=== PATIENT | female | born 1950 | race Caucasian/White ===

== ENCOUNTER 2019-09-06 16:13 | Observation (INO) | payer BC, MEDICARE, SELFPAY ==
[2019-09-06] VITALS (9 sets, daily range): BP systolic 164–215; BP diastolic 74–92; PULSE 67–80; RESP 16–20; TEMP 36.5–36.9; O2SAT 87–97; BMI 26.9
--- NOTE | ~2019-09-06 | XR_ITS ---
EXAMINATION: XR chest 2V DATE: 09/06/2019 16:41 INDICATION: Shortness of breath. TECHNIQUE: Frontal and lateral views of the chest were obtained. COMPARISON: Chest 2 views 05/25/2018, CT abdomen 04/09/2013 FINDINGS: There is chronic blunting of right posterior costophrenic angle, consistent with scarring. There is mild atelectasis in left lower lung zone. No pleural effusion or pneumothorax. The heart siz e is normal. Surgical clips in the right upper quadrant are likely from cholecystectomy. IMPRESSION: 1. Mild atelectasis in left lower lung zone and mild scarring at right lung base. Reviewed, dictated and finalized at location A. GE OVER IMPRESSION: 1. Mild atelectasis in left lower lung zone and mild scarring at right lung bas e.
--- NOTE | ~2019-09-06 | NM_ITS ---
EXAMINATION: NM stress w perf spect multi DATE: 09/07/2019 14:41 INDICATION: Chest pain. TECHNIQUE: Rest images were obtained following intravenous administration of 9.1 mCi Tc99m tetrofosmi n (Ticket Hoy). The patient performed an exercise activity. At peak exercise, 30 mCi Tc99m tetrofosmin ( Myoview) was administered intravenously, and stress images were obtained. Data was reconstructed into short axis and horizontal and vertical long axis SPECT images. Gated SPECT images were also obtained . COMPARISON: None. FINDINGS: There is no definite reversible or fixed perfusion abnormality to suggest ischemia or infar ction. There is no segmental wall motion abnormality. Left ventricular ejection fraction measures > 70%. IMPRESSION: 1. No definite ischemia or infarct. 2. Normal left ventricular ejection fraction measuring >70%. Reviewed, dictated and finalized at location A. TERM CARE PHLEBOTOMIST
--- NOTE | 2019-09-06 16:26 | ECG_ITS ---
Measurements Intervals [place] Rate: 75 P: 56 KS: 152 QRS: 34 QRSD: 98 T: 52 QT: 402 QTc: 450 Interpretive Statements SINUS RHYTHM BASELINE ARTIFACT- I, II, AVR, AVL, AVF NORMAL ECG Electronically Signed On 09-06-2019 17:00:32 BUSINESS DEVELOPMENT ASSISTANT by Santiago Ragland D.O.
[2019-09-06 16:33] LABS: Basophils Absolute Auto 0.1 K/mm3 (0.0-0.1); Basophils Percent Auto 0.6 % (0.2-1.2); Eosinophils Absolute Auto 0.3 K/mm3 (0-0.3); Eosinophils Percent Auto 3.4 % (0-4.4); Hematocrit 37.9 % (37.0-47.0); Hemoglobin 11.9 g/dL (12.0-15.0); Immature Granulocyte Absolute 0.01 K/mm3 (0.00-0.031); Immature Granulocyte Percent A 0.1 % (0-0.5); Lymphocytes Absolute Auto 1.16 K/mm3 (0.9-3.2); Mean Corpuscular HGB Conc 31.4 g/dl (32-36); Mean Corpuscular Hemoglobin 29.6 pg (26-34); Mean Corpuscular Volume 94.3 fl (80-100); Mean Platelet Volume 10.4 fl (7.4-10.4); Monocytes Absolute Auto 0.6 K/mm3 (0.1-0.6); Monocytes Percent Auto 7.1 % (2.6-8.5); Neutrophils Absolute Auto 5.7 K/mm3 (1.3-6.7); Neutrophils Percent Auto 73.8 % (45.5-73.1); Platelet Count Result 226 k/mm3 (150-375); Red Blood Count 4.02 M/mm3 (4.2-5.4); Red Cell Distribution Width 14.4 % (11.5-14.5); White Blood Count 7.7 K/mm3 (4.5-10.0)
--- NOTE | 2019-09-06 16:37 | ED.CHESTPAIN ---
HPI - Chest Pain General Chief Complaint: Chest Pain Stated Complaint: CHEST TIGHTNESS Time Seen by Provider: 09/06/19 16:38 Source: patient Mode of arrival: ambulatory Limitations: no limitations History of Present Illness HPI narrative: A 69 y/o female presents to the ED with c/o intermittent nonradiating midsternal CP for 1 week. Pt describes the pain as a tightness in character and notes that it is worse with exertion. Pt is not currently experiencing the CP in the ED bed. Pt's last episode of the pain occurred a couple hours ago and lasted approximately 15-20 minutes. Pt rates the pain as 5/10 in severity. Pt took Symbicort with no relief. Pt notes that her father has a PMHx of an [place]. She denies SOB, sweats, N/V, and a PMHx of asthma. Onset (ago): week(s) (1) Pain location: other (midsternal) Pain radiation: none Pain scale (0-10): 5 Quality: tightness Related Data Home Medications Medication Instructions Recorded Confirmed dexlansoprazole 60 mg 60 mg PO DAILY 08/04/19 09/06/19 capsule,biphase delayed release gabapentin 400 mg capsule 400 mg PO TID 08/04/19 09/06/19 labetalol 200 mg tablet 200 mg PO TID tablet 08/04/19 09/06/19 nifedipine 30 mg tablet,extended 30 mg PO DAILY 08/04/19 09/06/19 release terazosin 10 mg capsule 10 mg PO HS 08/04/19 09/06/19 cyclobenzaprine 5 mg PO HS 09/06/19 09/06/19 Allergies Allergy/AdvReac Type Severity Reaction Status Date / Time adhesive Allergy Mild Rash Verified 09/06/19 16:23 codeine Allergy Mild upset Verified 09/06/19 16:23 stomach potassium chloride Allergy Mild Hives Verified 09/06/19 16:23 Review of Systems Review of Systems: All systems reviewed & are unremarkable except as noted in HPI and below Constitutional: Constitutional: Denies chills, Denies fever(s), Denies headache(s) and Denies weakness Comments: Denies: sweats Eyes: Eyes: Denies blurry vision ENT: Denies headache(s) and Denies neck pain Cardiovascular: Cardiovascular: Reports chest pain (midsternal) and Denies dyspnea Respiratory: Respiratory: Denies cough and Denies dyspnea Gastrointestinal: Gastrointestinal: Denies abdominal pain, Denies diarrhea, Denies nausea and Denies vomiting Genitourinary: Genitourinary: Denies hematuria and Denies dysuria Musculoskeletal: Musculoskeletal: Denies back pain and Denies neck pain Neurologic: Denies headache(s) and Denies weakness [facility] Past Medical History Medical History (Updated 09/07/19 @ 16:17 by Kaykay Morales MD) Anemia Arm fracture, left Bronchitis Chronic back pain Cyst of left kidney Diverticulitis Diverticulosis GERD (gastroesophageal reflux disease) History of blood transfusion HLD (hyperlipidemia) HTN (hypertension) Hyperlipidemia Hypertension MVP (mitral valve prolapse) Neuroma Pneumonia Rectal polyp SBO (small bowel obstruction) Seasonal allergies UTI (urinary tract infection) Surgical History Surgical History H/O dilation and curettage H/O: hysterectomy History of cholecystectomy History of intestinal surgery adhesiolysis of small bowel Hx of appendectomy Hx of colonoscopy Previous back surgery 2 plates and 4 screws Family History Family History Father Family history of diabetes mellitus in first degree relative, Onset Age: 90 Patient's father is Sibling Patient's brother is in good health Patient's brother is Brain aneurysm Mother Osteoporosis Asthma Social History Social History Smoking packs per day: 1 Smoking cigarettes per day: 20.0 Years smoked: 20 Smoking pack-years: 20.00 Smoking status: Former smoker Tobacco type: cigarettes Second hand tobacco smoke exposure: No Smoking end date: 08/05/09 Alcohol intake: current Drinks per week: 2 Substance use: never Gender ident
[2019-09-06 16:50] LABS: Blood Urea Nitrogen 11 mg/dL (7-17); Calcium 9.2 mg/dL (8.4-10.2); Carbon Dioxide 35 mmol/L (22-30); Chloride 98 mmol/L (98-107); Estimated CRCL calculation 73 ml/min; Estimated Glomerular Filt Rate > 60; Glucose 102 mg/dL (65-105); Potassium 3.3 mmol/L (3.4-5.0); Sodium 142 mmol/L (137-145)
[2019-09-06 18:13] LABS: Troponin I < 0.012 ng/mL (0.000-0.034)
[2019-09-06] MEDS: ASPIRIN 81 MG CHEWABLE TABLET 324 MG PO (19:05)
[2019-09-06 20:02] LABS: D Dimer 0.34 ug/mL (<0.48)
[2019-09-06 20:07] LABS: Troponin I < 0.012 ng/mL (0.000-0.034)
--- NOTE | 2019-09-06 22:43 | ADMGEN ---
This patient, Nadia Brown, was admitted to IMU Room 210-01 at 2225 on 09/06/2019. Patient/family oriented to hospital policies and general routines including ID bracelet, bed and alarms, visiting hours, pain management, procedures, bathroom and other care routines, personal items, smoking policy, room service/diet, and visiting hours. Valuables list has been completed. Information on how to activate the Rapid Response Team has been discussed. Patient/Family are encouraged to report perceived risks to care and to ask questions if they do not understand what they are told or what they should do.
[2019-09-07] VITALS (17 sets, daily range): BP systolic 132–194; BP diastolic 61–84; PULSE 62–90; RESP 16–20; TEMP 36.3–36.8; O2SAT 94–99
--- NOTE | 2019-09-07 | ECHO_ITS ---
Patient Info Name: Nadia Brown Age: 69 years : 1950 Gender: Female Ht: 64 in Wt: 158 lbs BSA: 1.82 m2 HR: 72 bpm BP: 183 / 69 mmHg Heart Rhythm: Sinus Rhythm Technical Quality: Good Exam Date: 09/07/2019 10:48 AM Exam Location: [facility] Pulmonary Exam Room: [facility] Patient Status: Outpatient Admit Date: 09/06/2019 Staff Ordering Physician: Josh Rojas MD Children'S Book Author: Cass Mo RDCS Attending Provider: Josh Rojas MD Referring Physician: Bob ARTEAGA; Exam Type: CA echo doppler color flow Study Info Indications - sob Complete two-dimensional, color flow and Doppler transthoracic echocardiogram is performed. Summary 1. Left ventricular systolic function is normal, estimated at 60-65%. 2. Left ventricular chamber dimension is normal. 3. There is mild to moderate mitral valve regurgitation. Left Ventricle Left ventricular chamber dimension is normal. Left ventricular systolic function is normal, estimated at 60-65%. The left ventricular diastolic function is grade I diastolic dysfunction. Right Ventricle Right ventricular chamber dimension is normal. Left Atria Left atrial chamber dimension is mildly enlarged. Right Atria Right atrial chamber dimension is normal. Aortic Valve The aortic valve is trileaflet. There is mild aortic valve sclerosis. Pulmonic Valve The pulmonic valve is not well visualized. Mitral Valve The mitral valve has normal leaflets. There is mild to moderate mitral valve regurgitation. Tricuspid Valve The tricuspid valve leaflets are normal. Pericardium/Pleural The pericardium appears normal. Aorta The aortic root size at the sinus of Valsalva is normal. Left Ventricular Outflow Tract Name Value Normal LVOT 2D LVOT Diameter 2.0 cm LVOT Doppler LVOT Peak Gradient 6 mmHg LVOT Mean Gradient 3 mmHg LVOT VTI 28 cm LVOT VTI/AV VTI Ratio 1.0 LVOT Stroke Volume 89 ml LVOT CO 15.9 l/min LVOT CI 8.8 l/min/m2 Pulmonic Valve Name Value Normal PV Doppler PV Peak Gradient 3 mmHg Mitral Valve Name Value Normal MV Doppler MV Decel [place] 701 cm/s2 MV PHT 58 ms MV Area (PHT) 3.8 cm2 4.0-5.0 MV Diastolic Function MV E Peak Velocity
--- NOTE | 2019-09-07 | EST_ITS ---
Patient Info Name: Nadia Brown Age: 69 years : 1950 Gender: Female Ht: 64 in Wt: 158 lbs BSA: 1.82 m2 Exam Date: 09/07/2019 1:25 PM Exam Location: [facility] Stress Patient Status: Inpatient Admit Date: 09/06/2019 Staff Ordering Physician: Josh Rojas MD Attending Provider: Josh Rojas MD Exercise Technologist: Yoanna Jay RDCS Nurse: Ursula Duenas ANP, ACNP- Exam Type: CA stress florian w NM Study Info Indications R07.89 - Other chest pain A regadenoson stress test was performed. Summary 1. Normal sinus rhythm - normal ECG. 2. No abnormal ST/T wave changes with exercise. 3. Myocardial perfusion imaging study to be reported by the Radiology Department. Protocol: Lexiscan Stress ECG Details Stage: REST Duration (min): 1 min : 50 sec HR (bpm): 76 SBP (mmHg): 221 DBP (mmHg): 91 Stage: REST Duration (min): 6 min : 24 sec HR (bpm): 74 SBP (mmHg): 221 DBP (mmHg): 91 Stage: STAGE 1 Duration (min): 1 min : 0 sec HR (bpm): 88 SBP (mmHg): 221 DBP (mmHg): 91 Stage: RECOVERY Duration (min): 1 min : 0 sec HR (bpm): 95 SBP (mmHg): 197 DBP (mmHg): 82 Stage: RECOVERY Duration (min): 2 min : 0 sec HR (bpm): 95 SBP (mmHg): 182 DBP (mmHg): 82 Stage: RECOVERY Duration (min): 3 min : 0 sec HR (bpm): 92 SBP (mmHg): 196 DBP (mmHg): 84 Stage: RECOVERY Duration (min): 4 min : 0 sec HR (bpm): 89 SBP (mmHg): 196 DBP (mmHg): 84 Stage: RECOVERY Duration (min): 5 min : 0 sec HR (bpm): 86 SBP (mmHg): 201 DBP (mmHg): 88 Stage: RECOVERY Duration (min): 5 min : 7 sec HR (bpm): 85 SBP (mmHg): 201 DBP (mmHg): 88 Rest HR: 74 bpm Peak HR: 96 bpm Rest Sys BP: 221 mmHg Peak Sys BP: 201 mmHg Max Pred HR: 149 bpm % Max Pred HR: 64 % Target HR: 127 bpm Max RPP: 19,296 bpm*mmHg BP Response: Normal blood pressure response Termination Reason: Completed protocol Cardiac Symptoms: None Total Time: 1 min : 0 sec Rest Peng BP: 91 mmHg Peak Peng BP: 88 mmHg Total Dose: 0.4 mg Resting ECG Normal sinus rhythm - normal ECG. Stress ECG No abnormal ST/T wave changes with exercise. Arrhythmias None. Report Signatures
[2019-09-07] MEDS: ACETAMINOPHEN 325 MG TABLET 650 MG PO (00:03)
[2019-09-07] MEDS: LABETALOL HCL 100 MG TABLET 400 MG PO ×2 (00:03→08:10)
[2019-09-07 00:27] LABS: Troponin I < 0.012 ng/mL (0.000-0.034)
[2019-09-07] MEDS: ASPIRIN 81 MG CHEWABLE TABLET PO (08:10)
--- NOTE | 2019-09-07 10:08 | PM.IMHP ---
H&P: HPI History of Present Illness Chief complaint: chest pain Narrative: Date of service: 09/07/2019 Nadia Brown is a 69 year old female with a history of hypertension as well as asthma. She states that about a month ago she started have a viral illness. She did develop a cough since then that has slowly improved. She does have a history of asthma also. About a week ago she started to develop some anterior chest tightness. Chest tightness occurs with exertion and improved with rest. If she walks up and down stairs, she will become dyspneic with chest tightness or if she is grocery shopping. She has no associated nausea or diaphoresis. Her chest tightness does not radiate into her arm back neck or jaw. Symptoms will last for about 3-5 minutes and gradually subsided after rest. she denies any syncope, presyncope, paroxysmal nocturnal dyspnea, orthopnea, edema or palpitations. Review of Systems Review of Systems: All systems reviewed & are unremarkable except as noted in HPI and below Constitutional: Constitutional: Denies weakness Eyes: Eyes: Denies blurry vision ENT: Reports Normal hearing present and Denies epistaxis Cardiovascular: Cardiovascular: Reports chest pain Respiratory: Respiratory: Reports dyspnea Gastrointestinal: Gastrointestinal: Denies abdominal pain Genitourinary: Genitourinary: Denies flank pain Musculoskeletal: Musculoskeletal: Reports back pain and Denies neck pain Neurologic: Denies headache(s) Psychiatric: Psychiatric: Denies anxiety and Denies confusion Endocrine: Endocrine: Denies cold intolerance Hematologic/Lymphatic: Hematologic/Lymphatic: Denies easy bleeding Allergic/Immunologic: Allergic/Immunologic: Denies GI upset with certain foods and Denies urticaria PMFSH Past Medical History Medical History Anemia Arm fracture, left Bronchitis Chronic back pain Cyst of left kidney Diverticulitis Diverticulosis GERD (gastroesophageal reflux disease) History of blood transfusion HLD (hyperlipidemia) HTN (hypertension) MVP (mitral valve prolapse) Neuroma Pneumonia Rectal polyp SBO (small bowel obstruction) Seasonal allergies UTI (urinary tract infection) Surgical History Surgical History H/O dilation and curettage H/O: hysterectomy History of cholecystectomy History of intestinal surgery adhesiolysis of small bowel Hx of appendectomy Hx of colonoscopy Previous back surgery 2 plates and 4 screws Family History Family History Father Family history of diabetes mellitus in first degree relative, Onset Age: 90 Patient's father is Sibling Patient's brother is in good health Patient's brother is Brain aneurysm Mother Osteoporosis Asthma Social History Social History Smoking packs per day: 1 Smoking cigarettes per day: 20.0 Years smoked: 20 Smoking pack-years: 20.00 Smoking status: Former smoker Tobacco type: cigarettes Second hand tobacco smoke exposure: No Smoking end date: 08/05/09 Alcohol intake: current Drinks per week: 2 Substance use: never Gender identity (if verbalized by the patient): Female Spiritual care concerns: No Agree to blood products: Yes Meds Home Medications and Allergies Home Medications Medication Instructions Recorded Confirmed Type hydrocodone 10 mg-acetaminophen 1 tablet PO Q8H PRN #30 tablet 06/12/19 09/06/19 Rx 325 mg tablet rosuvastatin 10 mg tablet 10 mg PO DAILY #90 tablet 06/15/19 09/06/19 Rx valsartan 320 1 tablet PO DAILY #90 tablet 07/06/19 09/06/19 Rx mg-hydrochlorothiazide 25 mg tablet albuterol sulfate 90 mcg/actuation 2 puff INHALATION Q4-6H PRN #8.5 gm 08/04/19 09/06/19 Rx aerosol inhaler benzonatate 200 mg capsule 200 mg
[2019-09-07] MEDS: hydroCHLOROthiazide 25 MG TABLET PO (12:11)
[2019-09-07] MEDS: ROSUVASTATIN 10 MG TABLET PO (12:11)
[2019-09-07] MEDS: VALSARTAN 160 MG TABLET 320 MG PO (12:12)
[2019-09-07] MEDS: GABAPENTIN 400 MG CAPSULE PO ×2 (12:12→14:28)
[2019-09-07] MEDS: PANTOPRAZOLE 40 MG TABLET PO (12:12)
[2019-09-07] MEDS: NIFEdipine 30 MG TAB.ER.24 PO (12:12)
[2019-09-07] MEDS: LABETALOL HCL 100 MG TABLET 200 MG PO (14:28)
--- NOTE | 2019-09-07 15:47 | PM.DS ---
DS: Diagnosis Admitting Diagnosis Admitting Diagnosis: Chest pain Essential (primary) hypertension Discharge Diagnosis (1) Hypertension: Qualifiers: Hypertension type: essential hypertension Qualified Code(s): I10 - Essential (primary) hypertension Code(s): I10 - Essential (primary) hypertension Status: Acute Assessment and Plan: Above goal. Will restart her valsartan/hydrochlorothiazide, labetalol, terazosin (2) Chest pain: Qualifiers: Chest pain type: other chest pain Qualified Code(s): R07.89 - Other chest pain Code(s): R07.9 - Chest pain, unspecified Status: Acute Assessment and Plan: Troponin negative x3 Lexiscan stress test done due to elevated blood pressure unable to walk her on the treadmill. Stress test is negative for ischemia. Echocardiogram: Systolic function is normal. EF estimated 60-65%. LV chamber dimension is normal. Mild to moderate mitral regurgitation. (3) Dyspnea on exertion: Code(s): R06.09 - Other forms of dyspnea Status: Acute Assessment and Plan: Echo as above (4) Hyperlipidemia: Qualifiers: Hyperlipidemia type: mixed hyperlipidemia Qualified Code(s): E78.2 - Mixed hyperlipidemia Code(s): E78.5 - Hyperlipidemia, unspecified Status: Acute Assessment and Plan: On statin (5) Hypokalemia: Code(s): E87.6 - Hypokalemia Status: Acute Assessment and Plan: Potassium supplemented DS: Summary Hospital Course Reason for hospitalization: Chest pain Hospital Course: With a history of hypertension as well as asthma. She was admitted to the hospital for evaluation of chest tightness. Her blood pressure was also noted to be elevated. Troponin negative x3. No acute EKG changes. Nuclear treadmill stress test was ordered but due to her elevated blood pressure she was not able to be walked on the treadmill. Lexiscan stress test was performed which was negative for ischemia. Echocardiogram was unremarkable. Potassium was supplemented even though she listed as an allergy. She could not recall what type of reaction she may have had to potassium supplementation. She was observed after potassium supplementation without rash, difficulty swallowing, lip swelling or shortness of breath. She was discharged home in stable and pain-free condition. BMP will be done as an outpatient. She will follow up in the office. Status at Discharge Functional status at discharge: independent ambulation Time Spent with Patient Time attestation: Total time spent providing and/or coordinating discharge services: 35 minutes Time spent: Greater than 30 minutes Exam Narrative: Exam Narrative: Alert and oriented. Appears to be in no acute distress Const: General: comfortable; No confusion Orientation/consciousness: No confusion HENMT: General nose exam: Normal nares present and no epistaxis Eyes: Sclera: sclerae normal Neck: Neck: supple and no JVD Chest: Other: No reproducible chest wall pain to palpation Resp: Auscultation: wheezes Other: A few scant wheezes are heard Cardio: Rate: regular rate Rhythm: regular rhythm Skin: General skin exam: normal color and no erythema Neuro: General: No confusion Cranial nerves: Yes Normal hearing present Cognition (Neuro): normal cognition Speech: normal speech Motor exam (neuro): 5/5 motor strength present throughout Extrem: General: normal to inspection, normal exam except as noted, no edema and no pedal edema Psych: Mental Status: mental status grossly normal Affect: normal affect DS: Data Data Completed and Pending Labs on day of discharge: Labs from last 24 hours 09/06/19 09/06/19 09/06/19 23:30 19:37 16:28 WBC RBC Hgb Hct MCV MCH MCHC RDW Plt
[2019-09-07] MEDS: POTASSIUM CHLORIDE 20 MEQ TABLET 40 MEQ PO (16:06)
== END 2019-09-07 18:10 | disposition home or self-care (01) ==
LOC: ANHED 20:56 → ANHIMU 21:28
PROVIDERS: Admitting Provider Internal Medicine Cardiovascular Disease; Emergency Provider Emergency Medicine; PCP Internal Medicine; Visit Provider Internal Medicine Cardiovascular Disease
DX: R07.89 Other chest pain (principal); R06.09 Other forms of dyspnea; I10 Essential (primary) hypertension; J45.909 Unspecified asthma, uncomplicated; E78.5 Hyperlipidemia, unspecified; E87.6 Hypokalemia; I34.0 Nonrheumatic mitral (valve) insufficiency; Z87.891 Personal history of nicotine dependence
CPT/HCPCS: 36415; 71046; 78452; 80048; 84484; 85025; 85380; 93005; 93017; 93306; 99285; A9270; A9502; G0378; J0280; J2785

== ENCOUNTER 2019-10-19 12:23 | Outpatient (CLI) | payer BC, MEDICARE, SELFPAY ==
--- NOTE | 2019-10-20 11:49 | WPDPFTINT ---
PFT Interpretation PFT Interpretation: This PFT met all criteria for ATS standards and reproducibility FEV/FVC post bronchodilator 64% FEV1 49% or 0.98 liters FVC 54% or 1.52 liters TLC 92% or 4.42 Liters RV 155% RV/TLC 68% DLCO 66% or 13.5 liters when adjusted for alveolar volume but not adjusted for hemoglobin Flow volume loops showed significant expiratory coving Impression: Severe airflow obstruction with air trapping and mildly reduced diffusion capacity. This pattern is consistent with COPD. Clinical correlation is advised.
== END 2019-10-19 12:24 | disposition home or self-care (01) ==
PROVIDERS: PCP Internal Medicine; Visit Provider Physician Assistant
DX: R07.89 Other chest pain (principal); R94.2 Abnormal results of pulmonary function studies
CPT/HCPCS: 94060; 94726; 94729

== ENCOUNTER 2020-01-08 12:25 | Outpatient (CLI) | payer BC, MEDICARE, SELFPAY ==
[2020-01-08 12:54] LABS: Blood Urea Nitrogen 18 mg/dL (7-17); Calcium 9.1 mg/dL (8.4-10.2); Carbon Dioxide 33 mmol/L (22-30); Chloride 102 mmol/L (98-107); Estimated Glomerular Filt Rate > 60; Glucose 97 mg/dL (65-105); Potassium 3.6 mmol/L (3.4-5.0); Sodium 141 mmol/L (137-145)
== END 2020-01-08 12:26 | disposition home or self-care (01) ==
PROVIDERS: Anesthesiology; PCP Internal Medicine; Visit Provider Surgery Plastic and Reconstructive Surgery
DX: Z01.818 Encounter for other preprocedural examination (principal); Z79.899 Other long term (current) drug therapy
CPT/HCPCS: 36415; 80048

== ENCOUNTER 2020-01-12 00:34 | Outpatient (CLI) | payer BC, MEDICARE, SELFPAY ==
[2020-01-12 18:58] LABS: SARS-CoV-2 RNA PCR Negative
== END 2020-01-12 00:35 | disposition home or self-care (01) ==
LOC: ANHCOVIDDT 00:35
PROVIDERS: PCP Internal Medicine; Visit Provider Surgery Plastic and Reconstructive Surgery
DX: Z01.812 Encounter for preprocedural laboratory examination (principal); Z20.828 Contact with and (suspected) exposure to other viral communicable diseases
CPT/HCPCS: 87635; C9803; U0003

== ENCOUNTER 2020-01-14 01:51 | Day surgery (SDC) | payer BC, MEDICARE, SELFPAY ==
[2020-01-07 12:45] VITALS: BMI 29.2
[2020-01-14] MEDS: LACTATED RINGERS 1,000 ML 30 ML IV CONT (08:00)
[2020-01-14 08:07] VITALS: BP 156/67; PULSE 65; RESP 16; TEMP 36.6; O2SAT 94
--- NOTE | 2020-01-14 09:15 | WPDANESEPPF ---
Anes - Initial Pre Proc Eval Procedure: Operation Date: 01/14/20 09:30 Proposed Procedures p Excision of Subcutaneous Mass of Forehead - Chuckie Ford MD Date/Time: 01/14/20 09:15 Surgeon: Chuckie Ford MD Pre Op Diagnosis: subcautaneous mass forehead Patient Data Age: 69 Gender: F Height: 5 ft 4 in Weight: 77.4 kg Last Vital Signs Temp 36.6 C 01/14/20 08:07 Pulse 65 01/14/20 08:07 Resp 16 01/14/20 08:07 BP 156/67 H 01/14/20 08:07 Pulse Ox 94 01/14/20 08:07 Allergies Allergy/AdvReac Type Severity Reaction Status Date / Time adhesive Allergy Mild Rash Verified 01/14/20 07:40 codeine AdvReac Mild upset Verified 01/14/20 07:40 stomach Home Medications Medication Instructions Recorded Confirmed Type dexlansoprazole 60 mg 60 mg PO DAILY 08/04/19 01/14/20 History capsule,biphase delayed release gabapentin 400 mg capsule 400 mg PO TID 08/04/19 01/14/20 History labetalol 200 mg tablet 200 mg PO TID tablet 08/04/19 01/14/20 History nifedipine 30 mg tablet,extended 30 mg PO DAILY 08/04/19 01/14/20 History release terazosin 10 mg capsule 10 mg PO HS 08/04/19 01/14/20 History cyclobenzaprine 5 mg PO HS 09/06/19 01/14/20 History aspirin 81 mg tablet,delayed 81 mg PO DAILY 09/29/19 01/14/20 History release azelastine 137 mcg (0.1 %) nasal 2 spray NASAL Q12H #90 ml 10/23/19 01/14/20 Rx spray aerosol budesonide-formoterol HFA 160 2 puff INHALATION Q12H #10.2 gm 12/02/19 01/14/20 Rx mcg-4.5 mcg/actuation aerosol inhaler tiotropium bromide 2.5 2 puff INHALATION DAILY #4 gm 12/02/19 01/14/20 Rx mcg/actuation mist for inhalation rosuvastatin 10 mg tablet 10 mg PO DAILY #90 tablet 12/11/19 01/14/20 Rx valsartan 320 1 tablet PO DAILY #90 tablet 12/27/19 01/14/20 Rx mg-hydrochlorothiazide 25 mg tablet docusate sodium 100 mg capsule 100 mg PO BID 7 Days #14 cap 01/11/20 01/14/20 Rx hydrocodone 5 mg-acetaminophen 325 1 tablet PO Q6H PRN #15 tablet 01/11/20 01/14/20 Rx mg tablet ondansetron HCl 4 mg tablet 4 mg PO Q6H PRN #30 tablet 01/11/20 01/14/20 Rx Patient hx anesthesia problems: none Family hx anesthesia problems: none PMFSH Past Medical History Medical History Anemia Arm fracture, left Bronchitis Chronic back pain Cyst of left kidney Diverticulitis Diverticulosis GERD (gastroesophageal reflux disease) History of blood transfusion HLD (hyperlipidemia) HTN (hypertension) Hyperlipidemia Hypertension MVP (mitral valve prolapse) Neuroma Pneumonia Rectal polyp SBO (small bowel obstruction) Seasonal allergies UTI (urinary tract infection) Surgical History Surgical History H/O dilation and curettage H/O: hysterectomy History of cholecystectomy History of intestinal surgery adhesiolysis of small bowel Hx of appendectomy Hx of colonoscopy Previous back surgery 2 plates and 4 screws Family History Family History Father Family history of diabetes mellitus in first degree relative, Onset Age: 90 Patient's father is Sibling Patient's brother is in good health Patient's brother is Brain aneurysm Mother Osteoporosis Asthma Social History Social History Smoking packs per day: 1 Smoking cigarettes per day: 20.0 Years smoked: 20 Smoking pack-years: 20.00 Smoking status: Former smoker Tobacco type: cigarettes Second hand tobacco smoke exposure: No Smoking end date: 08/05/09 Alcohol intake: current Drinks per week: 2 Substance use: never Gender identity (if verbalized by the patient): Female Spiritual care concerns: No Agree to blood products: Yes Anes - Eval Final PreProcedure Day of Procedure 01/14/20 09:15 Patient weight: overweight Heart: regular rate
--- NOTE | 2020-01-14 09:44 | P.OP_ITS ---
Procedure Note - Detailed Date of procedure: 01/14/20 Pre-op diagnosis: subcautaneous mass forehead Post-op diagnosis: same Procedure performed: Excision right forehead subcutaneous mass submuscular 3.4cm. Description of procedure: Patient was marked in the preoperative holding area with her verification. She was taken to the operating room placed supine on the operating room table. Anesthesia provided by anesthesiology and prepped and d raped in a standard sterile fashion. Surgical time-out was taken. 1% lidocaine and 0.25% Marcaine with epinephrine was used anesthetize locally. A 15 blade used to make an incision over the mass. Dissection continued down with transverse skin incision, vertical splitting muscle in the direction of the fibers until the wall was identified this completely removed and sent to pathology. I closed with 4-0 Biosyn and 5 0 nylon. She tolerated well. Anesthesia: MAC Surgeon: Chuckie Ford MD Estimated blood loss (mL): 3 Drains: No Packing: No Pathology: yes (Subcutaneous mass) Complications: No immediate complications Condition: stable Disposition: PACU Findings: Appearance of a Lipoma
--- NOTE | 2020-01-14 09:44 | WPDHPUPDATE1 ---
History and Physical Update Update Date/Time: 01/14/20 09:44 History and Physical has been reviewed, including an updated exam of the patient. There are NO changes in the patient's condition. Risks, benefits, and alternatives have been discussed and questions answered. Patient agrees to proceed with procedure.
--- NOTE | 2020-01-14 09:46 | SUR.PREOP ---
Up to bathroom.
[2020-01-14] MEDS: ceFAZolin 2 GM/D5W 50 ML 2 GM/50 ML BAG IVPB (10:03)
[2020-01-14] MEDS: LIDO 1%/EPINEPHRINE 1:100,000 20 ML VIAL INFILTRATE (10:20)
[2020-01-14 10:40] VITALS: BP 119/52; PULSE 65; RESP 16; O2SAT 94
[2020-01-14 11:10] VITALS: BP 145/64; PULSE 64; RESP 16
== END 2020-01-14 11:15 | disposition home or self-care (01) ==
PROVIDERS: PCP Internal Medicine; Visit Provider Surgery Plastic and Reconstructive Surgery
PROC: (CPT 21012; principal; 2020-01-14 09:30)
DX: D17.0 Benign lipomatous neoplasm of skin and subcutaneous tissue of head, face and neck (principal); I10 Essential (primary) hypertension; E78.5 Hyperlipidemia, unspecified; D64.9 Anemia, unspecified; K21.9 Gastro-esophageal reflux disease without esophagitis; I34.1 Nonrheumatic mitral (valve) prolapse; Z79.82 Long term (current) use of aspirin; Z87.891 Personal history of nicotine dependence
CPT/HCPCS: 21012; 88304; A9270; J0690; J2250; J2704; J3010; J7120

== ENCOUNTER 2020-07-12 00:25 | Outpatient (CLI) | payer BC, MEDICARE, SELFPAY ==
[2020-07-12 18:51] LABS: SARS-CoV-2 RNA PCR Negative
== END 2020-07-12 00:26 | disposition home or self-care (01) ==
LOC: ANHCOVIDDT 00:26
PROVIDERS: PCP Internal Medicine; Visit Provider Internal Medicine Gastroenterology
DX: Z01.812 Encounter for preprocedural laboratory examination (principal); Z20.828 Contact with and (suspected) exposure to other viral communicable diseases
CPT/HCPCS: 87635; C9803; U0003

== ENCOUNTER 2020-07-15 00:40 | Day surgery (SDC) | payer BC, MEDICARE, SELFPAY ==
[2020-07-06 13:27] VITALS: BMI 29.2
[2020-07-15 06:42] VITALS: BP 178/73; PULSE 66; RESP 20; TEMP 36.2; O2SAT 97
[2020-07-15] MEDS: LACTATED RINGERS 1,000 ML 150 ML IV CONT (06:55)
--- NOTE | 2020-07-15 07:52 | WPDANESEPPF ---
Anes - Initial Pre Proc Eval Procedure: Operation Date: 07/15/20 08:00 Proposed Procedures p Screening Colonoscopy - Tito Angela MD Date/Time: 07/15/20 07:52 Surgeon: Tito Angela MD Pre Op Diagnosis: Neoplasm Screening,Hx of Colon Polyp Patient Data Age: 70 Gender: F Height: 5 ft 4 in Weight: 78.4 kg Last Vital Signs Temp 97.2 F L 07/15/20 06:42 Pulse 66 07/15/20 06:42 Resp 20 07/15/20 06:42 BP 178/73 H 07/15/20 06:42 Pulse Ox 97 07/15/20 06:42 Allergies Allergy/AdvReac Type Severity Reaction Status Date / Time adhesive Allergy Mild Rash Verified 07/15/20 06:40 codeine AdvReac Mild upset Verified 07/15/20 06:40 stomach Home Medications Medication Instructions Recorded Confirmed Type gabapentin 400 mg capsule 400 mg PO TID 08/04/19 07/06/20 History labetalol 200 mg tablet 200 mg PO TID tablet 08/04/19 07/06/20 History nifedipine 30 mg tablet,extended 30 mg PO DAILY 08/04/19 07/06/20 History release aspirin 81 mg tablet,delayed 81 mg PO DAILY 09/29/19 07/06/20 History release valsartan 320 1 tablet PO DAILY #90 tablet 12/27/19 07/06/20 Rx mg-hydrochlorothiazide 25 mg tablet terazosin 10 mg capsule 10 mg PO HS #90 cap 05/30/20 07/06/20 Rx fluticasone furoate-vilanterol 25 - 100 ea INHALATION DAILY 07/06/20 07/06/20 History [Breo Ellipta] oxybutynin chloride 10 mg PO DAILY 07/06/20 07/06/20 History rosuvastatin 10 mg tablet 10 mg PO DAILY #90 tablet 07/11/20 Rx Patient hx anesthesia problems: none Family hx anesthesia problems: none PMFSH Past Medical History Medical History Anemia Arm fracture, left 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 Bronchitis Chronic back pain Cyst of left kidney Diverticulitis Diverticulosis GERD (gastroesophageal reflux disease) History of blood transfusion HLD (hyperlipidemia) HTN (hypertension) Hyperlipidemia Hypertension MVP (mitral valve prolapse) Neuroma Pneumonia Rectal polyp SBO (small bowel obstruction) Seasonal allergies UTI (urinary tract infection) Surgical History Surgical History H/O dilation and curettage H/O: hysterectomy History of cholecystectomy History of intestinal surgery adhesiolysis of small bowel Hx of appendectomy Hx of colonoscopy Previous back surgery 2 plates and 4 screws Family History Family History Father Family history of diabetes mellitus in first degree relative, Onset Age: 90 Patient's father is Sibling Patient's brother is in good health Patient's brother is Brain aneurysm Mother Osteoporosis Asthma Social History Social History Smoking packs per day: 1 Smoking cigarettes per day: 20.0 Years smoked: 20 Smoking pack-years: 20.00 Smoking status: Former smoker Tobacco type: cigarettes Second hand tobacco smoke exposure: No Smoking end date: 08/05/09 Alcohol intake: current Drinks per week: 2 Substance use: never Substance use type: does not use Living arrangements: with family Gender identity (if verbalized by the patient): Female Spiritual care concerns: No Agree to blood products: Yes Anes - Eval Final PreProcedure Day of Procedure 07/15/20 07:52 Patient weight: obese Heart: regular rate and rhythm Lungs: clear to auscultation Airway: Mallampati scale class III Neurological: alert and oriented Last oral intake: >/= 8 hours ASA classification: III Emergent: no Anesthetic plan: proceed Anesthesia type and monitoring: general GIVS and standard monitoring Informed Consent: The patient's anesthetic plan and its attendant risks and benefits were discussed with the patient/family/POA. Questions were solicited and answers provided to the satisfaction of the patient/family/P
--- NOTE | 2020-07-15 08:04 | WPDGICN ---
Assessment and Plan Assessment and plan (1) History of colon polyps: Code(s): Z86.010 - Personal history of colonic polyps Status: Acute Assessment and Plan: Patient has a history of colon polyps. Plan is for surveillance colonoscopy at this time. GI Consult Note Consult date/time: 07/15/20 08:04 HPI: Nadia Brown is a 70 year old female Presents for screening colonoscopy. Patient has a distant history of colon polyps. Patient reports that her current weight appetite bowel movements are normal. She denies abdominal pain. She has had no bleeding. Family history is noncontributory. Patient's last exam 5 years ago was unremarkable. Patient presents today for surveillance colonoscopy. 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 Bronchitis Chronic back pain Cyst of left kidney Diverticulitis Diverticulosis GERD (gastroesophageal reflux disease) History of blood transfusion HLD (hyperlipidemia) HTN (hypertension) Hyperlipidemia Hypertension MVP (mitral valve prolapse) Neuroma Pneumonia Rectal polyp SBO (small bowel obstruction) Seasonal allergies UTI (urinary tract infection) Surgical History Surgical History H/O dilation and curettage H/O: hysterectomy History of cholecystectomy History of intestinal surgery adhesiolysis of small bowel Hx of appendectomy Hx of colonoscopy Previous back surgery 2 plates and 4 screws Family History Family History Father Family history of diabetes mellitus in first degree relative, Onset Age: 90 Patient's father is Sibling Patient's brother is in good health Patient's brother is Brain aneurysm Mother Osteoporosis Asthma Social History Social History Smoking packs per day: 1 Smoking cigarettes per day: 20.0 Years smoked: 20 Smoking pack-years: 20.00 Smoking status: Former smoker Tobacco type: cigarettes Second hand tobacco smoke exposure: No Smoking end date: 08/05/09 Alcohol intake: current Drinks per week: 2 Substance use: never Substance use type: does not use Living arrangements: with family Gender identity (if verbalized by the patient): Female Spiritual care concerns: No Agree to blood products: Yes Meds Home Medications and Allergies Home Medications Medication Instructions Recorded Confirmed Type gabapentin 400 mg capsule 400 mg PO TID 08/04/19 07/06/20 History labetalol 200 mg tablet 200 mg PO TID tablet 08/04/19 07/06/20 History nifedipine 30 mg tablet,extended 30 mg PO DAILY 08/04/19 07/06/20 History release aspirin 81 mg tablet,delayed 81 mg PO DAILY 09/29/19 07/06/20 History release valsartan 320 1 tablet PO DAILY #90 tablet 12/27/19 07/06/20 Rx mg-hydrochlorothiazide 25 mg tablet terazosin 10 mg capsule 10 mg PO HS #90 cap 05/30/20 07/06/20 Rx fluticasone furoate-vilanterol 25 - 100 ea INHALATION DAILY 07/06/20 07/06/20 History [Breo Ellipta] oxybutynin chloride 10 mg PO DAILY 07/06/20 07/06/20 History rosuvastatin 10 mg tablet 10 mg PO DAILY #90 tablet 07/11/20 Rx Allergies Allergy/AdvReac Type Severity Reaction Status Date / Time adhesive Allergy Mild Rash Verified 07/15/20 06:40 codeine AdvReac Mild upset Verified 07/15/20 06:40 stomach Vital Signs Vital Signs - 24 hr 07/15/20 06:42 Temperature 97.2 F L Pulse Rate 66 Respiratory Rate 20 Blood Pressure 178/73 H Pulse Oximetry 97 Exam Narrative: Exam Narrative: Physical exam reveals patient to be alert. Vital signs stable. HEENT exam unremarkable. Lungs are clear to auscultation and percussion. Heart is without murmur or extra sounds. Abdominal exam bowel sounds are
[2020-07-15 08:33] VITALS: BP 132/60; PULSE 68; RESP 19; O2SAT 96
[2020-07-15 08:43] VITALS: BP 131/66; PULSE 62; O2SAT 96
[2020-07-15 08:53] VITALS: BP 131/64; PULSE 56; RESP 16; O2SAT 96
== END 2020-07-15 09:07 | disposition home or self-care (01) ==
PROVIDERS: PCP Internal Medicine; Visit Provider Internal Medicine Gastroenterology
PROC: 0DJD8ZZ Inspection of Lower Intestinal Tract, Via Natural or Artificial Opening Endoscopic (ICD-10-PCS; CPT 45378; principal; 2020-07-15 08:00)
DX: Z12.11 Encounter for screening for malignant neoplasm of colon (principal); D12.2 Benign neoplasm of ascending colon; K63.5 Polyp of colon; I10 Essential (primary) hypertension; E78.5 Hyperlipidemia, unspecified; I34.1 Nonrheumatic mitral (valve) prolapse; D64.9 Anemia, unspecified; K21.9 Gastro-esophageal reflux disease without esophagitis; Z87.891 Personal history of nicotine dependence; Z79.82 Long term (current) use of aspirin; K64.8 Other hemorrhoids; K57.30 Diverticulosis of large intestine without perforation or abscess without bleeding; E66.9 Obesity, unspecified; Z68.29 Body mass index [BMI] 29.0-29.9, adult
CPT/HCPCS: 45385; 88305; J2704; J7120

== ENCOUNTER 2020-08-17 10:53 | Outpatient (CLI) | payer BC, MEDICARE, SELFPAY ==
--- NOTE | ~2020-08-17 | XR_ITS ---
EXAMINATION: XR chest 2V DATE: 08/17/2020 11:14 INDICATION: Shortness of breath TECHNIQUE: PA and lateral views of the chest are obtained. COMPARISON: 09/06/2019 FINDINGS: The lungs are free of acute opacities. There is no pleural effusion or pneumothorax. The ca rdiomediastinal silhouette is normal. There is mild thoracic spondylosis. IMPRESSION: 1. No acute cardiopulmonary abnormality. Reviewed, dictated and finalized at location A. [employer]
== END 2020-08-17 10:54 | disposition home or self-care (01) ==
LOC: ANHIMG 10:58
PROVIDERS: PCP Internal Medicine; Visit Provider Nurse Practitioner Family
DX: R06.02 Shortness of breath (principal)
CPT/HCPCS: 71046

== ENCOUNTER → 2020-08-24 10:56 | Outpatient (CLI) | payer BC, MEDICARE, SELFPAY ==
--- NOTE | ~2020-08-24 | DEXA_ITS ---
Bone Density Report Name: Nadia Brown Age: 70 Sex: Female Ethnicity: White Date of : 1950 Indication: postmenopausal; screening for osteoporosis; height loss; hysterectomy; Referring Provider: Alley Berger Study: Bone densitometry was performed. Exam Date: August 24, 2020 Accession number: [id number] Bone Density: Region BMD T-score Z-score Classification AP Spine (L1-L4) 1.188 1.3 3.5 Normal Femoral Neck (Left) 0.893 0.4 2.3 Normal Total Hip (Left) 1.029 0.7 2.3 Normal Femoral Neck (Right) 0.769 -0.7 1.2 Normal Total Hip (Right) 0.931 -0.1 1.5 Normal Total Hip Mean 0.980 0.3 1.9 Normal World Health Organization criteria for BMD impression classify patients as: Normal (T-score at or above -1.0), Osteopenia (T-score between -1.0 and -2.5), or Osteoporosis (T-score at or below -2.5). 10-year Fracture Risk: FRAX not reported because: All T-scores for Spine Total, Hip Total, Femoral Neck at or above -1.0 Previous Exams: Region Exam Age BMD T-score BMD Change BMD Change Date g/cm2 vs Baseline vs Previous AP Spine(L1-L4) 08/24/2020 70 1.188 1.3 -0.014 -0.014 07/20/2002 52 1.202 1.4 Total Hip(Left) 08/24/2020 70 1.029 0.7 -0.010 -0.025 05/26/2013 63 1.054 0.9 0.014 0.014 07/20/2002 52 1.040 0.8 Total Hip(Right) 08/24/2020 70 0.931 -0.1 -0.042 -0.056* 05/26/2013 63 0.986 0.4 0.014 0.014 07/20/2002 52 0.973 0.3 *Denotes significance at 95% confidence level, LSC for AP Spine = 0.022 g/cm2, LSC for Total Hip = 0.027 g/cm2 Clinical Information Provided by Patient: Has the following medical conditions: Hysterectomy Patient maximum height was 64 Menopause Age: 27 No regular weight bearing exercise Does not regularly consume dairy products Onset of menses at age 12 Number of children 1 Impression: The patient has normal bone mass. The BMD for the Total Hip(Right) decreased, changing by -0.056 since the last DXA exam. Discussion: BONE DENSITY IS ABOVE THE MINIMUM DESIRABLE LEVEL AT ALL SKELETAL SITES TESTED. This patient?s bone mineral density is above the minimum desirable level (T-score -1.0 or better) at all sites measured. The patient should follow a healthful lifestyle (good nutrition with adequate calcium and vitamin D, and appropriate weight-bearing exercise). Follow-Up: Consider repeating this study
== END ==
PROVIDERS: PCP Internal Medicine; Visit Provider Obstetrics & Gynecology
DX: N95.1 Menopausal and female climacteric states (principal)
CPT/HCPCS: 77080

== ENCOUNTER 2020-12-20 08:34 | Outpatient (CLI) | payer BC, MEDICARE, SELFPAY ==
--- NOTE | ~2020-12-20 | CT_ITS ---
EXAMINATION: CT abdomen pelvis w con EXAM DATE: 12/20/2020 09:17 INDICATION: Epigastric pain, intermittent for 6 months . TECHNIQUE: Spiral CT of the abdomen and pelvis was performed following intravenous injection of 100 m L Omnipaque 350. Axial, coronal and sagittal images of the abdomen and pelvis were reviewed. The do se-length product (DLP) for this examination was 737.47 mGy-cm. The exposure was tailored according to patient size (auto mA exposure control), and iterative reconstruction (ASIR) was used as additiona l dose reduction technique. Comparison is made to prior examination from 04/09/2013. FINDINGS: There is hepatic steatosis without suspicious focal lesion identified. Spleen, adrenal glan ds, pancreas are unremarkable. There are cholecystectomy clips. Portal and splenic veins are patent . Kidneys enhance symmetrically. There is no hydronephrosis. There is a large left renal cysts, up to 9 cm. The uterus is not identified and has likely been surgically resected. The bladder is unrem arkable. There is no retroperitoneal or pelvic lymphadenopathy. There is mild to moderate scattere d arteriosclerotic disease. The appendix is not positively visualized. There is no pericecal inflammatory change to suggest appe ndicitis. There is mild sigmoid colonic diverticulosis. There is no adjacent inflammatory change to suggest diverticulitis. The stomach and small bowel are unremarkable. There is expected amount of co lonic stool. No free intraperitoneal gas. Mild basilar emphysema. Right basilar subsegmental atel ectasis. The lung bases are unremarkable. There are no osteoblastic or osteolytic lesions identifie d. L5-S1 lumbar fusion. IMPRESSION: 1. No acute intra-abdominal findings. 2. Mild sigmoid diverticulosis. 3. Hepatic steatosis. 4. Mild emphysema. 5. Subsegmental atelectasis. Reviewed, dictated and finalized at location A.
[2020-12-20 09:04] LABS: Estimated Glomerular Filt Rate > 60
== END 2020-12-20 08:35 | disposition home or self-care (01) ==
PROVIDERS: PCP Internal Medicine; Visit Provider Internal Medicine
DX: R10.9 Unspecified abdominal pain (principal); K76.0 Fatty (change of) liver, not elsewhere classified; K57.30 Diverticulosis of large intestine without perforation or abscess without bleeding
CPT/HCPCS: 74177; Q9967

== ENCOUNTER → 2021-01-23 12:55 | Outpatient (CLI) | payer BC, MEDICARE, SELFPAY ==
--- NOTE | ~2021-01-23 | CT_ITS ---
EXAMINATION: CT lumbar spine wo con DATE: 01/23/2021 13:11 INDICATION: Lumbar radiculopathy. TECHNIQUE: Computed tomography (CT) of the lumbar spine was performed without intravenous contrast. A utomated exposure control and iterative reconstruction technique were employed. The dose-length produ ct was 781.98 mGy-cm. COMPARISON: CT lumbar spine 06/22/2019 FINDINGS: There is 4 degrees levocurvature of lumbar spine. Vertebral body heights are normal. There are changes of posterior fusion procedure at L5-S1 with pedicle screws. There is mildly decreased dis c height at L2-L3, L3-L4, and L4-L5. There is interbody fusion at L5-S1. Partially visualized is a la rge cyst of left kidney. The following disc levels are specifically discussed: L1-L2: The disc does not extend beyond the endplate margin. There is severe right and mild left facet joint osteoarthritis. There is no neural foraminal stenosis. There is no central canal stenosis. L2-L3: The disc is bulging. There is moderate right and severe left facet joint osteoarthritis. There is mild bilateral neural foraminal stenosis. There is mild central canal stenosis. L3-L4: The disc is bulging. There is moderate right and severe left facet joint osteoarthritis. There is mild bilateral neural foraminal stenosis. There is mild central canal stenosis. L4-L5: The disc is bulging. There is severe bilateral facet joint osteoarthritis. There is moderate b ilateral neural foraminal stenosis. There is mild central canal stenosis. L5-S1: The disc does not extend beyond the endplate margin. There is no facet joint hypertrophy. Ther e is no neural foraminal stenosis. There is no central canal stenosis. IMPRESSION: 1. Moderate lumbar spondylosis, stable from 06/22/19. 2. Posterior fusion procedure at L5-S1. Reviewed, dictated and finalized at location A.
== END ==
PROVIDERS: Visit Provider Nurse Practitioner Adult Health
DX: M47.26 Other spondylosis with radiculopathy, lumbar region (principal); Z98.1 Arthrodesis status
CPT/HCPCS: 72131

== ENCOUNTER 2021-03-09 12:15 | Emergency (ER) | payer BC, MEDICARE, SELFPAY ==
[2021-03-09 12:27] VITALS: BP 120/65; PULSE 64; RESP 18; TEMP 36.4; O2SAT 95
--- NOTE | 2021-03-09 12:51 | ED.EYEPROB ---
HPI - Eye Problem General Chief complaint: Eye Problems Stated complaint: right eye pain Source: patient and RN notes reviewed History of Present Illness HPI Narrative: This is a 70-year-old female that presented to urgent care with complaints of the right eye pain. According to patient approxi-1 week ago she developed pain and redness to her right upper eyelid. Patient notes that she put Neosporin to the site. She denies any visual disturbance she did note that occasionally in the morning and she is has a little discharge in the corner of her eyes. The patient denies SOB, CP, palpitation, extremity numbness, lightheadedness, dizziness, constipation, diarrhea, chills, or fever. Periorbital does not have any deformity, upper eyelid is tender to touch MD chief complaint: eye pain Related Data Home Medications Medication Instructions Recorded Confirmed aspirin [Adult Low Dose Aspirin] 81 mg PO DAILY 03/09/21 03/09/21 dexlansoprazole [Dexilant] 60 mg PO DAILY 03/09/21 03/09/21 fluticasone propionate 1 spray INTRANASAL DIRECTED 03/09/21 03/09/21 gabapentin 600 mg PO TID 03/09/21 03/09/21 labetalol 400 mg PO TID 03/09/21 03/09/21 nifedipine [Nifedical XL] 30 mg PO DAILY 03/09/21 03/09/21 oxybutynin chloride 10 mg PO DAILY 03/09/21 03/09/21 rosuvastatin 10 mg PO DAILY 03/09/21 03/09/21 terazosin 10 mg PO HS 03/09/21 03/09/21 umeclidinium-vilanterol [Anoro 1 inh INHALATION DAILY 03/09/21 03/09/21 Ellipta] valsartan-hydrochlorothiazide 1 tablet PO DAILY 03/09/21 03/09/21 Allergies Allergy/AdvReac Type Severity Reaction Status Date / Time adhesive Allergy Mild Rash Verified 03/09/21 12:42 codeine AdvReac Mild upset Verified 03/09/21 12:42 stomach Review of Systems Review of Systems: A 14 organ system Review of Systems was performed and pertinent positives included in the HPI, otherwise remaining ROS is negative. 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 Bronchitis Chronic back pain Cyst of left kidney Diverticulitis Diverticulosis GERD (gastroesophageal reflux disease) History of blood transfusion HLD (hyperlipidemia) HTN (hypertension) Hyperlipidemia Hypertension MVP (mitral valve prolapse) Neuroma Pneumonia Rectal polyp SBO (small bowel obstruction) Seasonal allergies UTI (urinary tract infection) Surgical History Surgical History H/O dilation and curettage H/O: hysterectomy History of cholecystectomy History of intestinal surgery adhesiolysis of small bowel Hx of appendectomy Hx of colonoscopy Previous back surgery 2 plates and 4 screws Family History Family History Father Family history of diabetes mellitus in first degree relative, Onset Age: 90 Patient's father is Sibling Patient's brother is in good health Patient's brother is Brain aneurysm Mother Osteoporosis Asthma Social History Social History Smoking packs per day: 1 Smoking cigarettes per day: 20.0 Years smoked: 20 Smoking pack-years: 20.00 Smoking status: Former smoker Tobacco type: cigarettes Second hand tobacco smoke exposure: No Smoking end date: 08/05/09 Alcohol intake: current Drinks per week: 2 Substance use: never Substance use type: does not use Gender identity (if verbalized by the patient): Female Spiritual care concerns: No Agree to blood products: Yes Exam Narrative: GENERAL: This is a well-nourished, well-developed patient, in no apparent distress. HEAD: normocephalic, atraumatic. EYES: PERRL. Sclera clear/white. Vision is grossly intact. Inflammation and small pustule to the left upper eyelid EARS: External ears normal, auditory canals clear and witho
== END 2021-03-09 12:56 | disposition home or self-care (01) ==
PROVIDERS: Emergency Provider Nurse Practitioner
DX: H00.014 Hordeolum externum left upper eyelid (principal); Z87.891 Personal history of nicotine dependence; K21.9 Gastro-esophageal reflux disease without esophagitis; E78.5 Hyperlipidemia, unspecified; I10 Essential (primary) hypertension; I34.1 Nonrheumatic mitral (valve) prolapse; Z79.82 Long term (current) use of aspirin
CPT/HCPCS: 99213; G0463

== ENCOUNTER 2021-03-19 18:49 | Emergency (ER) | payer BC, MEDICARE, SELFPAY ==
--- NOTE | ~2021-03-19 | XR_ITS ---
EXAMINATION: XR chest 2V DATE: 03/19/2021 19:19 INDICATION: COPD presenting with shortness of breath and hypertension TECHNIQUE: PA and lateral views of the chest were obtained. COMPARISON: Chest radiograph dated 08/17/2020 FINDINGS: Chronic mild pleural-parenchymal scarring along the lateral margin of the right middle lobe better ap preciated on CT dated 12/20/2020. No new airspace opacities, pulmonary edema, pleural effusion or pneu mothorax. Cardiomegaly. Cholecystectomy clips in right upper quadrant. IMPRESSION: 1. Stable appearance of chronic mild pleural parenchymal scarring at the periphery of the right middl e lobe. No acute cardiopulmonary disease. 2. Cardiomegaly. Reviewed, dictated and finalized at location A. IMPRESSION: 1. Stable appearance of chronic mild pleural parenchymal scarring at the periph gabriel of the right middle lobe. No acute cardiopulmonary disease. 2. Cardiomegaly.
--- NOTE | 2021-03-19 18:50 | ECG_ITS ---
Measurements Intervals [place] Rate: 66 P: 53 MT: 164 QRS: 24 QRSD: 95 T: 52 QT: 419 QTc: 439 Interpretive Statements SINUS RHYTHM INCOMPLETE RIGHT BUNDLE BRANCH BLOCK DELAYED PRECORDIAL R/S TRANSITION BASELINE ARTIFACT- I, II, AVR, AVL, AVF, V3-V6 BORDERLINE ECG Electronically Signed On 03-20-2021 6:10:17 CDT by Santiago Ragland D.O.
[2021-03-19 18:58] VITALS: BP 220/76; PULSE 70; RESP 18; TEMP 36.2; O2SAT 96
[2021-03-19 19:09] LABS: Basophils Percent Auto 0.5 % (0.2-1.2); Eosinophils Absolute Auto 0.3 K/mm3 (0-0.3); Hematocrit 40.6 % (37.0-47.0); Immature Granulocyte Absolute 0.03 K/mm3 (0.00-0.031); Immature Granulocyte Percent A 0.4 % (0-0.5); Lymphocytes Absolute Auto 1.43 K/mm3 (0.9-3.2); Lymphocytes Percent Auto 17.4 % (18.3-44.2); Mean Corpuscular Hemoglobin 28.8 pg (26-34); Mean Corpuscular Volume 89.8 fl (80-100); Monocytes Absolute Auto 0.5 K/mm3 (0.1-0.6); Monocytes Percent Auto 5.5 % (2.6-8.5); Neutrophils Percent Auto 73.2 % (45.5-73.1); Platelet Count Result 215 k/mm3 (150-375); Red Blood Count 4.52 M/mm3 (4.2-5.4); Red Cell Distribution Width 14.7 % (11.5-14.5); White Blood Count 8.2 K/mm3 (4.5-10.0)
[2021-03-19 19:38] LABS: Blood Urea Nitrogen 18 mg/dL (7-17); Calcium 9.7 mg/dL (8.4-10.2); Carbon Dioxide 33 mmol/L (22-30); Estimated CRCL calculation 74 ml/min; Estimated Glomerular Filt Rate > 60; Glucose 107 mg/dL (65-110)
[2021-03-19 20:25] LABS: Anion Gap 3 mmol/L (8-16); Chloride 104 mmol/L (98-107); Potassium 3.5 mmol/L (3.4-5.0); Sodium 140 mmol/L (137-145)
--- NOTE | 2021-03-19 23:07 | PC.NURSE ---
HR of 145 noted on arrival via pulse ox finger sensor. EKG confirms rate of 140, afib. ED MD Ocasio notified.
[2021-03-20] MEDS: ALBUTEROL SULFATE NEB 2.5 MG/0.5 ML INH 5 MG INHALATION (00:21)
[2021-03-20] MEDS: IPRATROPIUM BR 0.02% INH SOLN 0.5 MG/2.5 ML VIAL INHALATION (00:21)
[2021-03-20] MEDS: methylPREDNISolone SOD SUCC 125 MG VIAL IV PUSH (00:25)
[2021-03-20 01:48] LABS: Alanine Aminotransferase 42 U/L (4-35); Albumin Level 4.8 g/dL (3.5-5.1); Alkaline Phosphatase 109 U/L (38-126); Aspartate Amino Transferase 30 U/L (14-36); Bilirubin,Total 0.5 mg/dL (0.2-1.3); Magnesium 2.1 mg/dL (1.6-2.3)
--- NOTE | 2021-03-20 01:49 | ED.GENADULT ---
HPI - General Adult General Chief complaint: Shortness of Breath/Dyspnea Stated complaint: sob/HTN Time Seen by Provider: 03/19/21 23:53 History of Present Illness HPI narrative: Patient is 70-year-old female presents the emergency department chief complaint of shortness of breath. The patient reports she has history of COPD reports that she has been feeling short of breath patient reports also she noticed her blood pressure was little elevated as well with this. The patient denies fever denies productive cough reports that she not really been wheezing much this feels as though she cannot get a good deep breath. Patient reports she has been vaccinated for Covid denies fever. Related Data Home Medications Medication Instructions Recorded Confirmed aspirin [Adult Low Dose Aspirin] 81 mg PO DAILY 03/09/21 03/14/21 dexlansoprazole [Dexilant] 60 mg PO DAILY 03/09/21 03/14/21 fluticasone propionate 1 spray INTRANASAL DIRECTED 03/09/21 03/14/21 gabapentin 600 mg PO TID 03/09/21 03/14/21 labetalol 400 mg PO TID 03/09/21 03/14/21 nifedipine [Nifedical XL] 30 mg PO DAILY 03/09/21 03/14/21 oxybutynin chloride 10 mg PO DAILY 03/09/21 03/14/21 rosuvastatin 10 mg PO DAILY 03/09/21 03/14/21 terazosin 10 mg PO HS 03/09/21 03/14/21 umeclidinium-vilanterol [Anoro 1 inh INHALATION DAILY 03/09/21 03/14/21 Ellipta] valsartan-hydrochlorothiazide 1 tablet PO DAILY 03/09/21 03/14/21 Allergies Allergy/AdvReac Type Severity Reaction Status Date / Time adhesive Allergy Mild Rash Verified 03/14/21 09:30 codeine AdvReac Mild upset Verified 03/14/21 09:30 stomach Review of Systems Review of Systems: A 10 system review of systems was completed on the patient and is negative except for what is stated in the HPI. Nursing and ancillary documentation was reviewed. 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 Bronchitis Chronic back pain Cyst of left kidney Diverticulitis Diverticulosis GERD (gastroesophageal reflux disease) History of blood transfusion HLD (hyperlipidemia) HTN (hypertension) Hyperlipidemia Hypertension MVP (mitral valve prolapse) Neuroma Pneumonia Rectal polyp SBO (small bowel obstruction) Seasonal allergies UTI (urinary tract infection) Surgical History Surgical History H/O dilation and curettage H/O: hysterectomy History of cholecystectomy History of intestinal surgery adhesiolysis of small bowel Hx of appendectomy Hx of colonoscopy Previous back surgery 2 plates and 4 screws Family History Family History Father Family history of diabetes mellitus in first degree relative, Onset Age: 90 Patient's father is Sibling Patient's brother is in good health Patient's brother is Brain aneurysm Mother Osteoporosis Asthma Social History Social History Smoking packs per day: 1 Smoking cigarettes per day: 20.0 Years smoked: 20 Smoking pack-years: 20.00 Smoking status: Former smoker Tobacco type: cigarettes Second hand tobacco smoke exposure: No Smoking end date: 08/05/09 Alcohol intake: current Drinks per week: 2 Substance use: never Substance use type: does not use Gender identity (if verbalized by the patient): Female Spiritual care concerns: No Agree to blood products: Yes Exam Narrative: GENERAL: Well-appearing, well-nourished, and in no acute distress. HEAD: Normocephalic, atraumatic. EYES: PERRLA and EOMI. ENT: Nares clear, no rhinorrhea or epistaxis. Mucous membranes moist. NECK: Supple. CHEST: Clear to auscultation. No respiratory distress. HEART: Regular rate and rhythm. No murmur heard. Normal peripheral pulses.
[2021-03-20 02:00] LABS: NT Pro B Type Natriuretic Pept 658 pg/mL (5-100); Troponin I < 0.012 ng/mL (0.000-0.034)
[2021-03-20 02:08] LABS: INR 0.9; Prothrombin Time 11.9 Seconds (11.1-14.7)
[2021-03-20 02:09] LABS: Partial Thromboplastin Time 29.2 SECONDS (22.3-36.8)
[2021-03-20 02:17] LABS: Lactic Acid Reflex 0.9 mmol/L (0.7-2.1)
[2021-03-20 02:19] LABS: Troponin I < 0.012 ng/mL (0.000-0.034)
[2021-03-20 02:24] VITALS: BP 199/95; PULSE 60; RESP 16; O2SAT 93
[2021-03-20 02:51] VITALS: PULSE 72
[2021-03-20] MEDS: LABETALOL HCL 100 MG TABLET 200 MG PO (02:51)
[2021-03-20] MEDS: TERAZOSIN HCL 5 MG CAPSULE 10 MG PO (02:51)
[2021-03-20 04:55] VITALS: BP 188/89; PULSE 73; RESP 20; O2SAT 99
== END 2021-03-20 07:14 | disposition home or self-care (01) ==
PROVIDERS: Emergency Medicine; Emergency Provider Emergency Medicine; PCP Internal Medicine
DX: J44.1 Chronic obstructive pulmonary disease with (acute) exacerbation (principal); I10 Essential (primary) hypertension; E78.5 Hyperlipidemia, unspecified; Z87.891 Personal history of nicotine dependence; Z79.82 Long term (current) use of aspirin
CPT/HCPCS: 36415; 71046; 80048; 80076; 83605; 83735; 83880; 84484; 85025; 85610; 85730; 93005; 94640; 96374; 99284; A9270; J2930

== ENCOUNTER 2021-04-04 09:42 | Outpatient (CLI) | payer BC, MEDICARE, SELFPAY ==
--- NOTE | ~2021-04-04 | CT_ITS ---
EXAMINATION: CT lung screening DATE: 04/04/2021 09:59 INDICATION: Z87.891 - Personal history of nicotine dependence TECHNIQUE: Computed tomography (CT) of the chest was performed without intravenous contrast. Addition al 3D reconstructions utilizing coronal maximum intensity projection (MIP) were performed. Automated exposure control and iterative reconstruction technique were employed. The dose-length product was 93 .40 mGy-cm. COMPARISON: CT abdomen dated 12/20/2020 04/09/2013 FINDINGS: A few small calcified nodules in the right lower lobe consistent with old granulomatous disease. Ther e are few additional scattered noncalcified pulmonary nodules, the largest measure 7 mm at the latera l costophrenic angle of the left lower lobe, 6 mm in the right middle lobe and 4 mm in the left lower lobe and are unchanged since the most recent prior study. There are multiple additional <4 mm nodule s in the bilateral upper lobes. There are scattered regions of peripheral chronic pleural parenchymal scarring at the bilateral lung bases which are unchanged since 2013. No pulmonary edema or pleural e ffusion. Mild cardiomegaly. Atherosclerotic coronary artery calcification. Aortic valve calcification . No pericardial effusion. Thoracic aorta is normal in caliber. No pathologically enlarged thoracic l ymphadenopathy. Diffuse hepatic steatosis. Cholecystectomy clips at the gallbladder fossa. Mild thora cic spondylosis. IMPRESSION: 1. Lung-RADS category 3: Probably benign. Further evaluation is recommended with noncontrast low-dose chest CT in 6 months. Reviewed, dictated and finalized at location A. IMPRESSION: 1. Lung-RADS category 3: Probably benign. Further evaluation is recommended wit h noncontrast low-dose chest CT in 6 months.
== END 2021-04-04 09:43 | disposition home or self-care (01) ==
PROVIDERS: PCP Internal Medicine; Visit Provider Nurse Practitioner Family
DX: Z12.2 Encounter for screening for malignant neoplasm of respiratory organs (principal); Z87.891 Personal history of nicotine dependence
CPT/HCPCS: 71271

== ENCOUNTER 2021-09-28 09:32 | Outpatient (CLI) | payer OTHER, SELFPAY ==
--- NOTE | ~2021-09-28 | CT_ITS ---
EXAMINATION: CT diagnostic chest wo con DATE: 09/28/2021 09:49 INDICATION: Personal history of the nicotine abuse. TECHNIQUE: Computed tomography (CT) of the chest was performed without intravenous contrast. The dose -length product was 230.65 mGy-cm. Automated exposure control and iterative reconstruction technique were employed. COMPARISON: CT dated 04/04/2021 FINDINGS: No thoracic lymphadenopathy. Heart size normal. No significant pericardial effusion. Small loculated right pleural effusion inferiorly. There is atherosclerosis of the aorta and coronary arter ies. There are cholecystectomy clips. There is scarring in the right upper lobe and left upper lobe a nteriorly. There is a 6 mm right middle lobe nodule, image 82, unchanged. Stable left lower lobe nodu les, largest at the costophrenic recess, most likely atelectasis/scarring. There are scattered areas of pleural thickening in the right thorax. No endobronchial lesions. No evidence for aortic aneurysm. Mild thoracic spondylosis. IMPRESSION: 1. Stable bilateral pulmonary nodules and scattered areas of pleural thickening, most likely benign. Follow-up low dose CT chest in 12 months recommended. Reviewed, dictated and finalized at location B. CTOR OF PRIMARY IMPRESSION: 1. Stable bilateral pulmonary nodules and scattered areas of pleural thickening , most likely benign. Follow-up low dose CT chest in 12 months recommended.
== END 2021-09-28 09:33 | disposition home or self-care (01) ==
LOC: ANHIMG 09:37
PROVIDERS: PCP Internal Medicine; Visit Provider Nurse Practitioner Family
DX: R91.8 Other nonspecific abnormal finding of lung field (principal)
CPT/HCPCS: 71250

== ENCOUNTER → 2021-12-18 09:42 | Outpatient (CLI) | payer OTHER, SELFPAY ==
--- NOTE | ~2021-12-18 | CT_ITS ---
EXAMINATION: CT lumbar spine wo con DATE: 12/18/2021 09:58 INDICATION: Lumbar radiculopathy. Low back pain and right leg pain. TECHNIQUE: Computed tomography (CT) of the lumbar spine was performed without intravenous contrast. A utomated exposure control and iterative reconstruction technique were employed. The dose-length produ ct was 791.65 mGy-cm. COMPARISON: CT lumbar spine 01/23/2021 FINDINGS: Partially visualized are cysts in left kidney. Bone alignment is normal. Vertebral body hei ghts are normal. There is mildly decreased disc height at L2-L3, L3-L4, and L4-L5. There is interbody fusion at L5-S1. There are changes of posterior fusion procedure at L5-S1 with pedicle screws. The f ollowing disc levels are specifically discussed: L1-L2: The disc does not extend beyond the endplate margin. There is severe right and mild left facet joint osteoarthritis. There is no neural foraminal stenosis. There is no central canal stenosis. L2-L3: The disc is bulging. There is mild bilateral facet joint osteoarthritis. There is mild bilater al neural foraminal stenosis. There is mild central canal stenosis. L3-L4: The disc is bulging. There is moderate right and severe left facet joint osteoarthritis. There is mild bilateral neural foraminal stenosis. There is mild central canal stenosis. L4-L5: The disc is bulging. There is severe bilateral facet joint osteoarthritis. There is moderate b ilateral neural foraminal stenosis. There is mild central canal stenosis. L5-S1: The disc is bulging. There is no facet joint hypertrophy. There is mild left neural foraminal stenosis. There is no central canal stenosis. IMPRESSION: 1. Moderate lumbar spondylosis, stable from 01/23/2021. 2. Anterior and posterior fusion at L5-S1. Reviewed, dictated and finalized at location B.
== END ==
PROVIDERS: PCP Internal Medicine; Visit Provider Nurse Practitioner Adult Health
DX: M47.27 Other spondylosis with radiculopathy, lumbosacral region (principal); M48.07 Spinal stenosis, lumbosacral region
CPT/HCPCS: 72131

== ENCOUNTER → 2021-12-26 09:31 | Outpatient (CLI) | payer OTHER, SELFPAY ==
--- NOTE | ~2021-12-26 | XR_ITS ---
EXAMINATION: XR knee RT 3V DATE: 12/26/2021 09:49 INDICATION: Right knee pain. TECHNIQUE: 3 views of right knee were obtained. COMPARISON: None. FINDINGS: Bone alignment is normal. No fracture. There is mild tricompartmental osteoarthritis. Small knee joint effusion with loose bodies. IMPRESSION: 1. Mild right knee osteoarthritis. 2. Small right knee joint effusion with loose bodies. Reviewed, dictated and finalized at location A.
== END ==
PROVIDERS: PCP Internal Medicine; Visit Provider Internal Medicine
DX: M17.11 Unilateral primary osteoarthritis, right knee (principal); M23.41 Loose body in knee, right knee; M25.461 Effusion, right knee
CPT/HCPCS: 73562

== ENCOUNTER 2022-06-05 20:42 | Inpatient (IN) | payer OTHER, SELFPAY ==
[2022-06-05] VITALS (30 sets, daily range): BP systolic 156–219; BP diastolic 80–153; PULSE 59–94; RESP 17–40; TEMP 36.6–36.8; O2SAT 84–100
--- NOTE | ~2022-06-05 | XR_ITS ---
EXAMINATION: XR chest 1V portable Exam Date/Time: 06/05/2022 22:00 CDT HISTORY: dyspnea Comparison: 03/19/2021. RESULT: Lines, tubes, and devices: None. Lungs and pleura: Increased diffuse reticular opacities, most pronounced in the mid and lower lungs peripherally. Increased peripheral and basilar ill-defined groundglass opacities. Streaky bibasilar l inear scar/atelectasis. Minimal bilateral costophrenic angle blunting. Cardiomediastinal silhouette: Stable. Other: No acute osseous or upper abdominal finding. IMPRESSION: Pulmonary opacities likely represent interstitial pulmonary edema. Infection, including atypical/elyssa l infection not excluded. Possible trace bilateral effusions. Reviewed, dictated and finalized at location K. IMPRESSION: Pulmonary opacities likely represent interstitial pulmonary edema. Infection, i ncluding atypical/viral infection not excluded. Possible trace bilateral effusi ons.
--- NOTE | 2022-06-05 20:59 | ECG_ITS ---
Measurements Intervals [place] Rate: 78 P: 59 VT: 147 QRS: 45 QRSD: 93 T: 58 QT: 390 QTc: 446 Interpretive Statements SINUS RHYTHM DELAYED PRECORDIAL R/S TRANSITION BASELINE ARTIFACT- I, II, III, AVR, AVL, AVF, V1-V6 BORDERLINE ECG COMPARED TO ECG 03/19/2021 19:04:43 NO SIGNIFICANT CHANGES Electronically Signed On 06-06-2022 6:50:23 CDT by Santiago Ragland D.O.
[2022-06-05] MEDS: ALBUTEROL SULFATE NEB 2.5 MG/3 ML INH 5 MG INHALATION (21:00)
[2022-06-05] MEDS: IPRATROPIUM BR 0.02% INH SOLN 0.5 MG/2.5 ML VIAL INHALATION (21:00)
--- NOTE | 2022-06-05 21:04 | ED.SOB ---
HPI - SOB/Dyspnea General Chief Complaint: Shortness of Breath/Dyspnea Stated Complaint: shortness of breath - hx COPD Time Seen by Provider: 06/05/22 20:55 History of Present Illness HPI Narrative: Pt presents with shortness of breath all day today. Pt has a history of COPD but has not been this bad. Pt denies fever or CP. Pt has not been intubated or on Bipap in past. Related Data Home Medications Medication Instructions Recorded Confirmed aspirin 81 mg tablet 81 mg PO DAILY 03/09/21 05/23/22 gabapentin 600 mg tablet 600 mg PO TID 03/09/21 05/23/22 labetalol 200 mg tablet 400 mg PO TID 03/09/21 05/23/22 nifedipine 30 mg tablet,extended 30 mg PO DAILY 03/09/21 05/23/22 release 24 hr oxybutynin chloride 10 mg 10 mg PO DAILY 03/09/21 05/23/22 tablet,extended release 24 hr omeprazole 20 mg tablet,delayed 20 mg PO DAILY 12/26/21 05/23/22 release Allergies Allergy/AdvReac Type Severity Reaction Status Date / Time adhesive Allergy Mild Rash Verified 06/05/22 20:42 codeine AdvReac Mild upset Verified 06/05/22 20:42 stomach Review of Systems Review of Systems: All systems reviewed & are unremarkable except as noted in HPI and below PMFSH Past Medical History Medical History Anemia Arm fracture, left 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 Bronchitis Chronic back pain Claustrophobia COPD (chronic obstructive pulmonary disease) Cyst of left kidney Diverticulitis Diverticulosis GERD (gastroesophageal reflux disease) History of blood transfusion HLD (hyperlipidemia) HTN (hypertension) Hyperlipidemia Hypertension MVP (mitral valve prolapse) Neuroma Patellofemoral arthritis Pneumonia Rectal polyp Right knee DJD Right knee pain SBO (small bowel obstruction) Seasonal allergies UTI (urinary tract infection) Weight gain Surgical History Surgical History H/O dilation and curettage H/O: hysterectomy History of cholecystectomy History of intestinal surgery adhesiolysis of small bowel Hx of appendectomy Hx of colonoscopy Previous back surgery 2 plates and 4 screws Family History Family History Father Family history of diabetes mellitus in first degree relative, Onset Age: 90 Patient's father is Sibling Patient's brother is in good health Patient's brother is Brain aneurysm Mother Osteoporosis Asthma Other Diabetes mellitus High cholesterol Hypertension Social History Social History (Updated 05/23/22 @ 13:48 by Jose Escobar MA) Smoking packs per day: 1 Smoking cigarettes per day: 20.0 Years smoked: 20 Smoking pack-years: 20.00 Smoking status: Former smoker Tobacco type: cigarettes Second hand tobacco smoke exposure: No Smoking end date: 08/05/09 Alcohol intake: current Alcohol use details: 5 per month Substance use: never Substance use type: does not use Has the Lack of Transportation Kept You From Medical Appointments or From Getting Medications?: No Within the Past 12 Months, Were You Worried Whether Your Food Would Run Out Before You Got Money to Buy More?: Never True What is Your Housing Situation Today?: I Have Housing Are You Worried That in the Next 2 Months, You May Not Have Your Own Housing to Live In?: No Do You Have Trouble Paying Your Heating Or Electricity Bill?: No Do You Have Trouble Paying For Medicines?: Yes Are You Currently Unemployed and Looking for Work?: No Highest Level of Education Completed: High School Diploma/GED Do You Have Trouble With Childcare or the Care of a Family Member?: No Gender identity (if verbalized by the patient): Female Spiritual care concerns: No Agree to blood products: Yes Exam Const: General: ill appearing Nutritional Appearance: well nourished Orientation/consciousness: patient alexi
[2022-06-05 21:30] LABS: Alveolar/Arterial O2 Gradient 338.3 mmHg; Base Excess ABG 3.5 mEq/l (+/-2.0); Fractional Inspired Oxygen 100 %; Oxygen Content ABG 19.2 %vol (16.0-22.0); Oxygen Saturation ABG 99.6 % (95.0-100.0); Oxyhemoglobin 97.9 % THb (90.0-100.0); PO2 ABG 306.4 mmHg (80.0-100.0); PO2 FiO2 Ratio Arterial Blood 3.06 %; Total Hemoglobin 13.4 g/dL (12.0-18.0)
[2022-06-05 21:32] LABS: PCO2 ABG 68.3 mmHg (35.0-45.0); pH ABG 7.289 (7.350-7.450)
[2022-06-05 21:33] LABS: Basophils Absolute Auto 0.1 K/mm3 (0.0-0.1); Basophils Percent Auto 0.4 % (0.2-1.2); Eosinophils Absolute Auto 0.2 K/mm3 (0-0.3); Eosinophils Percent Auto 1.5 % (0-4.4); Hematocrit 42.4 % (37.0-47.0); Immature Granulocyte Absolute 0.06 K/mm3 (0.00-0.031); Immature Granulocyte Percent A 0.4 % (0-0.5); Lymphocytes Absolute Auto 2.12 K/mm3 (0.9-3.2); Lymphocytes Percent Auto 15.6 % (18.3-44.2); Mean Corpuscular HGB Conc 30.7 g/dl (32-36); Mean Corpuscular Hemoglobin 28.8 pg (26-34); Mean Corpuscular Volume 93.8 fl (80-100); Mean Platelet Volume 11.3 fl (7.4-10.4); Monocytes Absolute Auto 0.6 K/mm3 (0.1-0.6); Monocytes Percent Auto 4.6 % (2.6-8.5); Neutrophils Absolute Auto 10.5 K/mm3 (1.3-6.7); Neutrophils Percent Auto 77.5 % (45.5-73.1); Platelet Count Result 246 k/mm3 (150-375); Red Blood Count 4.52 M/mm3 (4.2-5.4); Red Cell Distribution Width 14.7 % (11.5-14.5); White Blood Count 13.6 K/mm3 (4.5-10.0)
[2022-06-05 21:33] LABS: Device NON-INVASIVE VENT; Non-Invasive Expiratory Pressure 6 CMH2O; Non-Invasive Inspiratory Pressure 12 CMH2O; Non-Invasive Vent Rate 14 /MIN; Site Drawn LEFT BRACHIAL
[2022-06-05] MEDS: methylPREDNISolone SOD SUCC 125 MG VIAL IV PUSH (21:43)
[2022-06-05 21:44] LABS: Alanine Aminotransferase 38 U/L (6-35); Albumin Level 4.8 g/dL (3.5-5.1); Alkaline Phosphatase 108 U/L (38-126); Anion Gap 10 mmol/L (8-16); Aspartate Amino Transferase 30 U/L (14-36); Bilirubin,Total 0.8 mg/dL (0.2-1.3); Blood Urea Nitrogen 18 mg/dL (7-17); Calcium 9.2 mg/dL (8.4-10.2); Carbon Dioxide 37 mmol/L (22-30); Chloride 98 mmol/L (98-107); Estimated CRCL calculation 67 ml/min; Estimated Glomerular Filt Rate > 60; Glucose 145 mg/dL (65-110); Magnesium 2.1 mg/dL (1.6-2.3); Potassium 3.6 mmol/L (3.4-5.0); Prothrombin Time 12.8 Seconds (11.1-14.7); Sodium 145 mmol/L (137-145)
[2022-06-05 21:45] LABS: Partial Thromboplastin Time 22.9 SECONDS (22.3-36.8)
[2022-06-05 21:52] LABS: NT Pro B Type Natriuretic Pept 1320 pg/mL (5-100)
[2022-06-05 21:58] LABS: Troponin I < 0.012 ng/mL (0.000-0.034)
[2022-06-05 22:23] LABS: Influenza A QL RT-PCR Negative (Negative); Influenza B QL RT-PCR Negative (Negative); SARS-CoV-2 RNA PCR Negative
--- NOTE | 2022-06-05 22:36 | PM.IMHP ---
H&P: HPI History of Present Illness Date/Time: 06/05/22 22:36 Chief Complaint: shortness of breath Narrative: This is a 72-year-old female with past medical history significant for diastolic heart failure grade 1, preserved ejection fraction heart failure, hypertension, COPD/emphysema, chronic back pain, GERD. patient was brought to the emergency room due to sudden onset shortness of breath at the time of my visit patient is on BiPAP hence history taking is limited preliminary workup was significant for a blood gas with a pH of 7.28, pCO2 of 63, PO2 300. A chest x-ray was reported as: IMPRESSION: Pulmonary opacities likely represent interstitial pulmonary edema. Infection, including atypical/viral infection not excluded. Possible trace bilateral effusions. Review of Systems Review of Systems: ROS unobtainable: Yes unobtainable due to medical condition ( patient is on BiPAP) [facility] Past Medical History Medical History (Updated 06/06/22 @ 02:40 by Saul Alegre MD) Anemia Arm fracture, left 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 Bronchitis Chronic back pain Claustrophobia COPD (chronic obstructive pulmonary disease) Cyst of left kidney Diverticulitis Diverticulosis GERD (gastroesophageal reflux disease) History of blood transfusion HLD (hyperlipidemia) HTN (hypertension) Hyperlipidemia Hypertension MVP (mitral valve prolapse) Neuroma Patellofemoral arthritis Pneumonia Rectal polyp Right knee DJD Right knee pain SBO (small bowel obstruction) Seasonal allergies UTI (urinary tract infection) Weight gain Surgical History Surgical History H/O dilation and curettage H/O: hysterectomy History of cholecystectomy History of intestinal surgery adhesiolysis of small bowel Hx of appendectomy Hx of colonoscopy Previous back surgery 2 plates and 4 screws Family History Family History Father Family history of diabetes mellitus in first degree relative, Onset Age: 90 Patient's father is Sibling Patient's brother is in good health Patient's brother is Brain aneurysm Mother Osteoporosis Asthma Other Diabetes mellitus High cholesterol Hypertension Social History Social History (Updated 05/23/22 @ 13:48 by Jose Escobar MA) Smoking packs per day: 1 Smoking cigarettes per day: 20.0 Years smoked: 25 Smoking pack-years: 25.00 Smoking status: Former smoker Tobacco type: cigarettes Second hand tobacco smoke exposure: No Smoking end date: 08/05/09 Alcohol intake: former Alcohol use details: 5 per month Substance use: never Substance use type: does not use Has the Lack of Transportation Kept You From Medical Appointments or From Getting Medications?: No Within the Past 12 Months, Were You Worried Whether Your Food Would Run Out Before You Got Money to Buy More?: Never True What is Your Housing Situation Today?: I Have Housing Are You Worried That in the Next 2 Months, You May Not Have Your Own Housing to Live In?: No Do You Have Trouble Paying Your Heating Or Electricity Bill?: No Do You Have Trouble Paying For Medicines?: No Are You Currently Unemployed and Looking for Work?: No Highest Level of Education Completed: High School Diploma/GED Do You Have Trouble With Childcare or the Care of a Family Member?: No Gender identity (if verbalized by the patient): Female Spiritual care concerns: No Agree to blood products: Yes Meds Home Medications and Allergies Home Medications Medication Instructions Recorded Confirmed Type aspirin 81 mg tablet 81 mg PO DAILY 03/09/21 05/23/22 History gabapentin 600 mg tablet 600 mg PO TID 03/09/21 05/23/22 History labetalol 200 mg tablet 400 mg PO TID 03/09/21 05/23/22 History nifedipine 30 mg tablet,extended 30 mg PO DAILY 03/09/21 05/23/22 History release 24 hr oxy
[2022-06-05] MEDS: NITROGLYCERIN OINTMENT 1 INCH DOSE TRANSDERM (22:43)
[2022-06-05] MEDS: FUROSEMIDE INJ 40 MG/4 ML VIAL IV PUSH (22:43)
[2022-06-06] VITALS (35 sets, daily range): BP systolic 159–227; BP diastolic 50–101; PULSE 47–95; RESP 18–27; TEMP 36.3–36.9; O2SAT 96–100; BMI 41.0; BMI 30.5
--- NOTE | 2022-06-06 00:42 | ADMGEN ---
This patient, Nadia Brown, was admitted to IMU Room 232-01. Patient/family oriented to hospital policies and general routines including ID bracelet, bed and alarms, visiting hours, pain management, procedures, bathroom and other care routines, personal items, smoking policy, room service/diet, and visiting hours. Information on how to activate the Rapid Response Team has been discussed. Patient/Family are encouraged to report perceived risks to care and to ask questions if they do not understand what they are told or what they should do.
[2022-06-06 02:11] LABS: Troponin I 0.016 ng/mL (0.000-0.034)
[2022-06-06] MEDS: ALBUTEROL SULFATE NEB 2.5 MG/3 ML INH INHALATION ×5 (04:29→21:30)
[2022-06-06] MEDS: IPRATROPIUM BR 0.02% INH SOLN 0.5 MG/2.5 ML VIAL INHALATION ×5 (04:30→21:31)
[2022-06-06] MEDS: methylPREDNISolone SOD SUCC 125 MG VIAL 60 MG IV PUSH ×4 (04:55→22:34)
[2022-06-06 05:28] LABS: Troponin I 0.013 ng/mL (0.000-0.034)
[2022-06-06] MEDS: amLODIPine BESYLATE 5 MG TABLET 10 MG PO (06:28)
--- NOTE | 2022-06-06 08:16 | PC.NURSE ---
Reported blood pressure 227/[address] Jackson at 0815. Await return call or medication orders. Will continue to monitor closely.
[2022-06-06] MEDS: FUROSEMIDE INJ 40 MG/4 ML VIAL IV PUSH ×2 (09:50→17:02)
[2022-06-06] MEDS: ENOXAPARIN 40 MG/0.4 ML SYRINGE SUB-Q (09:50)
--- NOTE | 2022-06-06 10:02 | PM.IMPN ---
Progress Note: A&P Assessment and Plan (1) Hypercapnic respiratory failure: Code(s): J96.92 - Respiratory failure, unspecified with hypercapnia Status: Acute (2) CHF (congestive heart failure): Code(s): I50.9 - Heart failure, unspecified Status: Acute (3) GERD (gastroesophageal reflux disease): Code(s): K21.9 - Gastro-esophageal reflux disease without esophagitis Status: Acute (4) HTN (hypertension): Code(s): I10 - Essential (primary) hypertension Status: Acute (5) COPD (chronic obstructive pulmonary disease): Code(s): J44.9 - Chronic obstructive pulmonary disease, unspecified Status: Acute Plan 06/05/22 ?patient is currently on BiPAP ?admit to IMU ?breathing treatments ?started on antibiotics ?blood cultures in progress ?chest x-ray reviewed ?ejection fraction is preserved at 60% as per echocardiogram ?will diurese ?daily intake and output ?PPI as needed ?continue antihypertensives ?continue to monitor ?on breathing treatments ?systemic steroids 06/06/22 placed on BiPAP at admission now transitioned to NC BNP at admission 1320 ABG w pH of 7.289 / CO2 68.3/ HCO3 32/ pO2 306.4 diuresed 1.1L overnight repeat ABG and labs ordered and pending hydralazine IV Subjective Date/time seen: 06/06/22 10:02 pt reports ALEXANDER spoke w RN and pt remains w elevated bp despite administration of labetolol and lasix pt denies vision changes, no chest pain, no sob and is now comfortable on NC Exam Narrative: GEN: NAD, AAOx3, cooperative HEENT: NCAT, MMM, EOMI Neck: no JVD Heart: S1S2 RRR Lungs: CTA B/L Abd: soft, NT, ND, bowel sounds normoactive Ext: moves all, no cyanosis, no clubbing, no edema Objective Data Vital Signs Vital Signs: Vital Signs - 24 hr 06/05/22 20:46 06/05/22 21:24 06/05/22 21:26 Temperature 97.9 F 98.2 F Pulse Rate 84 92 Respiratory Rate 20 40 H Blood Pressure 157/109 H 156/111 H Pulse Oximetry 92 86 L Oxygen Delivery Nasal Cannula Nasal Cannula BiPAP Oxygen Flow Rate 4.0 4 Fraction of Inspired Oxygen 06/05/22 21:27 06/05/22 21:40 06/05/22 21:05 Temperature Pulse Rate 92 Respiratory Rate 29 H Blood Pressure Pulse Oximetry 100 100 Oxygen Delivery BiPAP BiPAP BiPAP Oxygen Flow Rate Fraction of Inspired Oxygen 06/05/22 20:54 06/05/22 21:51 06/05/22 22:00 Temperature Pulse Rate 72 72 Respiratory Rate 25 H 23 H Blood Pressure Pulse Oximetry 84 L 98 98 Oxygen Delivery Oxygen Flow Rate Fraction of Inspired Oxygen 06/05/22 22:01 06/05/22 21:00 06/05/22 21:12 Temperature Pulse Rate 71 92 94 Respiratory Rate 25 H 29 H 26 H Blood Pressure 214/87 H Pulse Oximetry 97 Oxygen Delivery Oxygen Flow Rate Fraction of Inspired Oxygen 06/05/22 22:41 06/05/22 22:02 06/05/22 22:15 Temperature Pulse Rate 66 69 70 Respiratory Rate 20 26 H 24 H Blood Pressure 203/84 H Pulse Oximetry 98 98 97 Oxygen Delivery Oxygen Flow Rate Fraction of Inspired Oxygen 06/05/22 22:16 06/05/22 22:30 06/05/22 22:31 Temperature Pulse Rate 68 59 L 66 Respiratory Rate 23 H 23 H 24 H Blood Pressure 212/87 H 203/84 H Pulse Oximetry 98 98 98 Oxygen Delivery Oxygen Flow Rate Fraction of Inspired Oxygen 06/05/22 22:42 06/05/22 22:45 06/05/22 22:46 Temperature Pulse Rate 63 65 Respiratory Rate 24 H 24 H Blood Pressure 203/80 H 169/153 H Pulse Oximetry 98 98 97 Oxygen Delivery Oxygen Flow Rate Fraction of Inspired Oxygen 06/05/22 22:49 06/05/22 23:00 06/05/22 23:01 Temperature Pulse Rate 67 64 67 Respiratory Rate 24 H 22 H 21 H Blood Pressure 194/123 H 204/87 H Pulse Oximetry 99 96 98 Oxygen Delivery Oxygen Flow Rate Fraction of Inspired Oxygen 06/05/22 23:15 06/05/22 23:20 06/05/22 23:30 Temperature Pulse Rate 76 68 65 Respiratory Rate 17 23 H 23 H Blood Pressure 219/98 H Pulse Oximetry
[2022-06-06] MEDS: LABETALOL HCL 100 MG TABLET 400 MG PO (10:03)
[2022-06-06 10:35] LABS: Alveolar/Arterial O2 Gradient 92.1 mmHg; Fractional Inspired Oxygen 32 %; HCO3 ABG 33.1 mEq/l (22.0-26.0); Modified Allen's Test Pass; Oxygen Content ABG 18.4 %vol (16.0-22.0); Oxygen Saturation ABG 96.3 % (95.0-100.0); Oxyhemoglobin 95.2 % THb (90.0-100.0); PCO2 ABG 47.6 mmHg (35.0-45.0); PO2 ABG 80.4 mmHg (80.0-100.0); PO2 FiO2 Ratio Arterial Blood 2.51 %; Site Drawn RIGHT RADIAL; Total Hemoglobin 13.7 g/dL (12.0-18.0)
[2022-06-06 10:36] LABS: Device NASAL CANNULA
[2022-06-06 10:53] LABS: Basophils Percent Auto 0.1 % (0.2-1.2); Hematocrit 39.5 % (37.0-47.0); Hemoglobin 12.5 g/dL (12.0-15.0); Immature Granulocyte Absolute 0.05 K/mm3 (0.00-0.031); Immature Granulocyte Percent A 0.4 % (0-0.5); Lymphocytes Absolute Auto 0.45 K/mm3 (0.9-3.2); Lymphocytes Percent Auto 3.5 % (18.3-44.2); Mean Corpuscular HGB Conc 31.6 g/dl (32-36); Mean Corpuscular Hemoglobin 28.4 pg (26-34); Mean Corpuscular Volume 89.8 fl (80-100); Mean Platelet Volume 11.1 fl (7.4-10.4); Monocytes Absolute Auto 0.1 K/mm3 (0.1-0.6); Monocytes Percent Auto 1.1 % (2.6-8.5); Neutrophils Percent Auto 94.9 % (45.5-73.1); Platelet Count Result 245 k/mm3 (150-375); Red Cell Distribution Width 14.6 % (11.5-14.5); White Blood Count 12.7 K/mm3 (4.5-10.0)
[2022-06-06 11:05] LABS: Magnesium 1.9 mg/dL (1.6-2.3)
[2022-06-06 11:08] LABS: Anion Gap 15 mmol/L (8-16); Blood Urea Nitrogen 16 mg/dL (7-17); Calcium 9.2 mg/dL (8.4-10.2); Carbon Dioxide 36 mmol/L (22-30); Chloride 95 mmol/L (98-107); Estimated CRCL calculation 72 ml/min; Estimated Glomerular Filt Rate > 60; Glucose 171 mg/dL (65-110); Potassium 3.6 mmol/L (3.4-5.0); Sodium 146 mmol/L (137-145)
[2022-06-06] MEDS: hydrALAZINE HCL 20 MG/ML VIAL 10 MG IV PUSH ×2 (11:44→21:50)
[2022-06-06 13:52] LABS: Anisocytosis 1+ (NORMAL); Large Platelets Present; Microcytosis 1+ (NORMAL); Ovalocytes 1+ (NORMAL); Platelet Estimate Adequate (Adequate); Spherocytes 1+ (NORMAL)
[2022-06-06 13:53] LABS: Schistocytes None Seen (NORMAL)
[2022-06-06] MEDS: ACETAMINOPHEN 325 MG TABLET 650 MG PO (17:02)
[2022-06-06] MEDS: SALINE 0.65% NAS SOLN 44 ML BTL 1 SPRAY NASAL (22:34)
[2022-06-07] VITALS (30 sets, daily range): BP systolic 130–168; BP diastolic 47–73; PULSE 60–85; RESP 16–25; TEMP 36.1–36.7; O2SAT 90–100
[2022-06-07] MEDS: LORazepam INJ (*CRX) 2 MG/ML VIAL 0.5 MG IV PUSH (00:17)
[2022-06-07] MEDS: LABETALOL HCL INJ 100 MG/20 ML VIAL 20 MG IV PUSH (00:17)
[2022-06-07] MEDS: GABAPENTIN 300 MG CAPSULE 600 MG PO ×4 (00:39→17:01)
[2022-06-07] MEDS: TERAZOSIN HCL 5 MG CAPSULE 10 MG PO ×2 (00:39→20:39)
[2022-06-07] MEDS: ALBUTEROL SULFATE NEB 2.5 MG/3 ML INH INHALATION ×6 (01:05→20:49)
[2022-06-07] MEDS: IPRATROPIUM BR 0.02% INH SOLN 0.5 MG/2.5 ML VIAL INHALATION ×6 (01:05→20:49)
[2022-06-07] MEDS: methylPREDNISolone SOD SUCC 125 MG VIAL 60 MG IV PUSH (05:23)
[2022-06-07] MEDS: LABETALOL HCL 100 MG TABLET 400 MG PO ×3 (08:30→17:01)
[2022-06-07] MEDS: SALINE 0.65% NAS SOLN 44 ML BTL 1 SPRAY NASAL (08:30)
[2022-06-07] MEDS: NIFEdipine 30 MG TAB.ER.24 PO (08:31)
[2022-06-07] MEDS: VALSARTAN 160 MG TABLET 320 MG PO (08:31)
[2022-06-07] MEDS: hydroCHLOROthiazide 25 MG TABLET PO (08:31)
[2022-06-07] MEDS: PANTOPRAZOLE 40 MG TABLET PO (08:31)
[2022-06-07] MEDS: ENOXAPARIN 40 MG/0.4 ML SYRINGE SUB-Q (08:32)
[2022-06-07] MEDS: ROSUVASTATIN 10 MG TABLET PO (08:32)
[2022-06-07] MEDS: FUROSEMIDE INJ 40 MG/4 ML VIAL IV PUSH ×2 (08:32→17:01)
[2022-06-07] MEDS: FLUTICASONE/UMECLIDIN/VILANTER 100-62.5-25 MCG ELLIPTA 1 PUFF INHALATION (09:24)
[2022-06-07] MEDS: methylPREDNISolone SOD SUCC 40 MG VIAL IV PUSH ×2 (13:07→20:39)
--- NOTE | 2022-06-07 16:21 | PM.IMPN ---
Progress Note: A&P Assessment and Plan (1) Hypercapnic respiratory failure: Code(s): J96.92 - Respiratory failure, unspecified with hypercapnia Status: Acute (2) CHF (congestive heart failure): Code(s): I50.9 - Heart failure, unspecified Status: Acute (3) GERD (gastroesophageal reflux disease): Code(s): K21.9 - Gastro-esophageal reflux disease without esophagitis Status: Acute (4) HTN (hypertension): Code(s): I10 - Essential (primary) hypertension Status: Acute (5) COPD (chronic obstructive pulmonary disease): Code(s): J44.9 - Chronic obstructive pulmonary disease, unspecified Status: Acute Plan 06/05/22 ?patient is currently on BiPAP ?admit to IMU ?breathing treatments ?started on antibiotics ?blood cultures in progress ?chest x-ray reviewed ?ejection fraction is preserved at 60% as per echocardiogram ?will diurese ?daily intake and output ?PPI as needed ?continue antihypertensives ?continue to monitor ?on breathing treatments ?systemic steroids 06/06/22 placed on BiPAP at admission now transitioned to NC BNP at admission 1320 ABG w pH of 7.289 / CO2 68.3/ HCO3 32/ pO2 306.4 diuresed 1.1L overnight repeat ABG and labs ordered and pending hydralazine IV 06/07/22 on RA now BP significantly improved since admission transfer out of IMU placed at 8am cont current care BIPAP PRN anticipate dc home tomorrow after BP improved Subjective Date/time seen: 06/07/22 08:21 pt doing ok feeling a lot better on RA no ALEXANDER Exam Narrative: GEN: NAD, AAOx3, cooperative HEENT: NCAT, MMM, EOMI Neck: no JVD Heart: S1S2 RRR Lungs: CTA B/L Abd: soft, NT, ND, bowel sounds normoactive Ext: moves all, no cyanosis, no clubbing, no edema Objective Data Vital Signs Vital Signs: Vital Signs - 24 hr 06/06/22 16:23 06/06/22 16:31 06/06/22 16:55 Temperature 97.4 F L Pulse Rate 75 78 86 Respiratory Rate 18 18 20 Blood Pressure 159/50 H Pulse Oximetry 98 97 Oxygen Delivery Nasal Cannula Oxygen Flow Rate 2 Fraction of Inspired Oxygen 06/06/22 18:00 06/06/22 20:00 06/06/22 21:35 Temperature 98.5 F Pulse Rate 68 83 72 Respiratory Rate 20 24 H Blood Pressure 210/101 H Pulse Oximetry 96 Oxygen Delivery Oxygen Flow Rate Fraction of Inspired Oxygen 06/06/22 21:35 06/06/22 21:37 06/06/22 20:00 Temperature Pulse Rate 69 76 Respiratory Rate 24 H Blood Pressure Pulse Oximetry 99 99 Oxygen Delivery BiPAP BiPAP Oxygen Flow Rate Fraction of Inspired Oxygen 30 06/06/22 20:00 06/06/22 21:32 06/06/22 23:17 Temperature 98.3 F Pulse Rate 69 95 Respiratory Rate 24 H 24 H Blood Pressure 207/72 H 196/65 H Pulse Oximetry 99 97 Oxygen Delivery Nasal Cannula Oxygen Flow Rate 2 Fraction of Inspired Oxygen 06/07/22 00:17 06/07/22 01:00 06/06/22 22:00 Temperature Pulse Rate 74 85 Respiratory Rate Blood Pressure 153/66 H Pulse Oximetry Oxygen Delivery Oxygen Flow Rate Fraction of Inspired Oxygen 06/07/22 00:00 06/07/22 00:00 06/07/22 01:05 Temperature Pulse Rate 77 74 73 Respiratory Rate 24 H 24 H Blood Pressure Pulse Oximetry 97 Oxygen Delivery BiPAP Oxygen Flow Rate Fraction of Inspired Oxygen 30 06/07/22 01:15 06/07/22 01:05 06/07/22 02:00 Temperature Pulse Rate 79 73 66 Respiratory Rate 24 H 24 H Blood Pressure Pulse Oximetry 97 Oxygen Delivery BiPAP Oxygen Flow Rate Fraction of Inspired Oxygen 06/07/22 04:08 06/07/22 04:09 06/07/22 04:18 Temperature Pulse Rate 68 68 66 Respiratory Rate 24 H 24 H 24 H Blood Pressure Pulse Oximetry 96 Oxygen Delivery BiPAP Oxygen Flow Rate Fraction of Inspired Oxygen 06/07/22 04:00 06/07/22 04:00 06/07/22 04:00 Temperature 97.6 F Pulse Rate 68 66 75 Respiratory Rate 24 H 25 H Blood Pressure 163/73 H Pulse Oximetry 96 97 Oxygen Deliv
[2022-06-08] VITALS (23 sets, daily range): BP systolic 138–178; BP diastolic 48–69; PULSE 60–80; RESP 18–22; TEMP 35.7–36.9; O2SAT 92–98
[2022-06-08] MEDS: ALBUTEROL SULFATE NEB 2.5 MG/3 ML INH INHALATION ×6 (04:10→21:01)
[2022-06-08] MEDS: IPRATROPIUM BR 0.02% INH SOLN 0.5 MG/2.5 ML VIAL INHALATION ×6 (04:10→21:01)
[2022-06-08] MEDS: hydrALAZINE HCL 20 MG/ML VIAL 10 MG IV PUSH (05:31)
[2022-06-08] MEDS: methylPREDNISolone SOD SUCC 40 MG VIAL IV PUSH ×2 (05:31→13:01)
[2022-06-08] MEDS: FLUTICASONE/UMECLIDIN/VILANTER 100-62.5-25 MCG ELLIPTA 1 PUFF INHALATION (08:11)
[2022-06-08] MEDS: VALSARTAN 160 MG TABLET 320 MG PO (08:23)
[2022-06-08] MEDS: LABETALOL HCL 100 MG TABLET 400 MG PO ×3 (08:23→16:42)
[2022-06-08] MEDS: GABAPENTIN 300 MG CAPSULE 600 MG PO ×3 (08:24→16:42)
[2022-06-08] MEDS: hydroCHLOROthiazide 25 MG TABLET PO (08:24)
[2022-06-08] MEDS: ROSUVASTATIN 10 MG TABLET PO (08:25)
[2022-06-08] MEDS: FUROSEMIDE INJ 40 MG/4 ML VIAL IV PUSH ×2 (08:25→16:43)
[2022-06-08] MEDS: PANTOPRAZOLE 40 MG TABLET PO (08:25)
[2022-06-08] MEDS: ENOXAPARIN 40 MG/0.4 ML SYRINGE SUB-Q (08:25)
[2022-06-08] MEDS: NIFEdipine 30 MG TAB.ER.24 PO (08:26)
--- NOTE | 2022-06-08 10:36 | PC.NURSE ---
This patient, Nadia Brown, was transferred to [facility] on 06/08/22 at 1025. Personal belongings sent with patient. Report given to JASMEET Ramírez. Appropriate documentation sent with patient.
--- NOTE | 2022-06-08 12:46 | PM.IMPN ---
Progress Note: A&P Assessment and Plan (1) Hypercapnic respiratory failure: Code(s): J96.92 - Respiratory failure, unspecified with hypercapnia Status: Acute (2) CHF (congestive heart failure): Code(s): I50.9 - Heart failure, unspecified Status: Acute (3) GERD (gastroesophageal reflux disease): Code(s): K21.9 - Gastro-esophageal reflux disease without esophagitis Status: Acute (4) HTN (hypertension): Code(s): I10 - Essential (primary) hypertension Status: Acute (5) COPD (chronic obstructive pulmonary disease): Code(s): J44.9 - Chronic obstructive pulmonary disease, unspecified Status: Acute Plan 06/05/22 ?patient is currently on BiPAP ?admit to IMU ?breathing treatments ?started on antibiotics ?blood cultures in progress ?chest x-ray reviewed ?ejection fraction is preserved at 60% as per echocardiogram ?will diurese ?daily intake and output ?PPI as needed ?continue antihypertensives ?continue to monitor ?on breathing treatments ?systemic steroids 06/06/22 placed on BiPAP at admission now transitioned to NC BNP at admission 1320 ABG w pH of 7.289 / CO2 68.3/ HCO3 32/ pO2 306.4 diuresed 1.1L overnight repeat ABG and labs ordered and pending hydralazine IV 06/07/22 on RA now BP significantly improved since admission transfer out of IMU placed at 8am cont current care BIPAP PRN anticipate dc home tomorrow after BP improved HPI-Narrative: ?This is a 72-year-old female with past medical history significant for diastolic heart failure grade 1, preserved ejection fraction heart failure, hypertension, COPD/emphysema, chronic back pain, GERD. patient was brought to the emergency room due to sudden onset shortness of breath at the time of my visit patient is on BiPAP hence history taking is limited preliminary workup was significant for a blood gas with a pH of 7.28, pCO2 of 63, PO2 300.? A chest x-ray was reported as: 06/08/2022 interval history: patient is 72-year-old female presented with a shortness of breath hypoxic secondary to hypercarbic respiratory failure patient was placed on BiPAP, multifactorial due to exacerbation of COPD and being treated with steroid and bronchodilator, and antibiotics to cover for atypicals, there is also concern patient may have congestive heart failure and patient is being diuresed with IV Lasix 40 mg b.i.d., patient has lost 6 L of fluid, patient's overall symptoms have improved will taper methylprednisone to prednisone, currently patient is on 2 L nasal cannula, her overall symptoms have improved will transfer patient out of IMU to medical floor, will have PT OT evaluate the patient and further recommendation to follow. Subjective Date/time seen: 06/08/22 12:46 shortness of breath HPI-Narrative: ?This is a 72-year-old female with past medical history significant for diastolic heart failure grade 1, preserved ejection fraction heart failure, hypertension, COPD/emphysema, chronic back pain, GERD. patient was brought to the emergency room due to sudden onset shortness of breath at the time of my visit patient is on BiPAP hence history taking is limited preliminary workup was significant for a blood gas with a pH of 7.28, pCO2 of 63, PO2 300.? A chest x-ray was reported as: 06/08/2022 interval history: patient is 72-year-old female presented with a shortness of breath hypoxic secondary to hypercarbic respiratory failure patient was placed on BiPAP, multifactorial due to exacerbation of COPD and being treated with steroid and bronchodilator, and antibiotics to cover for atypicals, there is also concern patient may have congestive heart failure and patient is being diuresed with IV Lasix 40 mg b.i.d., patient has lost 6 L of fluid, patient's overall symptoms have improved will taper methylprednisone to prednisone, currently patient is on 2 L nasal cannula, her overall symptoms have improved will transfer patient out of IMU to [facility]
[2022-06-08] MEDS: TERAZOSIN HCL 5 MG CAPSULE 10 MG PO (21:27)
[2022-06-08] MEDS: LORazepam INJ (*CRX) 2 MG/ML VIAL 0.5 MG IV PUSH (21:32)
[2022-06-09] VITALS (16 sets, daily range): BP systolic 124–138; BP diastolic 47–58; PULSE 60–72; RESP 14–20; TEMP 36.3–36.6; O2SAT 91–96
[2022-06-09] MEDS: IPRATROPIUM BR 0.02% INH SOLN 0.5 MG/2.5 ML VIAL INHALATION ×5 (00:05→22:23)
[2022-06-09] MEDS: ALBUTEROL SULFATE NEB 2.5 MG/3 ML INH INHALATION ×5 (00:05→22:22)
[2022-06-09] MEDS: FLUTICASONE/UMECLIDIN/VILANTER 100-62.5-25 MCG ELLIPTA 1 PUFF INHALATION (08:17)
[2022-06-09] MEDS: ENOXAPARIN 40 MG/0.4 ML SYRINGE SUB-Q (08:52)
[2022-06-09] MEDS: predniSONE 20 MG TABLET 60 MG PO (08:52)
[2022-06-09] MEDS: VALSARTAN 160 MG TABLET 320 MG PO (08:53)
[2022-06-09] MEDS: POTASSIUM CHLORIDE 20 MEQ PACKET (FOR LIQUID) 40 MEQ PO (08:53)
[2022-06-09] MEDS: LABETALOL HCL 100 MG TABLET 400 MG PO ×3 (08:54→17:20)
[2022-06-09] MEDS: GABAPENTIN 300 MG CAPSULE 600 MG PO ×3 (08:54→17:22)
[2022-06-09] MEDS: ROSUVASTATIN 10 MG TABLET PO (08:54)
[2022-06-09] MEDS: hydroCHLOROthiazide 25 MG TABLET PO (08:54)
[2022-06-09] MEDS: PANTOPRAZOLE 40 MG TABLET PO (08:54)
[2022-06-09] MEDS: FUROSEMIDE INJ 40 MG/4 ML VIAL IV PUSH ×2 (08:56→17:22)
[2022-06-09] MEDS: NIFEdipine 30 MG TAB.ER.24 PO (08:56)
--- NOTE | 2022-06-09 15:55 | PM.IMPN ---
Progress Note: A&P Assessment and Plan (1) Hypercapnic respiratory failure: Code(s): J96.92 - Respiratory failure, unspecified with hypercapnia Status: Acute (2) CHF (congestive heart failure): Code(s): I50.9 - Heart failure, unspecified Status: Acute (3) GERD (gastroesophageal reflux disease): Code(s): K21.9 - Gastro-esophageal reflux disease without esophagitis Status: Acute (4) HTN (hypertension): Code(s): I10 - Essential (primary) hypertension Status: Acute (5) COPD (chronic obstructive pulmonary disease): Code(s): J44.9 - Chronic obstructive pulmonary disease, unspecified Status: Acute Plan 06/05/22 ?patient is currently on BiPAP ?admit to IMU ?breathing treatments ?started on antibiotics ?blood cultures in progress ?chest x-ray reviewed ?ejection fraction is preserved at 60% as per echocardiogram ?will diurese ?daily intake and output ?PPI as needed ?continue antihypertensives ?continue to monitor ?on breathing treatments ?systemic steroids 06/06/22 placed on BiPAP at admission now transitioned to NC BNP at admission 1320 ABG w pH of 7.289 / CO2 68.3/ HCO3 32/ pO2 306.4 diuresed 1.1L overnight repeat ABG and labs ordered and pending hydralazine IV 06/07/22 on RA now BP significantly improved since admission transfer out of IMU placed at 8am cont current care BIPAP PRN anticipate dc home tomorrow after BP improved HPI-Narrative: ?This is a 72-year-old female with past medical history significant for diastolic heart failure grade 1, preserved ejection fraction heart failure, hypertension, COPD/emphysema, chronic back pain, GERD. patient was brought to the emergency room due to sudden onset shortness of breath at the time of my visit patient is on BiPAP hence history taking is limited preliminary workup was significant for a blood gas with a pH of 7.28, pCO2 of 63, PO2 300.? A chest x-ray was reported as: 06/09/2022 interval history: patient is 72-year-old female presented with a shortness of breath hypoxic secondary to hypercarbic respiratory failure patient was placed on BiPAP, multifactorial due to exacerbation of COPD and being treated with steroid and bronchodilator, and antibiotics to cover for atypicals, there is also concern patient may have congestive heart failure and patient is being diuresed with IV Lasix 40 mg b.i.d., patient has lost 9 L of fluid, patient's overall symptoms have improved tapered methylprednisone to prednisone, currently patient is on 2 L nasal cannula, her overall symptoms have improved transferred patient out of IMU to medical floor, will have PT OT evaluate the patient and further recommendation to follow. Subjective Date/time seen: 06/09/22 15:55 HPI-Narrative: ?This is a 72-year-old female with past medical history significant for diastolic heart failure grade 1, preserved ejection fraction heart failure, hypertension, COPD/emphysema, chronic back pain, GERD. patient was brought to the emergency room due to sudden onset shortness of breath at the time of my visit patient is on BiPAP hence history taking is limited preliminary workup was significant for a blood gas with a pH of 7.28, pCO2 of 63, PO2 300.? A chest x-ray was reported as: 06/09/2022 interval history: patient is 72-year-old female presented with a shortness of breath hypoxic secondary to hypercarbic respiratory failure patient was placed on BiPAP, multifactorial due to exacerbation of COPD and being treated with steroid and bronchodilator, and antibiotics to cover for atypicals, there is also concern patient may have congestive heart failure and patient is being diuresed with IV Lasix 40 mg b.i.d., patient has lost 9 L of fluid, patient's overall symptoms have improved tapered methylprednisone to prednisone, currently patient is on 2 L nasal cannula, her overall symptoms have improved transferred patient out of IMU to medical floor, will have PT OT
[2022-06-09] MEDS: TERAZOSIN HCL 5 MG CAPSULE 10 MG PO (21:39)
[2022-06-10] VITALS (12 sets, daily range): BP systolic 130–151; BP diastolic 56–63; PULSE 53–78; RESP 16–18; TEMP 36.3–36.7; O2SAT 94–97
[2022-06-10] MEDS: IPRATROPIUM BR 0.02% INH SOLN 0.5 MG/2.5 ML VIAL INHALATION ×4 (00:28→21:26)
[2022-06-10] MEDS: ALBUTEROL SULFATE NEB 2.5 MG/3 ML INH INHALATION ×4 (00:28→21:26)
--- NOTE | 2022-06-10 01:35 | PC.NURSE ---
Daylight Savings Time For Daylight Savings Time Ending in the Fall - Clocks are moved back. For Daylight Savings Time Beginning in the Spring - Clocks are moved ahead. For [facility], the time of change occurs at 0200 hrs. Time is taken from the breakfast server. This entry on the patient's chart recognizes the change in time reflected during documentation. Example: 2 entries for vital signs may be charted for 0200 hrs.
[2022-06-10 08:03] LABS: Basophils Percent Auto 0.1 % (0.2-1.2); Eosinophils Absolute Auto 0.1 K/mm3 (0-0.3); Eosinophils Percent Auto 0.7 % (0-4.4); Hematocrit 41.8 % (37.0-47.0); Hemoglobin 13.2 g/dL (12.0-15.0); Immature Granulocyte Absolute 0.05 K/mm3 (0.00-0.031); Immature Granulocyte Percent A 0.5 % (0-0.5); Lymphocytes Absolute Auto 1.75 K/mm3 (0.9-3.2); Lymphocytes Percent Auto 18.5 % (18.3-44.2); Mean Corpuscular HGB Conc 31.6 g/dl (32-36); Mean Corpuscular Hemoglobin 28.2 pg (26-34); Mean Corpuscular Volume 89.3 fl (80-100); Mean Platelet Volume 10.5 fl (7.4-10.4); Monocytes Absolute Auto 0.7 K/mm3 (0.1-0.6); Monocytes Percent Auto 7.5 % (2.6-8.5); Neutrophils Absolute Auto 6.9 K/mm3 (1.3-6.7); Neutrophils Percent Auto 72.7 % (45.5-73.1); Platelet Count Result 230 k/mm3 (150-375); Red Blood Count 4.68 M/mm3 (4.2-5.4); Red Cell Distribution Width 14.7 % (11.5-14.5); White Blood Count 9.5 K/mm3 (4.5-10.0)
[2022-06-10 08:23] LABS: Anion Gap 11 mmol/L (8-16); Blood Urea Nitrogen 32 mg/dL (7-17); Calcium 8.6 mg/dL (8.4-10.2); Carbon Dioxide 39 mmol/L (22-30); Chloride 94 mmol/L (98-107); Estimated CRCL calculation 55 ml/min; Estimated Glomerular Filt Rate > 60; Glucose 94 mg/dL (65-110); Potassium 2.7 mmol/L (3.4-5.0); Sodium 144 mmol/L (137-145)
[2022-06-10] MEDS: ENOXAPARIN 40 MG/0.4 ML SYRINGE SUB-Q (09:16)
[2022-06-10] MEDS: VALSARTAN 160 MG TABLET 320 MG PO (09:17)
[2022-06-10] MEDS: LABETALOL HCL 100 MG TABLET 400 MG PO ×3 (09:18→16:45)
[2022-06-10] MEDS: POTASSIUM CHLORIDE 20 MEQ TABLET 40 MEQ PO ×4 (09:18→20:35)
[2022-06-10] MEDS: GABAPENTIN 300 MG CAPSULE 600 MG PO ×3 (09:18→16:45)
[2022-06-10] MEDS: predniSONE 20 MG TABLET 60 MG PO (09:18)
[2022-06-10] MEDS: ROSUVASTATIN 10 MG TABLET PO (09:18)
[2022-06-10] MEDS: PANTOPRAZOLE 40 MG TABLET PO (09:19)
[2022-06-10] MEDS: NIFEdipine 30 MG TAB.ER.24 PO (09:19)
[2022-06-10] MEDS: MAGNESIUM SULF 1 GM/D5W 100 ML 1 GM/100 ML BAG IVPB (09:23)
[2022-06-10] MEDS: FLUTICASONE/UMECLIDIN/VILANTER 100-62.5-25 MCG ELLIPTA 1 PUFF INHALATION (11:22)
--- NOTE | 2022-06-10 14:34 | PM.IMPN ---
Progress Note: A&P Assessment and Plan (1) Hypercapnic respiratory failure: Code(s): J96.92 - Respiratory failure, unspecified with hypercapnia Status: Acute Assessment and Plan: Likely related to pulmonary edema caused by acute on chronic congestive heart failure resolved (2) CHF (congestive heart failure): Qualifiers: Heart failure type: diastolic Heart failure chronicity: acute on chronic Qualified Code(s): I50.33 - Acute on chronic diastolic (congestive) heart failure Code(s): I50.9 - Heart failure, unspecified Status: Acute Assessment and Plan: resolved with diuresis seems to be a baseline (3) Hypokalemia: Code(s): E87.6 - Hypokalemia Status: Acute Assessment and Plan: June 10 potassium 2.7 and previous magnesium 1.9 06/10 held furosemide 1 g magnesium sulfate IV ordered on June 10 as well as 40 mEq potassium chloride every 4 hours x4 doses 06/11 follow-up basic metabolic panel and magnesium and discharge home if values acceptable (4) GERD (gastroesophageal reflux disease): Code(s): K21.9 - Gastro-esophageal reflux disease without esophagitis Status: Acute (5) HTN (hypertension): Code(s): I10 - Essential (primary) hypertension Status: Acute Assessment and Plan: controlled (6) COPD (chronic obstructive pulmonary disease): Code(s): J44.9 - Chronic obstructive pulmonary disease, unspecified Status: Acute Assessment and Plan: seems to be a baseline Subjective Date/time seen: 06/10/22 14:34 Interval history: follow-up hypokalemia morning labs revealed hypokalemia. Patient admits to some tiredness but no other complaints. Appetite good. Was ready to go home. Denied chest pain or shortness of breath. Denied abdominal pain. Denied GI or problems. Denied abnormal bleeding. Denied focal weakness. Denied dizziness. Denied gait instability. Exam Narrative: GEN: NAD, AAOx3, cooperative HEENT: NCAT, MMM, EOMI Neck: no JVD Heart: S1S2 RRR Lungs: CTA B/L Abd: soft, NT, ND, bowel sounds normoactive Ext: moves all, no cyanosis, no clubbing, no edema Objective Data Vital Signs Vital Signs: Vital Signs - 24 hr 06/09/22 17:20 06/09/22 19:25 06/09/22 20:00 Temperature 97.6 F Pulse Rate 71 60 Respiratory Rate 20 Blood Pressure 124/57 L Pulse Oximetry 96 Oxygen Delivery Room Air 06/09/22 21:38 06/10/22 00:31 06/10/22 00:31 Temperature Pulse Rate 72 60 Respiratory Rate 16 16 Blood Pressure Pulse Oximetry 97 Oxygen Delivery Room Air 06/10/22 04:41 06/10/22 04:58 06/10/22 09:18 Temperature 97.7 F Pulse Rate 58 L 77 78 Respiratory Rate 18 18 Blood Pressure 151/56 H Pulse Oximetry 95 Oxygen Delivery 06/10/22 11:22 06/10/22 11:20 06/10/22 11:29 Temperature Pulse Rate 58 L 53 L Respiratory Rate 18 18 Blood Pressure Pulse Oximetry 97 Oxygen Delivery Room Air 06/10/22 12:51 Temperature Pulse Rate 77 Respiratory Rate Blood Pressure Pulse Oximetry Oxygen Delivery Intake/Output Intake/Output: Intake & Output 06/07/22 06/08/22 06/09/22 06/10/22 23:59 23:59 23:59 22:59 Intake Total 914 1110 870 930 Output Total 1350 2800 3150 400 Balance 436 -[phone] -[phone] Meds/Results Medications: Active Medications Generic Name Dose Route Start Last Admin Trade Name Freq PRN Reason Stop Dose Admin Acetaminophen 650 mg 06/06/22 12:24 06/06/22 17:02 Acetaminophen 325 Mg Tablet PO 650 mg Q6H PRN Administration Mild Pain (1-3) Or Fever or ALEXANDER Albuterol 2.5 mg 06/06/22 04:00 06/10/22 11:22 Albuterol Sulfate Neb 2.5 Mg/3 Ml Inh INHALATION 2.5 mg Q4HRT NAWAF Administration Enoxaparin Sodium 40 mg 06/06/22 09:00 06/10/22 09:16 Enoxaparin 40 Mg/0.4 Ml Syringe SUB-Q 40 mg DAILY NAWAF Administration Fluticasone/Umeclidinium/Vilanterol 1 puff 06/07/22 08
[2022-06-10] MEDS: TERAZOSIN HCL 5 MG CAPSULE 10 MG PO (20:34)
[2022-06-11] VITALS (7 sets, daily range): BP systolic 142; BP diastolic 62; PULSE 62–65; RESP 16; TEMP 36.8; O2SAT 62–96
[2022-06-11 05:40] LABS: Anion Gap 11 mmol/L (8-16); Blood Urea Nitrogen 25 mg/dL (7-17); Calcium 8.6 mg/dL (8.4-10.2); Carbon Dioxide 35 mmol/L (22-30); Chloride 98 mmol/L (98-107); Estimated CRCL calculation 71 ml/min; Estimated Glomerular Filt Rate > 60; Glucose 107 mg/dL (65-110); Magnesium 2.4 mg/dL (1.6-2.3); Potassium 4.2 mmol/L (3.4-5.0); Sodium 144 mmol/L (137-145)
[2022-06-11] MEDS: ENOXAPARIN 40 MG/0.4 ML SYRINGE SUB-Q (08:27)
[2022-06-11] MEDS: LABETALOL HCL 100 MG TABLET 400 MG PO ×2 (08:27→12:18)
[2022-06-11] MEDS: VALSARTAN 160 MG TABLET 320 MG PO (08:28)
[2022-06-11] MEDS: GABAPENTIN 300 MG CAPSULE 600 MG PO ×2 (08:28→12:18)
[2022-06-11] MEDS: predniSONE 20 MG TABLET 60 MG PO (08:28)
[2022-06-11] MEDS: PANTOPRAZOLE 40 MG TABLET PO (08:28)
[2022-06-11] MEDS: NIFEdipine 30 MG TAB.ER.24 PO (08:28)
[2022-06-11] MEDS: ROSUVASTATIN 10 MG TABLET PO (08:29)
[2022-06-11] MEDS: ALBUTEROL SULFATE NEB 2.5 MG/3 ML INH INHALATION (09:03)
[2022-06-11] MEDS: IPRATROPIUM BR 0.02% INH SOLN 0.5 MG/2.5 ML VIAL INHALATION (09:03)
[2022-06-11] MEDS: FLUTICASONE/UMECLIDIN/VILANTER 100-62.5-25 MCG ELLIPTA 1 PUFF INHALATION (09:04)
--- NOTE | 2022-06-11 11:34 | PM.DS ---
DS: Admitting Diagnosis Discharge Date June 11, 2022 Admitting Diagnosis pneumonia CHF, acute on chronic diastolic DS: Discharge Diagnosis Discharge Diagnosis (1) Hypercapnic respiratory failure: Code(s): J96.92 - Respiratory failure, unspecified with hypercapnia Status: Acute Assessment and Plan: Likely related to pulmonary edema caused by acute on chronic congestive heart failure resolved (2) CHF (congestive heart failure): Qualifiers: Heart failure chronicity: acute on chronic Heart failure type: diastolic Qualified Code(s): I50.33 - Acute on chronic diastolic (congestive) heart failure Code(s): I50.9 - Heart failure, unspecified Status: Acute Assessment and Plan: resolved with diuresis seems to be a baseline (3) Hypokalemia: Code(s): E87.6 - Hypokalemia Status: Acute Assessment and Plan: June 10 potassium 2.7 and previous magnesium 1.9 06/10 held furosemide 1 g magnesium sulfate IV ordered on June 10 as well as 40 mEq potassium chloride every 4 hours x4 doses 06/11 follow-up basic metabolic panel and magnesium and discharge home if values acceptable (4) GERD (gastroesophageal reflux disease): Code(s): K21.9 - Gastro-esophageal reflux disease without esophagitis Status: Acute (5) HTN (hypertension): Code(s): I10 - Essential (primary) hypertension Status: Acute Assessment and Plan: controlled (6) COPD (chronic obstructive pulmonary disease): Code(s): J44.9 - Chronic obstructive pulmonary disease, unspecified Status: Acute Assessment and Plan: seems to be a baseline DS: Summary Hospital Course Hospital Course: patient was admitted for shortness of breath. Found have a little bit of volume overload and pulmonary edema. This improved with IV diuretic. Also possible pneumonia should be sent home on Levaquin as well. Otherwise she is improved. Time Spent with Patient Time attestation: Total time spent providing and/or coordinating discharge services: Exam Narrative: GEN: NAD, AAOx3, cooperative HEENT: NCAT, MMM, EOMI Neck: no JVD Heart: S1S2 RRR Lungs: CTA B/L Abd: soft, NT, ND, bowel sounds normoactive Ext: moves all, no cyanosis, no clubbing, no edema DS: Data Data Completed and Pending Labs on day of discharge: Labs from last 24 hours 06/11/22 05:15 Sodium 144 Potassium 4.2 Chloride 98 Carbon Dioxide 35 H Anion Gap 11 BUN 25 H Creatinine 0.60 L Estim Creat Clear Calc 71 Estimated GFR > 60 Glucose 107 Calcium 8.6 Magnesium 2.4 H Preliminary micro results at discharge 06/06/22 04:49 Blood Culture - Preliminary Blood 06/06/22 04:49 Blood Culture - Preliminary Blood Discharge Plan Discharge Attending physician on discharge: Devendra Ramos Discharging Clinician: Devendra Ramos Patient Disposition: Home, Self-Care Activity: no preference Diet: as tolerated Patient Instructions: Antibiotic Form, Methylprednisolone (By injection), Heart Failure (DC), Pain Management (DC), COPD (Chronic Obstructive Pulmonary Disease) (DC), BiPAP (GEN) Stand Alone Forms: General Discharge Information Follow-up/Referrals: Braden Braga, [Primary Care Provider] - Discharge Medications: New levofloxacin 750 mg tablet 750 mg PO DAILY Qty: 5 0RF furosemide 20 mg tablet 20 mg PO DAILY Qty: 7 0RF Continued Adult Low Dose Aspirin 81 mg Tablet 81 mg PO HS nifedipine [Nifedical XL] 30 mg Tablet Extended Release 24hr 30 mg PO DAILY gabapentin 600 mg Tablet 600 mg PO TID labetalol 200 mg Tablet 400 mg PO TID oxybutynin chloride 10 mg Tablet Extended Release 24hr 10 mg PO DAILY albuterol sulfate 90 mcg/actuation HFA aerosol inhaler 1 - 2 inh inhalation Q4-6H PRN (Reason: shortness of breath or wheezing) Qty: 8.5 1RF omeprazole 20 mg tablet,del
== END 2022-06-11 12:30 | disposition home or self-care (01) | DRG 291 ==
LOC: ANHED 22:32 → ANHIMU 23:57 → ANH3MED 06-08 10:12
PROVIDERS: Hospitalist; Internal Medicine; Admitting Provider Internal Medicine; Emergency Provider Emergency Medicine; PCP Internal Medicine; Visit Provider Chiropractor
DX: I11.0 Hypertensive heart disease with heart failure (principal); I50.33 Acute on chronic diastolic (congestive) heart failure; J18.9 Pneumonia, unspecified organism; J96.02 Acute respiratory failure with hypercapnia; J96.01 Acute respiratory failure with hypoxia; Z20.822 Contact with and (suspected) exposure to COVID-19; J43.9 Emphysema, unspecified; E87.6 Hypokalemia; K21.9 Gastro-esophageal reflux disease without esophagitis; D64.9 Anemia, unspecified; M54.9 Dorsalgia, unspecified; G89.29 Other chronic pain; F40.240 Claustrophobia; K57.90 Diverticulosis of intestine, part unspecified, without perforation or abscess without bleeding; E78.5 Hyperlipidemia, unspecified; I34.1 Nonrheumatic mitral (valve) prolapse; M17.11 Unilateral primary osteoarthritis, right knee; N28.1 Cyst of kidney, acquired; Z90.49 Acquired absence of other specified parts of digestive tract; Z90.710 Acquired absence of both cervix and uterus; Z87.891 Personal history of nicotine dependence; Z79.82 Long term (current) use of aspirin
CPT/HCPCS: 36415; 36600; 71045; 80048; 80053; 82805; 83735; 83880; 84484; 85025; 85610; 85730; 87040; 87502; 93005; 94002; 94003; 94640; 96374; 97161; 99291; A9270; J0360; J1650; J1940; J1956; J2060; J2920; J2930; J3475; J7512; U0003; U0005

== ENCOUNTER 2022-08-25 13:20 | Emergency (ER) | payer OTHER, SELFPAY ==
[2022-08-25 13:33] VITALS: BP 157/73; PULSE 65; RESP 18; TEMP 36.6; O2SAT 97
--- NOTE | 2022-08-25 13:47 | ED.URI ---
HPI - URI/Sore Throat General Chief Complaint: Upper Respiratory Infection Stated Complaint: Sinus Time Seen by Provider: 08/25/22 13:47 Source: patient Mode of arrival: ambulatory Limitations: no limitations History of Present Illness HPI Narrative: 72-year-old female presents with complaint of nasal and sinus congestion He weeks. States that she has used to boxes of Mucinex. Started Maria Esther 3 days ago. Continues to have congestion and sinus pressure. Now starts to feel popping and pressure in both ears. Denies sore throat and cough. Afebrile. All systems reviewed and negative except as noted above. Related Data Home Medications Medication Instructions Recorded Confirmed aspirin 81 mg tablet 81 mg PO HS 03/09/21 08/25/22 labetalol 200 mg tablet 400 mg PO TID 03/09/21 08/25/22 nifedipine 30 mg tablet,extended 30 mg PO DAILY 03/09/21 08/25/22 release 24 hr oxybutynin chloride 10 mg 10 mg PO DAILY 03/09/21 08/25/22 tablet,extended release 24 hr omeprazole 20 mg tablet,delayed 20 mg PO DAILY 12/26/21 08/25/22 release terazosin 10 mg capsule 10 mg PO HS 06/06/22 08/25/22 Allergies Allergy/AdvReac Type Severity Reaction Status Date / Time adhesive Allergy Mild Rash Verified 08/25/22 13:31 codeine AdvReac Mild upset Verified 08/25/22 13:31 stomach Review of Systems Review of Systems: CONSTITUTIONAL: Denies fever, chills, or sweats. EYES: Denies visual changes, redness, or discharge. ENT: Reports rhinorrhea, congestion, sinus pressure. Denies sore throat, CARDIOVASCULAR: Denies chest pain, palpitations, or edema. RESPIRATORY: Denies cough or dyspnea. GASTROINTESTINAL: Denies abdominal pain, nausea, vomiting, or diarrhea. GENITOURINARY: Denies dysuria or hematuria. SKIN: Denies rash or itching. MUSCULOSKELETAL: Denies back pain, joint pain, or myalgia. NEUROLOGIC: Denies headache, numbness, or weakness. PSYCHIATRIC: Denies anxiety or depression. All other systems reviewed are negative, except as documented in HPI. 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 Bronchitis Chronic back pain Claustrophobia COPD (chronic obstructive pulmonary disease) Cyst of left kidney Diverticulitis Diverticulosis GERD (gastroesophageal reflux disease) History of blood transfusion HLD (hyperlipidemia) HTN (hypertension) Hyperlipidemia Hypertension MVP (mitral valve prolapse) Neuroma Patellofemoral arthritis Pneumonia Rectal polyp Right knee DJD Right knee pain SBO (small bowel obstruction) Seasonal allergies UTI (urinary tract infection) Weight gain Surgical History Surgical History H/O dilation and curettage H/O: hysterectomy History of cholecystectomy History of intestinal surgery adhesiolysis of small bowel Hx of appendectomy Hx of colonoscopy Previous back surgery 2 plates and 4 screws Family History Family History Father Family history of diabetes mellitus in first degree relative, Onset Age: 90 Patient's father is Sibling Patient's brother is in good health Patient's brother is Brain aneurysm Mother Osteoporosis Asthma Other Diabetes mellitus High cholesterol Hypertension Social History Social History Smoking packs per day: 1 Smoking cigarettes per day: 20.0 Years smoked: 25 Smoking pack-years: 25.00 Smoking status: Former smoker Tobacco type: cigarettes Second hand tobacco smoke exposure: No Smoking end date: 08/05/09 Alcohol intake: former Alcohol use details: 5 per month Substance use: never Substance use type: does not use Lack of Transportation: No Lack of Food: Never True Current Housing: I Have Housing Concerned About
== END 2022-08-25 13:56 | disposition home or self-care (01) ==
PROVIDERS: Emergency Provider Nurse Practitioner Family; PCP Internal Medicine
DX: J01.90 Acute sinusitis, unspecified (principal); Z87.891 Personal history of nicotine dependence; J44.9 Chronic obstructive pulmonary disease, unspecified; K21.9 Gastro-esophageal reflux disease without esophagitis; E78.5 Hyperlipidemia, unspecified; I10 Essential (primary) hypertension; I34.1 Nonrheumatic mitral (valve) prolapse; M17.11 Unilateral primary osteoarthritis, right knee; F40.240 Claustrophobia; Z79.82 Long term (current) use of aspirin
CPT/HCPCS: 99213; G0463

== ENCOUNTER 2022-09-12 10:06 | Outpatient (CLI) | payer OTHER, SELFPAY ==
--- NOTE | ~2022-09-12 | CT_ITS ---
EXAMINATION: CT sinus wo con DATE: 09/12/2022 10:29 INDICATION: Chronic sinusitis. TECHNIQUE: Computed tomography (CT) of the paranasal sinuses was performed without intravenous contra st. Iterative reconstruction technique was employed. The dose-length product was 289.66 mGy-cm. COMPARISON: Head CT 05/25/2018 FINDINGS: There is mild mucosal thickening in the frontal and ethmoid sinuses. There is mild mucosal thickening in the sphenoid and maxillary sinuses. The ostiomeatal units are widely patent. There is c oncha bullosa involving right middle turbinate. There is rightward deviation of superior nasal septum and leftward deviation of the inferior nasal septum. There are likely changes of ocular lens replace ment surgeries. The mastoid air cells are normal. IMPRESSION: 1. Mild mucosal thickening in the paranasal sinuses. Reviewed, dictated and finalized at location A. YL DISSOLVER OPERATOR
== END 2022-09-12 10:07 | disposition home or self-care (01) ==
PROVIDERS: PCP Internal Medicine; Visit Provider Internal Medicine
DX: J32.9 Chronic sinusitis, unspecified (principal)
CPT/HCPCS: 70486

== ENCOUNTER 2022-09-28 08:23 | Outpatient (CLI) | payer OTHER, SELFPAY ==
--- NOTE | ~2022-09-28 | CT_ITS ---
EXAMINATION: CT lung screening DATE: 09/28/2022 08:47 INDICATION: ct lung screening TECHNIQUE: Computed tomography (CT) of the chest was performed without intravenous contrast. Addition al 3D reconstructions utilizing coronal maximum intensity projection (MIP) were performed. Automated exposure control and iterative reconstruction technique were employed. The dose-length product was 11 1.39 mGy-cm. COMPARISON: 09/24/2021 FINDINGS: Mild discoid atelectasis at the lingula with additional mild peripheral atelectasis/scarring in the r ight middle and bilateral lower lobes. A couple tiny calcified nodules in the superior segment right lower lobe consistent with old granulomatous disease. No significant change in a few scattered small noncalcified pulmonary nodules, the 3 largest measures 5 mm in the left lower lobe. No pneumonia, pul monary edema or pleural effusion. Borderline heart size. Atherosclerotic coronary artery calcificatio n. Aortic valve calcification. No pericardial effusion. No interval change in a few mildly prominent but still normal-sized mediastinal lymph nodes. No pathologically enlarged thoracic lymphadenopathy. Thoracic aorta is normal in caliber. No interval change in a 1.4 cm right thyroid nodule. Cholecystec jamie clips the gallbladder fossa. IMPRESSION: 1. Lung-RADS category 2: Benign appearance or behavior. Continue annual screening with noncontrast lo w-dose chest CT in 12 months. Reviewed, dictated and finalized at location A. LER HELPER IMPRESSION: 1. Lung-RADS category 2: Benign appearance or behavior. Continue annual screeni ng with noncontrast low-dose chest CT in 12 months.
== END 2022-09-28 08:24 | disposition home or self-care (01) ==
PROVIDERS: PCP Internal Medicine; Visit Provider Nurse Practitioner Family
DX: Z12.2 Encounter for screening for malignant neoplasm of respiratory organs (principal); Z87.891 Personal history of nicotine dependence
CPT/HCPCS: 71271

== ENCOUNTER → 2023-09-02 12:08 | Outpatient (CLI) | payer MEDICARE, SELFPAY ==
--- NOTE | ~2023-09-02 | XR_ITS ---
Right wrist Technique: PA, oblique, lateral, and ulnar deviation views were obtained. Clinical History: Osteoarthritis Findings: No acute fracture or dislocation is seen. Osseous alignment is anatomic. There is moderate degenerative change of the first CMC joint. Soft tissues are unremarkable. Impression: Moderate degenerative change of the first CMC joint. Reviewed, dictated and finalized at [facility]. CCO SPRAYER Impression: Moderate degenerative change of the first CMC joint.
== END ==
PROVIDERS: PCP Plastic Surgery; Visit Provider Plastic Surgery
DX: M19.031 Primary osteoarthritis, right wrist (principal)
CPT/HCPCS: 73110

== ENCOUNTER 2023-09-30 12:57 | Outpatient (CLI) | payer MEDICARE, SELFPAY ==
--- NOTE | ~2023-09-30 | CT_ITS ---
EXAMINATION: CT lung screening DATE: 09/30/2023 13:15 INDICATION: Personal history of nicotine dependence, prior smoker with 25 pack year history TECHNIQUE: Computed tomography (CT) of the chest was performed without intravenous contrast. The dose -length product (DLP) was 77.56 mGy-cm. Automated exposure control and iterative reconstruction techn ique were employed. COMPARISON: 09/28/2022 FINDINGS: There is mild emphysema. There is a new 4 mm nodule in the superior segment of the left low er lobe on image 52. Additional stable nodules of the left lower lobe measure up to 3 mm. The lungs a re free of acute opacities. There is mild atelectasis of the lingula and right lower lobe. No pleural effusion or pneumothorax. No pathologically enlarged thoracic lymph nodes are identified. The heart size is normal. Calcified coronary artery atherosclerosis is noted. A stable 1.4 cm right thyroid nod ule is noted. There is mild thoracic spondylosis. IMPRESSION: 1. Lung-RADS category 3: Probably benign. Followup with noncontrast low-dose chest CT in 6 months is recommended. Reviewed, dictated and finalized at location B. IDENT AND CHIEF COMMERCIAL OFFICER IMPRESSION: 1. Lung-RADS category 3: Probably benign. Followup with noncontrast low-dose ch est CT in 6 months is recommended.
== END 2023-09-30 12:58 | disposition home or self-care (01) ==
LOC: ANHIMG 12:58
PROVIDERS: PCP Internal Medicine; Visit Provider Nurse Practitioner Family
DX: Z12.2 Encounter for screening for malignant neoplasm of respiratory organs (principal); Z87.891 Personal history of nicotine dependence; R93.89 Abnormal findings on diagnostic imaging of other specified body structures
CPT/HCPCS: 71271

== ENCOUNTER 2023-10-17 11:37 | Outpatient (CLI) | payer MEDICARE, SELFPAY ==
--- NOTE | 2023-10-17 12:04 | ECG_ITS ---
Measurements Intervals [place] Rate: 52 P: 58 ID: [id number] QRS: 18 QRSD: 104 T: 40 QT: 469 QTc: 438 Interpretive Statements SINUS BRADYCARDIA DELAYED PRECORDIAL R/S TRANSITION BASELINE ARTIFACT- I, II, III, AVF BORDERLINE ECG COMPARED TO ECG 06/05/2022 21:38:06 SINUS BRADYCARDIA NOW PRESENT Electronically Signed On 10-17-2023 12:47:52 CDT by Santiago Ragland D.O.
[2023-10-17 12:29] LABS: Anion Gap 5 mmol/L (8-16); Blood Urea Nitrogen 23 mg/dL (7-17); Carbon Dioxide 34 mmol/L (22-30); Chloride 102 mmol/L (98-107); Potassium 3.5 mmol/L (3.4-5.0); Sodium 141 mmol/L (137-145)
[2023-10-17 12:30] LABS: Calcium 9.8 mg/dL (8.4-10.2); Estimated Glomerular Filt Rate > 60; Glucose 95 mg/dL (65-110)
== END 2023-10-17 11:38 | disposition home or self-care (01) ==
LOC: ANHSURGERY 11:43
PROVIDERS: Anesthesiology; PCP Internal Medicine; Visit Provider Plastic Surgery
DX: I10 Essential (primary) hypertension (principal)
CPT/HCPCS: 36415; 80048; 93005

== ENCOUNTER 2023-10-23 03:12 | Day surgery (SDC) | payer MEDICARE, SELFPAY ==
--- NOTE | 2023-10-14 13:48 | PC.NURSE ---
Report to the Outpatient Waiting Room, entrance under the green pavilion located off [facility], at time __729 on date __10/23/23 . Planned Procedure Time: __929 . Time changes happen often and if your time is changed the preop area will call you the afternoon before. - You and your visitor will be asked to self-screen and do not enter if you have any COVID symptoms. - A mask is optional within the hospital at this time. Patients may have clear liquids (water, carbonated beverages, clear teas, apple juice) until 3 hours prior to surgery( 6:30 AM) with a maximum of 20 ounces. - No food from midnight until time of surgery - Infants may have breast milk until 4 hours before surgery, infant formula 6 hours prior to surgery. - Children will be allowed to drink immediately following surgery. If applicable, please bring a bottle or sippy cup to assist with drinking. Juice, water, soda, and popsicles are readily available. For infants on formula, please bring formula the day of surgery. Pacifiers are allowed. Take the following medications with a SIP of water the morning of surgery: __LABETALOL,NIFEDIPINE,STIOLTO INHALER DO NOT STOP ANY OF YOUR OTHER PRESCRIPTION MEDICATIONS PRIOR TO SURGERY ?EXCEPT THE FOLLOWING Medications to discontinue per physician MAY CONTINUE [address] STYLES Please no make-up, nail divehi, hairspray, perfume, deodorant, or body powder the day of surgery. No jewelry (including any body piercings) or valuables the day of surgery, leave them at home. Please take a shower or bath the night before, or the morning of, surgery with an antibacterial soap. Wear comfortable, loose fitting clothing. Children are encouraged to wear pajamas. - Jewelry must be removed prior to entering the operating room. Rings and piercings that are not removed may be cut off. - The hospital will not accept responsibility for valuables. - Please leave all valuables, including medications, at home the day of surgery. If you are going home after surgery, a licensed route relief driver must drive you home. - NO public transportation without another adult if you receive anesthesia. - We recommend that an adult stay with you for 24 hours following discharge. - We also recommend that you do not drive, make important decision, drink alcoholic beverages, or take any drugs that were not prescribed by your health care provider for at least 24 hours after your discharge time. For Pediatric surgeries, we recommend two adults accompany the child home. Follow any additional instructions given to you from your surgeon. If you or anyone in your household have experienced Covid symptoms in the past week, please notify your surgeon or the nurse liaison at the phone number below for possible testing. Telephone instructions given to ___PATIENT and asked if any additional questions and then verbalized understanding. Patient advised to call surgeon office or pre surgery nurse liaison [phone] if any additional questions.
[2023-10-14 13:56] VITALS: BMI 28.3
[2023-10-23] VITALS (8 sets, daily range): BP systolic 121–175; BP diastolic 58–85; PULSE 55–93; RESP 14–20; TEMP 36.1–36.2; O2SAT 94–100
--- NOTE | ~2023-10-23 | XR_ITS ---
EXAMINATION: XR surgery orthopedic DATE: 10/23/2023 11:06 INDICATION: Right first carpometacarpal osteoarthritis for suspension arthroplasty. TECHNIQUE: 2 fluoroscopic images of the carpus of the right hand were obtained during procedure perfo rmed by Dr. Almazan. Radiologist was not present for the imaging or procedure. The amount of fluoroscop y time used during this procedure was 0.1 minutes. A total of 2 images were recorded. Total DAP was 0 .0081 mGym^2 COMPARISON: 09/02/2023 FINDINGS: Interval resection of the trapezium with lucent postoperative gas and a couple small bone fragments a t the resection bed. There is suggestion of an oblique anchor tract at the base of the second metacar pal likely for associated suspension arthroplasty. Bone alignment is otherwise normal. No fractures i dentified. Mild osteoarthritis at the first metacarpophalangeal joint. IMPRESSION: 1. Fluoroscopy utilized during right trapezium resection likely for first carpal metacarpal suspensio n arthroplasty. See procedure note for further detail. Reviewed, dictated and finalized at location A. IMPRESSION: 1. Fluoroscopy utilized during right trapezium resection likely for first carpa l metacarpal suspension arthroplasty. See procedure note for further detail.
--- NOTE | 2023-10-23 07:17 | WPDHPUPDATE1 ---
History and Physical Update Update Date/Time: 10/23/23 07:17 History and Physical has been reviewed, including an updated exam of the patient. There are NO changes in the patient's condition. Risks, benefits, and alternatives have been discussed and questions answered. Patient agrees to proceed with procedure.
[2023-10-23] MEDS: LACTATED RINGERS 1,000 ML 30 ML IV CONT (08:10)
--- NOTE | 2023-10-23 08:58 | WPDANESEPPF ---
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 Patient Data Age: 73 Gender: F Height: 1.63 m Weight: 74.85 kg Allergies Allergy/AdvReac Type Severity Reaction Status Date / Time adhesive Allergy Mild Rash Verified 10/17/23 11:02 codeine AdvReac Mild upset Verified 10/17/23 11:02 stomach Home Medications Medication Instructions Recorded Confirmed Type aspirin 81 mg tablet 81 mg PO HS 03/09/21 10/17/23 History nifedipine 30 mg tablet,extended See Rx Instructions .Route 11/05/22 10/17/23 Rx release .COMPLEX #90 tabs rosuvastatin 10 mg tablet 10 mg PO DAILY #90 tabs 06/23/23 10/17/23 Rx furosemide 20 mg tablet See Rx Instructions .Route 07/09/23 10/17/23 Rx .COMPLEX #45 tabs potassium chloride 20 mEq 20 meq PO DAILY #90 tabs 07/30/23 10/17/23 Rx tablet,extended release valsartan 320 1 tablet PO DAILY #90 tabs 08/07/23 10/17/23 Rx mg-hydrochlorothiazide 25 mg tablet clonidine HCl 0.1 mg tablet 0.1 mg PO BID PRN if systolic BP > 08/09/23 10/17/23 Rx 160 #60 tabs labetalol 200 mg tablet See Rx Instructions .Route 08/30/23 10/17/23 Rx .COMPLEX #540 tabs terazosin 10 mg capsule 10 mg PO HS #90 caps 08/30/23 10/17/23 Rx oxybutynin chloride 10 mg 10 mg PO DAILY 10/14/23 10/17/23 History tablet,extended release 24 hr Anoro Ellipta 62.5 mcg-25 1 inh inhalation Q24H #60 ea 10/17/23 10/17/23 Rx mcg/actuation powder for inhalation (umeclidinium-vilanterol) albuterol sulfate 90 mcg/actuation 1 - 2 inh inhalation Q4-6H PRN 03/14/24 03/14/24 Rx aerosol inhaler shortness of breath or wheezing #8.5 grams Patient hx anesthesia problems: none Family hx anesthesia problems: none Results Review: All pre-operative results and documents have been reviewed as part of the pre-operative evaluation. 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 Bronchitis Chronic back pain Claustrophobia COPD (chronic obstructive pulmonary disease) Cyst of left kidney Degenerative joint disease of knee Diverticulitis Diverticulosis Effusion of knee joint GERD (gastroesophageal reflux disease) History of blood transfusion HLD (hyperlipidemia) HTN (hypertension) Hyperlipidemia Hypertension Left knee DJD MVP (mitral valve prolapse) Neuroma Patellofemoral arthritis Pneumonia Rectal polyp Right knee DJD Right knee pain SBO (small bowel obstruction) Seasonal allergies UTI (urinary tract infection) Weight gain Surgical History Surgical History H/O dilation and curettage H/O: hysterectomy History of cholecystectomy History of intestinal surgery adhesiolysis of small bowel Hx of appendectomy Hx of colonoscopy Previous back surgery 2 plates and 4 screws Family History Family History Father Family history of diabetes mellitus in first degree relative, Onset Age: 90 Patient's father is Sibling Patient's brother is in good health Patient's brother is Brain aneurysm Mother Osteoporosis Asthma Other Diabetes mellitus High cholesterol Hypertension Social History Social History Smoking packs per day: 1 Smoking cigarettes per day: 20.0 Years smoked: 25 Smoking pack-years: 25.00 Smoking status: Former smoker Tobacco type: cigarettes Second hand tobacco smoke exposure: No Smoking end date: 08/05/09 Alcohol intake: former Alcohol use details: 5 per month Substance use: never Substance use type: does not
[2023-10-23] MEDS: ACETAMINOPHEN 500 MG TABLET 1000 MG PO (09:15)
[2023-10-23] MEDS: ceFAZolin 2 GM/D5W 50 ML 2 GM/50 ML BAG IVPB (09:32)
[2023-10-23] MEDS: LIDO 1%/EPINEPHRINE 1:100,000 50 ML VIAL INFILTRATE (10:58)
[2023-10-23] MEDS: BUPivacaine HCL 0.5% 10 ML AMP INFILTRATE (10:59)
--- NOTE | 2023-10-23 11:25 | W.PM.PROC2 ---
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 Description of Procedure The patient's right basal joint area was marked with her consent in the holding area. She was then taken to the operating room where she was placed supine on the operating table. She was given general anesthesia. The right upper extremity was prepped and draped in usual fashion. A time-out was held and confirmed. The site was marked for the incision and this area infiltrated with 1% lidocaine with epinephrine. The extremity was exsanguinated and the tourniquet inflated 250 mmHg. The incision was made as marked on the radial aspect centered on the carpal metacarpal joint. Sensory nerve branches were identified and retracted out of the way throughout the case. The joint capsule was opened between the extensor pollicis brevis and abductor pollicis longus. The trapezium was dissected with sharp and blunt dissection until it could be removed piecemeal with a rongeur. The entire structure was removed sparing the flexor carpi radialis insertion. The site was imaged to confirm complete removal of trapezium. A C-wire was placed over the dorsum of the 2nd metacarpal from within this wound to pinpoint the appropriate insertion site and angle. The pin was drilled and the Arthrex guide passed over the pin and inserted into the base of the metacarpal. The pin was removed and the FiberTak placed. Stability was confirmed. The guidewire was inserted at the base of the 1st metacarpal after clearing the soft tissue. The SwiveLock was inserted over the suture tape compressing at in stable fashion. The suture tape was cut. The site was reimaged in extension and compression. The wound was irrigated and couple of 3-0 Vicryl sutures were placed to close the capsule. The tourniquet was released. About 6 mils of quarter % Marcaine plain was infiltrated locally. The wound was closed intradermally with interrupted 4-0 Monocryl suture. The usual bandage and thumb spica forearm based splint was applied. Implants Arthrex internal brace Estimated Blood Loss 10 Tourniquet Time Total Tourniquet Time: 54 minutes Drains No Packing No Pathology None sent Complications No immediate complications Condition Stable Disposition PACU
== END 2023-10-23 12:51 | disposition home or self-care (01) ==
PROVIDERS: PCP Internal Medicine; Visit Provider Plastic Surgery
PROC: (CPT 25447; principal; 2023-10-23 09:30)
DX: M18.11 Unilateral primary osteoarthritis of first carpometacarpal joint, right hand (principal); I10 Essential (primary) hypertension; E78.5 Hyperlipidemia, unspecified; J44.9 Chronic obstructive pulmonary disease, unspecified; K21.9 Gastro-esophageal reflux disease without esophagitis; I34.1 Nonrheumatic mitral (valve) prolapse; Z79.82 Long term (current) use of aspirin; Z79.51 Long term (current) use of inhaled steroids; Z87.891 Personal history of nicotine dependence
CPT/HCPCS: 25447; 99199; 99211; A9270; C1713; G0463; J0690; J1100; J1596; J2405; J2704; J3010; J7120

== ENCOUNTER 2023-10-23 19:15 | Emergency (ER) | payer MEDICARE, SELFPAY ==
--- NOTE | 2023-10-23 19:28 | ED.GENADULT ---
HPI - General Adult General Chief complaint: Wound/Laceration Stated complaint: Right Arm Wound Check Time Seen by Provider: 10/23/23 19:28 Source: patient Mode of arrival: ambulatory Limitations: no limitations History of Present Illness HPI narrative: 73-year-old female presents postop from recent surgery with Dr. Almazan. Patient states she had a carpal tunnel like release of her right thumb . Patient states that she has blood on her dressing and does not want to get on her bed sheets. Called the office regarding this and was told that dressing was okay. Patient states that she wants dressing change so she does not get her sheets at home messy. All systems reviewed and negative except as noted above. Related Data Home Medications Medication Instructions Recorded Confirmed aspirin 81 mg tablet 81 mg PO HS 03/09/21 10/23/23 oxybutynin chloride 10 mg 10 mg PO DAILY 10/14/23 10/23/23 tablet,extended release 24 hr Allergies Allergy/AdvReac Type Severity Reaction Status Date / Time adhesive Allergy Mild Rash Verified 10/23/23 19:19 codeine AdvReac Mild upset Verified 10/23/23 19:19 stomach Review of Systems Review of Systems: CONSTITUTIONAL: Denies fever, chills, or sweats. EYES: Denies visual changes, redness, or discharge. ENT: Denies rhinorrhea, congestion, sore throat, or otalgia. CARDIOVASCULAR: Denies chest pain, palpitations, or edema. RESPIRATORY: Denies cough or dyspnea. GASTROINTESTINAL: Denies abdominal pain, nausea, vomiting, or diarrhea. GENITOURINARY: Denies dysuria or hematuria. SKIN: Denies rash or itching. MUSCULOSKELETAL: Denies back pain, joint pain, or myalgia. Patient here for dressing change. NEUROLOGIC: Denies headache, numbness, or weakness. PSYCHIATRIC: Denies anxiety or depression. All other systems reviewed are negative, except as documented in HPI. 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 Bronchitis Chronic back pain Claustrophobia COPD (chronic obstructive pulmonary disease) Cyst of left kidney Degenerative joint disease of knee Diverticulitis Diverticulosis Effusion of knee joint GERD (gastroesophageal reflux disease) History of blood transfusion HLD (hyperlipidemia) HTN (hypertension) Hyperlipidemia Hypertension Left knee DJD MVP (mitral valve prolapse) Neuroma Patellofemoral arthritis Pneumonia Rectal polyp Right knee DJD Right knee pain SBO (small bowel obstruction) Seasonal allergies UTI (urinary tract infection) Weight gain Surgical History Surgical History H/O dilation and curettage H/O: hysterectomy History of cholecystectomy History of intestinal surgery adhesiolysis of small bowel Hx of appendectomy Hx of colonoscopy Previous back surgery 2 plates and 4 screws Family History Family History Father Family history of diabetes mellitus in first degree relative, Onset Age: 90 Patient's father is Sibling Patient's brother is in good health Patient's brother is Brain aneurysm Mother Osteoporosis Asthma Other Diabetes mellitus High cholesterol Hypertension Social History Social History Smoking packs per day: 1 Smoking cigarettes per day: 20.0 Years smoked: 25 Smoking pack-years: 25.00 Smoking status: Former smoker Tobacco type: cigarettes Second hand tobacco smoke exposure: No Smoking end date: 08/05/09 Alcohol intake: former Alcohol use details: 5 per month Substance use: never Substance use type: does not use Lack of Transportation: No Lack of Food: Never True Current Housing: I Have Housing Concerned About Future Housing: No Difficulty Paying Gas/Electric Bills: No Difficult
[2023-10-23 19:32] VITALS: BP 188/60; PULSE 69; RESP 18; TEMP 36.9; O2SAT 97
== END 2023-10-23 19:55 | disposition home or self-care (01) ==
PROVIDERS: Emergency Provider Nurse Practitioner Family; PCP Internal Medicine
DX: Z48.01 Encounter for change or removal of surgical wound dressing (principal); Z87.891 Personal history of nicotine dependence; J44.9 Chronic obstructive pulmonary disease, unspecified; K21.9 Gastro-esophageal reflux disease without esophagitis; E78.5 Hyperlipidemia, unspecified; I10 Essential (primary) hypertension; M17.0 Bilateral primary osteoarthritis of knee; I34.1 Nonrheumatic mitral (valve) prolapse
CPT/HCPCS: 99211; G0463

== ENCOUNTER 2023-12-03 10:15 | Outpatient (RCR) | payer MEDICARE, SELFPAY ==
--- NOTE | 2023-11-15 09:56 | OTOPEVAL1 ---
Assessment and note entered by Nicholas Luna, CARLOS/Marija, CHT Evaluation Information 11/15/23 Diagnosis s/p right trapezium resection with Arthrex Internal Brace Subjective Information Patient presents today, 3 weeks following right CMC arthroplasty. She presents today with no immobilizer. Reports no pain at rest. 7/10 pain with ROM exercises today. States she has been heavily favoring the left hand for ADLs. Assessment OT Clinical Summary Patient referred to OT 3 weeks following right CMC arthroplasty. She presents with residual stiffness and weakness that limits return of functional use for ADLs. Today a long thumb spica was fabricated and applied to support the healing structures. Initiated active ROM. Overall she is doing very well with ROM with some residual stiffness into wrist extension and radial deviation. Residual finger edema limits composite flexion. Skilled OT indicated to maximize functional ROM and strength of the right hand/ wrist to facilitate return of functional use for gripping, lifting, and pinching tasks during ADLs. Plan of Care Interventions Therapeutic Exercise,Manual Therapy,Therapeutic Activities,Hot Pack/Cold Pack,Check Out for Orthotic/Pr,Paraffin OT Services Indicated Yes Treatment Frequency and 1x/week for 4 visits Duration These treatments will address the objective and functional deficits as defined above. The patient will be advanced safely and appropriately in order for the patient to progress towards his/her prior level of function. Additional exercises will be introduced and as well as a comprehensive home exercise program upon discharge, if needed, ?to ensure carryover of functional gains achieved in the clinic. This treatment plan has been reviewed and agreement upon by the patient.
--- NOTE | 2023-11-15 09:56 | OPREHPOC ---
Outpatient Therapy Plan of Care This is a Multidisciplinary Plan of Care that may contain components documented by all disciplines (PT, OT, and ST.) OT Problem 1 OT Problem #1 Knowledge Deficit OT Goal 1 Goal 1. Patient to be independent with instructed materials. Target Visit 4 OT Problem 2 OT Problem #2 Pain OT Goal 1 Goal 1. Patient to be independent with non medication pain management - ROM - heat/ice Target Visit 4 OT Problem 3 OT Problem #3 Impaired Range of Motion OT Goal 1 Goal 1. Increase active ROM of the right UE: - wrist extension to 50 deg. - wrist RD to 15 deg. - finger flexion as demonstrated by <1 cm gap between the finger tips and the DPC Target Visit 4 OT Problem 4 OT Problem #4 Impaired Strength OT Goal 1 Goal 1. 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 Target Visit 4
--- NOTE | 2023-12-03 11:11 | OTOPDC ---
Assessment and note entered by Nicholas Luna, OTR/L, CHT Evaluation Information Diagnosis s/p right trapezium resection with Arthrex Internal Brace Subjective Information Patient presents today, 6 weeks following right CMC arthroplasty. She continues to report no pain at rest. She reports she is now using her right hand for ADLs, able to pinch and pull up clothes, able to lift a half gallon of milk out of the fridge, and she is back to using her right hand to feed herself. She reports her limitations are weakness at this time. Reported Pain Level Pain Score 0: Self Report Additional Pain Score Comments Patient reports no pain at rest. Pain can get up to 5/10 at worst . Assessment OT Clinical Summary Patient has been participating in skilled OT following right CMC arthroplasty. 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 Today her HEP was progressed to strengthening and she completes with excellent understanding. At this time patient is being discharged with HEP. She is in agreement. Plan of Care OT Services Indicated No
== END 2023-12-03 11:48 | disposition home or self-care (01) ==
LOC: ANHOT 10:15
PROVIDERS: PCP Internal Medicine; Visit Provider Plastic Surgery
DX: Z48.89 Encounter for other specified surgical aftercare (principal)
CPT/HCPCS: 97018; 97110; 97140; 97165; L3806

== ENCOUNTER 2024-03-30 12:23 | Outpatient (CLI) | payer OTHER, SELFPAY ==
--- NOTE | ~2024-03-30 | CT_ITS ---
CT Scan of the Chest without Contrast: Clinical Indication: Solitary pulmonary nodule Technique: Contiguous sections were acquired throughout the chest without intravenous contrast. Dose reduction technique was used on this scan by utilizing automated exposure control and iterative recon struction technique. The dose-length product (DLP) was 87.73 mGy-cm. COMPARISON: 09/30/2023 Findings: There is no evidence of any significant mediastinal, hilar or axillary lymphadenopathy. There are ath erosclerotic calcifications of the aorta and coronary arteries. There is no evidence of pleural or pericardial effusion. There are stable subcentimeter nodules at the inferior left lower lobe. Stable 3 mm nodule in the sup erior segment left lower lobe. No new pulmonary nodule seen. Images through the upper abdomen reveal no abnormalities. Impression: Stable subcentimeter left lower lobe pulmonary nodules. Reviewed, dictated and finalized at [facility]. Impression: Stable subcentimeter left lower lobe pulmonary nodules.
== END 2024-03-30 12:24 | disposition home or self-care (01) ==
PROVIDERS: PCP Physician Assistant; Visit Provider Nurse Practitioner Family
DX: R91.1 Solitary pulmonary nodule (principal); R91.8 Other nonspecific abnormal finding of lung field
CPT/HCPCS: 71250

== ENCOUNTER 2024-04-22 08:39 | Outpatient (CLI) | payer OTHER, SELFPAY ==
--- NOTE | ~2024-04-22 | CT_ITS ---
EXAMINATION: CT knee RT w con DATE: 04/22/2024 09:21 INDICATION: Right knee pain. Femur mass. TECHNIQUE: High resolution computed tomography (CT) of the right knee was performed without intraveno us contrast. Additional sagittal and coronal reconstructions were performed. Automated exposure contr ol and iterative reconstruction technique were employed. The dose-length product was 587.85 mGy-cm. COMPARISON: Radiographs dated 04/17/2024 FINDINGS: Bone alignment is normal. No fracture. 1.8 x 1.7 x 1.3 cm nonaggressive appearing lytic lesion with n arrow zone of transition with thin sclerotic margins at the subcortical medial metaphyseal region of the distal right femur. No evident endosteal scalloping, periosteal reaction or other aggressive feat ures favoring a benign etiology. The majority the lesion demonstrates fat attenuation with small javi on of peripheral soft tissue density. Patellofemoral osteoarthritis with moderate lateral sided joint space narrowing and small marginal osteophytes. There are additional small marginal osteophytes in t he medial lateral compartments but without evident joint space narrowing on nonweightbearing imaging. 1.9 x 1.9 x 1.7 cm heterotopic ossicle in Hoffa's fat pad anterior to the intercondylar notch. There are a couple additional loose osteochondral bodies at the suprapatellar pouch and one along the late ral intercondylar eminence. No knee joint effusion. Small amount of atherosclerotic calcification wit hout and with emesis and stenosis along the popliteal artery. Soft tissues are unremarkable. IMPRESSION: 1. 1.8 cm nonaggressive likely benign lytic lesion with dense chronic markings at the medial metaphys eal region of the distal right femur. Differential would include bone infarct, intraosseous lipoma or hemangioma. 2. Moderate severity patellofemoral compartment predominant tricompartmental osteoarthritis at the ri ght knee with prominent heterotopic ossicle versus loose body at Hoffa's fat pad. Reviewed, dictated and finalized at location B. IMPRESSION: 1. 1.8 cm nonaggressive likely benign lytic lesion with dense chronic markings at the medial metaphyseal region of the distal right femur. Differential would include bone infarct, intraosseous lipoma or hemangioma. 2. Moderate severity patellofemoral compartment predominant tricompartmental os teoarthritis at the right knee with prominent heterotopic ossicle versus loose body at Hoffa's fat pad.
[2024-04-22 09:06] LABS: Estimated Glomerular Filt Rate > 60
== END 2024-04-22 08:40 | disposition home or self-care (01) ==
PROVIDERS: PCP Nurse Practitioner; Visit Provider Nurse Practitioner Family
DX: R22.40 Localized swelling, mass and lump, unspecified lower limb (principal); M17.11 Unilateral primary osteoarthritis, right knee
CPT/HCPCS: 73701; Q9967

== ENCOUNTER 2024-06-01 15:35 | Emergency (ER) | payer OTHER, SELFPAY ==
--- NOTE | 2024-06-01 15:39 | ED.BACK ---
HPI - Back Pain/Injury General Chief Complaint: Back Pain/Injury Stated Complaint: right side leg/back pain Time Seen by Provider: 06/01/24 15:37 Source: patient Mode of arrival: ambulatory Limitations: no limitations History of Present Illness HPI Narrative: Patient is a 74-year-old female presents with right-sided low back pain that radiates down her leg. Denies any injury. States the pain has worsened over the weekend. Tylenol has not helped. Denies any loss of bowel or bladder, changes in urinary symptoms. Patient has history back surgery. Related Data Home Medications Medication Instructions Recorded Confirmed aspirin 81 mg tablet 81 mg PO HS 03/09/21 04/17/24 oxybutynin chloride 10 mg 10 mg PO DAILY 10/14/23 04/17/24 tablet,extended release 24 hr Allergies Allergy/AdvReac Type Severity Reaction Status Date / Time adhesive Allergy Mild Rash Verified 06/01/24 15:51 codeine AdvReac Mild upset Verified 06/01/24 15:51 stomach Review of Systems Review of Systems: All systems reviewed & are unremarkable except as noted in HPI and below Constitutional: Constitutional: Denies body ache(s), Denies chills, Denies fatigue, Denies fever(s), Denies headache(s), Denies malaise and Denies weakness Eyes: Eyes: Denies blurry vision, Denies irritation and Denies loss of vision ENT: Denies otalgia, Denies headache(s), Denies nasal discharge, Denies sinus pain and Denies sore throat Cardiovascular: Cardiovascular: Denies chest pain, Denies irregular heart rhythm and Denies dyspnea Respiratory: Respiratory: Denies dyspnea Gastrointestinal: Gastrointestinal: Denies abdominal pain, Denies melena, Denies hematochezia, Denies diarrhea, Denies nausea and Denies vomiting Musculoskeletal: Musculoskeletal: Reports back pain, Denies myalgias and Denies arthralgias Integumentary/Breasts: Skin/Breast: Denies pruritus and Denies rash Neurologic: Denies headache(s), Denies loss of vision and Denies weakness Psychiatric: Psychiatric: Reports no additional psychiatric complaints Endocrine: Endocrine: Denies fatigue PMFSH Past Medical History Medical History Anemia Arm fracture, left 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 Bronchitis Chronic back pain Claustrophobia COPD (chronic obstructive pulmonary disease) Cyst of left kidney Degenerative joint disease of knee Diverticulitis Diverticulosis Effusion of knee joint GERD (gastroesophageal reflux disease) History of blood transfusion HLD (hyperlipidemia) HTN (hypertension) Hyperlipidemia Hypertension Left knee DJD MVP (mitral valve prolapse) Neuroma Patellofemoral arthritis Pneumonia Rectal polyp Right knee DJD Right knee pain SBO (small bowel obstruction) Seasonal allergies UTI (urinary tract infection) Weight gain Surgical History Surgical History H/O dilation and curettage H/O: hysterectomy History of cholecystectomy History of intestinal surgery adhesiolysis of small bowel Hx of appendectomy Hx of colonoscopy Previous back surgery 2 plates and 4 screws Family History Family History Father Family history of diabetes mellitus in first degree relative, Onset Age: 90 Patient's father is Sibling Patient's brother is in good health Patient's brother is Brain aneurysm Mother Osteoporosis Asthma Other Diabetes mellitus High cholesterol Hypertension Social History Social History Smoking packs per day: 1 Smoking cigarettes per day: 20.0 Years smoked: 25 Smoking pack-years: 25.00 Smoking status: Former smoker Tobacco type: cigarettes Second hand tobacco smoke exposure: No Smoking end date: 08/05/09 Alcohol intake: former Alcohol use details: 5 per month Substance use: never Substance use type: does not use Do You Feel Safe in your Home?: Yes Lack of Transportation: No Lack of Food: Never True Current Housing: I Have Housing Concerned About Future Housing: No Difficulty Paying Gas/Electric Bills: No Difficulty Paying for Meds: No Education: High School Diploma/GED Difficulty w/ Childcare or Family Care: No Living arrangements: with family Gender identity (if verbalized by the patient): Female Spiritual care concerns: No Agree to blood products: Yes Comments At time of signature, agree with nursing past medical, surgical, social and family history. There is no relevant family history pertinent to the presenting complaint. Exam Const: General: cooperative, healthy appearing, comfortable, no acute distress and well nourished Nutritional Appearance: well nourished Orientation/consciousness: patient oriented x3 Limitations: no limitations HENMT: Head: normal to inspection, normocephalic and atraumatic Ears: hearing grossly normal bilaterally and external ears normal Face/Nose/Sinus: Normal external nose present, normal facial exam and face symmetric Face and sinus: normal facial exam and face symmetric Mouth: Yes lip normal Eyes: General: appearance normal, both eyes and all related structures Alignment and Position: alignment normal and position normal Periorbital: periorbital findings normal Eyelids: eyelids normal Pupils: Equal, round and reactive pupils present EOM: EOMs intact bilaterally Neck: Neck: normal visual inspection, full ROM and supple Chest: Chest palpation & inspection: normal inspection of the chest Resp: Effort & Inspection: normal respiratory effort and able to speak in complete sentences Auscultation: clear to auscultation bilaterally Cardio: Rate: regular rate Rhythm: regular rhythm Heart sounds: S1 normal heart sound present and S2 normal heart sound present GI: Inspection: normal to inspection Back/Spine/Pelvis: Thoracic/Lumbar Spine: paraspinal muscle tenderness on the right in the lower lumbar, thoraco-lumbar spasm on the right in the lower lumbar, No thoracic spinal tenderness, No lumbar spinal tenderness and straight leg raise positive Sacroiliac joints: on the right tender to palpation Skin: General skin exam: normal color and no rashes or lesions noted Neuro: General: patient oriented x3 and moves all extremities Cranial nerves: Yes Equal, round and reactive pupils present Speech: normal speech Gait exam (Neuro): Normal gait present Extrem: General: normal to inspection, full ROM and no edema Psych: Appearance: grossly normal and well kempt Mental Status: mental status grossly normal Speech and movement: Normal speech and movement present Affect: normal affect Attitude: cooperative Thought process: Normal thought process present Course Course Emergency Course: Patient is aware of diagnosis, understands and agrees to treatment plan. Anticipatory guidance given. Patient agrees to follow-up as directed and is aware of reasons to seek care at the emergency department. Portions of this record may have been created with voice recognition software Level of Care: Express Care Visit Vital Signs Vital signs: Reviewed MDM - Back Pain/Injury MDM Narrative Medical decision making narrative: Exam findings show no acute concerns or changes; patient is non-toxic appearing and is in no distress.? Patient is appropriate for outpatient treatment and follow-up. Discharge instructions reviewed with patient, as well as provided in writing per nursing staff. The instructions also include specific and strict return/GO TO THE ER as well as f/u information. All questions have been answered, and the patient deny any further questions with discharge and discharge plan. Differential Diagnosis Differential diagnosis: Likely lumbar radiculopathy, sciatica, strain of lumbar region, renal colic and pyelonephritis Medical Records Attestation: I reviewed the patient's medical records. Discharge Plan Discharge Clinical Impression: Sciatica Qualifiers: Laterality: right Qualified Code(s): M54.31 - Sciatica, right side Patient Disposition: Home, Self-Care Condition: Stable Instructions: Sciatica (ED) Additional Instructions: Please follow up with your Primary Care Doctor within 48-72 hours - call for an appointment. Walking and other gentle exercising several times a week has been shown to improve back pain; bed rest is not recommended. Take steroids in the morning with food, take muscle relaxers every 8 hours as needed for muscle spasm. do not drive or make any important decisions while on this medication for it can make you drowsy. You may apply heat or cold to the area as needed. Contact your doctor or go to the emergency department if you develop problems with bladder or bowel function, weakness or loss of feeling in one or both of your legs, or any other serious concerns. Prescriptions: New baclofen 5 mg tablet 5 mg PO QID Qty: 15 0RF prednisone 20 mg tablet 40 mg PO DAILY 5 Days Qty: 10 0RF lidocaine 5 % adhesive patch,medicated 1 patch topical DAILY Qty: 15 0RF Rx Instructions: leave on most painful area for up to 12 hrs No Action aspirin 81 mg Tablet 81 mg PO HS clonidine HCl 0.1 mg tablet 0.1 mg PO BID PRN (Reason: if systolic BP > 160) Qty: 60 1RF albuterol sulfate 90 mcg/actuation HFA aerosol inhaler 1 - 2 inh inhalation Q4-6H PRN (Reason: shortness of breath or wheezing) Qty: 8.5 2RF oxybutynin chloride 10 mg tablet extended release 24hr 10 mg PO DAILY labetalol 200 mg tablet See Rx Instructions .ROUTE .COMPLEX Qty: 540 3RF Dose Instruction: TAKE 2 TABLETS BY MOUTH 3 TIMES A DAY Rx Instructions: TAKE 2 TABLETS BY MOUTH 3 TIMES A DAY potassium chloride 20 mEq tablet extended release 20 meq PO DAILY Qty: 90 1RF valsartan-hydrochlorothiazide 320-25 mg tablet 1 tablet PO DAILY Qty: 90 1RF nifedipine 30 mg tablet extended release See Rx Instructions .ROUTE .COMPLEX Qty: 90 4RF Dose Instruction: TAKE 1 TABLET BY MOUTH EVERY DAY Rx Instructions: TAKE 1 TABLET BY MOUTH EVERY DAY terazosin 10 mg capsule 10 mg PO HS Qty: 90 1RF Rx Instructions: TAKE 1 CAPSULE BY MOUTH EVERY DAY AT BEDTIME rosuvastatin 10 mg tablet See Rx Instructions .ROUTE .COMPLEX Qty: 90 1RF Dose Instruction: 10 MG ORALLY DAILY TAKE 1 TABLET BY MOUTH EVERY DAY Rx Instructions: 10 MG ORALLY DAILY TAKE 1 TABLET BY MOUTH EVERY DAY furosemide 20 mg tablet See Rx Instructions .ROUTE .COMPLEX Qty: 45 0RF Dose Instruction: TAKE 1 TABLET BY MOUTH EVERY OTHER DAY Rx Instructions: TAKE 1 TABLET BY MOUTH EVERY OTHER DAY pantoprazole 40 mg tablet,delayed release (DR/EC) 40 mg PO QAM Qty: 90 1RF Anoro Ellipta 62.5-25 mcg/actuation blister with device 1 inh inhalation Q24H Qty: 60 11RF Follow-up/Referrals: Nile Peters APRN [Primary Care Provider] - 3 Days Time of Disposition: 16:30
[2024-06-01 15:54] VITALS: BP 156/62; PULSE 57; RESP 16; TEMP 36.8; O2SAT 96
== END 2024-06-01 16:35 | disposition home or self-care (01) ==
PROVIDERS: Emergency Provider Nurse Practitioner Family; PCP Nurse Practitioner
DX: M54.31 Sciatica, right side (principal); Z87.891 Personal history of nicotine dependence; J44.9 Chronic obstructive pulmonary disease, unspecified; K21.9 Gastro-esophageal reflux disease without esophagitis; E78.5 Hyperlipidemia, unspecified; I10 Essential (primary) hypertension; I34.1 Nonrheumatic mitral (valve) prolapse; M17.0 Bilateral primary osteoarthritis of knee; Z79.82 Long term (current) use of aspirin
CPT/HCPCS: 99213; G0463

== ENCOUNTER 2024-06-04 11:19 | Emergency (ER) | payer OTHER, SELFPAY ==
--- NOTE | ~2024-06-04 | CT_ITS ---
EXAMINATION: CT lumbar spine wo con DATE: 06/04/2024 13:03 INDICATION: Low back pain radiating down the right leg. TECHNIQUE: Computed tomography (CT) of the lumbar spine was performed without intravenous contrast. A utomated exposure control and iterative reconstruction technique were employed. The dose-length produ ct was 611.96 mGy-cm. COMPARISON: CT lumbar spine 12/18/2021 FINDINGS: Partially visualizes a 10 cm cyst in left kidney. There is 4 degrees levocurvature of lumba r spine. Vertebral body heights are normal. There are changes of posterior fusion procedure L5-S1 wit h pedicle screws. There is moderately decreased disc height at L2-L3 and L3-L4 and mildly decreased d isc height at L4-L5. There is moderately decreased disc height at L5-S1 with interbody fusion. The fo llowing disc levels are specifically discussed: L1-L2: The disc is bulging. There is severe right and mild left facet joint osteoarthritis. There is mild bilateral neural foraminal stenosis. There is no central canal stenosis. L2-L3: The disc is bulging. There is moderate bilateral facet joint osteoarthritis. There is mild beryl ateral neural foraminal stenosis. There is mild central canal stenosis. L3-L4: The disc is bulging. There is severe bilateral facet joint osteoarthritis. There is moderate b ilateral neural foraminal stenosis. There is mild central canal stenosis. L4-L5: The disc is bulging. There is severe bilateral facet joint osteoarthritis. There is moderate b ilateral neural foraminal stenosis. There is mild central canal stenosis. L5-S1: There is mild bilateral facet joint hypertrophy. There is mild left neural foraminal stenosis. There is no central canal stenosis. IMPRESSION: 1. Moderate lumbar spondylosis, worsened from 12/18/2021. 2. Anterior and posterior fusion at L5-S1. Reviewed, dictated and finalized at location B.
[2024-06-04 11:36] VITALS: BP 147/50; PULSE 60; RESP 16; TEMP 36.4; O2SAT 98
--- NOTE | 2024-06-04 12:40 | ED_ITS ---
HPI - Back Pain/Injury General Chief Complaint: Back Pain/Injury <Eloina Finch PA-C - Last Filed: 06/05/24 11:10> Stated Complaint: sciatica <Eloina Finch PA-C - Last Filed: 06/05/24 11:10> Time Seen by Provider: 06/04/24 12:40 <Eloina Finch PA-C - Last Filed: 06/05/24 11:10> Focused HPI: This is a 74 year old female that presents to the ER for low back pain. Ongoing over the last month. Reports pain in her right low back radiating down her leg. She has been taking Baclofen and using Lidocaine patch es. Has also been on Prednisone. She has had no relief. Denies saddle anesthesia or bowel/bladder incontinence. GENERAL: Well-appearing, well-nourished, and in no acute distress. HEAD: Normocephalic, atraumatic. CHEST: Clear to auscultation. ?No respiratory distress. HEART: Regular rate and rhythm.? NEURO: ?Alert and oriented x3. Patient screened in triage and initial orders placed.? ?Additional care and disposition to be based upon?diagnostic testing and treatment. <Eloina Finch PA-C - Last Filed: 06/05/24 11:10> History of Present Illness HPI Narrative: Agree with HPI <Mohsen Rivera MD - Last Filed: 06/07/24 17:53> Related Data Home Medications: Home Medications Medication Instructions Recorded Confirmed aspirin 81 mg tablet 81 mg PO HS 03/09/21 04/17/24 oxybutynin chloride 10 mg 10 mg PO DAILY 10/14/23 04/17/24 tablet,extended release 24 hr <Eloina Finch PA-C - Last Filed: 06/05/24 11:10> Allergies/Adverse Reactions: Allergies Allergy/AdvReac Type Severity Reaction Status Date / Time adhesive Allergy Mild Rash Verified 06/04/24 15:46 codeine AdvReac Mild upset Verified 06/04/24 15:46 stomach <KEERTHI Thomson Last Filed: 06/05/24 11:10> Review of Systems Review of Systems: All systems reviewed & are unremarkable except as noted in HPI and below <Eloina Finch PA-C - Last Filed: 06/05/24 11:10> [facility] Past Medical History Medical History: Medical History Anemia Arm fracture, left 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 Bronchitis Chronic back pain Claustrophobia COPD (chronic obstructive pulmonary disease) Cyst of left kidney Degenerative joint disease of knee Diverticulitis Diverticulosis Effusion of knee joint GERD (gastroesophageal reflux disease) History of blood transfusion HLD (hyperlipidemia) HTN (hypertension) Hyperlipidemia Hypertension Left knee DJD MVP (mitral valve prolapse) Neuroma Patellofemoral arthritis Pneumonia Rectal polyp Right knee DJD Right knee pain SBO (small bowel obstruction) Seasonal allergies UTI (urinary tract infection) Weight gain <Eloina Finch PA-C - Last Filed: 06/05/24 11:10> Surgical History Surgical History: Surgical History H/O dilation and curettage H/O: hysterectomy History of cholecystectomy History of intestinal surgery adhesiolysis of small bowel Hx of appendectomy Hx of colonoscopy Previous back surgery 2 plates and 4 screws <Eloina Finch PA-C - Last Filed: 06/05/24 11:10> Family History Family History: Family History Father Family history of diabetes mellitus in first degree relative, Onset Age: 90 Patient's father is Sibling Patient's brother is in good health Patient's brother is Brain aneurysm Mother Osteoporosis Asthma Other Diabetes mellitus High cholesterol Hypertension <Eloina Finch PA-C - Last Filed: 06/05/24 11:10> Social History Social History: Social History Smoking packs per day: 1 Smoking cigarettes per day: 20.0 Years smoked: 25 Smoking pack-years: 25.00 Smoking status: Former smoker Tobacco type: cigarettes Second hand tobacco smoke exposure: No Smoking end date: 08/05/09 Alcohol intake: former Alcohol use details: 5 per month Substance use: never Substance use type: does not use Do You Feel Safe in your Home?: Yes Lack of Transportation: No Lack of Food: Never True Current Housing: I Have Housing Concerned About Future Housing: No Difficulty Paying Gas/Electric Bills: No Difficulty Paying for Meds: No Education: High School Diploma/GED Difficulty w/ Childcare or Family Care: No Living arrangements: with family Gender identity (if verbalized by the patient): Female Spiritual care concerns: No Agree to blood products: Yes <Eloina Finch PA-C - Last Filed: 06/05/24 11:10> Exam Narrative: GENERAL: Well-appearing, well-nourished, and in no acute distress. HEAD: Normocephalic, atraumatic. EYES: EOMI. CHEST: Clear to auscultation. No respiratory distress. No wheezes rales or rhonchi HEART: Regular rate and rhythm. No murmur heard. Normal peripheral pulses. EXTREMITIES: Normal range of motion. No edema. SKIN: Warm, dry, no rash. NEURO: No focal deficits. Alert and oriented x3. normal gait PSYCH: Normal mood and affect <Eloina Finch PA-C - Last Filed: 06/05/24 11:10> Course Vital Signs Vital signs: Vital Signs Temperature 97.6 F 06/04/24 11:36 Pulse Rate 60 06/04/24 11:36 Respiratory Rate 16 06/04/24 11:36 Blood Pressure 147/50 H 06/04/24 11:36 Pulse Oximetry 98 06/04/24 11:36 Temperature 97.6 F 06/04/24 11:36 Pulse Rate 60 06/04/24 11:36 Respiratory Rate 16 06/04/24 11:36 Blood Pressure 147/50 H 06/04/24 11:36 Pulse Oximetry 98 06/04/24 11:36 <KEERTHI Thomson Last Filed: 06/05/24 11:10> Vital Signs Temperature 97.6 F 06/04/24 11:36 Pulse Rate 60 06/04/24 11:36 Respiratory Rate 16 06/04/24 11:36 Blood Pressure 147/50 H 06/04/24 11:36 Pulse Oximetry 98 06/04/24 11:36 Temperature 97.6 F 06/04/24 11:36 Pulse Rate 60 06/04/24 11:36 Respiratory Rate 16 06/04/24 11:36 Blood Pressure 147/50 H 06/04/24 11:36 Pulse Oximetry 98 06/04/24 11:36 <Mohsen Rivera MD - Last Filed: 06/07/24 17:53> MDM - Back Pain/Injury MDM Narrative Medical decision making narrative: 74-year-old female presents emergency department for evaluation for symptoms consistent with sciatica. Patient complains of right lower back pain that radiates down the right leg to the level of the knee. Patient is well- appearing at time of examination. Patient was started on prednisone, baclofen and lidocaine patch by our urgent care on Saturday but states that her symptoms are not improving. No acute changes on the CT scan. Patient will be started on Medrol Dosepak provided Flexeril and Rohwer for additional pain control. Patient was encouraged close follow-up with primary care physician for outpatient physical therapy. All questions concerns were addressed. <Mohsen Rivera MD - Last Filed: 06/07/24 17:53> Differential Diagnosis Differential diagnosis: Likely lumbar radiculopathy, sciatica and strain of lumbar region <Mohsen Rivera MD - Last Filed: 06/07/24 17:53> Lab Data Attestation: I reviewed the patient's lab results. <Mohsen Rivera MD - Last Filed: 06/07/24 17:53> Discharge Plan Discharge Clinical Impression: Sciatica <Eloina Finch PA-C - Last Filed: 06/05/24 11:10> Patient Disposition: Home, Self-Care <Eloina Finch PA-C - Last Filed: 06/05/24 11:10> Condition: Stable <Eloina Finch PA-C - Last Filed: 06/05/24 11:10> Instructions: Antibiotic Form, Sciatica (ED), Lumbar Radiculopathy (ED) <Eloina Finch PA-C - Last Filed: 06/05/24 11:10> Additional Instructions: Medrol Dosepak as directed until completed. Flexeril for muscle spasm. Stop taking the prednisone and stop taking the baclofen. You may continue to use the lidocaine patches. Have close follow-up with your primary care physician. You may benefit from physical therapy as well. If you have any worsening symptoms then please call or return to the emergency department. <Eloina Finch PA-C - Last Filed: 06/05/24 11:10> Prescriptions: New cyclobenzaprine 10 mg tablet 10 mg PO BID PRN (Reason: muscle spasm) Qty: 14 0RF hydrocodone-acetaminophen 5-325 mg tablet 1 tablet PO Q12H PRN (Reason: pain) Qty: 14 0RF methylprednisolone [Medrol (Angel)] 4 mg tablets,dose pack See Rx Instructions .ROUTE .COMPLEX Qty: 21 0RF Rx Instructions: for 6 days No Action aspirin 81 mg Tablet 81 mg PO HS baclofen 5 mg tablet 5 mg PO QID Qty: 15 0RF prednisone 20 mg tablet 40 mg PO DAILY 5 Days Qty: 10 0RF lidocaine 5 % adhesive patch,medicated 1 patch topical DAILY Qty: 15 0RF Rx Instructions: leave on most painful area for up to 12 hrs clonidine HCl 0.1 mg tablet 0.1 mg PO BID PRN (Reason: if systolic BP > 160) Qty: 60 1RF albuterol sulfate 90 mcg/actuation HFA aerosol inhaler 1 - 2 inh inhalation Q4-6H PRN (Reason: shortness of breath or wheezing) Qty: 8.5 2RF oxybutynin chloride 10 mg tablet extended release 24hr 10 mg PO DAILY labetalol 200 mg tablet See Rx Instructions .ROUTE .COMPLEX Qty: 540 3RF Dose Instruction: TAKE 2 TABLETS BY MOUTH 3 TIMES A DAY Rx Instructions: TAKE 2 TABLETS BY MOUTH 3 TIMES A DAY potassium chloride 20 mEq tablet extended release 20 meq PO DAILY Qty: 90 1RF valsartan-hydrochlorothiazide 320-25 mg tablet 1 tablet PO DAILY Qty: 90 1RF nifedipine 30 mg tablet extended release See Rx Instructions .ROUTE .COMPLEX Qty: 90 4RF Dose Instruction: TAKE 1 TABLET BY MOUTH EVERY DAY Rx Instructions: TAKE 1 TABLET BY MOUTH EVERY DAY terazosin 10 mg capsule 10 mg PO HS Qty: 90 1RF Rx Instructions: TAKE 1 CAPSULE BY MOUTH EVERY DAY AT BEDTIME rosuvastatin 10 mg tablet See Rx Instructions .ROUTE .COMPLEX Qty: 90 1RF Dose Instruction: 10 MG ORALLY DAILY TAKE 1 TABLET BY MOUTH EVERY DAY Rx Instructions: 10 MG ORALLY DAILY TAKE 1 TABLET BY MOUTH EVERY DAY furosemide 20 mg tablet See Rx Instructions .ROUTE .COMPLEX Qty: 45 0RF Dose Instruction: TAKE 1 TABLET BY MOUTH EVERY OTHER DAY Rx Instructions: TAKE 1 TABLET BY MOUTH EVERY OTHER DAY pantoprazole 40 mg tablet,delayed release (DR/EC) 40 mg PO QAM Qty: 90 1RF Anoro Ellipta 62.5-25 mcg/actuation blister with device 1 inh inhalation Q24H Qty: 60 11RF <Eloina Finch PA-C - Last Filed: 06/05/24 11:10> Follow-up/Referrals: Nile Peters APRN [Primary Care Provider] - <Eloina Finch PA-C - Last Filed: 06/05/24 11:10>
[2024-06-04] MEDS: ACETAMINOPHEN 500 MG TABLET 1000 MG PO (15:58)
[2024-06-04] MEDS: KETOROLAC 30 MG/ML VIAL (*BKC) IM (15:59)
[2024-06-04] MEDS: CYCLOBENZAPRINE HCL 10 MG TABLET PO (16:47)
[2024-06-04] MEDS: HYDROcodone/acetaminophen (*CRX) 5-325 MG TABLET 1 TAB PO (16:47)
== END 2024-06-04 16:52 | disposition home or self-care (01) ==
PROVIDERS: Emergency Provider Emergency Medicine; PCP Nurse Practitioner
DX: M54.30 Sciatica, unspecified side (principal); Z79.82 Long term (current) use of aspirin; K21.9 Gastro-esophageal reflux disease without esophagitis; E78.5 Hyperlipidemia, unspecified; J44.9 Chronic obstructive pulmonary disease, unspecified; I10 Essential (primary) hypertension; Z87.891 Personal history of nicotine dependence
CPT/HCPCS: 72131; 99284; A9270; J1885

== ENCOUNTER 2025-01-03 11:43 | Emergency (ER) | payer MEDICARE, SELFPAY ==
--- NOTE | ~2025-01-03 | XR_ITS ---
EXAMINATION: XR hand RT min 3V DATE: 01/03/2025 11:59 INDICATION: Right hand injury post fall TECHNIQUE: Posteroanterior, oblique and lateral views of the right hand were obtained. COMPARISON: 09/02/2023 FINDINGS: Interval resection of the trapezium. Bone alignment is otherwise normal. No acute fracture. Polyartic ular osteoarthritis, moderate severity at the triscaphe and a second and third interphalangeal joints and mild at the wrist and metacarpophalangeal and remaining interphalangeal joints. Diffuse osteopen ia. Soft tissue swelling over the dorsum of the hand. IMPRESSION: 1. No acute osseous abnormality. 2. 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 Reviewed, dictated and finalized at location A.
[2025-01-03 11:45] VITALS: BP 179/73; PULSE 76; RESP 16; TEMP 36.9; O2SAT 93
--- NOTE | 2025-01-03 11:49 | ED_ITS ---
HPI - Fall General Chief Complaint: Extremity Injury, Upper Stated Complaint: Rt hand injury Patient presents to the [facility] accompanied by spouse with complaints of pain, swelling, and bruising to right hand. Patient was camping last night and fell in the driveway rock falling onto this hand. Patient reports applying ice to the area without relief of symptoms. Patient states waking up this morning swelling and bruising was significantly worse. Denies numbness or tingling in hands or fingers. Related Data Home Medications ?Medication ?Instructions ?Recorded ?Confirmed ?Last Taken ?Type aspirin 81 mg tablet 81 mg PO HS 03/09/21 10/20/24 06/05/22 History oxybutynin chloride 10 mg 10 mg PO DAILY 10/14/23 10/20/24 Unknown History tablet,extended release 24 hr Allergies Allergy/AdvReac Type Severity Reaction Status Date / Time adhesive Allergy Mild Rash Verified 01/03/25 11:50 codeine AdvReac Mild upset Verified 01/03/25 11:50 stomach Review of Systems Constitutional: Constitutional: Reports no additional constitutional complaints ENT: Reports system reviewed and no additional complaints, except as documented Cardiovascular: Cardiovascular: Reports no additional cardiovascular complaints Respiratory: Respiratory: Reports no additional respiratory complaints Gastrointestinal: Gastrointestinal: Reports no additional gastrointestinal complaints Genitourinary: Genitourinary: Reports no additional female genitourinary complaints Musculoskeletal: Musculoskeletal: Reports as per HPI, Reports arthralgias and Reports joint swelling Integumentary/Breasts: Skin/Breast: Reports as per HPI, Denies erythema and Denies rash Comments: bruising and swelling right hand Neurologic: Reports as per HPI, Denies focal weakness, Denies numbness and Denies weakness Psychiatric: Psychiatric: Reports no additional psychiatric complaints Endocrine: Endocrine: Reports no additional endocrine complaints Hematologic/Lymphatic: Hematologic/Lymphatic: Reports no additional hematologic/lymphatic complaints Allergic/Immunologic: Allergic/Immunologic: Reports no additional allergic/immunologic complaints [facility] Past Medical History Medical History BMI 30.0-30.9,adult Tachycardia Other hyperlipidemia Other fatigue Hyperglycemia Gastro-esophageal reflux disease without esophagitis Dietary counseling and surveillance (11/09/15) Cervicalgia Atherosclerosis of renal artery Annual physical exam Allergic rhinitis, unspecified Acute pharyngitis, unspecified Effusion of knee joint Degenerative joint disease of knee Left knee DJD Weight gain Claustrophobia Patellofemoral arthritis COPD (chronic obstructive pulmonary disease) Right knee DJD Right knee pain 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 Hyperlipidemia Hypertension History of blood transfusion Anemia Arm fracture, left Neuroma UTI (urinary tract infection) Cyst of left kidney Diverticulosis SBO (small bowel obstruction) Diverticulitis Rectal polyp GERD (gastroesophageal reflux disease) Bronchitis Pneumonia MVP (mitral valve prolapse) HLD (hyperlipidemia) HTN (hypertension) Seasonal allergies Chronic back pain Surgical History Surgical History H/O dilation and curettage H/O: hysterectomy Hx of colonoscopy History of cholecystectomy Hx of appendectomy History of intestinal surgery adhesiolysis of small bowel Previous back surgery 2 plates and 4 screws Family History Family History Father Family history of diabetes mellitus in first degree relative, Onset Age: 90 Patient's father is Sibling Patient's brother is in good health Patient's brother is Brain aneurysm Mother Osteoporosis Asthma Other Diabetes mellitus High cholesterol Hypertension Social History Social History Smoking packs per day: 1 Smoking cigarettes per day: 20.0 Years smoked: 25 Smoking pack-years: 25.00 Smoking status: Former smoker Tobacco type: cigarettes Second hand tobacco smoke exposure: No Smoking end date: 08/05/09 Alcohol intake: current Alcohol use details: 5 per month Substance use: never Substance use type: does not use Do You Feel Safe in your Home?: Yes Lack of Transportation: No Lack of Food: Never True Current Housing: I Have Housing Concerned About Future Housing: No Difficulty Paying Gas/Electric Bills: No Difficulty Paying for Meds: No Education: High School Diploma/GED Difficulty w/ Childcare or Family Care: No Living arrangements: with family Occupation/Education: 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 Digits normal. Wrist normal. no open wounds noted. Neuro: General: patient oriented x3 Speech: normal speech Gait exam (Neuro): Normal gait present Extrem: Right upper extremity: Extremity exam: right hand abnormal to inspection, normal capillary refill, neurosensory exam normal radial nerve sensory function normal, ulnar nerve sensory function normal, median nerve sensory function normal and digital nerve sensory function normal, tenderness of the dorsal hand and of the palm, vascular exam radial pulse present, ulnar pulse present and normal capillary refill, normal ROM of fingers, swelling of the dorsal hand and of the palm and ecchymosis of the dorsal hand and of the palm; abnormal to inspection, no unusual warmth, no abrasions, no lacerations, no crepitus, no foreign bodies and no puncture wound Psych: Mental Status: mental status grossly normal Affect: normal affect Attitude: cooperative Course Course Level of Care: Express Care Visit Vital Signs Vital signs: Vital Signs Temperature 98.4 F 01/03/25 11:45 Pulse Rate 76 01/03/25 11:45 Respiratory Rate 16 01/03/25 11:45 Blood Pressure 179/73 H 01/03/25 11:45 Pulse Oximetry 93 01/03/25 11:45 Oxygen Delivery Room Air 01/03/25 11:45 Temperature 98.4 F 01/03/25 11:45 Pulse Rate 76 01/03/25 11:45 Respiratory Rate 16 01/03/25 11:45 Blood Pressure 179/73 H 01/03/25 11:45 Pulse Oximetry 93 01/03/25 11:45 Oxygen Delivery Room Air 01/03/25 11:45 MDM - Fall MDM Narrative Medical decision making narrative: X-ray reading shows no fracture. Significant contusion noted on exam. Educated patient on caring for this at home Discharge instructions reviewed with patient, as well as provided in writing per nursing staff. The instructions also include specific and strict return/GO TO THE ER as well as f/u information. All questions have been answered, and the patient deny any further questions with discharge and discharge plan. Differential Diagnosis Differential diagnosis: Likely fracture of wrist and other ( sprain, contusion, laceration) Medical Records Attestation: I reviewed the patient's medical records. Imaging Data Radiologist's impression: IMPRESSION: 1. No acute osseous abnormality. 2. 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 Reviewed, dictated and finalized at location A. Discharge Plan Discharge Clinical Impression: Sprain and strain of wrist Patient Disposition: Home Condition: Stable Instructions: Antibiotic Form Additional Instructions: Elevate right hand as much as possible. Tylenol and ibuprofen at home as needed. Continue ice several times per day. Follow-up with primary care in 1 week if symptoms still persist or any symptoms worsen. Patient Language: Setswana Prescriptions: No Action aspirin 81 mg Tablet 81 mg PO HS clonidine HCl 0.1 mg tablet 0.1 mg PO BID PRN (Reason: if systolic BP > 160) Qty: 60 1RF albuterol sulfate 90 mcg/actuation HFA aerosol inhaler 1 - 2 inh inhalation Q4-6H PRN (Reason: shortness of breath or wheezing) Qty: 8.5 2RF oxybutynin chloride 10 mg tablet extended release 24hr 10 mg PO DAILY nifedipine 30 mg tablet extended release See Rx Instructions .ROUTE .COMPLEX Qty: 90 4RF Dose Instruction: TAKE 1 TABLET BY MOUTH EVERY DAY Rx Instructions: TAKE 1 TABLET BY MOUTH EVERY DAY valsartan-hydrochlorothiazide 320-25 mg tablet See Rx Instructions .ROUTE .COMPLEX Qty: 90 1RF Dose Instruction: TAKE 1 TABLET BY MOUTH EVERY DAY Rx Instructions: TAKE 1 TABLET BY MOUTH EVERY DAY potassium chloride 20 mEq tablet extended release See Rx Instructions .ROUTE .COMPLEX Qty: 90 1RF Dose Instruction: TAKE 1 TABLET BY MOUTH EVERY DAY Rx Instructions: TAKE 1 TABLET BY MOUTH EVERY DAY labetalol 200 mg tablet See Rx Instructions .ROUTE .COMPLEX Qty: 540 3RF Dose Instruction: TAKE 2 TABLETS BY MOUTH 3 TIMES A DAY Rx Instructions: TAKE 2 TABLETS BY MOUTH 3 TIMES A DAY pantoprazole 40 mg tablet,delayed release (DR/EC) See Rx Instructions .ROUTE .COMPLEX Qty: 90 1RF Dose Instruction: TAKE 1 TABLET BY MOUTH EVERY MORNING Rx Instructions: TAKE 1 TABLET BY MOUTH EVERY MORNING Anoro Ellipta 62.5-25 mcg/actuation blister with device 1 inh inhalation DAILY Qty: 60 5RF rosuvastatin 10 mg tablet See Rx Instructions .ROUTE .COMPLEX Qty: 90 1RF Dose Instruction: 10 MG ORALLY DAILY TAKE 1 TABLET BY MOUTH EVERY DAY Rx Instructions: 10 MG ORALLY DAILY TAKE 1 TABLET BY MOUTH EVERY DAY furosemide 20 mg tablet See Rx Instructions .ROUTE .COMPLEX Qty: 45 2RF Dose Instruction: TAKE 1 TABLET BY MOUTH EVERY OTHER DAY Rx Instructions: TAKE 1 TABLET BY MOUTH EVERY OTHER DAY triamcinolone acetonide 0.1 % cream 1 applic topical TID Qty: 30 0RF terazosin 10 mg capsule See Rx Instructions .ROUTE .COMPLEX Qty: 90 1RF Dose Instruction: TAKE 1 CAPSULE BY MOUTH EVERY NIGHT AT BEDTIME Rx Instructions: TAKE 1 CAPSULE BY MOUTH EVERY NIGHT AT BEDTIME Follow-up/Referrals: Babatunde Michael DO [Primary Care Provider] - Time of Disposition: 12:40
--- OUTSIDE RECORDS SUMMARY | 2025-01-03 18:02 | XMS_ITS | Referral Summary ---
Author Organization [facility] Address [address] [place] [address] Care Team Providers Care Amusement [employer] Manager Name Role Phone Jenny Sears MD Unavailable [phone] Babatunde Michael DO Primary Care Provider [phone] Encounters Date Type Department Care Team Description 12/01/2024 10:00 AM CDT Office Visit [facility] Cardiology at [address] [place] [address] Josh Rojas MD Nonrheumatic mitral valve regurgitation (Primary Dx); Chronic diastolic heart failure (HCC); Hyperlipidemia LDL goal <100; Resistant hypertension from Last 3 Months Allergies Active Allergy Reactions Criticality Noted Date Comments Adhesive Tape-Silicones Rash Medium Ciprofloxacin Nausea only Low 08/17/2020 Codeine Unknown Low Sulfamethoxazole Unknown 08/17/2020 Medications labetalol (NORMODYNE,YOUNGBLOOD DATE) 200 mg tablet Take 2 tablets (400 mg total) by mouth 3 (three) times a day 0 Active valsartan-hydro chlorothiazide (DIOVAN-HCT) 320-25 mg per tablet Take by mouth daily 9 Active NIFEdipine CC 30 mg 24 hr tablet Take 1 tablet (30 mg total) by mouth daily 0 Active rosuvastatin (CRESTOR) 10 mg tablet Take 1 tablet (10 mg total) by mouth daily 0 Active terazosin (HYTRIN) 10 mg capsule Take 1 capsule (10 mg total) by mouth daily 9 Active aspirin 81 mg enteric coated tablet Take 1 tablet (81 mg total) by mouth daily Active oxybutynin XL (DITROPAN-XL) 10 mg 24 hr tablet Take 1 tablet (10 mg total) by mouth daily 0 Active albuterol HFA (PROVENTIL HFA,VENTOLIN HFA,PROAIR HFA) 90 mcg/actuation inhaler INHALE 2 PUFFS BY MOUTH EVERY 4 TO 6 HOURS NEEDED FOR SHORTNESS OF BREATH OR WHEEZING 1 Active CLONIDINE HCL ORAL 0 Active furosemide (LASIX) 20 mg tablet Take 1 tablet (20 mg total) by mouth every other day 2 Active potassium chloride ER 20 mEq CR tablet Take 1 tablet (20 mEq total) by mouth daily 2 Active Anoro Ellipta 62.5-25 mcg/actuation blister with device 4 Active Active Problems Problem Noted Date Diagnosed Date Chronic diastolic heart failure 10/30/2022 BRAY (dyspnea on exertion) 03/30/2020 Hyperlipidemia LDL goal <100 03/30/2020 Resistant hypertension 09/25/2019 Mitral valve insufficiency 09/25/2019 Social History Tobacco Use Types Packs/Day Years Used Date Smoking Tobacco: Former Cigarettes Q uit: 07/02/2010 Smokeless Tobacco: Never Tobacco Cessation:Counseling Given: Not Answered Alcohol Use Standard Drinks/Week Comments Yes 0 (1 standard drink = 0.6 oz pur e alcohol) Comments No Sex and Gender Information Value Date Recorded Sex Assigned at Not on file Legal Sex Female 2:33 AM COMMUNITY ENGAGEMENT SPECIALIST Gender Identity Female 03/23/2020 2:20 PM CDT Sexual Orientation Straight 03/23/2020 2: 20 PM CDT Last Filed Vital Signs Vital Sign Reading Time Taken Comments Blood Pressure 132/70 12/01/2024 9:58 AM CDT Pulse 60 12/01/2024 9:58 AM CDT Temperature 36.3 C (97.3 F) 10/20/2020 12:59 PM CDT Respiratory Rate 16 10/30/2022 9:20 AM CDT Oxygen Saturation 95% 12/01/2024 9:58 AM CDT Inhaled Oxygen Concentration - - Weight 80.3 kg (177 lb) 12/01/2024 9:58 AM CDT Height 162.6 cm (5' 4) 12/01/2024 9:58 AM CDT Body Mass Index 30.38 12/01/2024 9:58 AM CDT Plan of Treatment Not on file Procedures Procedure Name Priority Date/Time Associated Diagnosis Comments SCREENING MAMMOGRAM BILATERAL W [place] Schedule Routine, Read Routine (OP Routine) 08/17/2024 7:48 AM COMMUNITY ENGAGEMENT SPECIALIST Screening mammogram, encounter for from Last 3 Months or Most Recently Relevant to Health Maintenance Results * Screening Mammogram Bilateral W [place] (08/17/2024 7:48 AM COMMUNITY ENGAGEMENT SPECIALIST) Anatomical Region Laterality Modality Breast Bilateral Mammography Impressions 08/17/2024 8:42 AM COMMUNITY ENGAGEMENT SPECIALIST BI-RADS ATLAS category (overall): 1 - Negative There is no mammographic evidence of malignancy. A 1 year screening mammogram is recommended. The patient has been or will be contacted. We recommend annual screening mammography for women at average risk of breast cancer beginning at age 40, based on guidelines of the [place] [employer] (ACR Practice Parameter for the Performance of Screening and Diagnostic Mammography) and [place] [employer]. For women with and elevated risk of breast cancer, please refer to the ACR Practice Parameter for specific screening recommendations. The patient will be entered into a reminder system with a target due date of 1 year for her next screening exam. Narrative 08/17/2024 8:42 AM COMMUNITY ENGAGEMENT SPECIALIST Screening Mammogram Bilateral W [place]: 08/17/24 The study was acquired using full field digital technology and interpreted from soft copy. 2D digital mammographic views, as well as 3D digital tomosynthesis were performed in the CC and MLO projections. This study was resulted using Computer-Aided Detection (CAD). CLINICAL: Screening mammogram, encounter for. No relevant medical history has been documented for this patient. No known family history of breast cancer. COMPARISONS: 06/13/2023 Screening Mammogram Bilateral W [place] 02/28/2022 Screening Mammogram Bilateral W [place] 12/23/2020 Diagnostic Mammogram Bilateral W [place] 06/27/2020 Diagnostic Mammogram Right W [place] 11/03/2018 Screening Mammogram Bilateral W [place] BREAST TISSUE: The breasts are heterogeneously dense, which may obscure small masses. FINDINGS: There is a biopsy marker clip in the left breast. o suspicious masses, suspicious calcifications, or other suspicious findings are seen within either breast. There has been no suspicious change. us Self Screening Mammogram IMG MAMMO PROCEDURES Fi nal Result from Last 3 Months or Most Recently Relevant to Health Maintenance [facility] [place] [employer] [place] [facility] UHC MEDICARE ADVANTAGE Care Teams Amusement Centre Manager Relationship Specialty Start Date End Date Babatunde Michael DO [address] [place] [address] PCP - General Internal Medicine 05/05/24 Jenny Sears MD [address] [place] [address] Referring Physician Family Medicine 02/28/22
--- OUTSIDE RECORDS SUMMARY | 2025-01-03 18:02 | XMS_ITS | Data Portability ---
Author Organization [facility] Zap Address [address] [place] [address] Care Team Providers Care Second Time Worker Name Role Phone JAMIRDARIEN ROBBINS Primary Care Provider Assessment Encounter Date Assessment Date Assessment LastModified by Organization Details LastModified Time 06/15/2020 06/15/2020 healthy female exam/menopause patient declines std testing pap none further mammogram due next month- done at [facility] colonoscopy scheduled next month dexa ordered and encouraged Encouraged weight bearing exercise and 1500mg daily of Calcium with Vitamin D FU 1 year or prn Not available 06/15/2020 14:10:04 07/19/2021 07/19/2021 Annual gynecological exam performed. Patient will come back in a year unless there are new symptoms. healthy female exam/menopause patient declines std testing pap none further mammogram due May at [facility] colonoscopy- 08/2025 dexa due 08/2025 Encouraged weight bearing exercise and 1500mg daily of Calcium with Vitamin D lotrisone FU 1 year or prn [id number] Not available 07/19/2021 14:01:08 Plan of Treatment Reminders Order Date Submit Date Provider Last Modified By Organization Details Last Modified Time Details Appointments None recorded. Lab None recorded. Referral None recorded. Procedures None recorded. Surgeries None recorded. Imaging None recorded. Medication Orders clotrimaz ole-betam ethasone 1 %-0.05 % topical cream 021 [facility]acy #[id number], [address] [place], [address], 12/15/202 1 12:43:50 Patient TargetsNo targets recorded. Patient InstructionsNo instructions recorded. Reason for Referral None Reported. Results Created Date Observation Date Name Description Value Unit Range Abnormal Flag Note LastModifiedBy Organization Detail LastModifiedTime 06/27/2006/27/2020 MAMMO , diagn ostic , digit al, bilat eral No observ ation record ed. [address] [place], [address], 06/29/2020 11:42:08 06/27/20 20 06/27/2020 USmundo No observ ation record ed. [address] [place], [address], 06/29/2020 11:42:08 09/01/19 DEXA No observ ation record ed. [facility] [address], [place], [address], 09/02/2020 14:10:37 12/24/19 21 12/23/2020 MAMMO , diagn ostic , digit al, bilat eral No observ ation record ed. ADRIAN Not Available 2020 10:23:39 12/24/19 21 12/23/2020 US, breas t No observ ation record ed. [facility] Not Available 2020 17:02:36 Result Notes None recorded. Problems Name Problem SNOMED Code Status Onset Date Resolution Date Notes Provider Name and Address Organization Details Recorded Time Screenin g for malignan t neoplasm of rectum Completed 201007/19/2021 Screenin g for malignan t neoplasm s of the rectum;P ractice ID: 0001 Alley Berger MD [address], [place], [address], [place] [facility] 12:32:24 Leukocyt osis [id number] Completed 201107/19/2021 LEUKOCYT OSIS NOS;Prac cely ID: 0001 Alley Berger MD [address], [place], [address], [facility] 12:32:19 Speciali zed medical examinat ion Completed 201107/19/2021 Routine gynecolo gical examinat ion;Prac ecly ID: 0001 Alley Berger MD [address], [place], [address], [facility] 1 12:32:33 Screenin g for malignan t neoplasm of cervix Completed 201107/19/2021 Pap Smear;Pr actice ID: 0001 Alley Berger MD [address], [place], [address], [facility] 12:32:[address] Concept Completed 201807/19/2021 Well woman check w/o abnormal finding; Recorded Elsewher e: No Locat ion: [facility] S ource: EHR Echocardiograph Tech damaso: N Florencioti ce ID: 0001 Kota lable Time: 10:30:00 AM Alley Berger MD [address], [place], [address], [place] [facility] 12:32:30 Blood leukocyt e number above referenc e range [id number] Completed 201707/19/2021 Elevated white blood cell count, unspecif ied;Roger rded Elsewher e: No Locat ion: [facility] S ource: EHR Echocardiograph Tech damaso: N Practi ce ID: 0001 Kota lable Time: 10:30:00 AM Alley Berger MD [address], [place], [address], [place] [facility] 12:32:[address] Concept Completed 201807/19/2021 Encntr for general adult medical exam w/o abnormal findings ;Recorde d Elsewher e: No Locat ion: [facility] S ource: EHR Echocardiograph Tech damaso: N Florencioti ce ID: 0001 Kota lable Time: 10:30:00 AM Alley Berger MD [address], [place], [address], [facility] 1 12:32:26 Urinary tract infectio us disease [id number] Completed 201407/19/2021 Urinary Tract Infectio n;Record ed Elsewher e: No Locat ion: [facility] S ource: EHR Echocardiograph Tech damaso: N Florencioti ce ID: 0001 Kota lable Time: 08:30:00 AM Alley Berger MD [address], [place], [address], [facility] 12:32:35 Evaluati on finding [id number] Completed 201507/19/2021 Oth abn and inconclu sive findings on dx imaging of breast;R ecorded Elsewher e: No Locat ion: [facility] S ource: EHR Echocardiograph Tech damaso: N Ender ce ID: 0001 Kota lable Time: 03:55:59 PM Alley Berger MD [address], [place], [address], [facility] 12:32:05 Adult health examinat ion Completed 201007/19/2021 Routine general medical examinat ion at a health care facility ;Practic e ID: 0001 Alley Berger MD [address], [place], [address], [facility] 12:31:57 Acute vulvitis [id number] Completed 201507/19/2021 Vulvitis ;Recorde d Elsewher e: No Locat ion: [facility] S ource: EHR Echocardiograph Tech damaso: N Ender ce ID: 0001 Kota lable Time: 02:45:00 PM Alley Berger MD [address], [place], [address], [facility] 1 12:31:54 Blood in urine [id number] Completed 201407/19/2021 Hematuri a;Record ed Elsewher e: No [facility]: E[facility] Echocardiograph Tech damaso: N Florencioti ce ID: 0001 Kota lable Time: 08:30:00 AM Alley Berger MD [address], [place], [address], [facility] 12:31:59 Female genital organ symptoms [id number] Completed 201407/19/2021 Vaginal pain;Rec orded Elsewher e: No Locat ion: [facility] S ource: EHR Echocardiograph Tech damaso: N Florencioti ce ID: 0001 Kota lable Time: 11:30:00 AM Alley Berger MD [address], [place], [address], [facility] 12:32:[address] Concept Completed 201407/19/2021 Well woman check w/ abnormal finding; Recorded Elsewher e: No Locat ion: [facility] S ource: EHR Echocardiograph Tech damaso: N Florencioti ce ID: 0001 Kota lable Time: 01:00:00 PM Alley Berger MD [address], [place], [address], [facility] 12:32:28 Acute vaginiti s [id number] Completed 201707/19/2021 Acute vulvovag initis;R ecorded Elsewher e: No Locat ion: [facility] S ource: EHR Echocardiograph Tech damaso: N Florencioti ce ID: 0001 Kota lable Time: 03:45:00 PM Alley Berger MD [address], [place], [address], [facility] 12:31:52 Speciali zed medical examinat ion Completed 201005/07/2012 Gynecolo gical Examinat ion;Roger rded Elsewher e: No Locat ion: [facility] S ource: EHR Echocardiograph Tech damaso: N Practi ce ID: 0001 Kota lable Time: 08:30:00 AM Alley Berger MD [address], [place], [address], [facility] 1 12:32:33 Micturit ion finding Completed 201707/19/2021 Urinary incontin ence;Rec orded Elsewher e: No Locat ion: [facility] S ource: EHR Echocardiograph Tech damaso: N Florencioti ce ID: 0001 Kota lable Time: 10:30:00 AM Alley Berger MD [address], [place], [address], [facility] 1 12:32:03 Disease [id number] Completed 201507/19/2021 Other specifie d conditio ns associat ed with female genital organs and menstrua l cycle;Re corded Elsewher e: No Locat ion: [facility] S ource: EHR Echocardiograph Tech damaso: N Florencioti ce ID: 0001 Kota lable Time: 03:00:00 PM Alley Berger MD [address], [place], [address], [facility] 1 12:32:10 Screenin g for malignan t neoplasm of cervix Completed 201005/07/2012 Screenin g for malignan t neoplasm s of the cervix;R ecorded Elsewher e: No Locat ion: [facility] S ource: EHR Echocardiograph Tech damaso: N Florencioti ce ID: 0001 Kota lable Time: 08:30:00 AM Alley Berger MD [address], [place], [address], [facility] 1 12:32:22 Increase d frequenc y of urinatio n [id number] Completed 201607/19/2021 Frequenc y of micturit ion;Prac cely ID: 0001 Alley Berger MD [address], [place], [address], [facility] 1 12:32:17 History of hysterec jamie [id number] Active 2019 [facility] and BSO Alley Berger MD [address], [place], [address], [facility] 0 13:59:51 Body mass index 30+ - obesity 183861962 Active 2019 Alley Berger MD [address], [place], [address], [facility] 0 14:00:05 Chronic obstruct zulema pulmonar y disease 01360347 Active 2019 Alley Berger MD [address], [place], [address], [facility] 0 14:00:19 Former heavy tobacco smoker [id number] 78052 Active 2019 Alley Berger MD [address], [place], [address], [facility] 0 14:00:43 [facility] jennifer 94287436 Active 2020 Alley Berger MD [address], [place], [address], [facility] 1 12:32:43 Problem Notes None recorded. Procedures Surgical History Date Name Laterality Status Provider Name and Address Organization Details Recorded Time 021 Most Recent Bone Density completed Rosita De León [facility] 07/19/2021 09:15:41 020 completed Alley Berger MD [address], [place], [address], [facility] 06/15/2020 14:01:45 020 Date of Last Mammogram completed Alley Berger MD [address], [place], [address], [facility] 06/15/2020 14:01:25 019 Date of Last Pap Smear completed Alley Berger MD [address], [place], [address], [facility] 06/15/2020 14:00:58 008 procedure on back completed Rosita De León [facility] 06/14/2020 16:02:53 004 colonoscopy completed Rosita De León [facility] 06/14/2020 16:02:31 973 Cholecystectomy completed Rosita De León [facility] 06/14/2020 16:02:03 Vaginal hysterectomy completed Alley Berger MD [address], [place], [address], [facility] 06/15/2020 14:02:48 Other completed Alley Berger MD [address], [place], [address], [facility] 06/15/2020 14:04:04 Imaging Results None recorded. Procedure Notes None recorded. Medical Equipment None Reported. Allergies Allergen ID Allergen Name Allergen Category Reaction Reaction Severity Criticality Documentation Date Start Date Code Code System Note Provider Name and Address Organization Details Recorded Time 58154 ciproflox acin medicatio n nausea Not available Not available 07/22/2020 2551 RxNorm React ion: Nause a; Comme nt: [facility] sativ e Agent : Cipro ; Not Available [facility] 0 14:17:53 2668 adhesive tape environme nt,medica tion Not available Not available Not available 06/14/2020 84594 UNK [facility] 16:00:53 2669 Cipro medicatio n Not available Not available Not available 06/14/202069535 3 RxNorm Rosita armas, [facility] 0 16:01:01 2670 codeine medicatio n Not available Not available Not available 06/14/2020 2670 RxNorm Rosita armas, [facility] 0 16:01:07 2671 sulfameth oxazole medicatio n Not available Not available Not available 06/14/2020 87574 RxNorm Rosita armas, [facility] 0 16:01:19 2672 trimethop rim medicatio n Not available Not available Not available 06/14/2020 28256 RxNorm Rosita armas, [facility] 0 16:01:25 Medications Name Sig Start Date Stop Date Status Note LastModified by Organization Details LastModified Time digoxin 50 mcg/mL (0.05 mg/mL) oral solution take 5 millilit er by ORAL route every day 05/01 completed Prescrib ed Elsewher e: Yes [facility] odify By: bart smith DateTime : 03/10/20 11 08:16:51 AM Not Available Not Available Not Available amoxicill in 500 mg capsule take 1 capsule (500MG) by oral route 3 times every day for 10 days 07/19 completed Not Available Not Available Not Available clonidine HCl 0.1 mg tablet TAKE 1 TAB BY MOUTH TWICE A DAY NEEDED OF SYSTOLIC BP 160 06/15 completed Not Available Not Available Not Available gabapenti n 600 mg tablet active Not Available Not Available Not Available labetalol 200 mg tablet TAKE 2 TABLETS BY MOUTH 3 TIMES A DAY active Not Available Not Available No t Available clonidine 0.1 mg/24 hr weekly transderm al patch apply 1 patch by transder mal route every week 10/29 completed Prescrib ed Elsewher e: Yes Loca tion: [facility]r [facility] odify By: mary smith DateTime : 05/19/20 13 03:00:00 PM Not Available Not Available Not Available oxybutyni n chloride ER 10 mg tablet,ex tended release 24 hr TAKE 1 TABLET BY MOUTH EVERY DAY active Not Available Not Available No t Available fluconazo le 150 mg tablet TAKE 1 TABLET BY MOUTH 06/15 completed Not Available Not Available Not Available benzonata te 200 mg capsule TAKE 1 CAPSULE BY MOUTH THREE TIMES A DAY NEEDED FOR COUGH 06/15 completed Not Available Not Available Not Available hydrocodo ne 5 mg-acetam inophen 325 mg tablet TAKE 1 TABLET BY MOUTH EVERY 6 HOURS NEEDED FOR PAIN 06/15 completed Not Available Not Available Not Available Keflex 500 mg capsule take 1 capsule by oral route every 6 hours 12/03 completed Prescrib ed Elsewher e: No Locat ion: [facility] odify By: amkfarida castillountlaury DateTime : 11/08/19 19 10:00:00 AM Not Available Not Available Not Available ondansetr on HCl 4 mg tablet TAKE 1 TABLET BY MOUTH EVERY 6 HOURS NEEDED FOR NAUSEA AND VOMITING 06/15 completed Not Available Not Available Not Available gabapenti n 400 mg capsule TAKE 1 CAPSULE BY MOUTH THREE TIMES A DAY 07/19 completed Not Available Not Available Not Available Suprax 400 mg tablet take 1 tablet by oral route every day 12/03 completed Prescrib ed Elsewher e: No Locat ion: [facility] odify By: amkuhsergei May ncotaina DateTime : 10/03/19 16 12:55:23 PM Not Available Not Available Not Available Advair Diskus 100 mcg-50 mcg/dose powder for inhalatio n active Not Available Not Available Not Available nifedipin e ER 30 mg tablet,ex tended release TAKE 1 TABLET BY MOUTH EVERY DAY active Not Available Not Available No t Available terazosin 1 mg capsule take 1 capsule by oral route every day at bedtime 07/19 completed Prescrib ed Elsewher e: Yes [facility]ify By: karla gupta DateTime : 05/07/20 12 08:30:00 AM Not Available Not Available Not Available amoxicill in 500 mg tablet take 1 tablet by oral route 3 times every day 12/03 completed Prescrib ed Elsewher e: No Locat ion: Oleksandr may [facility] odify By: mary smith DateTime : 11/26/19 18 11:34:31 AM Not Available Not Available Not Available betametha sone valerate 0.1 % topical cream apply by topical route every day a thin layer to the affected area(s) 12/03 completed Prescrib ed Elsewher e: No Locat ion: Oleks[facility]r may [facility] odify By: mary castillountlaury DateTime : 08/19/19 16 02:45:00 PM Not Available Not Available Not Available diltiazem ER 120 mg capsule,2 4 hr,extend ed release take 1 capsule by oral route every day 07/19 completed Prescrib ed Elsewher e: Yes [facility]oca [facility] odify By: karla gupta DateTime : 05/07/20 12 08:30:00 AM Not Available Not Available Not Available Xanax 0.25 mg tablet take 1 tablet by oral route up to 3 times every day as needed 12/03 completed Prescrib ed Elsewher e: No Locat ion: Oleks[facility]r may [facility] odify By: mary smith DateTime : 06/25/20 16 12:33:44 PM Not Available Not Available Not Available erythromy joe 5 mg/gram (0.5 %) eye ointment 07/19 completed Not Available Not Available Not Available Cipro 500 mg tablet take 1 tablet (500MG) by oral route every 12 hours 05/11 completed Prescrib ed Elsewher e: No Locat ion: Oleks[facility]r may [facility] odify By: gmedical Encount er DateTime : 05/05/20 11 12:42:21 PM Not Available Not Available Not Available Neurontin 100 mg capsule take 1 Capsule (100MG) by oral route 3 times every day 10/29 completed Prescrib ed Elsewher e: No Locat ion: Oleksandr may [facility] odify By: mary castillountlaury DateTime : 05/19/20 13 03:00:00 PM Not Available Not Available Not Available clotrimaz ole-betam ethasone 1 %-0.05 % topical cream APPLY TO THE AFFECTED AND SURROUND ING AREAS OF SKIN BY TOPICAL ROUTE 2 TIMES PER DAY IN THE MORNING AND EVENING FOR 7 days active Not Available Not Available No t Available Lanoxin Pediatric 100 mcg/mL (0.1 mg/mL) injection solution inject 1.25 millilit er by intraven ous route every day 12/03 completed Prescrib ed Elsewher e: Yes Loca tion: [facility] lalo [facility] odify By: mary castillounter DateTime : 05/07/20 12 08:30:00 AM Not Available Not Available Not Available docusate sodium 100 mg capsule TAKE 1 CAPSULE BY MOUTH TWICE A DAY FOR 1 WEEK 06/15 completed Not Available Not Available Not Available gabapenti n 300 mg capsule TAKE 1 CAPSULE BY MOUTH THREE TIMES A DAY 06/15 completed Not Available Not Available Not Available Cleocin 2 % vaginal cream insert 1 applicat orful by vaginal route every day for 7 days at bedtime 08/28 completed Prescrib ed Elsewher e: No [facility] odify By: penny shahid DateTime : 08/22/19 16 04:48:06 PM Not Available Not Available Not Available cephalexi n 500 mg tablet take 1 tablet by oral route every 6 hours not to exceed 4 pills in 24 hours 12/03 completed Prescrib ed Elsewher e: No [facility] odify By: mary smith DateTime : 09/05/19 16 10:37:57 AM Not Available Not Available Not Available azelastin e 137 mcg (0.1 %) nasal spray USE 2 SPRAYS IN EACH NOSTRIL TWICE A DAY 07/19 completed Not Available Not Available Not Available methylpre dnisolone 4 mg tablets in a dose pack 07/19 completed Not Available Not Available Not Available albuterol sulfate HFA 90 mcg/actua tion aerosol inhaler INHALE 2 PUFFS BY MOUTH EVERY 4 TO 6 HOURS NEEDED FOR SHORTNES S OF BREATH OR WHEEZING 12/15 /2021 completed Not Available Not Available Not Available diltiazem 30 mg tablet take 1 tablet by ORAL route 3 times every day 05/01 completed Prescrib ed Elsewher e: Yes Loca tion: [facility] lalo [facility] odify By: bart smith DateTime : 03/10/20 11 08:16:51 AM Not Available Not Available Not Available Terazol 7 0.4 % vaginal cream insert 1 applicat orful by vaginal route every day for 7 days at bedtime 12/12 completed Prescrib ed Elsewher e: No Locat ion: [facility] odify By: bart castillountlaury DateTime : 12/07/19 18 11:53:41 AM Not Available Not Available Not Available labetalol 5 mg/mL intraveno us solution inject by intraven ous route over ; may repeat every 10 min until desired supine blood pressure or a total of 300mg 07/19 completed Prescrib ed Elsewher e: Yes Loca [facility] odify By: barney smith DateTime : 06/06/20 15 01:00:00 PM Not Available Not Available Not Available fluticaso ne propionat e 50 mcg/actua tion nasal spray,[employer] INHALE 2 SPRAYS INTO EACH NOSTRIL EVERY DAY 07/19 completed Not Available Not Available Not Available terazosin 10 mg capsule TAKE 1 CAPSULE BY MOUTH AT BEDTIME active Not Available Not Available No t Available Bactrim DS 800 mg-160 mg tablet take 1 tablet by oral route every 12 hours 10/29 completed Prescrib ed Elsewher e: No [facility] odify By: nicolasdical Encount er DateTime : 10/30/19 15 08:30:00 AM Not Available Not Available Not Available Diovan 40 mg tablet take 2 tablet by ORAL route every day 10/29 completed Prescrib ed Elsewher e: Yes [facility]ify By: mary smith DateTime : 03/10/20 11 08:16:51 AM Not Available Not Available Not Available cyclobenz aprine 5 mg tablet TAKE 1 TABLET BY MOUTH THREE TIMES A DAY NEEDED 06/15 completed Not Available Not Available Not Available Premarin 0.625 mg/gram vaginal cream use once or twice weekly as needed for vaginal dryness 12/03 completed Prescrib ed Elsewher e: No Locat ion: Oleks[facility]r may [facility] odify By: amolga castillounter DateTime : 11/10/19 16 04:17:46 PM Not Available Not Available Not Available rosuvasta tin 10 mg tablet TAKE 1 TABLET BY MOUTH EVERY DAY active Not Available Not Available No t Available Crestor 5 mg tablet take 2 tablet by ORAL route every day 07/19 completed Prescrib ed Elsewher e: Yes Loca tion: Oleks[facility]r may [facility] odify By: natasha shahid DateTime : 03/10/20 11 08:16:51 AM Not Available Not Available Not Available hydrocodo ne 10 mg-acetam inophen 300 mg tablet take 1 tablet by oral route every 6 hours as needed 12/10 completed Prescrib ed Elsewher e: Yes Loca tion: Oleks[facility]r may [facility] odify By: maggie Finnou nter DateTime : 10/30/19 15 08:30:00 AM Not Available Not Available Not Available nitrofura ntoin monohydra te/macroc rystals 100 mg capsule TAKE 1 CAPSULE BY MOUTH TWICE A DAY 06/15 completed Not Available Not Available Not Available Flovent HFA 110 mcg/actua tion aerosol inhaler INHALE 1 PUFF EVERY 12 HOURS 06/15 completed Not Available Not Available Not Available aspirin active Not Available Not Avail able Not Available valsartan 320 mg-hydroc hlorothia zide 25 mg tablet TAKE 1 TABLET BY MOUTH EVERY DAY active Not Available Not Available No t Available Advair HFA 115 mcg-21 mcg/actua tion aerosol inhaler inhale 2 puff by INHALATI ON route 2 times every day morning and evening 05/01 completed Prescrib ed Elsewher e: Yes [facility] odify By: bart May ncounter DateTime : 03/10/20 11 08:16:51 AM Not Available Not Available Not Available Symbicort 160 mcg-4.5 mcg/actua tion HFA aerosol inhaler INHALE 2 PUFFS EVERY 12 HOURS 07/19 completed Not Available Not Available Not Available Dexilant 60 mg capsule, delayed release TAKE 1 CAPSULE BY MOUTH EVERY DAY 07/19 completed Not Available Not Available Not Available Dexilant 30 mg capsule, delayed release take 1 capsule by oral route every day 07/19 completed Prescrib ed Elsewher e: Yes Loca tion: [facility] odify By: mary castillountlaury DateTime : 10/30/19 08:30:00 AM Not Available Not Available Not Available Suprep Bowel Prep Kit 17.5 gram-3.13 gram-1.6 gram oral solution USE DIRECTED 06/15 completed Not Available Not Available Not Available OptiChamb laury Jackie [facility] spacer 07/19 completed Not Available Not Available Not Available Breo Ellipta 100 mcg-25 mcg/dose powder for inhalatio n 07/19 completed Not Available Not Available Not Available Anoro Ellipta 62.5 mcg-25 mcg/actua tion powder for inhalatio n 07/19 completed Not Available Not Available Not Available Spiriva Respimat 2.5 mcg/actua tion solution for inhalatio n INHALE 2 PUFFS BY MOUTH ONCE DAILY 07/19 completed Not Available Not Available Not Available Stiolto Respimat 2.5 mcg-2.5 mcg/actua tion solution for inhalatio n 07/19 completed Not Available Not Available Not Available Fluzone High-Dose Quad 2020-21 (PF) 240 mcg/0.7 mL IM syringe PHARMACY ADMINIST ERED 06/15 completed Not Available Not Available Not Available Shanelle Aerospher e 160 mcg-9mcg- 4.8mcg/ac tuation HFA aerosol inhaler 07/19 completed Not Available Not Available Not Available Vitals Date Recorded Body height Body mass index (BMI) Body weight Systolic blood pressure Diastolic blood pressure Provider Name and Address Organization Details Last Updated DateTime 06/15/2020 157.48 cm 31.8 kg/m2 88666.07 g 107 mm[Hg] 67 mm[Hg] Rosita De León [place] - [facility] 0 11:52:45 Date Recorded Body height Body mass index (BMI) Body weight Systolic blood pressure Diastolic blood pressure Provider Name and Address Organization Details Last Updated DateTime 07/19/2021 157.48 cm 32.4 kg/m2 52551.85 g 108 mm[Hg] 68 mm[Hg] Rosita [facility] 12:29:55 Social History None recorded. Functional Status None recorded. Mental Status None recorded. Family History Relationship Description Onset Age of this Age Resolved Age Notes LastModified by Organization Details LastModified Time Mother Asthma [email or web address] Not available 15:55:15 Mother Pneumonia [email or web address] Not availabl e 07/19/2021 12:18:29 Father Diabetes mellitus type 2 [email or web address] Not available 2019 15:55:37 Father Hypertensive disorder [email or web address] Not available 2019 15:56:01 Father Dissection of coronary artery Not available 2020 12:18:29 Father Congestive heart failure [email or web address] Not available 2020 12:18:29 Father Carcinoma in situ of skin [email or web address] Not available 12:18:29 Paternal Aunt Carcinoma in situ of breast [email or web address] Not available 2020 12:18:29 Notes:Father: Diabetes sui tus type 2, Congestive heart failure, Cancer, skin, Diabetes mellitus, Coronary artery disease, Hypertension Mother: Asthma, pneumonia Paternal aunt: Cancer, breast Medical History Condition Response Other N Blood Transfusion N Dermatologic Disorders N Gestational Diabetes N Anxiety Disorder N Autoimmune disease N Arthritis N Polyps N Infertility N Acid Reflux (GERD) N Cancer N Varicosities N Stroke N Neurologic/Epilepsy N Fibromyalgia N Headaches N Kidney Disease N Heart Problems N Kidney or Bladder Problems N Eating Disorder N Art (IVF or FET) N Hepatitis/Liver Disease N Urinary Tract Infection N Asthma N Trauma/Violence N Thrombophilias N Allergies (Food, seasonal, environmental ) N Breast Cancer N Drug/Latex Allergies/Reactions N Lung Disease N Defects or Inherited Disease N Breast Problem N Hematologic disorders N Anesthesia Complications N History of STI N Deep Vein Thrombosis N Polycystic ovary syndrome N History of abnormal pap N Endometriosis N High Cholesterol Y Thyroid Problems N GI Problems N Anemia N Psychiatric Illness N Ovarian Cancer N Diabetes N Pulmonary (TB, Asthma) N Eczema N Abuse/Domestic Violence N Depression/ depression N Heart Disease N Pre-Eclampsia N Hypertension Y Osteoporosis N Gynecological History Statement/Question Response STIs/STDs N HPV Vaccine N Abnormal Pap N Date of Last Pap Smear 12/03/2018 Date of Last Mammogram 12/04/2019 Most Recent Bone Density 08/24/2020 07/05/2020 Obstetrics History GPAL:G 1 P 1 0 0 1 Type Value Full Term 1 Living 1 Total 1 Past Encounters Encounter ID Performer Location Encounter Start Date Encounter Closed Date Diagnosis/Indication Diagnosis SNOMED-CT Code Diagnosis ICD10 Code Diagnosis Note [id number] Alley Berger MD [facility] [address] [address] 06/15/2020 11:39:28 06/15/2020 14:10:44 Body mass index 30+ - obesity 352060574 Z68.31 History of hysterectomy 227294116 Z90.711 Gynecologi c examination 45734588 Z01.419 [id number] Alley Berger MD [facility] [address] [address] 07/19/2021 12:18:03 07/19/2021 14:08:26 Body mass index 30+ - obesity 221933505 Z68.31 History of hysterectomy 759553733 Z90.711 Gynecologi c examination 37799342 Z01.419 Candidiasis of vulva 108 5006 B37.3 Health Concerns Section Related Observation LastModified by Organization Detai ls LastModified Time None Recorded Concern Status LastModified by Organization Details LastModified Time None Recorded Advance Directives Directive None Recorded Payers Encounter Date Sequence Insurance Name Policy Number Policy Canas Covered Member ID Canas Member ID Guarantor Name 06/15/2020 2 [place] Nadia Brown [id number] Nadia Michaud Stephanie 06/15/2020 1 [place] [id number] James Stephanie [id number] Nadia S Stephanie 07/19/2021 2 [place] Nadia Mackenziees [id number] Nadia S 07/19/2021 1 [place] [id number] [place] Stephanie [id number] Nadia Brown Notes Date Note Type Note Provider Name and Address Organization Details Recorded Time 06/15/2020 text/html Patient is a 70y o who presents for an annual exam. TVH/BSO. Not using premarin anymore, no vulvar sx. last pap-12/2018 NILM mammo-12/2019- q 6 mos surveillance at [facility] colonoscopy-schedu led next month dexa-several/many years menopause-yes sexually active-yes seatbelts-yes exercise-yes, some depression-denies domestic violence-denies concerns-none Alley Berger MD [address], [place], [address], [facility] 06/15/2020 14:10:36 07/19/2021 text/html Patient is a 71y o who presents for an annual exam. TVH/BSO. last pap-12/2018 NILM mammo-12/2020 colonoscopy-02/2021 - 5 years polyps dexa-08/2020-nl menopause-y sexually active-no seatbelts-y exercise-y depression-denies domestic violence-denies tobacco-former concerns-took antibiotics for a tooth infection, now vulva feels irritated. no discharge. Alley Berger MD [address], [place], [address], [facility] 07/19/2021 14:01:38 OBGyn Episode Ob Episode Information Episode Created Date Number of Fetuses Patient Bloodtype Patient rh Status Prepregnancy Weight lbs Domestic Partner Domestic Partner Phone Father Name City Carrier Status 06/15/20 20 1 DELETED Xavier Calculation Initial Xavier Date Initial Exam Date Initial Exam Provider Initial Ultrasound Date Last Menstrual Period Date Ultra Sound Weeks Gestation 0 Eighteen To Twenty Week Xavier Update Ultra Sound Date Fundal Height At Umbil Quickening Date Ultra Sound Latest Weeks Gestation Final Xavier Confirmed By Final Xavier Confirmed Date Final Xavier Date Ultra Sound Latest Days Gestation 0 0 Menstrual History Last Menstrual Date Menses Monthly On Bcp Conception Prior Menses Frequency Hcg Plus Date Menarche Onset Age Delivery Information Delivery Date Delivery Type Labor Anesthesia Weeks Gestation Incision Type Labor Labor Length Hrs Delivered By Post Complications Tubal Sterilization Discharge Date Comments 9 Discharge Information Feeding Method Contraceptive Method Maternal HG B and HCT Levels Ob Episode Information Episode Created Date Number of Fetuses Patient Bloodtype Patient rh Status Prepregnancy Weight lbs Domestic Partner Domestic Partner Phone Father Name City Carrier Status 06/15/20 1 DELETED Xavier Calculation Initial Xavier Date Initial Exam Date Initial Exam Provider Initial Ultrasound Date Last Menstrual Period Date Ultra Sound Weeks Gestation 0 Eighteen To Twenty Week Xavier Update Ultra Sound Date Fundal Height At Umbil Quickening Date Ultra Sound Latest Weeks Gestation Final Xavier Confirmed By Final Xavier Confirmed Date Final Xavier Date Ultra Sound Latest Days Gestation 0 0 Menstrual History Last Menstrual Date Menses Monthly On Bcp Conception Prior Menses Frequency Hcg Plus Date Menarche Onset Age Delivery Information Delivery Date Delivery Type Labor Anesthesia Weeks Gestation Incision Type Labor Labor Length Hrs Delivered By Post Complications Tubal Sterilization Discharge Date Comments 1 Discharge Information Feeding Method Contraceptive Method Maternal HG B and HCT Levels Ob Episode Information Episode Created Date Number of Fetuses Patient Bloodtype Patient rh Status Prepregnancy Weight lbs Domestic Partner Domestic Partner Phone Father Name City Carrier Status 06/15/20 1 CLOSED Fetus Data First Name Last Name Admitted to NICU Weight (g) Sex Living Outcome Pediatric Complications Fetus ID Race Codes Race Delivery Type [id number] Vaginal Delivery Xavier Calculation Initial Xavier Date Initial Exam Date Initial Exam Provider Initial Ultrasound Date Last Menstrual Period Date Ultra Sound Weeks Gestation 0 Eighteen To Twenty Week Xavier Update Ultra Sound Date Fundal Height At Umbil Quickening Date Ultra Sound Latest Weeks Gestation Final Xavier Confirmed By Final Xavier Confirmed Date Final Xavier Date Ultra Sound Latest Days Gestation 0 0 Menstrual History Last Menstrual Date Menses Monthly On Bcp Conception Prior Menses Frequency Hcg Plus Date Menarche Onset Age Delivery Information Delivery Date Delivery Type Labor Anesthesia Weeks Gestation Incision Type Labor Labor Length Hrs Delivered By Post Complications Tubal Sterilization Discharge Date Comments 2 Discharge Information Feeding Method Contraceptive Method Maternal HG B and HCT Levels
--- OUTSIDE RECORDS SUMMARY | 2025-01-03 18:02 | XMS_ITS | Clinical Summary ---
Author Organization [facility] Address [address] [place] [address] Care Team Providers Care Elevator Operator Freight Name Role Phone Jenny Sears MD Unavailable [phone] Babatunde Michael DO Primary Care Provider [phone] Allergies Active Allergy Reactions Criticality Noted Date [...] Resistant hypertension 09/25/2019 Mitral valve insufficiency 09/25/2019 Encounters Date Type Department Care Team Description 12/01/2024 10:00 AM CDT Office Visit [facility] Cardiology at [address] [place] [address] Josh Rojas MD Nonrheumatic mitral valve regurgitation (Primary Dx); Chronic diastolic heart failure (HCC); Hyperlipidemia LDL goal <100; Resistant hypertension from Last 3 Months Surgical History Surgery Date Site/Laterality Comments HYSTERECTOMY SPINAL FUSION ABDOMINAL ADHESION SURGERY FOOT SURGERY APPENDECTOMY 08/05/1974 - 08/04/1975 CATARACT EXTRACTION 08/05/2018 - 08/04/2019 CHOLECYSTECTOMY 08/05/1974 - 08/04/1975 BREAST BIOPSY Medical History Medical History Date Comments Hypertension Hyperlipidemia Sinusitis Diverticulitis Cataracts, bilateral Mitral valve prolapse GERD (gastroesophageal reflux disease) approxima tely 5 years ago Chronic bronchitis (HCC) 2014 Family History Medical History Relation Name Comments Aneurysm Brother 1 No Known Problems Brother 2 Diabetes Father Kendall Terrazas Heart attack Father Kendall Terrazas Hypertension Father Kendall Terrazas Skin cancer Father Kendall Terrazas Family histo ry of skin cancer - (Added by TW Conv) Asthma Mother Lacy Terrazas Pneumonia Mother Lacy Terrazas Relation Name Status Comments Brother 1 (Age 46) Brother 2 Alive Father Kendall Terrazas (Age 90) Mother Lacy Terrazas (Age 78) Social History Tobacco Use Types Packs/Day Years Used Date Smoking Tobacco: Former Cigarettes Q uit: 07/02/2010 Smokeless Tobacco: Never Tobacco Cessation:Counseling Given: Not Answered Alcohol Use Standard Drinks/Week Comments Yes 0 (1 standard drink = 0.6 oz pur e alcohol) Comments No Sex and Gender Information Value Date Recorded Sex Assigned at Not on file Legal Sex Female 2:33 AM SPECIAL ORDER JEWELER Gender Identity Female 03/23/2020 2:20 PM CDT Sexual Orientation Straight 03/23/2020 2: 20 PM CDT Obstetrics History Para Term AB IAB SAB Ectopic Multiple Livin g Live Births 1 1 1 Date Outcome GA Total Labor Labor/2nd/3rd Weight Sex Type Anes PTL Nena A1 A5 Name Clin Term Last Filed Vital Signs Vital Sign Reading [...] 12/01/2024 9:58 AM CDT Plan of Treatment Health Maintenance Due Date Last Done Comments Depression Screening 1950 Fall Risk Assessment 1950 Hepatitis C Screening 1950 Osteoporosis Screening-Bone Density Scan 1948 DTaP/Tdap/Td Vaccine (1 - Tdap) 1959 Hepatitis B Screening 1966 Zoster Vaccine (1 of 2) 1998 Well Visit 65+ 2013 Covid-19 Vaccine (2023-2 5 season) 2024 05/07/2021, 11/23/2020, 10/21/2020, Additional history exists Pneumococcal vaccine 65+ Completed 06/04/2019, 08/05 Influenza Vaccine Completed 04/08/2024, , 04/24/2020, Additional history exists Breast Cancer Screening-Mammogram Discontinued 08/17/2024, 06/13/2023, 02/28/2022, Additional history exists Procedures Procedure Name Priority Date/Time Associated Diagnosis Comments SCREENING MAMMOGRAM BILATERAL W ROME Schedule Routine, Read Routine (OP Routine) 08/17/2024 7:48 AM SPECIAL ORDER JEWELER Screening mammogram, encounter for from Last 3 Months or Most Recently Relevant to Health Maintenance Results * Screening Mammogram Bilateral W [place] (08/17/2024 7:48 AM SPECIAL ORDER JEWELER) Anatomical Region Laterality Modality Breast Bilateral Mammography Impressions 08/17/2024 8:42 AM SPECIAL ORDER JEWELER BI-RADS ATLAS category (overall): 1 - Negative There is no mammographic evidence of malignancy. A 1 year screening mammogram is recommended. The patient has been or will be contacted. We recommend annual screening mammography for women at average risk of breast cancer beginning at age 40, based on guidelines of the [employer] (ACR Practice Parameter for the Performance of Screening and Diagnostic Mammography) and [employer] [employer]. For women with and elevated risk of breast cancer, please refer to the ACR Practice Parameter for specific screening recommendations. The patient will be entered into a reminder system with a target due date of 1 year for her next screening exam. Narrative 08/17/2024 8:42 AM SPECIAL ORDER JEWELER Screening Mammogram Bilateral W Rome: 08/17/24 The [...] W Rome 12/23/2020 Diagnostic Mammogram Bilateral W [place]em 06/27/2020 Diagnostic Mammogram Right W [place] 11/03/2018 [...] Relevant to Health Maintenance Insurance [facility] [employer] [place]IC[place] [employer] [place] [facility] UHC MEDICARE ADVANTAGE [facility] MEDIC[facility] Address: [address] [address] [place] [address] Care Teams Elevator Operator Freight Relationship Specialty Start Date End Date Babatunde Michael DO [address] [place] [address] PCP - General Internal Medicine 05/05/24 Jenny Sears MD [address] [place] [address] Referring Physician Family Medicine 02/28/22
--- OUTSIDE RECORDS SUMMARY | 2025-01-03 18:02 | XMS_ITS | Clinical Summary ---
Author Organization [facility] Care Team Providers Care Light Out Examiner Name Role Phone Unavailable Primary Care Provider Unavailabl e Social History Tobacco Use Types Packs/Day Years Used Date Smoking Tobacco: Never Assessed Comments Unknown Sex and Gender Information Value Date Recorded Sex Assigned at Not on file Legal Sex Female 10:36 PM CDT Gender Identity Not on file Sexual Orientation Not on file Plan of Treatment Not on file
--- OUTSIDE RECORDS SUMMARY | 2025-01-03 18:02 | XMS_ITS | Clinical Summary ---
Author Organization [facility] Address [address] [place] [address] Care Team Providers Care Radar Operator Name Role Phone PamelaParvez tsemark Dutton DO Primary Care Provider [phone] Source Comments [facility],non-owned Affiliates and Associated Physician Practices is amultiple site organization consisting of ambulatory clinics and hospital sitesin [place], [place], [place] and [place]. This disclosure is being madepursuant to the Care Everywhere program and may not contain all information available regarding this patient. Last updated 18.[facility] Encounters Date Type Department Care Team Description 10/19/2024 Lab Requisition [facility] Lab [address] [place] [address] Cristal Deleon MD from Last 3 Months Social History Tobacco Use Types Packs/Day Years Used Date Smoking Tobacco: Never Assessed Comments Unknown Sex and Gender Information Value Date Recorded Sex Assigned at Not on file Legal Sex Female 7:42 PM MULTIMEDIA EDITOR Gender Identity Not on file Sexual Orientation Not on file Plan of Treatment Health Maintenance Due Date Last Done Comments BONE DENSITY TESTING 1950 HEPATITIS C SCREENING 04/09/1966 DTAP/TDAP/TD VACCINES (1 - Tdap) 1967 PNEUMOCOCCAL VACCINE 50+ (1 of 1 - PCV) 1998 ZOSTER VACCINE (1 of 2) 1998 Respiratory Syncytial Virus (RSV) Vaccine Pt: or over 60 yrs (1 - 1-dose 75+ series) 2023 COVID-19 VACCINE ( - 2023-2 5 season) 2024 DEPRESSION SCREENING 08/05/2024 MEDICARE AWV CALENDAR YEAR 2024 INFLUENZA VACCINE (Season Ended) 2025 HEPATITIS B VACCINE Aged Out No longe r eligible based on patient's age to complete this topic HIB VACCINE Aged Out No longer eligi ble based on patient's age to complete this topic HPV VACCINE Aged Out No longer eligi ble based on patient's age to complete this topic MENINGOCOCCAL (Group B) VACC INE SHARED DECISION-MAKING Aged Out No longer eligibl e based on patient's age to complete this topic MENINGOCOCCAL GROUPS A/C/Y/W VACCINE Aged Out No longer eligible b ased on patient's age to complete this topic Procedures Procedure Name Priority Date/Time Associated Diagnosis Comments DERMATOPATHOLOGY Routine 10/19/2024 10:5 2 AM CDT from Last 3 Months Results * DERMATOPATHOLOGY (10/19/2024 10:52 AM CDT) Case Report Dermatopathology Report Case: [id number] Authorizing Provider: Cristal Deleon MD Collected: 10/19/2024 10:52 AM Ordering Location: [facility] - Received: 10/20/2024 06:58 AM DermPath Lab Pathologist: Maribel Wright MD Specimen: Skin, right calf 11:02 AM CDT DERMATOPATHOLOGY LABORATORY Final Diagnosis Specimen A. SKIN, right calf: SOLAR LENTIGO (L81.4) (see microscopic description) 11:02 AM CDT DERMATOPATHOLOGY LABORATORY at 1102 CDT Clinical History Nevus vs SK vs Melanoma 11:02 AM CDT DERMATOPATHOLOGY LABORATORY Gross Description Specimen A: Received is one formalin filled container labeled with the patient's name and designated right calf. The specimen consists of a shave biopsy measuring 34x05c6 mm. Jar 0. 11:02 AM CDT DERMATOPATHOLOGY LABORATORY Microscopic Description Specimen A. SKIN, right calf: There is orthokeratosis. There is a slight increase in epidermal thickness with lentiginous buds of hyperpigmented keratinocytes. The number of melanocytes, highlighted by MART-1/Melan-A immunohistochemical staining, is only mildly increased. PRAME immunohistochemical stain demonstrates 1+ positivity of lesional melanocytes. In the dermis, there is basophilic degeneration of elastic fibers. 5 11:02 AM CDT DERMATOPATHOLOGY LABORATORY Disclaimer An external and internal positive and negative controls are appropriate for the histochemical, immunohistochemical and immunofluorescence stain(s) in this case (if any), except where stated explicitly. The performance characteristics of the stain(s) cited in this report were developed and its performance characteristic determined by the Dermatopathology Laboratory at [facility], directed by Dr. Beth Valerio. These tests need not be, and therefore are not, approved by the [place] Food and Drug Administration. The tests are used for clinical purposes. Billing Codes Specimen Charges Stain Charges 53003 1 36347 [id number] 1 1 5 11:02 AM CDT DERMATOPATHOLOGY LABORATORY Embedded Images 5 11:02 AM CDT DERMATOPATHOLOGY LABORATORY Pathology/Cytolo gy TISSUE SPECIMEN FROM SKIN / Unknown 10/19/2024 10:52 AM CDT 10/20/2024 6:58 AM CDT Cristal Deleon MD LAB - PATHOLOGY/CYTOLOGY ORD ERABLES Final Result DERMATOPATHOLOGY LABORATORY [facility] - Department of Dermatology [facility] [address] [place] [address], [address] [phone] from Last 3 Months Insurance NoDaysOff MEDICARE Member Subscriber Plan / Payer (Ef fective for All Dates) Name:Juan F Brown Relation to Subscriber:Self Name:JUAN F BROWN Payer ID:[id number] (NAIC) Type:Medicare-Managed Care Address: [facility] CLAIMS [address] [id number] [facility] MANAGED MEDICARE ADV Care Teams Radar Operator Relationship Specialty Start Date End Date Braden Braga DO [address] [place] [address] PCP - General 03/21/10
--- OUTSIDE RECORDS SUMMARY | 2025-01-03 18:02 | XMS_ITS | Encounter Summary ---
Author Organization [facility] Address [address] [facility] [address] Care Team Providers Care Lube Attendant Name Role Phone Braden Braga DO Primary Care Provider [phone] Encounter Details Date Type Department Care Team (Late st Contact Info) Description 08/31/[address] [facility] DermPath Lab [address] [facility], [place] [id number] Cristal Deleon MD [address] [facility] 3 [place] [address] Social History Tobacco Use Types Packs/Day Years Used Date Smoking Tobacco: Never Assessed Comments Unknown Sex and Gender Information Value Date Recorded Sex Assigned at Not on file Legal Sex Female 7:42 PM ENVIRONMENTAL REMEDIATION CONSULTANT Gender Identity Not on file Sexual Orientation Not on file documented as of this encounter Plan of Treatment Not on file documented as of this encounter Procedures Procedure Name Priority Date/Time Associated Diagnosis Comments DERMATOPATHOLOGY Routine 08/30/2020 12:0 0 AM ENVIRONMENTAL REMEDIATION CONSULTANT documented in this encounter Results * DERMATOPATHOLOGY (08/30/2020 12:00 AM ENVIRONMENTAL REMEDIATION CONSULTANT) Case Report Dermatopathology Report Case: [id number] Authorizing Provider: Cristal Deleon MD Collected: 08/30/2020 12:00 AM Ordering Location: [facility] DermPath Lab Received: 08/31/2020 08:14 AM Pathologist: Antonella Valerio MD Specimens: A) - Skin, left cheek B) - Skin, left arm 4:08 PM ENVIRONMENTAL REMEDIATION CONSULTANT DERMATOPATHOLOGY LABORATORY Final Diagnosis Specimen A. 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 SKIN, left arm: RUPTURED EPIDERMOID CYST (L72.0) 4:08 PM [facility] DERMATOPATHOLOGY LABORATORY at 1608 ENVIRONMENTAL REMEDIATION CONSULTANT Clinical History A: [place] papule; R/O BCC. B: Irritated nevus; R/O BCC. 4:08 PM [facility] DERMATOPATHOLOGY LABORATORY Gross Description Specimen A: Received is one formalin filled container labeled with the patient's name and designated left cheek. The specimen consists of a shave biopsy measuring [id number]. Jar 0. Specimen B: Received is one formalin filled container labeled with the patient's name and designated left arm. The specimen consists of a shave biopsy measuring 6x6x2 mm. Jar 0. 4:08 PM [facility] DERMATOPATHOLOGY LABORATORY Microscopic Description Specimen A. SKIN, left cheek: There are prominent sebaceous gland lobules surrounding a dilated hair follicle. Additional deeper sections were obtained and reviewed. Specimen B. SKIN, left arm: Within the dermis, there is an infiltrate composed of lymphocytes and histiocytes, including multinucleated type giant cells. Some histiocytes contain flakes of material consistent with keratin. 4:08 PM [facility] DERMATOPATHOLOGY LABORATORY Disclaimer An external and internal positive and negative controls are appropriate for the histochemical, immunohistochemical and immunofluorescence stain(s) in this case (if any), except where stated explicitly. The performance characteristics of the stain(s) cited in this report were developed and its performance characteristic determined by the Dermatopathology Laboratory at [facility], directed by Dr. Beth Valerio. These tests need not be, and therefore are not, approved by the [place] Food and Drug Administration. The tests are used for clinical purposes. Billing Codes Specimen Charges Stain Charges 48387 19121 1 1 4:08 PM [facility] DERMATOPATHOLOGY [facility]ORATORY Embedded Images 4:08 PM [facility] DERMATOPATHOLOGY [facility]ORATORY Pathology/Cytology TISSUE SPECIMEN FROM SKIN / Unknown 08/30/2020 08/31/2020 8:14 AM ENVIRONMENTAL REMEDIATION CONSULTANT Miscellaneous samples (specimen) TISSUE SPECIMEN FROM SKIN / Unknown 08/30/2020 08/31/2020 8:14 AM ENVIRONMENTAL REMEDIATION CONSULTANT us Cristal Deleon MD LAB - PATHOLOGY/CYTOLOGY ORD ERABLES Final Result DERMATOPATHOLOGY LABORATORY [facility] - Department of Dermatology [facility] [address] [place] [address], [address] Floor [address] [phone] documented in this encounter Visit Diagnoses Not on filedocumented in this encounter Care Teams Lube Attendant Relationship Specialty Start Date End Date Braden Braga DO [address] [facility] [address] [facility] [address] [place] [address] PCP - General 03/21/10 documented as of this encounter
--- OUTSIDE RECORDS SUMMARY | 2025-01-03 18:02 | XMS_ITS | Clinical Summary ---
Author Organization [facility] Address [address] [place] [address] Phone Care Team Providers Care Floor Finisher Helper Name Role Phone Braden Braga DO Primary Care Provider [phone] Allergies Active Allergy Reactions Criticality Noted Date Comments Ciprofloxacin nausea 08/17/2020 Codeine Other (see comments) 02/10/2019 Reaction: OTHER REACTION, Sulfamethoxazole 08/17/2020 Trimethoprim 08/17/2020 Medications terazosin (HYTRIN) 10 MG capsule 1 tab/cap qday 0 3 Active rosuvastatin (CRESTOR) 10 MG tablet 1 tab/cap qday 3 Active Azelastine HCl 137 MCG/SPRAY solution Administer 2 sprays into each nostril 2 (two) times a day 3 9 Active gabapentin (NEURONTIN) 400 MG capsule TAKE 1 CAPSULE BY MOUTH THREE TIMES A DAY 0 Active valsartan-hydro CHLOROthiazide (DIOVAN-HCT) 320-25 MG per tablet Take 1 tablet by mouth 1 (one) time each day 9 Active aspirin EC 81 MG EC tablet Take 81 mg by mouth daily Active oxybutynin XL (DITROPAN-XL) 10 MG 24 hr tablet Take 10 mg by mouth 1 (one) time each day 0 Active cloNIDine (CATAPRES) 0.1 MG tablet Take 1 tab by mouth twice a day as needed of systolic BP > 160 60 tablet 3 0 Active albuterol HFA (PROVENTIL HFA) 108 (90 Base) MCG/ACT inhaler INHALE 1 2 PUFFS BY MOUTH EVERY 4 6 HOURS NEEDED FOR SHORTNESS OF BREATH/WHEEZING 1 Active NIFEdipine CC (ADALAT CC) 30 MG 24 hr tablet TAKE 1 TABLET BY MOUTH EVERY DAY 90 tablet 4 2 Active fluticasone-avril meterol (Wixela Inhub) 100-50 MCG/DOSE diskus inhaler 2 Active Advair Diskus 100-50 MCG/DOSE diskus inhaler 1 Active labetalol (NORMODYNE) 200 MG tablet TAKE 2 TABLETS BY MOUTH 3 TIMES A DAY 540 tablet 10 2 Active Trelegy Ellipta 100-62.5-25 MCG/ACT aerosol powder 2 Active furosemide (LASIX) 20 MG tablet Take 20 mg by mouth every other day 2 Active gabapentin (NEURONTIN) 600 MG tablet Take 600 mg by mouth in the morning and 600 mg at noon and 600 mg in the evening. 2 Active Active Problems Problem Noted Date Diagnosed Date Body mass index 30+ - obesity 06/15/2020 Chronic obstructive pulmonary disease 06/15/2020 H/O: hysterectomy 06/15/2020 Mitral valve regurgitation 09/25/2019 Increased frequency of urination 10/18/2016 Other hyperlipidemia 05/04/2015 Overview (10/18/2018): Converted unresolved ICD9, potential mismatch. Urinary tract infectious disease 10/29/2014 Essential hypertension 05/12/2013 Gastro-esophageal reflux disease without esophag itis 05/12/2013 Immunizations Immunization Administration Dates Next Due Fluzone High-Dose 04/24/2020 Influenza Recombinant Familia valent Injectable Preservative Free 05/05/2019 Influenza TIV (IM) 08/22/2016,06/15/2015, 014 Pneumococcal Conjugate 13-Valent 08/22/2016 Pneumococcal Polysaccharide 06/04/2019 Sars-cov-2, Unspecified 11/23/2020 Family History Medical History Relation Comments Diabetes mellitus Father Hypertensive disorder Father Malignant neoplastic disease Father Kidney disease Neg Hx Kidney stone Neg Hx Relation Status Comments Father Social History Tobacco Use Types Packs/Day Years Used Date Smoking Tobacco: Former Smokeless Tobacco: Never Tobacco Cessation:Counseling Given: Not Answered Comments:Smoking History Packs/day: quit - June 2010 Alcohol Use Standard Drinks/Week Comments No 0 (1 standard drink = 0.6 oz pur e alcohol) Comments Unknown Sex and Gender Information Value Date Recorded Sex Assigned at Female 10/16/2021 7:45 AM MDT Legal Sex Female 9:26 AM MST Gender Identity Female 10/16/2021 7:45 AM MDT Sexual Orientation Not on file Last Filed Vital Signs Vital Sign Reading Time Taken Comments Blood Pressure 136/82 06/27/2022 10:02 AM STEAM SERVICE INSPECTOR Pulse - - Temperature 35.2 C (95.4 F) 06/27/2022 10:02 AM STEAM SERVICE INSPECTOR Respiratory Rate 18 06/27/2022 10:02 AM STEAM SERVICE INSPECTOR Oxygen Saturation - - Inhaled Oxygen Concentration - - Weight 79.8 kg (176 lb) 06/27/2022 10:02 AM STEAM SERVICE INSPECTOR Height 157.5 cm (5' 2) 06/27/2022 10:02 AM STEAM SERVICE INSPECTOR Body Mass Index 32.19 06/27/2022 10:02 AM STEAM SERVICE INSPECTOR Plan of Treatment Health Maintenance Due Date Last Done Comments Influenza Vaccine (Season Ended) 2025 05/05/2019, 08/22/2016, 06/15/2015, Additional history exists Pneumococcal PPSV23/PCV13 65 + Years / High and Highest Risk Completed 06/04/2019, 08/22/2016 Insurance [employer] HMO Care Teams Floor Finisher Helper Relationship Specialty Start Date End Date Braden Braga DO [address] [address] PCP - General Internal Medicine 02/10/19
--- OUTSIDE RECORDS SUMMARY | 2025-01-03 18:02 | XMS_ITS | Encounter Summary ---
Author Organization [facility] Address [address] [place] [address] Care Team Providers Care Prevention Specialist Name Role Phone Braden Braga DO Primary Care Provider Encounter Details Date Type Department Care Team (Late st Contact Info) Description 10/19/2024 Lab Requisition [facility] - DermPath Lab [address] [facility], [place] [address] Cristal Deleon MD [address] [facility] 3 [place] [address] Social History Tobacco Use Types Packs/Day Years Used Date Smoking Tobacco: Never Assessed Comments Unknown Sex and Gender Information Value Date Recorded Sex Assigned at Not on file Legal Sex Female 7:42 PM BASE DRAW 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 Gender Identity Not on file Sexual Orientation Not on file documented as of this encounter Plan of Treatment Not on file documented as of this encounter Procedures Procedure Name Priority Date/Time Associated Diagnosis Comments DERMATOPATHOLOGY Routine 10/19/2024 10:5 2 AM CDT documented in this encounter Results * DERMATOPATHOLOGY (10/19/2024 10:52 AM CDT) Case Report Dermatopathology Report Case: [id number] Authorizing Provider: Cristal Deleon MD Collected: 10/19/2024 10:52 AM Ordering Location: [facility] - Received: 10/20/2024 06:58 AM DermPath Lab Pathologist: Maribel Wright MD Specimen: Skin, right calf 11:02 AM CDT DERMATOPATHOLOGY LABORATORY Final Diagnosis Specimen A. SKIN, right calf: SOLAR LENTIGO (L81.4) (see microscopic description) 5 11:02 AM CDT DERMATOPATHOLOGY LABORATORY at 1102 CDT Clinical History Nevus vs SK vs Melanoma 11:02 AM CDT DERMATOPATHOLOGY LABORATORY Gross Description Specimen A: Received is one formalin filled container labeled with the patient's name and designated right calf. The specimen consists of a shave biopsy measuring 69s23v5 mm. Jar 0. 11:02 AM CDT DERMATOPATHOLOGY [...] there is basophilic degeneration of elastic fibers. 11:02 AM CDT DERMATOPATHOLOGY LABORATORY Disclaimer An external and internal positive and negative controls are appropriate for the histochemical, immunohistochemical and immunofluorescence stain(s) in this case (if any), except where stated explicitly. The performance characteristics of the stain(s) cited in this report were developed and its performance characteristic determined by the Dermatopathology Laboratory at [facility], directed by Dr. Beth Valerio. These tests need not be, and therefore are not, approved by the [place] Food and Drug Administration. The tests are used for clinical purposes. Billing Codes Specimen Charges Stain Charges 21188 1 [id number] 86870 1 1 5 11:02 AM CDT DERMATOPATHOLOGY LABORATORY Embedded Images 11:02 AM CDT DERMATOPATHOLOGY LABORATORY Pathology/Cytolo gy TISSUE SPECIMEN FROM SKIN / Unknown 10/19/2024 10:52 AM CDT 10/20/2024 6:58 AM CDT us Cristal Deleon MD LAB - PATHOLOGY/CYTOLOGY ORD ERABLES Final Result DERMATOPATHOLOGY LABORATORY [facility] - Department of Dermatology [facility] [address] [facility], 3rd Floor [address] [phone] documented in this encounter Visit Diagnoses Not on filedocumented in this encounter Care Teams Prevention Specialist Relationship Specialty Start Date End Date Braden Braga DO [address] [facility] [address] [place] [address] PCP - General 03/21/10 documented as of this encounter
== END 2025-01-03 12:26 | disposition home or self-care (01) ==
PROVIDERS: Emergency Provider Nurse Practitioner Family; PCP Internal Medicine
DX: S63.501A Unspecified sprain of right wrist, initial encounter (principal); S66.911A Strain of unspecified muscle, fascia and tendon at wrist and hand level, right hand, initial encounter; W19.XXXA Unspecified fall, initial encounter; I70.1 Atherosclerosis of renal artery; K21.9 Gastro-esophageal reflux disease without esophagitis; J44.9 Chronic obstructive pulmonary disease, unspecified; M17.0 Bilateral primary osteoarthritis of knee; I10 Essential (primary) hypertension; I34.1 Nonrheumatic mitral (valve) prolapse; E78.5 Hyperlipidemia, unspecified; Z79.82 Long term (current) use of aspirin
CPT/HCPCS: 73130; 99213; G0463

== ENCOUNTER 2025-01-07 17:56 | Inpatient (IN) | payer MEDICARE, SELFPAY ==
[2025-01-07] VITALS (39 sets, daily range): BP systolic 158–232; BP diastolic 57–91; PULSE 56–81; RESP 15–23; TEMP 36.6–36.7; O2SAT 93–97; BMI 30.5
--- NOTE | ~2025-01-07 | CT_ITS ---
CT brain wo con Ordering provider: Eloina Finch History: 74 years Female with . headache, hypertension . Comparison: None. Technique: CT of the head without contrast. Radiation reduction technique utilized.The dose-length pr oduct was 605.33 mGy-cm. September 2022 FINDINGS: BRAIN PARENCHYMA AND CSF SPACES: No midline shift, mass effect or hemorrhage. The brain parenchyma a nd CSF spaces are otherwise normal. VISUALIZED PARANASAL SINUSES: Well aerated. MASTOIDS: Well aerated. BONES: The bones appear intact. SOFT TISSUES: Visualized nasopharynx is normal. Superficial soft tissues are normal. IMPRESSION: No acute intracranial findings. Reviewed, dictated and finalized at location A.
--- NOTE | ~2025-01-07 | XR_ITS ---
XR chest 1V portable Ordering provider: Eloina Finch PA-C History: 74 years Female with . SOB X 1 DAY . Comparison: June 05, 2022 FINDINGS: MEDIASTINUM: The cardiac silhouette is slightly enlarged. Congestive eloy. LUNGS: No infiltrates, effusions or pneumothorax. Prominent bronchovascular markings are seen bilater ally. Bilateral interstitial thickening. OTHER: No free air under the diaphragm. IMPRESSION: Prominent bronchovascular markings with bilateral interstitial thickening which may indicate cardiac decompensation with pulmonary edema versus pneumonitis. Reviewed, dictated and finalized at location A.
--- OUTSIDE RECORDS SUMMARY | 2025-01-07 17:58 | XMS_ITS | Referral Summary ---
Author Organization [facility] Address [address] [facility] [place] [address] Care Team Providers Care Manager Strategic Development Name Role Phone Jenny Sears MD Unavailable [phone] Babatunde Michael DO Primary Care Provider [phone] Encounters Date Type Department Care Team Description 12/01/2024 10:00 AM CDT Office Visit [facility] Cardiology at [address] [place] [address] Josh Rojas MD Nonrheumatic mitral [...] on file Legal Sex Female 2:33 AM WRITER EDITOR Gender Identity Female 03/23/2020 2:20 PM CDT [...] Read Routine (OP Routine) 08/17/2024 7:48 AM WRITER EDITOR Screening mammogram, encounter for from Last 3 Months or Most Recently Relevant to Health Maintenance Results * Screening Mammogram Bilateral W [place] (08/17/2024 7:48 AM WRITER EDITOR) Anatomical Region Laterality Modality Breast Bilateral Mammography Impressions 08/17/2024 8:42 AM WRITER EDITOR BI-RADS ATLAS category (overall): 1 - Negative There is no mammographic evidence of malignancy. A 1 year screening mammogram is recommended. The patient has been or will be contacted. We recommend annual screening mammography for women at average risk of breast cancer beginning at age 40, based on guidelines of the [place] [employer] (ACR Practice Parameter for the Performance of Screening and Diagnostic Mammography) and [place] [employer] Obstetricians and Gynecologists. For women with and elevated risk of breast cancer, please refer to the ACR Practice Parameter for specific screening recommendations. The patient will be entered into a reminder system with a target due date of 1 year for her next screening exam. Narrative 08/17/2024 8:42 AM WRITER EDITOR Screening Mammogram Bilateral W [place]: 08/17/24 The [...] W [place] 11/03/2018 Screening Mammogram Bilateral W [place] BREAST TISSUE: The breasts are heterogeneously dense, [...] Most Recently Relevant to Health Maintenance Insurance [facility] [place] [facility] UHC MEDICARE ADVANTAGE Care Teams Manager Strategic Development Relationship Specialty Start Date End Date Babatunde Michael DO [address] [place] [address] PCP - General Internal Medicine 05/05/24 Jenny Sears MD [address] [place] [address] Referring Physician Family Medicine 02/28/22
--- OUTSIDE RECORDS SUMMARY | 2025-01-07 17:58 | XMS_ITS | Clinical Summary ---
Author Organization [facility] Address [address] [facility] [place] [address] Care Team Providers Care Supervisor Coating Name Role Phone Jenny Sears MD Unavailable [phone] Babatunde Michael DO Primary Care Provider [phone] Allergies Active Allergy Reactions Criticality Noted Date [...] Description 12/01/2024 10:00 AM CDT Office Visit [facility] Medical Group Cardiology at [address] [place] [address] Josh Rojas MD Nonrheumatic mitral [...] on file Legal Sex Female 2:33 AM RETAIL PROJECT MERCHANDISER Gender Identity Female 03/23/2020 2:20 PM CDT [...] Read Routine (OP Routine) 08/17/2024 7:48 AM RETAIL PROJECT MERCHANDISER Screening mammogram, encounter for from Last 3 Months or Most Recently Relevant to Health Maintenance Results * Screening Mammogram Bilateral W [place] (08/17/2024 7:48 AM RETAIL PROJECT MERCHANDISER) Anatomical Region Laterality Modality Breast Bilateral Mammography Impressions 08/17/2024 8:42 AM RETAIL PROJECT MERCHANDISER BI-RADS ATLAS category (overall): 1 - Negative There is no mammographic evidence of malignancy. A 1 year screening mammogram is recommended. The patient has been or will be contacted. We recommend annual screening mammography for women at average risk of breast cancer beginning at age 40, based on guidelines of the [place] [employer] (ACR Practice Parameter for the Performance of Screening and Diagnostic Mammography) and [place] [employer]ians and Gynecologists. For women with and elevated risk of breast cancer, please refer to the ACR Practice Parameter for specific screening recommendations. The patient will be entered into a reminder system with a target due date of 1 year for her next screening exam. Narrative 08/17/2024 8:42 AM RETAIL PROJECT MERCHANDISER Screening Mammogram Bilateral W [place]: 08/17/24 The [...] Most Recently Relevant to Health Maintenance Insurance [facility] [place] MEDICARE [place] [facility] UHC MEDICARE ADVANTAGE Care Teams Supervisor Coating Relationship Specialty Start Date End Date Babatunde Michael DO [address] [place] [address] PCP - General Internal Medicine 05/05/24 Jenny Sears MD [address] [place] [address] Referring Physician Family Medicine 02/28/22
--- OUTSIDE RECORDS SUMMARY | 2025-01-07 17:58 | XMS_ITS | Encounter Summary ---
Author Organization [facility] Address [address] [facility] [place] [address] Care Team Providers Care Foot And Ankle Surgeon Name Role Phone Braden Braga DO Primary Care Provider [phone] Encounter Details Date Type Department Care Team (Late st Contact Info) Description 10/19/2024 Lab Requisition [facility] - DermPath Lab [address] [facility], [place] [address] Cristal Deleon MD [address] [facility] 3 [place] [address] Social History Tobacco Use Types Packs/Day Years Used Date Smoking Tobacco: Never Assessed Comments Unknown Sex and Gender Information Value Date Recorded Sex Assigned at Not on file Legal Sex Female 7:42 PM RADIAL SAW 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 Gender Identity Not on file Sexual Orientation Not on file documented as of this encounter Plan of Treatment Not on file documented as of this encounter Procedures Procedure Name Priority Date/Time Associated Diagnosis Comments DERMATOPATHOLOGY Routine 10/19/2024 10:5 2 AM CDT documented in this encounter Results * DERMATOPATHOLOGY (10/19/2024 10:52 AM CDT) Case Report Dermatopathology Report Case: [id number] Authorizing Provider: Cristal Deleon MD Collected: 10/19/2024 10:52 AM Ordering Location: [facility] - Received: 10/20/2024 06:58 [...] specimen consists of a shave biopsy measuring 96w71b4 mm. Jar 0. 11:02 AM CDT DERMATOPATHOLOGY [...] characteristic determined by the Dermatopathology Laboratory at [facility], directed by Dr. Beth Valerio. These tests need not be, and therefore are not, approved by the [place] Food and Drug Administration. The tests are used for clinical purposes. Billing Codes Specimen Charges Stain Charges 80045 1 [id number] [id number] 1 1 5 11:02 AM CDT DERMATOPATHOLOGY LABORATORY Embedded Images 11:02 AM CDT DERMATOPATHOLOGY LABORATORY Pathology/Cytolo gy TISSUE SPECIMEN FROM SKIN / Unknown 10/19/2024 10:52 AM CDT 10/20/2024 6:58 AM CDT us Cristal Deleon MD LAB - PATHOLOGY/CYTOLOGY ORD ERABLES Final Result DERMATOPATHOLOGY LABORATORY [facility] - Department of Dermatology [facility] [address] [facility], 3rd Floor [address] [phone] documented in this encounter Visit Diagnoses Not on filedocumented in this encounter Care Teams Foot And Ankle Surgeon Relationship Specialty Start Date End Date Braden Braga DO [address] [facility] [address] [place] [address] PCP - General 03/21/10 documented as of this encounter
--- OUTSIDE RECORDS SUMMARY | 2025-01-07 17:58 | XMS_ITS | Clinical Summary ---
Author Organization [facility] Care Team Providers Care Cryogenics Repairer Name Role Phone Unavailable Primary Care Provider [...]
--- OUTSIDE RECORDS SUMMARY | 2025-01-07 17:58 | XMS_ITS | Clinical Summary ---
Author Organization [facility] Address [address] [place] [address] Phone Care Team Providers Care [facility] Pricing Consultant Name Role Phone Braden Braga DO Primary Care Provider [phone] Allergies Active Allergy Reactions Criticality Noted Date [...] Comments Blood Pressure 136/82 06/27/2022 10:02 AM INFORMATION SYSTEMS PLANNER Pulse - - Temperature 35.2 C (95.4 F) 06/27/2022 10:02 AM INFORMATION SYSTEMS PLANNER Respiratory Rate 18 06/27/2022 10:02 AM INFORMATION SYSTEMS PLANNER Oxygen Saturation - - Inhaled Oxygen Concentration - - Weight 79.8 kg (176 lb) 06/27/2022 10:02 AM INFORMATION SYSTEMS PLANNER Height 157.5 cm (5' 2) 06/27/2022 10:02 AM INFORMATION SYSTEMS PLANNER Body Mass Index 32.19 06/27/2022 10:02 AM INFORMATION SYSTEMS PLANNER Plan of Treatment Health Maintenance Due Date Last Done Comments Influenza Vaccine (Season Ended) 2025 05/05/2019, 08/22/2016, 06/15/2015, Additional history exists Pneumococcal PPSV23/PCV13 65 + Years / High and Highest Risk Completed 06/04/2019, 08/22/2016 Insurance [employer] HMO Care Teams Healthcare Network Pricing Consultant Relationship Specialty Start Date End Date Braden Braga DO [address] [address] PCP - General Internal Medicine 02/10/19
--- OUTSIDE RECORDS SUMMARY | 2025-01-07 17:59 | XMS_ITS | Data Portability ---
Author Organization [facility] [place] Address [address] [place] [address] Care Team Providers Care Truck Washer Name Role Phone JAMIRDARIEN ROBBINS Primary Care Provider [phone] Assessment Encounter Date Assessment Date Assessment LastModified by Organization Details LastModified Time 06/15/2020 06/15/2020 healthy female exam/menopause patient declines std testing pap none further mammogram due next month- done at [facility] colonoscopy scheduled next month dexa ordered and encouraged Encouraged weight bearing exercise and 1500mg daily of Calcium with Vitamin D FU 1 year or prn [email or web address] Not available 06/15/2020 14:10:04 07/19/2021 07/19/2021 Annual gynecological exam performed. Patient will come back in a year unless there are new symptoms. healthy female exam/menopause patient declines std testing pap none further mammogram due May at [facility] colonoscopy- 08/2025 dexa due 08/2025 Encouraged weight bearing exercise and 1500mg daily of Calcium with Vitamin D lotrisone FU 1 year or prn [email or web address] Not available 07/19/2021 14:01:08 Plan of Treatment Reminders Order Date Submit Date Provider Last Modified By Organization Details Last Modified Time Details Appointments None recorded. Lab None recorded. Referral None recorded. Procedures None recorded. Surgeries None recorded. Imaging None recorded. Medication Orders clotrimaz ole-betam ethasone 1 %-0.05 % topical cream 021 [id number], [address] [place], [address], 12/15/202 1 12:43:50 Patient TargetsNo targets recorded. Patient InstructionsNo instructions recorded. Reason for Referral None Reported. Results Created Date Observation Date Name Description Value Unit Range Abnormal Flag Note LastModifiedBy Organization Detail LastModifiedTime 06/27/2006/27/2020 MAMMO , diagn ostic , digit al, bilat eral No observ ation record ed. [address] [place], [address], 06/29/2020 11:42:08 06/27/20 20 06/27/2020 USmundo No observ ation record ed. [address] [place], [address], 06/29/2020 11:42:08 09/01/19 DEXA No observ ation record ed. [facility] [address], [place], [address], 09/02/2020 14:10:37 12/24/19 21 12/23/2020 MAMMO , diagn ostic , digit al, bilat eral No observ ation record ed. ADRIAN Not Available 2020 10:23:39 12/24/19 21 12/23/2020 US, breas t No observ ation record ed. [facility] Not Available 2020 17:02:36 Result Notes None recorded. Problems Name Problem SNOMED Code Status Onset Date Resolution Date Notes Provider Name and Address Organization Details Recorded Time Screenin g for malignan t neoplasm of rectum Completed 201007/19/2021 Screenin g for malignan t neoplasm s of the rectum;P ractice ID: 0001 Alley Berger MD [address], [place], [address], [place] [facility] 12:32:24 Leukocyt osis [id number] Completed 201107/19/2021 LEUKOCYT OSIS NOS;Prac cely ID: 0001 Alley Berger MD [address], [place], [address], [facility] 12:32:19 Speciali zed medical examinat ion Completed 201107/19/2021 Routine gynecolo gical examinat ion;Prac cely ID: 0001 Alley Berger MD [address], [place], [address], [facility] 1 12:32:33 Screenin g for malignan t neoplasm of cervix Completed 201107/19/2021 Pap Smear;Pr actice ID: 0001 Alley Berger MD [address], [place], [address], [facility] 12:32:[address] Concept Completed 201807/19/2021 Well woman check w/o abnormal finding; Recorded Elsewher e: No Locat ion: [facility] S ource: EHR Paste Mixer damaso: N Florencioti ce ID: 0001 Kota lable Time: 10:30:00 AM Alley Berger MD [address], [place], [address], [place] [facility] 12:32:30 Blood leukocyt e number above referenc e range [id number] Completed 201707/19/2021 Elevated white blood cell count, unspecif ied;Roger rded Elsewher e: No Locat ion: [facility] S ource: EHR Paste Mixer damaso: N Practi ce ID: 0001 Kota lable Time: 10:30:00 AM Alley Berger MD [address], [place], [address], [place] [facility] 12:32:[address] Concept Completed 201807/19/2021 Encntr for general adult medical exam w/o abnormal findings ;Recorde d Elsewher e: No Locat ion: [facility] S ource: EHR Paste Mixer damaso: N Florencioti ce ID: 0001 Kota lable Time: 10:30:00 AM Alley Berger MD [address], [place], [address], [facility] 1 12:32:26 Urinary tract infectio us disease 75825914 Completed 201407/19/2021 Urinary Tract Infectio n;Record ed Elsewher e: No Locat ion: [facility] S ource: EHR Paste Mixer damaso: N Florencioti ce ID: 0001 Kota lable Time: 08:30:00 AM Alley Berger MD [address], [place], [address], [facility] 12:32:35 Evaluati on finding [id number] Completed 201507/19/2021 Oth abn and inconclu sive findings on dx imaging of breast;R ecorded Elsewher e: No Locat ion: [facility] S ource: EHR Paste Mixer damaso: N Ender ce ID: 0001 Kota lable Time: 03:55:59 PM Alley Berger MD [address], [place], [address], [facility] 12:32:05 Adult health examinat ion Completed 201007/19/2021 Routine general medical examinat ion at a health care facility ;Practic e ID: 0001 Alley Berger MD [address], [place], [address], [facility] 12:31:57 Acute vulvitis 03041412 Completed 201507/19/2021 Vulvitis ;Recorde d Elsewher e: No Locat ion: [facility] S ource: EHR Paste Mixer damaso: N Ender ce ID: 0001 Kota lable Time: 02:45:00 PM Alley Berger MD [address], [place], [address], [facility] 1 12:31:54 Blood in urine [id number] Completed 201407/19/2021 Hematuri a;Record ed Elsewher e: No [facility]: EHR Paste Mixer damaso: N Florencioti ce ID: 0001 Kota lable Time: 08:30:00 AM Alley Berger MD [address], [place], [address], [facility] 12:31:59 Female genital organ symptoms 001156097 Completed 201407/19/2021 Vaginal pain;Rec orded Elsewher e: No Locat ion: [facility] S ource: EHR Paste Mixer damaso: N Florencioti ce ID: 0001 Kota lable Time: 11:30:00 AM Alley Berger MD [address], [place], [address], [facility] 12:32:[address] Concept Completed 201407/19/2021 Well woman check w/ abnormal finding; Recorded Elsewher e: No Locat ion: [facility] S ource: EHR Paste Mixer damaso: N Florencioti ce ID: 0001 Kota lable Time: 01:00:00 PM Alley Berger MD [address], [place], [address], [facility] 12:32:28 Acute vaginiti s 87316744 Completed 201707/19/2021 Acute vulvovag initis;R ecorded Elsewher e: No Locat ion: [facility] S ource: EHR Paste Mixer damaso: N Florencioti ce ID: 0001 Kota lable Time: 03:45:00 PM Alley Berger MD [address], [place], [address], [facility] 12:31:52 Speciali zed medical examinat ion Completed 201005/07/2012 Gynecolo gical Examinat ion;Roger rded Elsewher e: No Locat ion: [facility] S ource: EHR Paste Mixer damaso: N Practi ce ID: 0001 Kota lable Time: 08:30:00 AM Alley Berger MD [address], [place], [address], [facility] 1 12:32:33 Micturit ion finding Completed 201707/19/2021 Urinary incontin ence;Rec orded Elsewher e: No Locat ion: [facility] S ource: EHR Paste Mixer damaso: N Florencioti ce ID: 0001 Kota lable Time: 10:30:00 AM Alley Berger MD [address], [place], [address], [facility] 1 12:32:03 Disease 81034667 Completed 201507/19/2021 Other specifie d conditio ns associat ed with female genital organs and menstrua l cycle;Re corded Elsewher e: No Locat ion: [facility] S ource: EHR Paste Mixer damaso: N Florencioti ce ID: 0001 Kota lable Time: 03:00:00 PM Alley Berger MD [address], [place], [address], [facility] 1 12:32:10 Screenin g for malignan t neoplasm of cervix Completed 201005/07/2012 Screenin g for malignan t neoplasm s of the cervix;R ecorded Elsewher e: No Locat ion: [facility] S ource: EHR Paste Mixer damaso: N Florencioti ce ID: 0001 Kota lable Time: 08:30:00 AM Alley Berger MD [address], [place], [address], [facility] 1 12:32:22 Increase d frequenc y of urinatio n [id number] Completed 201607/19/2021 Frequenc y of micturit ion;Prac cely ID: 0001 Alley Berger MD [address], [place], [address], [facility] 1 12:32:17 History of hysterec jamie 224614944 Active 2019 TVH and BSO Alley Berger MD [address], [place], [address], [facility] 0 13:59:51 Body mass index 30+ - obesity 503786328 Active 2019 Alley Berger MD [address], [place], [address], [facility] 0 14:00:05 Chronic obstruct zulema pulmonar y disease 06493170 Active 2019 Alley Berger MD [address], [place], [address], [facility] 0 14:00:19 Former heavy tobacco smoker 6420966452 87495 Active 2019 Alley Berger MD [address], [place], [address], [facility] 0 14:00:43 Essentia l hyperten jennifer 55461063 Active 2020 Alley Berger MD [address], [place], [address], [facility] 1 12:32:43 Problem Notes None recorded. Procedures Surgical History Date Name Laterality Status Provider Name and Address Organization Details Recorded Time 021 Most Recent Bone Density completed Rosita De León [facility] 07/19/2021 09:15:41 020 completed Alley Berger MD [address], [place], [address], [facility] 06/15/2020 14:01:45 020 Date of Last Mammogram completed Alley Berger MD [address], [place], [address], [facility] 06/15/2020 14:01:25 019 Date of Last Pap Smear completed Alley Berger MD [address], [place], [address], [facility] 06/15/2020 14:00:58 008 procedure on back completed Rosita De León [facility] 06/14/2020 16:02:53 004 colonoscopy completed Rosita De León [facility] 06/14/2020 16:02:31 973 Cholecystectomy completed Rosita De León [facility] 06/14/2020 16:02:03 Vaginal hysterectomy completed Alley Berger MD [address], [place], [address], [facility] 06/15/2020 14:02:48 Other completed Alley Berger MD [address], [place], [address], [facility] 06/15/2020 14:04:04 Imaging Results None recorded. Procedure Notes None recorded. Medical Equipment None Reported. Allergies Allergen ID Allergen Name Allergen Category Reaction Reaction Severity Criticality Documentation Date Start Date Code Code System Note Provider Name and Address Organization Details Recorded Time 83854 ciproflox acin medicatio n nausea Not available Not available 07/22/2020 2551 RxNorm React ion: Nause a; Comme nt: [facility] sativ e Agent : Cipro ; Not Available [facility] 0 14:17:53 2668 adhesive tape environme nt,medica tion Not available Not available Not available 06/14/2020 20238 UNK [facility] 16:00:53 2669 Cipro medicatio n Not available Not available Not available 06/14/202071845 3 RxNorm Rosita armas, [facility] 0 16:01:01 2670 codeine medicatio n Not available Not available Not available 06/14/2020 2670 RxNorm Rosita armas, [facility] 0 16:01:07 2671 sulfameth oxazole medicatio n Not available Not available Not available 06/14/2020 60385 RxNorm Rosita armas, [facility] 0 16:01:19 2672 trimethop rim medicatio n Not available Not available Not available 06/14/2020 37361 RxNorm Rosita armas, [facility] 0 16:01:25 Medications Name Sig Start Date Stop Date Status Note LastModified by Organization Details LastModified Time digoxin 50 mcg/mL (0.05 mg/mL) oral solution take 5 millilit er by ORAL route every day 05/01 completed Prescrib ed Elsewher e: Yes [facility] By: bart smith DateTime : [...] ed Elsewher e: Yes Loca tion: [facility] M odify By: mary smith DateTime [...] Prescrib ed Elsewher e: No Locat ion: [facility] odify By: amkfarida castillountlaury DateTime : [...] Prescrib ed Elsewher e: No Locat ion: [facility] odify By: amkuhsergei May ncotaina DateTime [...] Prescrib ed Elsewher e: Yes [facility] By: karla gupta DateTime : 05/07/20 12 08:30:00 AM Not Available Not Available Not Available amoxicill in 500 mg tablet take 1 tablet by oral route 3 times every day 12/03 completed Prescrib ed Elsewher e: No Locat ion: [facility] odify By: mary smith DateTime : 11/26/19 18 11:34:31 AM Not Available Not Available Not Available betametha sone valerate 0.1 % topical cream apply by topical route every day a thin layer to the affected area(s) 12/03 completed Prescrib ed Elsewher e: No Locat ion: [facility] odify By: mary castillountlaury DateTime : 08/19/19 16 02:45:00 PM Not Available Not Available Not Available diltiazem ER 120 mg capsule,2 4 hr,extend ed release take 1 capsule by oral route every day 07/19 completed Prescrib ed Elsewher e: Yes [facility] By: karla gupta DateTime : 05/07/20 12 08:30:00 AM Not Available Not Available Not Available Xanax 0.25 mg tablet take 1 tablet by oral route up to 3 times every day as needed 12/03 completed Prescrib ed Elsewher e: No Locat ion: [facility] odify By: mary smith DateTime : 06/25/20 16 12:33:44 PM Not Available Not Available Not Available erythromy joe 5 mg/gram (0.5 %) eye ointment 07/19 completed Not Available Not Available Not Available Cipro 500 mg tablet take 1 tablet (500MG) by oral route every 12 hours 05/11 completed Prescrib ed Elsewher e: No Locat ion: [facility] odify By: gmedical Encount er DateTime : 05/05/20 11 12:42:21 PM Not Available Not Available Not Available Neurontin 100 mg capsule take 1 Capsule (100MG) by oral route 3 times every day 10/29 completed Prescrib ed Elsewher e: No Locat ion: [facility] odify By: mary castillountlaury DateTime : 05/19/20 [...] Elsewher e: Yes Loca tion: [facility] odify By: mary castillounter DateTime : 05/07/20 [...] Prescrib ed Elsewher e: No [facility]ify By: penny shahid DateTime : 08/22/19 16 04:48:06 PM Not Available Not Available Not Available cephalexi n 500 mg tablet take 1 tablet by oral route every 6 hours not to exceed 4 pills in 24 hours 12/03 completed Prescrib ed Elsewher e: No [facility] By: mary smith DateTime : 09/05/19 [...] Elsewher e: Yes Loca tion: [facility] odify By: bart smith DateTime : 03/10/20 11 08:16:51 AM Not Available Not Available Not Available Terazol 7 0.4 % vaginal cream insert 1 applicat orful by vaginal route every day for 7 days at bedtime 12/12 completed Prescrib ed Elsewher e: No Locat ion: [facility] odify By: bart castillountlaury DateTime : 12/07/19 18 11:53:41 AM Not Available Not Available Not Available labetalol 5 mg/mL intraveno us solution inject by intraven ous route over ; may repeat every 10 min until desired supine blood pressure or a total of 300mg 07/19 completed Prescrib ed Elsewher e: Yes [facility]ify By: barney smith DateTime : 06/06/20 [...] Prescrib ed Elsewher e: No [facility]ify By: nicolasdical Encount er DateTime : 10/30/19 15 08:30:00 AM Not Available Not Available Not Available Diovan 40 mg tablet take 2 tablet by ORAL route every day 10/29 completed Prescrib ed Elsewher e: Yes [facility] By: mary smith DateTime : 03/10/20 [...] Elsewher e: No Locat ion: [facility] odify By: amolga castillounter DateTime : 11/10/19 16 04:17:46 PM Not Available Not Available Not Available rosuvasta tin 10 mg tablet TAKE 1 TABLET BY MOUTH EVERY DAY active Not Available Not Available No t Available Crestor 5 mg tablet take 2 tablet by ORAL route every day 07/19 completed Prescrib ed Elsewher e: Yes Loca tion: [facility] odify By: natasha shahid DateTime : 03/10/20 11 08:16:51 AM Not Available Not Available Not Available hydrocodo ne 10 mg-acetam inophen 300 mg tablet take 1 tablet by oral route every 6 hours as needed 12/10 completed Prescrib ed Elsewher e: Yes Loca tion: [facility] odify By: maggie Finnou nter DateTime : [...] Prescrib ed Elsewher e: Yes [facility] By: bart May ncounter DateTime : [...] Prescrib ed Elsewher e: Yes Loca tion: [facility] M odify By: mary castillountlaury DateTime : 10/30/19 08:30:00 AM Not Available Not Available Not Available Suprep Bowel Prep Kit 17.5 gram-3.13 gram-1.6 gram oral solution USE DIRECTED 06/15 completed Not Available Not Available Not Available [employer] Jackie [facility] spacer 07/19 completed Not Available Not Available [...] Updated DateTime 06/15/2020 157.48 cm 31.8 kg/m2 60110.07 g 107 mm[Hg] 67 mm[Hg] Rosita De León [place] [facility] 0 11:52:45 Date Recorded Body height Body mass index (BMI) Body weight Systolic blood pressure Diastolic blood pressure Provider Name and Address Organization Details Last Updated DateTime 07/19/2021 157.48 cm 32.4 kg/m2 25343.85 g 108 mm[Hg] 68 mm[Hg] Rosita [facility] 12:29:55 Social History None recorded. Functional Status None recorded. Mental Status None recorded. Family History Relationship Description Onset Age of this Age Resolved Age Notes LastModified by Organization Details LastModified Time Mother Asthma [email or web address] Not available 15:55:15 Mother Pneumonia [email or web address] Not availabl e 07/19/2021 12:18:29 Father Diabetes mellitus type 2 [email or web address] Not available 2019 15:55:37 Father Hypertensive disorder [email or web address] Not available 2019 15:56:01 Father Dissection of coronary artery [email or web address] Not available 2020 12:18:29 Father Congestive heart failure Not available 2020 12:18:29 Father Carcinoma in situ of skin Not available 12:18:29 Paternal Aunt Carcinoma in situ of breast Not available 2020 12:18:29 Notes:Father: Diabetes marcie tus type 2, Congestive heart failure, Cancer, skin, Diabetes mellitus, Coronary artery disease, Hypertension Mother: Asthma, pneumonia Paternal aunt: Cancer, breast Medical History Condition Response Allergies (Food, seasonal, environmental ) N Other N Breast Cancer N Drug/Latex Allergies/Reactions N Blood Transfusion N Lung Disease N Dermatologic Disorders N Defects or Inherited Disease N Breast Problem N Gestational Diabetes N Hematologic disorders N Anesthesia Complications N History of STI N Deep Vein Thrombosis N Polycystic ovary syndrome N Anxiety Disorder N Autoimmune disease N Arthritis N Polyps N Infertility N History of abnormal pap N Acid Reflux (GERD) N Cancer N Varicosities N Stroke N Neurologic/Epilepsy N Endometriosis N High Cholesterol Y Fibromyalgia N Headaches N Kidney Disease N Heart Problems N Kidney or Bladder Problems N Thyroid Problems N GI Problems N Eating Disorder N Anemia N Art (IVF or FET) N Psychiatric Illness N Ovarian Cancer N Diabetes N Pulmonary (TB, Asthma) N Hepatitis/Liver Disease N Eczema N Urinary Tract Infection N Abuse/Domestic Violence N Asthma N Trauma/Violence N Depression/ depression N Heart Disease N Pre-Eclampsia N Hypertension Y Osteoporosis N Thrombophilias N Gynecological History Statement/Question Response STIs/STDs N [...] SNOMED-CT Code Diagnosis ICD10 Code Diagnosis Note [id number] Alley Berger MD [place] [address] [address] 06/15/2020 11:39:28 06/15/2020 14:10:44 Body mass index 30+ - obesity 535629974 Z68.31 History of hysterectomy 768985193 Z90.711 Gynecologi c examination 15521267 Z01.419 [id number] Alley Berger MD [place] [address] [address] 07/19/2021 12:18:03 07/19/2021 14:08:26 Body mass index 30+ - obesity 556526868 Z68.31 History of hysterectomy 285447925 Z90.711 Gynecologi c examination 80514196 Z01.419 Candidiasis of vulva 108 5006 B37.3 Health Concerns Section Related Observation LastModified by Organization Detai ls LastModified Time None Recorded Concern Status LastModified by Organization Details LastModified Time None Recorded Advance Directives Directive None Recorded Payers Encounter Date Sequence Insurance Name Policy Number Policy Canas Covered Member ID Canas Member ID Guarantor Name 06/15/2020 2 [place] Nadia Brown [id number] Nadia Michaud 06/15/2020 1 [place] [id number] James Stephanie [id number] Nadia Michaud Stephanie 07/19/2021 2 [place] Nadia Brown [id number] Nadia S 07/19/2021 1 [place] [id number] Harman Stephanie [id number] Nadia Keily Stephanie Notes Date Note Type Note Provider Name and Address Organization Details Recorded Time 06/15/2020 text/html Patient is a 70y o who presents for an annual exam. TVH/BSO. Not using premarin anymore, no vulvar sx. last pap-12/2018 [facility] mammo-12/2019- [facility]schedu led next month dexa-several/many years menopause-yes sexually active-yes seatbelts-yes exercise-yes, some depression-denies domestic violence-denies concerns-none Alley Berger MD [address], [place], [address], [facility] 06/15/2020 14:10:36 07/19/2021 text/html Patient is a 71y o who presents for an annual exam. TVH/BSO. last pap-12/2018 [facility]ILM mammo-12/2020 colonoscopy-02/2021 - 5 years polyps dexa-08/2020-nl menopause-y sexually active-no seatbelts-y exercise-y depression-denies domestic violence-denies tobacco-former concerns-took antibiotics for a tooth infection, now vulva feels irritated. no discharge. Alley Berger MD [address], [place], [address], [facility] 07/19/2021 14:01:38 OBGyn Episode Ob Episode Information Episode Created Date Number of Fetuses Patient Bloodtype Patient rh Status Prepregnancy Weight lbs Domestic Partner Domestic Partner Phone Father Name Blood Bank Order Control Clerk Status 06/15/20 20 1 DELETED Xavier Calculation [...] Domestic Partner Domestic Partner Phone Father Name Blood Bank Order Control Clerk Status 06/15/20 1 DELETED Xavier Calculation Initial [...] Domestic Partner Domestic Partner Phone Father Name Blood Bank Order Control Clerk Status 06/15/20 1 CLOSED Fetus Data First [...]
--- OUTSIDE RECORDS SUMMARY | 2025-01-07 17:59 | XMS_ITS | Clinical Summary ---
Author Organization [facility] Address [address] [place] [address] Care Team Providers Care Medical Laboratory Technical Officer Name Role Phone PamelaParvez tsemark Dutton DO Primary Care Provider Source Comments [facility] [employer],non-owned Affiliates and Associated Physician Practices is amultiple site organization consisting of ambulatory clinics and hospital sitesin [place], [place], [place] and [place]. This disclosure is being madepursuant to the Care Everywhere program and may not contain all information available regarding this patient. Last updated 18.[facility] [employer] Encounters Date Type Department Care Team Description 10/19/2024 Lab Requisition 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 - Received: 10/20/2024 06:58 AM [...] specimen consists of a shave biopsy measuring 50x11w7 mm. Jar 0. 11:02 AM CDT DERMATOPATHOLOGY [...] characteristic determined by the Dermatopathology Laboratory at [facility], directed by Dr. Beth Valerio. These tests need not be, and therefore are not, approved by the [place] Food and Drug Administration. The tests are used for clinical purposes. Billing Codes Specimen Charges Stain Charges 71779 1 46979 98356 1 1 5 11:02 AM CDT DERMATOPATHOLOGY LABORATORY Embedded Images 5 11:02 AM CDT DERMATOPATHOLOGY LABORATORY Pathology/Cytolo gy TISSUE SPECIMEN FROM SKIN / Unknown 10/19/2024 10:52 AM CDT 10/20/2024 6:58 AM CDT Cristal Deleon MD LAB - PATHOLOGY/CYTOLOGY ORD ERABLES Final Result DERMATOPATHOLOGY LABORATORY [facility] - Department of Dermatology [facility] Medicine [address] [place] [address], [address]rd Floor [address] [phone] from Last 3 Months Insurance Code [employer] MEDICARE Member Subscriber Plan / Payer (Ef fective for All Dates) Name:Juan F Brown Relation to Subscriber:Self Name:JUAN F BROWN Payer ID:[id number] (NAIC) Type:Medicare-Managed Care Address: [facility] CLAIMS [address] [id number] [facility] MANAGED MEDICARE ADV Care Teams Medical Laboratory Technical Officer Relationship Specialty Start Date End Date Braden Braga DO [address] [facility] [address] [place] [address] PCP - General 03/21/10
--- OUTSIDE RECORDS SUMMARY | 2025-01-07 17:59 | XMS_ITS | Encounter Summary ---
Author Organization [facility] Address [address] [place] [address] Care Team Providers Care Manager Of Program Name Role Phone Braden Braga DO Primary Care Provider [phone] Encounter Details Date Type Department Care Team (Late st Contact Info) Description 08/31/2020 Lab Requisition [facility] DermPath Lab [address] [facility], [place] [id number] Cristal Deleon MD [address] [facility] 3 [place] [address] Social History Tobacco Use Types Packs/Day Years Used Date Smoking Tobacco: Never Assessed Comments Unknown Sex and Gender Information Value Date Recorded Sex Assigned at Not on file Legal Sex Female 7:42 PM EMBEDDED SOFTWARE ARCHITECT Gender Identity Not on file Sexual Orientation Not on file documented as of this encounter Plan of Treatment Not on file documented as of this encounter Procedures Procedure Name Priority Date/Time Associated Diagnosis Comments DERMATOPATHOLOGY Routine 08/30/2020 12:0 0 AM EMBEDDED SOFTWARE ARCHITECT documented in this encounter Results * DERMATOPATHOLOGY (08/30/2020 12:00 AM EMBEDDED SOFTWARE ARCHITECT) Case Report Dermatopathology Report Case: [id number] Authorizing Provider: Cristal Deleon MD Collected: 08/30/2020 12:00 AM Ordering Location: [facility] DermPath Lab Received: 08/31/2020 08:14 AM Pathologist: Antonella Valerio MD Specimens: A) - Skin, left cheek B) - Skin, left arm 4:08 PM EMBEDDED SOFTWARE ARCHITECT DERMATOPATHOLOGY LABORATORY Final Diagnosis Specimen A. 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 SKIN, left arm: RUPTURED EPIDERMOID CYST (L72.0) 4:08 PM [facility] DERMATOPATHOLOGY LABORATORY at [address] EMBEDDED SOFTWARE ARCHITECT Clinical History A: [place] papule; R/O BCC. B: Irritated nevus; R/O BCC. 4:08 PM [facility] DERMATOPATHOLOGY LABORATORY Gross Description Specimen A: Received is one formalin filled container labeled with the patient's name and designated left cheek. The specimen consists of a shave biopsy measuring [id number]. Jar 0. Specimen B: Received is one formalin filled container labeled with the patient's name and designated left arm. The specimen consists of a shave biopsy measuring 6x6x2 mm. Jar 0. 4:08 PM [facility] DERMATOPATHOLOGY LABORATORY Microscopic Description Specimen A. SKIN, left cheek: There are prominent sebaceous gland lobules surrounding a dilated hair follicle. Additional deeper sections were obtained and reviewed. Specimen B. SKIN, left arm: Within the dermis, there is an infiltrate composed of lymphocytes and histiocytes, including multinucleated type giant cells. Some histiocytes contain flakes of material consistent with keratin. 4:08 PM [facility] DERMATOPATHOLOGY LABORATORY Disclaimer An external and internal positive and negative controls are appropriate for the histochemical, immunohistochemical and immunofluorescence stain(s) in this case (if any), except where stated explicitly. The performance characteristics of the stain(s) cited in this report were developed and its performance characteristic determined by the Dermatopathology Laboratory at [facility], directed by Dr. Beth Valerio. These tests need not be, and therefore are not, approved by the [place] Food and Drug Administration. The tests are used for clinical purposes. Billing Codes Specimen Charges Stain Charges 47634 88537 1 1 4:08 PM [facility] DERMATOPATHOLOGY LABORATORY Embedded Images 4:08 PM [facility] DERMATOPATHOLOGY LABORATORY Pathology/Cytology TISSUE SPECIMEN FROM SKIN / Unknown 08/30/2020 08/31/2020 8:14 AM EMBEDDED SOFTWARE ARCHITECT Miscellaneous samples (specimen) TISSUE SPECIMEN FROM SKIN / Unknown 08/30/2020 08/31/2020 8:14 AM EMBEDDED SOFTWARE ARCHITECT us Cristal Deleon MD LAB - PATHOLOGY/CYTOLOGY ORD ERABLES Final Result DERMATOPATHOLOGY LABORATORY [facility] - Department of Dermatology [facility] Specialized Medicine [address] [place] [address], [address]rd Floor [address] [phone] documented in this encounter Visit Diagnoses Not on filedocumented in this encounter Care Teams Manager Of Program Relationship Specialty Start Date End Date Braden Braga DO [address] [facility] [address] [facility] [address] [place] [address] PCP - General 03/21/10 documented as of this encounter
--- NOTE | 2025-01-07 18:02 | ECG_ITS ---
Test Date: 2025-01-07 18:05:43 Measurements Intervals [place] Rate: 68 P: 62 NV: 165 QRS: 28 QRSD: 108 T: 58 QT: 434 QTc: 462 Interpretive Statements SINUS RHYTHM DELAYED PRECORDIAL R/S TRANSITION BASELINE ARTIFACT- I, II, III, AVR, AVL, AVF, V5-V6 BORDERLINE ECG No previous ECG available for comparison Electronically Signed On 01-07-2025 19:21:03 CDT by Santiago Ragland D.O.
[2025-01-07 18:20] LABS: Basophils Percent Auto 0.6 % (0.2-1.2); Eosinophils Absolute Auto 0.3 K/mm3 (0-0.3); Eosinophils Percent Auto 4.6 % (0-4.4); Hematocrit 38.8 % (37.0-47.0); Hemoglobin 12.2 g/dL (12.0-15.0); Immature Granulocyte Absolute 0.02 K/mm3 (0.00-0.031); Immature Granulocyte Percent A 0.3 % (0-0.5); Lymphocytes Absolute Auto 0.96 K/mm3 (0.9-3.2); Lymphocytes Percent Auto 14.3 % (18.3-44.2); Mean Corpuscular HGB Conc 31.4 g/dl (32-36); Mean Corpuscular Hemoglobin 29.4 pg (26-34); Mean Corpuscular Volume 93.5 fl (80-100); Mean Platelet Volume 10.3 fl (7.4-10.4); Monocytes Absolute Auto 0.4 K/mm3 (0.1-0.6); Monocytes Percent Auto 5.8 % (2.6-8.5); Neutrophils Percent Auto 74.4 % (45.5-73.1); Platelet Count Result 188 k/mm3 (150-375); Red Blood Count 4.15 M/mm3 (4.2-5.4); Red Cell Distribution Width 14.6 % (11.5-14.5); White Blood Count 6.7 K/mm3 (4.5-10.0)
--- OUTSIDE RECORDS SUMMARY | 2025-01-07 18:31 | XMS_ITS | Clinical Summary ---
Author Organization [facility] Address [address] [facility] [place] [address] Care Team Providers Care Video Production Intern Name Role Phone Jenny Sears MD Unavailable [phone] Babatunde Michael DO Primary Care Provider [phone] Allergies Active Allergy Reactions Criticality Noted Date [...] Description 12/01/2024 10:00 AM CDT Office Visit [facility] Medical Group Cardiology at [address] [place] [address] Josh Rojas MD Nonrheumatic mitral [...] on file Legal Sex Female 2:33 AM UTILITIES EQUIPMENT REPAIRER Gender Identity Female 03/23/2020 2:20 PM CDT [...] Read Routine (OP Routine) 08/17/2024 7:48 AM UTILITIES EQUIPMENT REPAIRER Screening mammogram, encounter for from Last 3 Months or Most Recently Relevant to Health Maintenance Results * Screening Mammogram Bilateral W [place] (08/17/2024 7:48 AM UTILITIES EQUIPMENT REPAIRER) Anatomical Region Laterality Modality Breast Bilateral Mammography Impressions 08/17/2024 8:42 AM UTILITIES EQUIPMENT REPAIRER BI-RADS ATLAS category (overall): 1 - Negative There is no mammographic evidence of malignancy. A 1 year screening mammogram is recommended. The patient has been or will be contacted. We recommend annual screening mammography for women at average risk of breast cancer beginning at age 40, based on guidelines of the [employer] (ACR Practice Parameter for the Performance of Screening and Diagnostic Mammography) and [employer]. For women with and elevated risk of breast cancer, please refer to the ACR Practice Parameter for specific screening recommendations. The patient will be entered into a reminder system with a target due date of 1 year for her next screening exam. Narrative 08/17/2024 8:42 AM UTILITIES EQUIPMENT REPAIRER Screening Mammogram Bilateral W Rome: 08/17/24 The [...] Recently Relevant to Health Maintenance Insurance [facility] [employer] MEDICARE [place] [employer] [facility] UHC MEDICARE ADVANTAGE Care Teams Video Production Intern Relationship Specialty Start Date End Date Babatunde Michael DO [address] [place] [address] PCP - General Internal Medicine 05/05/24 Jenny Sears MD [address] [place] [address] Referring Physician Family Medicine 02/28/22
--- OUTSIDE RECORDS SUMMARY | 2025-01-07 18:31 | XMS_ITS | Encounter Summary ---
Author Organization [facility] Address [address] [place] [address] Care Team Providers Care Pole Maker Name Role Phone Braden Braga DO Primary Care Provider [phone] Encounter Details Date Type Department Care Team (Late st Contact Info) Description 08/31/2020 Lab Requisition [facility] DermPath Lab [address] [facility], [place] [id number] Cristal Deleon MD [address] [facility] 3 [place] [address] Social History Tobacco Use Types Packs/Day Years Used Date Smoking Tobacco: Never Assessed Comments Unknown Sex and Gender Information Value Date Recorded Sex Assigned at Not on file Legal Sex Female 7:42 PM BIOMEDICAL SERVICE ENGINEER Gender Identity Not on file Sexual Orientation Not on file documented as of this encounter Plan of Treatment Not on file documented as of this encounter Procedures Procedure Name Priority Date/Time Associated Diagnosis Comments DERMATOPATHOLOGY Routine 08/30/2020 12:0 0 AM BIOMEDICAL SERVICE ENGINEER documented in this encounter Results * DERMATOPATHOLOGY (08/30/2020 12:00 AM BIOMEDICAL SERVICE ENGINEER) Case Report Dermatopathology Report Case: [id number] Authorizing Provider: Cristal Deleon MD Collected: 08/30/2020 12:00 AM Ordering Location: [facility] DermPath Lab Received: 08/31/2020 08:14 AM Pathologist: Antonella Valerio MD Specimens: A) - Skin, left cheek B) - Skin, left arm 4:08 PM BIOMEDICAL SERVICE ENGINEER DERMATOPATHOLOGY LABORATORY Final Diagnosis Specimen A. 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 SKIN, left arm: RUPTURED EPIDERMOID CYST (L72.0) 4:08 PM [facility] DERMATOPATHOLOGY LABORATORY at [address] BIOMEDICAL SERVICE ENGINEER Clinical History A: [place] papule; R/O BCC. B: Irritated nevus; R/O BCC. 4:08 PM [facility] DERMATOPATHOLOGY LABORATORY Gross Description Specimen A: Received is one formalin filled container labeled with the patient's name and designated left cheek. The specimen consists of a shave biopsy measuring 5l7n4qw. Jar 0. Specimen B: Received is one formalin filled container labeled with the patient's name and designated left arm. The specimen consists of a shave biopsy measuring 6x6x2 mm. Jar 0. 4:08 PM [facility] DERMATOPATHOLOGY LABORATORY Microscopic Description Specimen A. SKIN, left cheek: There are prominent sebaceous gland lobules surrounding a dilated hair follicle. Additional deeper sections were obtained and reviewed. Specimen B. SKIN, left arm: Within the dermis, there is an infiltrate composed of lymphocytes and histiocytes, including multinucleated type giant cells. Some histiocytes contain flakes of material consistent with keratin. 4:08 PM [facility] DERMATOPATHOLOGY LABORATORY Disclaimer An external and internal positive and negative controls are appropriate for the histochemical, immunohistochemical and immunofluorescence stain(s) in this case (if any), except where stated explicitly. The performance characteristics of the stain(s) cited in this report were developed and its performance characteristic determined by the Dermatopathology Laboratory at [facility], directed by Dr. Beth Valerio. These tests need not be, and therefore are not, approved by the [place] Food and Drug Administration. The tests are used for clinical purposes. Billing Codes Specimen Charges Stain Charges 62410 44771 1 1 4:08 PM [facility] DERMATOPATHOLOGY LABORATORY Embedded Images 4:08 PM [facility] DERMATOPATHOLOGY LABORATORY Pathology/Cytology TISSUE SPECIMEN FROM SKIN / Unknown 08/30/2020 08/31/2020 8:14 AM BIOMEDICAL SERVICE ENGINEER Miscellaneous samples (specimen) TISSUE SPECIMEN FROM SKIN / Unknown 08/30/2020 08/31/2020 8:14 AM BIOMEDICAL SERVICE ENGINEER us Cristal Deleon MD LAB - PATHOLOGY/CYTOLOGY ORD ERABLES Final Result DERMATOPATHOLOGY LABORATORY [facility] - Department of Dermatology [facility] Specialized Medicine [address] [place] [address], [address] [phone] documented in this encounter Visit Diagnoses Not on filedocumented in this encounter Care Teams Pole Maker Relationship Specialty Start Date End Date Braden Braga DO [address] [facility] [address] [facility] [address] [place] [address] PCP - General 03/21/10 documented as of this encounter
--- OUTSIDE RECORDS SUMMARY | 2025-01-07 18:31 | XMS_ITS | Clinical Summary ---
Author Organization [facility] Address [address] [facility] [place] [address] Care Team Providers Care Astronomy Teacher Name Role Phone PamelaParvez tsemark Dutton DO Primary Care Provider [phone] Source Comments [facility] [employer],non-owned Affiliates and Associated Physician Practices is amultiple site organization consisting of ambulatory clinics and hospital sitesin [place], [place], [place]. This disclosure is being madepursuant to the Care Everywhere program and may not contain all information available regarding this patient. Last updated 18.[facility] [employer] Encounters Date Type Department Care Team Description 10/19/2024 Lab Requisition [facility] Physician Group - DermPath Lab [address] [place] [phone] Cristal Deleon MD from Last 3 Months Social History Tobacco Use Types Packs/Day Years Used Date Smoking Tobacco: Never Assessed Comments Unknown Sex and Gender Information Value Date Recorded Sex Assigned at Not on file Legal Sex Female 7:42 PM VACUUM CLEANER MECHANIC Gender Identity Not on file Sexual Orientation [...] AM CDT) Case Report Dermatopathology Report Case: [id number] Authorizing Provider: Cristal Deleon MD Collected: 10/19/2024 10:52 AM Ordering Location: [facility]ician Group - Received: 10/20/2024 06:58 [...] specimen consists of a shave biopsy measuring 67s61f6 mm. Jar 0. 11:02 AM CDT DERMATOPATHOLOGY [...] characteristic determined by the Dermatopathology Laboratory at [facility], directed by Dr. Beth Valerio. These tests need not be, and therefore are not, approved by the [place] Food and Drug Administration. The tests are used for clinical purposes. Billing Codes Specimen Charges Stain Charges 13635 1 88138 54071 1 1 5 11:02 AM CDT DERMATOPATHOLOGY LABORATORY Embedded Images 5 11:02 AM CDT DERMATOPATHOLOGY LABORATORY Pathology/Cytolo gy TISSUE SPECIMEN FROM SKIN / Unknown 10/19/2024 10:52 AM CDT 10/20/2024 6:58 AM CDT Cristal Deleon MD LAB - PATHOLOGY/CYTOLOGY ORD ERABLES Final Result DERMATOPATHOLOGY LABORATORY [facility] - Department of Dermatology [facility] Medicine [address] [place] [address], [address] [phone] from Last 3 Months Insurance [employer] MEDICARE Member Subscriber Plan / Payer (Ef fective for All Dates) Name:Juan F Brown Relation to Subscriber:Self Name:JUAN F BROWN Payer ID:[id number] (NAIC) Type:Medicare-Managed Care Address: [facility] CLAIMS [address] [id number] [facility] MANAGED MEDICARE ADV Care Teams Astronomy Teacher Relationship Specialty Start Date End Date rBaden Braga DO [address] [facility] [address] [place] [address] PCP - General 03/21/10
--- OUTSIDE RECORDS SUMMARY | 2025-01-07 18:31 | XMS_ITS | Clinical Summary ---
Author Organization [facility] Care Team Providers Care Box Truck Owner Operator Name Role Phone Unavailable Primary Care Provider [...]
--- OUTSIDE RECORDS SUMMARY | 2025-01-07 18:31 | XMS_ITS | Encounter Summary ---
Author Organization [facility] Address [address] [place] [address] Care Team Providers Care Printing Table Worker Name Role Phone Braden Braga DO Primary Care Provider Encounter Details Date Type Department Care Team (Late st Contact Info) Description 10/19/2024 Lab Requisition [facility] Physician Group - DermPath Lab [address] [facility], [place] [address] Cristal Deleon MD [address] [facility] 3 [place] [address] Social History Tobacco Use Types Packs/Day Years Used Date Smoking Tobacco: Never Assessed Comments Unknown Sex and Gender Information Value Date Recorded Sex Assigned at Not on file Legal Sex Female 7:42 PM REAL ESTATE AGENT/BROKER Gender Identity Not on file Sexual Orientation Not on file documented as of this encounter Plan of Treatment Not on file documented as of this encounter Procedures Procedure Name Priority Date/Time Associated Diagnosis Comments DERMATOPATHOLOGY Routine 10/19/2024 10:5 2 AM CDT documented in this encounter Results * DERMATOPATHOLOGY (10/19/2024 10:52 AM CDT) Case Report Dermatopathology Report Case: [id number] Authorizing Provider: Cristal Deleon MD Collected: 10/19/2024 10:52 AM Ordering Location: [facility] - Received: 10/20/2024 06:58 AM [...] specimen consists of a shave biopsy measuring 37d58i0 mm. Jar 0. 11:02 AM CDT DERMATOPATHOLOGY [...] characteristic determined by the Dermatopathology Laboratory at [facility], directed by Dr. Beth Valerio. These tests need not be, and therefore are not, approved by the [place] Food and Drug Administration. The tests are used for clinical purposes. Billing Codes Specimen Charges Stain Charges 93801 1 35697 41574 1 1 5 11:02 AM CDT DERMATOPATHOLOGY LABORATORY Embedded Images 11:02 AM CDT DERMATOPATHOLOGY LABORATORY Pathology/Cytolo gy TISSUE SPECIMEN FROM SKIN / Unknown 10/19/2024 10:52 AM CDT 10/20/2024 6:58 AM CDT us Cristal Deleon MD LAB - PATHOLOGY/CYTOLOGY ORD ERABLES Final Result DERMATOPATHOLOGY LABORATORY [facility] - Department of Dermatology [facility] [address] [facility], 3rd Floor [address] [phone] documented in this encounter Visit Diagnoses Not on filedocumented in this encounter Care Teams Printing Table Worker Relationship Specialty Start Date End Date Braden Braga DO [address] [facility] [address] [place] [address] PCP - General 03/21/10 documented as of this encounter
--- OUTSIDE RECORDS SUMMARY | 2025-01-07 18:31 | XMS_ITS | Referral Summary ---
Author Organization [facility] Address [address] [facility] [place] [address] Care Team Providers Care Patrol Community Service Officer Name Role Phone Jenny Sears MD Unavailable [phone] Babatunde Michael DO Primary Care Provider [phone] Encounters Date Type Department Care Team Description 12/01/2024 10:00 AM CDT Office Visit [facility] Medical Group Cardiology at [address] [place] [address] Josh Rojas MD Nonrheumatic mitral [...] on file Legal Sex Female 2:33 AM PROCTOLOGIST Gender Identity Female 03/23/2020 2:20 PM CDT [...] Read Routine (OP Routine) 08/17/2024 7:48 AM PROCTOLOGIST Screening mammogram, encounter for from Last 3 Months or Most Recently Relevant to Health Maintenance Results * Screening Mammogram Bilateral W [place] (08/17/2024 7:48 AM PROCTOLOGIST) Anatomical Region Laterality Modality Breast Bilateral Mammography Impressions 08/17/2024 8:42 AM PROCTOLOGIST BI-RADS ATLAS category (overall): 1 - Negative There is no mammographic evidence of malignancy. A 1 year screening mammogram is recommended. The patient has been or will be contacted. We recommend annual screening mammography for women at average risk of breast cancer beginning at age 40, based on guidelines of the [place] [employer] (ACR Practice Parameter for the Performance of Screening and Diagnostic Mammography) and [employer] [employer]. For women with and elevated risk of breast cancer, please refer to the ACR Practice Parameter for specific screening recommendations. The patient will be entered into a reminder system with a target due date of 1 year for her next screening exam. Narrative 08/17/2024 8:42 AM PROCTOLOGIST Screening Mammogram Bilateral W Rome: 08/17/24 The [...] Most Recently Relevant to Health Maintenance [facility] [employer] [place] [facility] UHC MEDICARE ADVANTAGE Care Teams Patrol Community Service Officer Relationship Specialty Start Date End Date Babatunde Michael DO [address] [place] [address] PCP - General Internal Medicine 05/05/24 Jenny Sears MD [address] [place] [address] Referring Physician Family Medicine 02/28/22
--- OUTSIDE RECORDS SUMMARY | 2025-01-07 18:31 | XMS_ITS | Clinical Summary ---
Author Organization [facility] Address [address] [place] [id number] Phone Care Team Providers Care Speech Scientist Name Role Phone Braden Braga DO Primary Care Provider [phone] Allergies Active Allergy Reactions Criticality Noted Date [...] Comments Blood Pressure 136/82 06/27/2022 10:02 AM SALES DEVELOPMENT DIRECTOR Pulse - - Temperature 35.2 C (95.4 F) 06/27/2022 10:02 AM SALES DEVELOPMENT DIRECTOR Respiratory Rate 18 06/27/2022 10:02 AM SALES DEVELOPMENT DIRECTOR Oxygen Saturation - - Inhaled Oxygen Concentration - - Weight 79.8 kg (176 lb) 06/27/2022 10:02 AM SALES DEVELOPMENT DIRECTOR Height 157.5 cm (5' 2) 06/27/2022 10:02 AM SALES DEVELOPMENT DIRECTOR Body Mass Index 32.19 06/27/2022 10:02 AM SALES DEVELOPMENT DIRECTOR Plan of Treatment Health Maintenance Due Date Last Done Comments Influenza Vaccine (Season Ended) 2025 05/05/2019, 08/22/2016, 06/15/2015, Additional history exists Pneumococcal PPSV23/PCV13 65 + Years / High and Highest Risk Completed 06/04/2019, 08/22/2016 Insurance [employer] Care Teams Speech Scientist Relationship Specialty Start Date End Date Braden Braga DO [address] [address] PCP - General Internal Medicine 02/10/19
[2025-01-07 18:33] LABS: Prothrombin Time 13.4 Seconds (11.1-14.7)
[2025-01-07 18:34] LABS: Partial Thromboplastin Time 27.5 Seconds (22.3-36.8)
[2025-01-07 18:35] LABS: Alanine Aminotransferase 38 U/L (6-35); Albumin Level 4.3 g/dL (3.5-5.1); Alkaline Phosphatase 84 U/L (38-126); Anion Gap 7 mmol/L (4-12); Aspartate Amino Transferase 32 U/L (14-36); Bilirubin,Total 0.8 mg/dL (0.2-1.3); Blood Urea Nitrogen 16 mg/dL (7-17); Calcium 9.2 mg/dL (8.4-10.2); Carbon Dioxide 33 mmol/L (22-30); Chloride 104 mmol/L (98-107); Estimated CRCL calculation 59 ml/min; Estimated Glomerular Filt Rate > 60; Glucose 105 mg/dL (65-110); Potassium 3.7 mmol/L (3.4-5.0); Sodium 144 mmol/L (137-145)
--- NOTE | 2025-01-07 18:35 | ED_ITS ---
HPI - SOB/Dyspnea General Chief Complaint: Shortness of Breath/Dyspnea <Eloina Finch PA-C - Last Filed: 01/07/25 21:11> Stated Complaint: HTN, SOB <Eloina Finch PA-C - Last Filed: 01/07/25 21:11> Time Seen by Provider: 01/07/25 18:02 <Eloina Finch PA-C - Last Filed: 01/07/25 21:11> Source: patient <KEERTHI Thomson Last Filed: 01/07/25 21:11> Mode of arrival: ambulatory <KEERTHI Thomson Last Filed: 01/07/25 21:11> Limitations: no limitations <EKERTHI Thomson Last Filed: 01/07/25 21:11> History of Present Illness HPI Narrative: This is a 74-year-old female that presents to the emergency department for elevated blood pressure readings. Reports she took her blood pressure at home and it was in the 200 systolic. Reports associated headache, some shortness of breath. Reports she has been taking her antihypertensives as prescribed. Denies chest pain, lower extremity edema. <KEERTHI Thomson Last Filed: 01/07/25 21:11> Related Data Home Medications: Home Medications ?Medication ?Instructions ?Recorded ?Confirmed ?Last Taken ?Type aspirin 81 mg tablet 81 mg PO HS 03/09/21 10/20/24 06/05/22 History oxybutynin chloride 10 mg 10 mg PO DAILY 10/14/23 10/20/24 Unknown History tablet,extended release 24 hr <KEERTHI Thomson Last Filed: 01/07/25 21:11> Allergies/Adverse Reactions: Allergies Allergy/AdvReac Type Severity Reaction Status Date / Time adhesive Allergy Mild Rash Verified 01/07/25 17:59 codeine AdvReac Mild upset Verified 01/07/25 17:59 stomach <KEERTHI Thomson Last Filed: 01/07/25 21:11> Review of Systems 2 Review of Systems: CONSTITUTIONAL: Denies fever EYES: Denies visual changes CARDIOVASCULAR: Denies chest pain, or edema. RESPIRATORY: Reports dyspnea. GASTROINTESTINAL: Denies vomiting NEUROLOGIC: Reports headache. Denies numbness, or weakness. 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 Weight gain Claustrophobia Patellofemoral arthritis COPD (chronic obstructive pulmonary disease) Right knee DJD Right knee pain 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 Hyperlipidemia Hypertension History of blood transfusion Anemia Arm fracture, left Neuroma UTI (urinary tract infection) Cyst of left kidney Diverticulosis SBO (small bowel obstruction) Diverticulitis Rectal polyp GERD (gastroesophageal reflux disease) Bronchitis Pneumonia MVP (mitral valve prolapse) HLD (hyperlipidemia) HTN (hypertension) Seasonal allergies Chronic back pain <Eloina Finch PA-C - Last Filed: 01/07/25 21:11> Surgical History Surgical History: Surgical History H/O dilation and curettage H/O: hysterectomy Hx of colonoscopy History of cholecystectomy Hx of appendectomy History of intestinal surgery adhesiolysis of small bowel Previous back surgery 2 plates and 4 screws <Eloina Finch PA-C - Last Filed: 01/07/25 21:11> Family History Family History: Family History Father Family history of diabetes mellitus in first degree relative, Onset Age: 90 Patient's father is Sibling Patient's brother is in good health Patient's brother is Brain aneurysm Mother Osteoporosis Asthma Other Diabetes mellitus High cholesterol Hypertension <KEERTHI Thomson Last Filed: 01/07/25 21:11> Social History Social History: Social History Smoking packs per day: 1 Smoking cigarettes per day: 20.0 Years smoked: 25 Smoking pack-years: 25.00 Smoking status: Former smoker Tobacco type: cigarettes Second hand tobacco smoke exposure: No Smoking end date: 08/05/09 Alcohol intake: current Alcohol use details: 5 per month Substance use: never Substance use type: does not use Do You Feel Safe in your Home?: Yes Lack of Transportation: No Lack of Food: Never True Current Housing: I Have Housing Concerned About Future Housing: No Difficulty Paying Gas/Electric Bills: No Difficulty Paying for Meds: No Education: High School Diploma/GED Difficulty w/ Childcare or Family Care: No Living arrangements: with family Occupation/Education: 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 HEAD: Normocephalic, atraumatic. EYES: PERRLA and EOMI. ENT: Nares clear, no rhinorrhea or epistaxis. Mucous membranes moist. Oropharynx without tonsillar hypertrophy exudate or other lesions. NECK: Supple. No adenopathy or masses. CHEST: Clear to auscultation. No respiratory distress. No wheezes rales or rhonchi HEART: Regular rate and rhythm. No murmur heard. Normal peripheral pulses. EXTREMITIES: Normal range of motion. No edema. SKIN: Warm, dry, no rash. NEURO: No focal deficits. Alert and oriented x3. Cranial nerves 2-12 grossly intact PSYCH: Normal mood and affect <Eloina Finch PA-C - Last Filed: 01/07/25 21:11> Course Course Emergency Course: Patient updated on her workup and need for admission. <Eloina Finch PA-C - Last Filed: 01/07/25 21:11> TAFE REGISTRAR/PA Physician Supervision For this patient encounter, I reviewed the TAFE REGISTRAR or PA documentation, treatment plan, and medical decision making; and I had [id number] time with this patient. <Mohsen Rivera MD - Last Filed: 01/07/25 21:31> Consultations Consultation #1: Spoke with hospitalist about patient and workup who accepts admission < Eloina Finch PA-C - Last Filed: 01/07/25 21:11> Date: 01/07/25 <Eloina Finch PA-C - Last Filed: 01/07/25 21:11> Vital Signs Vital signs: Vital Signs Temperature 98.1 F 01/07/25 18:01 Pulse Rate 74 01/07/25 18:01 Respiratory Rate 18 01/07/25 18:01 Blood Pressure 226/91 H 01/07/25 18:01 Pulse Oximetry 95 01/07/25 18:01 Oxygen Delivery Room Air 01/07/25 18:01 Temperature 98.1 F 01/07/25 18:01 Pulse Rate 73 01/07/25 20:47 Respiratory Rate 20 01/07/25 20:47 Blood Pressure 169/74 H 01/07/25 20:47 Pulse Oximetry 95 01/07/25 20:47 Oxygen Delivery Room Air 01/07/25 18:01 <Eloina Finch PA-C - Last Filed: 01/07/25 21:11> Vital Signs Temperature 98.1 F 01/07/25 18:01 Pulse Rate 74 01/07/25 18:01 Respiratory Rate 18 01/07/25 18:01 Blood Pressure 226/91 H 01/07/25 18:01 Pulse Oximetry 95 01/07/25 18:01 Oxygen Delivery Room Air 01/07/25 18:01 Temperature 98.1 F 01/07/25 18:01 Pulse Rate 73 01/07/25 20:47 Respiratory Rate 20 01/07/25 20:47 Blood Pressure 169/74 H 01/07/25 20:47 Pulse Oximetry 95 01/07/25 20:47 Oxygen Delivery Room Air 01/07/25 18:01 <Mohsen Rivera MD - Last Filed: 01/07/25 21:31> MDM - SOB/Dyspnea MDM Narrative Medical decision making narrative: Patient presents the emergency department for elevated blood pressure reading at home. Reports she was elevated to the 200 systolic. She has been taking her antihypertensives as prescribed. She did also try to take her p.r.n. clonidine with little relief. Endorsing a headache, mild shortness of breath. Blood pressure elevated at 226/91 upon arrival. Given hydralazine, labetalol with improvement. Blood pressures ranging 160s to 170 systolic. CBC metabolic panel without concerning findings. BNP is not concerningly the elevated. Chest x-ray shows nonspecific prominent bronchovascular markings. CT brain without acute findings. Patient updated on her workup and need for admission. Spoke with hospitalist about patient and workup who accepts admission <Eloina Finch PA-C - Last Filed: 01/07/25 21:11> Differential Diagnosis Differential diagnosis: Likely congestive heart failure, community acquired pneumonia and other (hypertensive urgency, chronic hypertension) <Eloina Finch PA-C - Last Filed: 01/07/25 21:11> Lab Data Attestation: I reviewed the patient's lab results. <Eloina Finch PA-C - Last Filed: 01/07/25 21:11> Result diagrams: 01/07/25 18:16 01/07/25 18:16 <KEERTHI Thomson Last Filed: 01/07/25 21:11> Labs: Lab Results 01/07/25 Range/Units 18:16 WBC 6.7 (4.5-10.0) K/mm3 RBC 4.15 L (4.2-5.4) M/mm3 Hgb 12.2 (12.0-15.0) g/dL Hct 38.8 (37.0-47.0) % MCV 93.5 (80-100) fl MCH 29.4 (26-34) pg MCHC 31.4 L (32-36) g/dl RDW 14.6 H (11.5-14.5) % Plt Count 188 (150-375) k/mm3 MPV 10.3 (7.4-10.4) fl Immature Gran % (Auto) 0.3 (0-0.5) % Neut % (Auto) 74.4 H (45.5-73.1) % Lymph % (Auto) 14.3 L (18.3-44.2) % [place] % (Auto) 5.8 (2.6-8.5) % Eos % (Auto) 4.6 H (0-4.4) % Baso % (Auto) 0.6 (0.2-1.2) % Lymph # (Auto) 0.96 (0.9-3.2) K/mm3 [place] # (Auto) 0.4 (0.1-0.6) K/mm3 Eos # (Auto) 0.3 (0-0.3) K/mm3 Baso # (Auto) 0.0 (0.0-0.1) K/mm3 Abs Immat Gran (auto) 0.02 (0.00-0.031) K/mm3 Absolute Neuts (auto) 5.0 (1.3-6.7) K/mm3 Absolute Nucleated RBC 0.000 (0.0-0.012) K/mm3 Nucleated RBC % 0.0 (0.0-0.2) % PT 13.4 (11.1-14.7) Seconds INR 1.0 APTT 27.5 (22.3-36.8) Seconds Sodium 144 (137-145) mmol/L Potassium 3.7 (3.4-5.0) mmol/L Chloride 104 (98-107) mmol/L Carbon Dioxide 33 H (22-30) mmol/L Anion Gap 7 (4-12) mmol/L BUN 16 (7-17) mg/dL Creatinine 0.70 (0.7-1.0) mg/dL Estim Creat Clear Calc 59 ml/min Estimated GFR > 60 (59 - ) Glucose 105 (65-110) mg/dL Calcium 9.2 (8.4-10.2) mg/dL Total Bilirubin 0.8 (0.2-1.3) mg/dL AST 32 (14-36) U/L ALT 38 H (6-35) U/L Alkaline Phosphatase 84 (38-126) U/L NT-Pro-B Natriuret Pep 855 H (19.9-100) pg/mL Total Protein 7.0 (6.3-8.2) g/dL Albumin 4.3 (3.5-5.1) g/dL <Eloina Finch PA-C - Last Filed: 01/07/25 21:11> Lab Results 01/07/25 Range/Units 18:16 WBC 6.7 (4.5-10.0) K/mm3 RBC 4.15 L (4.2-5.4) M/mm3 Hgb 12.2 (12.0-15.0) g/dL Hct 38.8 (37.0-47.0) % MCV 93.5 (80-100) fl MCH 29.4 (26-34) pg MCHC 31.4 L (32-36) g/dl RDW 14.6 H (11.5-14.5) % Plt Count 188 (150-375) k/mm3 MPV 10.3 (7.4-10.4) fl Immature Gran % (Auto) 0.3 (0-0.5) % Neut % (Auto) 74.4 H (45.5-73.1) % Lymph % (Auto) 14.3 L (18.3-44.2) % [place] % (Auto) 5.8 (2.6-8.5) % Eos % (Auto) 4.6 H (0-4.4) % Baso % (Auto) 0.6 (0.2-1.2) % Lymph # (Auto) 0.96 (0.9-3.2) K/mm3 [place] # (Auto) 0.4 (0.1-0.6) K/mm3 Eos # (Auto) 0.3 (0-0.3) K/mm3 Baso # (Auto) 0.0 (0.0-0.1) K/mm3 Abs Immat Gran (auto) 0.02 (0.00-0.031) K/mm3 Absolute Neuts (auto) 5.0 (1.3-6.7) K/mm3 Absolute Nucleated RBC 0.000 (0.0-0.012) K/mm3 Nucleated RBC % 0.0 (0.0-0.2) % PT 13.4 (11.1-14.7) Seconds INR 1.0 APTT 27.5 (22.3-36.8) Seconds Sodium 144 (137-145) mmol/L Potassium 3.7 (3.4-5.0) mmol/L Chloride 104 (98-107) mmol/L Carbon Dioxide 33 H (22-30) mmol/L Anion Gap 7 (4-12) mmol/L BUN 16 (7-17) mg/dL Creatinine 0.70 (0.7-1.0) mg/dL Estim Creat Clear Calc 59 ml/min Estimated GFR > 60 (59 - ) Glucose 105 (65-110) mg/dL Calcium 9.2 (8.4-10.2) mg/dL Total Bilirubin 0.8 (0.2-1.3) mg/dL AST 32 (14-36) U/L ALT 38 H (6-35) U/L Alkaline Phosphatase 84 (38-126) U/L NT-Pro-B Natriuret Pep 855 H (19.9-100) pg/mL Total Protein 7.0 (6.3-8.2) g/dL Albumin 4.3 (3.5-5.1) g/dL <Mohsen Rivera MD - Last Filed: 01/07/25 21:31> Imaging Data Radiologist's impression: ITS Impressions Chest X-Ray 01/07/25 18:22 IMPRESSION: Prominent bronchovascular markings with bilateral interstitial thickening which may indicate cardiac decompensation with pulmonary edema versus pneumonitis. ITS Impressions Chest X-Ray 01/07/25 18:22 IMPRESSION: Prominent bronchovascular markings with bilateral interstitial thickening which may indicate cardiac decompensation with pulmonary edema versus pneumonitis. Head CT 01/07/25 19:52 IMPRESSION: No acute intracranial findings. <Eloina Finch PA-C - Last Filed: 01/07/25 21:11> ECG Data EKG #1: ECG completion date: 01/07/25 <Eloina Finch PA-C - Last Filed: 01/07/25 21:11> EKG Interpretation: normal rate, sinus rhythm, no ST changes and normal QT <Eloina iFnch PA-C - Last Filed: 01/07/25 21:11> Critical Care Time Critical Care Time Critical Care Time: Yes <KEERTHI Thomson Last Filed: 01/07/25 21:11> Total Critical Care Time: 35 <KEERTHI Thomson Last Filed: 01/07/25 21:11> Discharge Plan Discharge Clinical Impression: Hypertensive urgency <KEERTHI Thomson Last Filed: 01/07/25 21:11> Patient Disposition: Still a Patient <Eloina Finch PA-C - Last Filed: 01/07/25 21:11> Condition: Serious <Eloina Finch PA-C - Last Filed: 01/07/25 21:11> Patient Language: Mauritanian <Eloina Finch PA-C - Last Filed: 01/07/25 21:11> Prescriptions: No Action aspirin 81 mg Tablet 81 mg PO HS clonidine HCl 0.1 mg tablet 0.1 mg PO BID PRN (Reason: if systolic BP > 160) Qty: 60 1RF albuterol sulfate 90 mcg/actuation HFA aerosol inhaler 1 - 2 inh inhalation Q4-6H PRN (Reason: shortness of breath or wheezing) Qty: 8.5 2RF oxybutynin chloride 10 mg tablet extended release 24hr 10 mg PO DAILY nifedipine 30 mg tablet extended release See Rx Instructions .ROUTE .COMPLEX Qty: 90 4RF Dose Instruction: TAKE 1 TABLET BY MOUTH EVERY DAY Rx Instructions: TAKE 1 TABLET BY MOUTH EVERY DAY potassium chloride 20 mEq tablet extended release See Rx Instructions .ROUTE .COMPLEX Qty: 90 1RF Dose Instruction: TAKE 1 TABLET BY MOUTH EVERY DAY Rx Instructions: TAKE 1 TABLET BY MOUTH EVERY DAY labetalol 200 mg tablet See Rx Instructions .ROUTE .COMPLEX Qty: 540 3RF Dose Instruction: TAKE 2 TABLETS BY MOUTH 3 TIMES A DAY Rx Instructions: TAKE 2 TABLETS BY MOUTH 3 TIMES A DAY pantoprazole 40 mg tablet,delayed release (DR/EC) See Rx Instructions .ROUTE .COMPLEX Qty: 90 1RF Dose Instruction: TAKE 1 TABLET BY MOUTH EVERY MORNING Rx Instructions: TAKE 1 TABLET BY MOUTH EVERY MORNING Anoro Ellipta 62.5-25 mcg/actuation blister with device 1 inh inhalation DAILY Qty: 60 5RF rosuvastatin 10 mg tablet See Rx Instructions .ROUTE .COMPLEX Qty: 90 1RF Dose Instruction: 10 MG ORALLY DAILY TAKE 1 TABLET BY MOUTH EVERY DAY Rx Instructions: 10 MG ORALLY DAILY TAKE 1 TABLET BY MOUTH EVERY DAY furosemide 20 mg tablet See Rx Instructions .ROUTE .COMPLEX Qty: 45 2RF Dose Instruction: TAKE 1 TABLET BY MOUTH EVERY OTHER DAY Rx Instructions: TAKE 1 TABLET BY MOUTH EVERY OTHER DAY triamcinolone acetonide 0.1 % cream 1 applic topical TID Qty: 30 0RF terazosin 10 mg capsule See Rx Instructions .ROUTE .COMPLEX Qty: 90 1RF Dose Instruction: TAKE 1 CAPSULE BY MOUTH EVERY NIGHT AT BEDTIME Rx Instructions: TAKE 1 CAPSULE BY MOUTH EVERY NIGHT AT BEDTIME valsartan-hydrochlorothiazide 320-25 mg tablet See Rx Instructions .ROUTE .COMPLEX Qty: 90 1RF Dose Instruction: TAKE 1 TABLET BY MOUTH EVERY DAY Rx Instructions: TAKE 1 TABLET BY MOUTH EVERY DAY <Eloina Finch PA-C - Last Filed: 01/07/25 21:11> Follow-up/Referrals: Nile Peters APRN [Primary Care Provider] - <Eloina Finch PA-C - Last Filed: 01/07/25 21:11>
[2025-01-07 18:40] LABS: NT Pro B Type Natriuretic Pept 855 pg/mL (19.9-100)
[2025-01-07] MEDS: LABETALOL HCL INJ 100 MG/20 ML VIAL 10 MG IV PUSH (19:01)
[2025-01-07] MEDS: hydrALAZINE HCL 20 MG/ML VIAL 10 MG IV PUSH ×2 (19:48→20:41)
--- NOTE | 2025-01-07 21:16 | PM.IMHP ---
H&P: HPI History of Present Illness Date/Time: 01/07/25 21:16 Chief Complaint: Shortness of breath, elevated blood pressure Narrative: This is a 74-year-old female patient with past medical history difficult to control hypertension as well as CHF COPD hyperlipidemia former smoker. Patient reports that over the weekend she was camping with her friends was not pain attention slipped on some rocks landing on her right hand which experienced racing swelling. Additionally, patient states that she has been feeling more short of breath for the last couple of days. She checked her blood pressure at home and it was highly elevated. She took her p.r.n. clonidine reach checked the blood pressure still finding it over 190 systolic. This prompted her to come to the emergency department. Workup in the emergency department reveals normal CBC normal renal function normal electrolytes with an elevated BNP. Patient was complaining of a headache so she had a head CT completed which was unremarkable. One-view portable chest x-ray showed prominent bronchovascular markings with bilateral interstitial thickening which could indicate cardiac decompensation with pulmonary edema versus pneumonitis. Patient has not had any coughing or choking episode test not inhaled any abnormal substances. Patient admitted for concern for decompensated congestive heart failure. Review of records shows that she has a prior echocardiogram showing preserved it ejection fraction approximately 50% but this was a couple of years ago. 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 Weight gain Claustrophobia Patellofemoral arthritis COPD (chronic obstructive pulmonary disease) Right knee DJD Right knee pain 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 Hyperlipidemia Hypertension History of blood transfusion Anemia Arm fracture, left Neuroma UTI (urinary tract infection) Cyst of left kidney Diverticulosis SBO (small bowel obstruction) Diverticulitis Rectal polyp GERD (gastroesophageal reflux disease) Bronchitis Pneumonia MVP (mitral valve prolapse) HLD (hyperlipidemia) HTN (hypertension) Seasonal allergies Chronic back pain Surgical History Surgical History H/O dilation and curettage H/O: hysterectomy Hx of colonoscopy History of cholecystectomy Hx of appendectomy History of intestinal surgery adhesiolysis of small bowel Previous back surgery 2 plates and 4 screws Family History Family History Father Family history of diabetes mellitus in first degree relative, Onset Age: 90 Patient's father is Sibling Patient's brother is in good health Patient's brother is Brain aneurysm Mother Osteoporosis Asthma Other Diabetes mellitus High cholesterol Hypertension Social History Social History Smoking packs per day: 1 Smoking cigarettes per day: 20.0 Years smoked: 25 Smoking pack-years: 25.00 Smoking status: Former smoker Tobacco type: cigarettes Second hand tobacco smoke exposure: No Alcohol intake: current Drinks per week: 2 Alcohol use details: 5 per month Substance use: never Substance use type: does not use Do You Feel Safe in your Home?: Yes Lack of Transportation: No Lack of Food: Never True Current Housing: I Have Housing Concerned About Future Housing: No Difficulty Paying Gas/Electric Bills: No Difficulty Paying for Meds: No Currently Unemployed: No Education: High School Diploma/GED Difficulty w/ Childcare or Family Care: No Living arrangements: with family Occupation/Education: 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 Gender identity (if verbalized by the patient): Female Spiritual care concerns: No Agree to blood products: Yes Meds Home Medications and Allergies Home Medications ?Medication ?Instructions ?Recorded ?Confirmed ?Type aspirin 81 mg tablet 81 mg PO HS 03/09/21 01/07/25 History clonidine HCl 0.1 mg tablet 0.1 mg PO BID PRN if systolic BP > 08/09/23 01/07/25 Rx 160 #60 tabs oxybutynin chloride 10 mg 10 mg PO DAILY 10/14/23 01/07/25 History tablet,extended release 24 hr nifedipine 30 mg tablet,extended See Rx Instructions .Route 02/13/24 01/07/25 Rx release .COMPLEX #90 tabs potassium chloride 20 mEq See Rx Instructions .Route 07/21/24 01/07/25 Rx tablet,extended release .COMPLEX #90 tabs labetalol 200 mg tablet See Rx Instructions .Route 09/09/24 01/07/25 Rx .COMPLEX #540 tabs pantoprazole 40 mg tablet,delayed See Rx Instructions .Route 09/17/24 01/07/25 Rx release .COMPLEX #90 tabs albuterol sulfate 90 mcg/actuation 1 - 2 inh inhalation Q4-6H PRN 10/07/24 01/07/25 Rx aerosol inhaler shortness of breath or wheezing #8.5 grams umeclidinium 62.5 mcg-vilanterol 1 inh inhalation DAILY #60 ea 10/13/24 01/07/25 Rx 25 mcg/actuation powdr for inhalation (Anoro Ellipta) rosuvastatin 10 mg tablet See Rx Instructions .Route 10/26/24 01/07/25 Rx .COMPLEX #90 tabs furosemide 20 mg tablet See Rx Instructions .Route 12/07/24 01/07/25 Rx .COMPLEX #45 tabs triamcinolone acetonide 0.1 % 1 applic topical TID #30 grams 12/16/24 01/07/25 Rx topical cream terazosin 10 mg capsule See Rx Instructions .Route 12/30/24 01/07/25 Rx .COMPLEX #90 caps valsartan 320 See Rx Instructions .Route 01/05/25 01/07/25 Rx mg-hydrochlorothiazide 25 mg tablet .COMPLEX #90 tabs Allergies Allergy/AdvReac Type Severity Reaction Status Date / Time adhesive Allergy Mild Rash Verified 01/07/25 17:59 codeine AdvReac Mild upset Verified 01/07/25 17:59 stomach Vital Signs Vital Signs - 24 hr 01/07/25 18:01 01/07/25 19:01 01/07/25 19:02 Temperature 36.7 C Pulse Rate 74 69 71 Respiratory Rate 18 18 19 Blood Pressure 226/91 H 232/81 H Pulse Oximetry 95 94 97 Oxygen Delivery Room Air 01/07/25 19:12 01/07/25 19:15 01/07/25 19:17 Temperature Pulse Rate 66 62 62 Respiratory Rate 20 18 21 H Blood Pressure 218/81 H 225/85 H Pulse Oximetry 97 93 94 Oxygen Delivery 01/07/25 19:30 01/07/25 19:32 01/07/25 19:39 Temperature Pulse Rate 60 59 L 58 L Respiratory Rate 21 H 16 18 Blood Pressure 221/77 H 218/67 H Pulse Oximetry 93 95 93 Oxygen Delivery 01/07/25 19:45 01/07/25 19:47 01/07/25 19:50 Temperature Pulse Rate 56 L 62 59 L Respiratory Rate 21 H 21 H 17 Blood Pressure 211/71 H 211/71 H Pulse Oximetry 93 94 95 Oxygen Delivery 01/07/25 19:52 01/07/25 19:57 01/07/25 20:00 Temperature Pulse Rate 68 66 64 Respiratory Rate 15 18 21 H Blood Pressure 225/90 H 211/71 H Pulse Oximetry 94 95 96 Oxygen Delivery 01/07/25 20:02 01/07/25 20:07 01/07/25 20:12 Temperature Pulse Rate 67 71 73 Respiratory Rate 17 23 H 23 H Blood Pressure 193/68 H 203/74 H 191/71 H Pulse Oximetry 95 95 96 Oxygen Delivery 01/07/25 20:17 01/07/25 20:18 01/07/25 20:22 Temperature Pulse Rate 69 67 68 Respiratory Rate 18 21 H 18 Blood Pressure 192/70 H 192/72 H Pulse Oximetry 95 94 95 Oxygen Delivery 01/07/25 20:27 01/07/25 20:30 01/07/25 20:32 Temperature Pulse Rate 70 68 69 Respiratory Rate 20 21 H 19 Blood Pressure 185/67 H 185/72 H Pulse Oximetry 95 95 96 Oxygen Delivery 01/07/25 20:37 01/07/25 20:45 01/07/25 20:47 Temperature Pulse Rate 73 71 73 Respiratory Rate 19 15 20 Blood Pressure 193/71 H 191/82 H 169/74 H Pulse Oximetry 96 95 95 Oxygen Delivery Exam Narrative: GENERAL: Awake, alert, well nourished, and in no acute distress. HEAD: Normocephalic, atraumatic. EYES: PERRLA and EOMI. NECK: Supple. No adenopathy or masses. CHEST: Clear to auscultation. No respiratory distress. No wheezes rales or rhonchi HEART: Regular rate and rhythm. Normal peripheral pulses. EXTREMITIES: Normal range of motion. Bruising and swelling of right hand and wrist with full ROM, cap refill and sensation intact. SKIN: Warm, dry, no rash. NEURO: No focal deficits. Alert and oriented x3. Moves all extremities well PSYCH: Normal mood and affect H&P: Results Labs Labs: Short CBC 01/07/25 Range/Units 18:16 WBC 6.7 (4.5-10.0) K/mm3 Hgb 12.2 (12.0-15.0) g/dL Hct 38.8 (37.0-47.0) % Plt Count 188 (150-375) k/mm3 BMP 01/07/25 18:16 Sodium 144 Potassium 3.7 Chloride 104 Carbon Dioxide 33 H BUN 16 Creatinine 0.70 Glucose 105 Calcium 9.2 Liver Function 01/07/25 Range/Units 18:16 Total Bilirubin 0.8 (0.2-1.3) mg/dL AST 32 (14-36) U/L ALT 38 H (6-35) U/L Alkaline Phosphatase 84 (38-126) U/L Albumin 4.3 (3.5-5.1) g/dL Pulse Oximetry SpO2 results: 93-97% on room air Attestation: I personally reviewed and interpreted this pulse oximetry as follows: Interpretation: No need for supplemental oxygenation at this time ECG Attestation: I personally reviewed and interpreted this ECG as follows: ECG completion date: 01/07/25 ECG completion time: 18:05 Prior ECG tracings: not available for review Interpretation: Sinus rhythm rate of 68 PA interval 165 QRS duration 108 QTC 462 QRS axis 28, no STEMI or acute ischemic changes Imaging CT scan - head: Radiologist's impression: CT brain wo con Ordering provider: Eloina Finch History: 74 years Female with . headache, hypertension . Comparison: None. Technique: CT of the head without contrast. Radiation reduction technique utilized.The dose-length product was 605.33 mGy-cm. September 2022 FINDINGS: BRAIN PARENCHYMA AND CSF SPACES: No midline shift, mass effect or hemorrhage. The brain parenchyma and CSF spaces are otherwise normal. VISUALIZED PARANASAL SINUSES: Well aerated. MASTOIDS: Well aerated. BONES: The bones appear intact. SOFT TISSUES: Visualized nasopharynx is normal. Superficial soft tissues are normal. IMPRESSION: No acute intracranial findings. Reviewed, dictated and finalized at location A. Chest x-ray: Radiologist's impression: XR chest 1V portable Ordering provider: Eloina Finch PA-C History: 74 years Female with . SOB X 1 DAY . Comparison: June 05, 2022 FINDINGS: MEDIASTINUM: The cardiac silhouette is slightly enlarged. Congestive eloy. LUNGS: No infiltrates, effusions or pneumothorax. Prominent bronchovascular markings are seen bilaterally. Bilateral interstitial thickening. OTHER: No free air under the diaphragm. IMPRESSION: Prominent bronchovascular markings with bilateral interstitial thickening which may indicate cardiac decompensation with pulmonary edema versus pneumonitis. Reviewed, dictated and finalized at location A. Assessment and Plan Assessment and plan (1) Hypertensive urgency: Code(s): I16.0 - Hypertensive urgency Status: Acute Assessment and Plan: -Severely elevated BP not well controlled at home, patient sees Dr. Jamil with Nephrology for BP control assistance -Normal renal function noted now, previous renal assessment stable -Headache and shortness of breath noted, BNP elevated, pulmonary vascular congestion/pulmonary edema noted -BP did not respond to clonidine at home today -Initially mild improvement with IV hydralazine 10 mg and labetolol 10 mg but promptly rebounded higher -Second dose of IV hydralazine with improvement and total reduction right at 25% of SBP max measured -Admit OBS status to IMU for frequent Vital signs and IV push medications PRN -If not able to be controlled well, will place nicardipine drip (2) CHF (congestive heart failure): Qualifiers: Heart failure chronicity: acute on chronic Heart failure type: diastolic Qualified Code(s): I50.33 - Acute on chronic diastolic (congestive) heart failure Code(s): I50.9 - Heart failure, unspecified Status: Acute Assessment and Plan: -Hx HFPEF, CXR shows decompensation of cardiac function with likely pulmonary edema vs pneumonitis -Ordered Echocardiogram -BNP 855 (3) COPD (chronic obstructive pulmonary disease): Qualifiers: COPD type: unspecified COPD Qualified Code(s): J44.9 - Chronic obstructive pulmonary disease, unspecified Code(s): J44.9 - Chronic obstructive pulmonary disease, unspecified Status: Chronic Assessment and Plan: -Former smoker with COPD history noted -Dyspnea present, maintain oxygen sats >90% (4) HLD (hyperlipidemia): Qualifiers: Hyperlipidemia type: unspecified Qualified Code(s): E78.5 - Hyperlipidemia, unspecified Code(s): E78.5 - Hyperlipidemia, unspecified Status: Chronic Assessment and Plan: -Chronic, continue home medications Quality VTE Prophylaxis VTE prophylaxis: pharmacologic ordered Total time spent on this patient 95 minutes Hospitalist MIPS Advance Care Plan I have confirmed that the patient's Advanced Care Plan is present, code status is documented, or surrogate decision maker is listed in patient medical record.: Yes Medication Reconciliation I have utilized all available resources to obtain, update and review the patients current medications (includes all prescriptions, OTC, herbals, cannabis, and nutritional supplements).: Yes
--- NOTE | 2025-01-07 22:01 | ADMGEN ---
This patient, Nadia Brown, was admitted to IMU Room 214-01. Patient/family oriented to hospital policies and general routines including ID bracelet, bed and alarms, visiting hours, pain management, procedures, bathroom and other care routines, personal items, smoking policy, room service/diet, and visiting hours. Information on how to activate the Rapid Response Team has been discussed. Patient/Family are encouraged to report perceived risks to care and to ask questions if they do not understand what they are told or what they should do.
[2025-01-08] VITALS (17 sets, daily range): BP systolic 131–210; BP diastolic 46–75; PULSE 61–82; RESP 18–20; TEMP 36.4–36.9; O2SAT 92–98
--- NOTE | 2025-01-08 | ECHO_ITS ---
Patient Info Name: Nadia Brown Age: 74 years : 1950 Gender: Female Ht: 64 in Wt: 178 lbs BSA: 1.94 m2 HR: 68 bpm BP: 173 / 55 mmHg Heart Rhythm: Sinus Rhythm Technical Quality: Good Exam Date: 01/08/2025 2:26 PM Patient Status: I Admit Date: 01/08/2025 Exam Type: CA echo doppler color flow Complete two-dimensional, color flow and Doppler transthoracic echocardiogram is performed. Staff Referring Physician: Eloina Finch [facility] Architecture Intern: Belem Vail Attending Provider: Kavon Danielle MD Summary 1. Complete two-dimensional, color flow and Doppler transthoracic echocardiogram is performed. 2. There is mildly increased left ventricular wall thickness. 3. EF 75%. 4. Left atrial chamber dimension is moderately enlarged. 5. There is mild mitral valve regurgitation. 6. There is trace tricuspid valve regurgitation. 7. Mild pulmonary hypertension, estimated pulmonary arterial systolic pressure is 41 mmHg. Left Ventricle Left ventricular chamber dimension is normal. There is mildly increased left ventricular wall thickness. Left ventricular septal wall motion is normal. The left ventricular diastolic function is grade I diastolic dysfunction. Right Ventricle Right ventricular chamber dimension is normal. Right ventricular systolic function is normal. Left Atria Left atrial chamber dimension is moderately enlarged. Right Atria Right atrial chamber dimension is normal. Atrial Septum Intact interatrial septum visualized by color flow imaging. Aortic Valve The aortic valve is trileaflet. There is no aortic valve sclerosis. There is no aortic valve stenosis. There is no aortic valve regurgitation. There is mild aortic valve calcification. Pulmonic Valve The pulmonic valve is normal. There is no pulmonic valve stenosis. There is no pulmonic regurgitation. Mitral Valve The mitral valve has normal leaflets. There is no mitral valve stenosis. There is mild mitral valve regurgitation. There is mild mitral valve calcification. Tricuspid Valve The tricuspid valve leaflets are normal. There is no significant tricuspid valve stenosis. There is trace tricuspid valve regurgitation. Mild pulmonary hypertension, estimated pulmonary arterial systolic pressure is 41 mmHg. Pericardium/Pleural The pericardium appears epicardial fat pad. There is no pericardial effusion. Inferior Vena Cava Normal inferior vena cava with >50% collapse upon inspiration consistent with normal right atrial pressure, 5 mmHg. Aorta The aortic root size at the sinus of Valsalva is normal. The prox ascending aorta size is normal. Left Ventricular Outflow Tract Name Value Normal LVOT 2D LVOT Diameter 1.7 cm LVOT Doppler LVOT Peak Velocity 144 cm/s LVOT Peak Gradient 8 mmHg LVOT Mean Gradient 5 mmHg LVOT VTI 30 cm LVOT VTI/AV VTI Ratio 0.7 LVOT Stroke Volume 72 ml LVOT CO 14.6 l/min LVOT CI 7.5 l/min/m2 Pulmonic Valve Name Value Normal PV Doppler PV Peak Velocity 120 cm/s PV Peak Gradient 6 mmHg Mitral Valve Name Value Normal MV Diastolic Function MV E Peak Velocity 126 cm/s MV A Peak Velocity 107 cm/s MV E/A 1.2 MV Decel Time (PW) 303 ms MV Annular TDI MV E/e' (Septal) 23.4 MV E/e' (Lateral) 18.5 MV E/e' (Average) 20.9 Tricuspid Valve Name Value Normal TV Regurgitation Doppler TR Peak Velocity 298 cm/s TR Peak Gradient 36 mmHg Estimated PAP/RSVP RA Pressure 5 mmHg <=5 PA Systolic Pressure 41 mmHg <36 RV Systolic Pressure 41 mmHg <36 TV Annular TDI TV Lateral Ursula s' Velocity 12.7 cm/s >=9.5 Aorta Name Value Normal Ascending Aorta Ao Root Diameter (MM) 3.1 cm Ao Root Diam Index (MM) 1.6 cm/m2 Aortic Valve Name Value Normal AV Doppler AV Peak Velocity 176 cm/s AV Peak Gradient 12 mmHg AV Mean Gradient 7 mmHg AV VTI 40 cm AV Area (Cont Eq VTI) 1.8 cm2 >=3.0 AV Area (Cont Eq Jesús) 2.0 cm2 AV DI (Jesús) 0.82 AV Regurgitation 2D LVOT Area 2.4 cm2 Ventricles Name Value Normal LV Dimensions 2D/MM IVS Diastolic Thickness (2D) 1.0 cm 0.6-1.0 LVID Diastole (2D) 4.9 cm 3.8-5.2 LVIW Diastolic Thickness (2D) 1.0 cm 0.6-0.9 LVID Systole (2D) 3.1 cm 2.2-3.5 LVOT Diameter 1.7 cm LV Mass (2D Cubed) 173.85 g 67.00-162.00 LV Mass Index (2D Cubed) 90 g/m2 43-95 Relative Wall Thickness (2D) 0.42 <=0.42 LV Fractional Shortening/Ejection Fraction 2D/MM LV Fractional Shortening (2D) 35 % 27-45 LV EF (2D Teichholz) 64 % LV Diastolic Volume (4C MOD) 85 ml LV EF (4C MOD) 72 % LV Diastolic Volume (2C MOD) 83 ml LV EF (2C MOD) 69 % LV Diastolic Volume (BP MOD) 85 ml 46-106 LV Diastolic Volume Index (BP MOD) 44 ml/m2 29-61 LV Systolic Volume (BP MOD) 25 ml 14-42 LV Systolic Volume Index (BP MOD) 13 ml/m2 8-24 LV EF (BP MOD) 70 % 54-74 LV Diastolic Length (4C) 7.9 cm LV Systolic Length (4C) 6.3 cm LV Stroke Volume (4C MOD) 61 ml RV Dimensions 2D/MM RVID Diastole (2D) 3.7 cm 2.1-3.5 Atria Name Value Normal LA Dimensions LA Dimension (MM) 4.1 cm 2.7-3.8 LA Volume (4C A-L) 62 ml LA Volume (BP A-L) 56 ml RA Dimensions RA Systolic Major [place] Length (4C) 5.1 cm 2.2-2.8 RA Area (4C) 17.1 cm2 <=18.0 Report Signatures
[2025-01-08] MEDS: hydrALAZINE HCL 20 MG/ML VIAL 10 MG IV PUSH ×2 (02:39→16:05)
[2025-01-08] MEDS: ACETAMINOPHEN 325 MG TABLET 650 MG PO (03:47)
[2025-01-08 04:57] LABS: Basophils Absolute Auto 0.1 K/mm3 (0.0-0.1); Basophils Percent Auto 0.8 % (0.2-1.2); Eosinophils Absolute Auto 0.3 K/mm3 (0-0.3); Eosinophils Percent Auto 3.6 % (0-4.4); Hematocrit 38.9 % (37.0-47.0); Hemoglobin 12.4 g/dL (12.0-15.0); Immature Granulocyte Absolute 0.03 K/mm3 (0.00-0.031); Immature Granulocyte Percent A 0.4 % (0-0.5); Lymphocytes Absolute Auto 0.86 K/mm3 (0.9-3.2); Lymphocytes Percent Auto 11.2 % (18.3-44.2); Mean Corpuscular HGB Conc 31.9 g/dl (32-36); Mean Corpuscular Hemoglobin 29.5 pg (26-34); Mean Corpuscular Volume 92.4 fl (80-100); Mean Platelet Volume 10.3 fl (7.4-10.4); Monocytes Absolute Auto 0.4 K/mm3 (0.1-0.6); Monocytes Percent Auto 5.6 % (2.6-8.5); Neutrophils Percent Auto 78.4 % (45.5-73.1); Platelet Count Result 183 k/mm3 (150-375); Red Blood Count 4.21 M/mm3 (4.2-5.4); Red Cell Distribution Width 14.7 % (11.5-14.5); White Blood Count 7.7 K/mm3 (4.5-10.0)
[2025-01-08] MEDS: LABETALOL HCL 100 MG TABLET 400 MG PO ×3 (05:13→21:18)
[2025-01-08 05:31] LABS: Alanine Aminotransferase 35 U/L (6-35); Albumin Level 4.2 g/dL (3.5-5.1); Alkaline Phosphatase 83 U/L (38-126); Anion Gap 6 mmol/L (4-12); Aspartate Amino Transferase 27 U/L (14-36); Bilirubin,Total 0.9 mg/dL (0.2-1.3); Blood Urea Nitrogen 12 mg/dL (7-17); Calcium 9.2 mg/dL (8.4-10.2); Carbon Dioxide 30 mmol/L (22-30); Chloride 104 mmol/L (98-107); Estimated CRCL calculation 78 ml/min; Estimated Glomerular Filt Rate > 60; Glucose 121 mg/dL (65-110); Magnesium 2.1 mg/dL (1.6-2.3); Potassium 3.3 mmol/L (3.4-5.0); Sodium 140 mmol/L (137-145); Total Protein 6.8 g/dL (6.3-8.2)
[2025-01-08] MEDS: UMECLIDINIUM/VILANTEROL 62.5-25 MCG ELLIPTA 1 PUFF INHALATION (07:33)
[2025-01-08] MEDS: ROSUVASTATIN 10 MG TABLET PO (08:45)
[2025-01-08] MEDS: NIFEdipine 30 MG TAB.ER.24 PO ×2 (08:45→21:21)
[2025-01-08] MEDS: POTASSIUM CHLORIDE 20 MEQ ER TABLET PO (08:45)
[2025-01-08] MEDS: hydroCHLOROthiazide 25 MG TABLET PO (08:45)
[2025-01-08] MEDS: VALSARTAN 160 MG TABLET 320 MG PO (08:45)
[2025-01-08] MEDS: PANTOPRAZOLE 40 MG TABLET PO (08:45)
[2025-01-08] MEDS: TRIAMCINOLONE ACET 0.1% CREAM 15 GM TUBE 1 APPLIC TOPICAL (08:46)
[2025-01-08] MEDS: oxyBUTYnin CHLORIDE XL 5 MG TAB.ER.24 10 MG PO (08:46)
[2025-01-08] MEDS: ENOXAPARIN 40 MG/0.4 ML SYRINGE SUB-Q (08:46)
--- NOTE | 2025-01-08 16:58 | PM.IMPN ---
Progress Note: A&P Assessment and Plan (1) Hypertensive urgency: Code(s): I16.0 - Hypertensive urgency Status: Acute Assessment and Plan: -Severely elevated BP not well controlled at home, patient sees Dr. Jamil with Nephrology for BP control assistance -Normal renal function noted now, previous renal assessment stable -Headache and shortness of breath noted, BNP elevated, pulmonary vascular congestion/pulmonary edema noted -BP did not respond to clonidine at home today -Initially mild improvement with IV hydralazine 10 mg and labetolol 10 mg but promptly rebounded higher -Second dose of IV hydralazine with improvement and total reduction right at 25% of SBP max measured -Admit OBS status to IMU for frequent Vital signs and IV push medications PRN -If not able to be controlled well, will place nicardipine drip (2) CHF (congestive heart failure): Qualifiers: Heart failure chronicity: acute on chronic Heart failure type: diastolic Qualified Code(s): I50.33 - Acute on chronic diastolic (congestive) heart failure Code(s): I50.9 - Heart failure, unspecified Status: Acute Assessment and Plan: -Hx HFPEF, CXR shows decompensation of cardiac function with likely pulmonary edema vs pneumonitis -Ordered Echocardiogram -BNP 855 (3) COPD (chronic obstructive pulmonary disease): Qualifiers: COPD type: unspecified COPD Qualified Code(s): J44.9 - Chronic obstructive pulmonary disease, unspecified Code(s): J44.9 - Chronic obstructive pulmonary disease, unspecified Status: Chronic Assessment and Plan: -Former smoker with COPD history noted -Dyspnea present, maintain oxygen sats >90% (4) HLD (hyperlipidemia): Qualifiers: Hyperlipidemia type: unspecified Qualified Code(s): E78.5 - Hyperlipidemia, unspecified Code(s): E78.5 - Hyperlipidemia, unspecified Status: Chronic Assessment and Plan: -Chronic, continue home medications Plan 74 female presented to the ER with c/o shortness of breath, elevated blood pressure and ALEXANDER, patient with difficulty with controlling her blood pressure has been taking Valsartan-HCTZ 320/25, labetalol 200mg TID, nifedipine 30 mg extended tab, furesemide 20mg every other day, and clonidine 0.1mg BIR PRN for if systolic BP is 160, her BP remains elevated with this regiment, will increase Nifedipine to 30mg BID and monitor. cardiac echo is ordered and pending, will follow up and further recommendations to follow. Subjective Date/time seen: 01/08/25 16:58 Interval history: Shortness of breath, elevated blood pressure H&P-Narrative: This is a 74-year-old female patient with past medical history difficult to control hypertension as well as CHF COPD hyperlipidemia former smoker. Patient reports that over the weekend she was camping with her friends was not pain attention slipped on some rocks landing on her right hand which experienced racing swelling. Additionally, patient states that she has been feeling more short of breath for the last couple of days. She checked her blood pressure at home and it was highly elevated. She took her p.r.n. clonidine reach checked the blood pressure still finding it over 190 systolic. This prompted her to come to the emergency department. Workup in the emergency department reveals normal CBC normal renal function normal electrolytes with an elevated BNP. Patient was complaining of a headache so she had a head CT completed which was unremarkable. One-view portable chest x-ray showed prominent bronchovascular markings with bilateral interstitial thickening which could indicate cardiac decompensation with pulmonary edema versus pneumonitis. Patient has not had any coughing or choking episode test not inhaled any abnormal substances. Patient admitted for concern for decompensated congestive heart failure. Review of records shows that she has a prior echocardiogram showing preserved it ejection fraction approximately 50% but this was a couple of years ago. 74 female presented to the ER with c/o shortness of breath, elevated blood pressure and ALEXANDER, patient with difficulty with controlling her blood pressure has been taking Valsartan-HCTZ 320/25, labetalol 200mg TID, nifedipine 30 mg extended tab, furesemide 20mg every other day, and clonidine 0.1mg BIR PRN for if systolic BP is 160, her BP remains elevated with this regiment, will increase Nifedipine to 30mg BID and monitor. cardiac echo is ordered and pending, will follow up and further recommendations to follow. Review of Systems Review of Systems: All systems reviewed & are unremarkable except as noted in HPI and below Exam Narrative: Patient is comfortable, NAD HEENT: eyes are clear and none icteric LUNGS:CTA HEART: RR S1S2 ABD: BS+, Soft and nontender Lower extremities: no edema SKIN: nonjaundiced Neuro: grossly intact. Objective Data Vital Signs Vital Signs: Vital Signs - 24 hr 01/07/25 18:01 01/07/25 19:01 01/07/25 19:02 Temperature 36.7 C Pulse Rate 74 69 71 Respiratory Rate 18 18 19 Blood Pressure 226/91 H 232/81 H Pulse Oximetry 95 94 97 Oxygen Delivery Room Air 01/07/25 19:12 01/07/25 19:15 01/07/25 19:17 Temperature Pulse Rate 66 62 62 Respiratory Rate 20 18 21 H Blood Pressure 218/81 H 225/85 H Pulse Oximetry 97 93 94 Oxygen Delivery 01/07/25 19:30 01/07/25 19:32 01/07/25 19:39 Temperature Pulse Rate 60 59 L 58 L Respiratory Rate 21 H 16 18 Blood Pressure 221/77 H 218/67 H Pulse Oximetry 93 95 93 Oxygen Delivery 01/07/25 19:45 01/07/25 19:47 01/07/25 19:50 Temperature Pulse Rate 56 L 62 59 L Respiratory Rate 21 H 21 H 17 Blood Pressure 211/71 H 211/71 H Pulse Oximetry 93 94 95 Oxygen Delivery 01/07/25 19:52 01/07/25 19:57 01/07/25 20:00 Temperature Pulse Rate 68 66 64 Respiratory Rate 15 18 21 H Blood Pressure 225/90 H 211/71 H Pulse Oximetry 94 95 96 Oxygen Delivery 01/07/25 20:02 01/07/25 20:07 01/07/25 20:12 Temperature Pulse Rate 67 71 73 Respiratory Rate 17 23 H 23 H Blood Pressure 193/68 H 203/74 H 191/71 H Pulse Oximetry 95 95 96 Oxygen Delivery 01/07/25 20:17 01/07/25 20:18 01/07/25 20:22 Temperature Pulse Rate 69 67 68 Respiratory Rate 18 21 H 18 Blood Pressure 192/70 H 192/72 H Pulse Oximetry 95 94 95 Oxygen Delivery 01/07/25 20:27 01/07/25 20:30 01/07/25 20:32 Temperature Pulse Rate 70 68 69 Respiratory Rate 20 21 H 19 Blood Pressure 185/67 H 185/72 H Pulse Oximetry 95 95 96 Oxygen Delivery 01/07/25 20:37 01/07/25 20:45 01/07/25 20:47 Temperature Pulse Rate 73 71 73 Respiratory Rate 19 15 20 Blood Pressure 193/71 H 191/82 H 169/74 H Pulse Oximetry 96 95 95 Oxygen Delivery 01/07/25 20:48 01/07/25 20:52 01/07/25 20:56 Temperature Pulse Rate 71 76 81 Respiratory Rate 20 19 18 Blood Pressure 165/63 H 174/68 H Pulse Oximetry 95 96 95 Oxygen Delivery 01/07/25 21:00 01/07/25 21:02 01/07/25 21:17 Temperature Pulse Rate 80 78 73 Respiratory Rate 21 H 19 23 H Blood Pressure 174/66 H 158/58 H Pulse Oximetry 94 95 95 Oxygen Delivery 01/07/25 21:32 01/07/25 21:33 01/07/25 21:55 Temperature 36.6 C Pulse Rate 71 74 62 Respiratory Rate 19 17 16 Blood Pressure 158/71 H 158/71 H 179/66 H Pulse Oximetry 94 95 93 Oxygen Delivery 01/07/25 22:02 01/07/25 23:29 01/07/25 23:39 Temperature 36.6 C Pulse Rate 75 77 Respiratory Rate 18 Blood Pressure 161/57 H Pulse Oximetry 94 Oxygen Delivery Room Air 01/07/25 23:39 01/08/25 02:00 01/08/25 02:00 Temperature 36.6 C Pulse Rate 76 74 74 Respiratory Rate 18 Blood Pressure 210/75 H Pulse Oximetry 94 Oxygen Delivery 01/08/25 04:00 01/08/25 04:00 01/08/25 04:00 Temperature 36.4 C L Pulse Rate 77 77 Respiratory Rate 20 Blood Pressure 180/64 H Pulse Oximetry 98 Oxygen Delivery Room Air 01/08/25 05:13 01/08/25 05:52 01/08/25 06:14 Temperature 36.6 C Pulse Rate 76 69 71 Respiratory Rate 20 Blood Pressure 160/61 H Pulse Oximetry 97 Oxygen Delivery 01/08/25 08:00 01/08/25 08:00 01/08/25 10:00 Temperature 36.8 C Pulse Rate 68 67 61 Respiratory Rate 18 Blood Pressure 131/57 L Pulse Oximetry 94 Oxygen Delivery 01/08/25 10:00 01/08/25 11:49 01/08/25 12:00 Temperature 36.5 C 36.5 C Pulse Rate 62 67 70 Respiratory Rate 18 20 Blood Pressure 142/54 H 172/55 H Pulse Oximetry 96 95 Oxygen Delivery 01/08/25 12:56 01/08/25 14:00 01/08/25 14:00 Temperature Pulse Rate 67 66 66 Respiratory Rate 20 Blood Pressure 158/63 H Pulse Oximetry 94 Oxygen Delivery 01/08/25 16:00 01/08/25 16:00 Temperature 36.9 C Pulse Rate 64 82 Respiratory Rate 18 Blood Pressure 181/56 H Pulse Oximetry 94 Oxygen Delivery Intake/Output Intake/Output: Intake & Output 01/05/25 01/06/25 01/07/25 01/08/25 23:59 23:59 23:59 23:59 Intake Total 750 Output Total 100 700 Balance -100 50 Meds/Results Medications: Active Medications Generic Name Dose Route Start Last Admin Trade Name Freq PRN Reason Stop Dose Admin Acetaminophen 650 mg 01/08/25 03:31 01/08/25 03:47 Acetaminophen 325 Mg Tablet PO 650 mg Q4H PRN Administration Pain or Fever or Headache Albuterol 2 puff 01/08/25 01:16 Albuterol Sulfate (*Sp) Aerosol 1 Puff INHALATION Q4HRT PRN Shortness Of Breath Or Wheezing Aspirin 81 mg 01/08/25 21:00 Aspirin 81 Mg Enteric Tablet PO HS NAWAF Enoxaparin Sodium 40 mg 01/08/25 09:00 01/08/25 08:46 Enoxaparin 40 Mg/0.4 Ml Syringe SUB-Q 40 mg DAILY NAWAF Administration Hydralazine HCl 10 mg 01/08/25 02:15 01/08/25 16:05 Hydralazine Hcl 20 Mg/Ml Vial IV PUSH 10 mg Q4HR PRN Administration Blood Pressure - High Hydrochlorothiazide 25 mg 01/08/25 09:00 01/08/25 08:45 Hydrochlorothiazide 25 Mg Tablet PO 25 mg QAM NAWAF Administration Labetalol HCl 400 mg 01/08/25 06:00 01/08/25 12:56 Labetalol Hcl 100 Mg Tablet PO 400 mg Q8HR NAWAF Administration Nifedipine 30 mg 01/08/25 09:00 01/08/25 08:45 Nifedipine 30 Mg Tab.Er.24 PO 30 mg QAM NAWAF Administration Oxybutynin Chloride 10 mg 01/08/25 09:00 01/08/25 08:46 Oxybutynin Chloride Xl 5 Mg Tab.Er.24 PO 10 mg DAILY NAWAF Administration Pantoprazole Sodium 40 mg 01/08/25 09:00 01/08/25 08:45 Pantoprazole 40 Mg Tablet PO 40 mg QAM NAWAF Administration Perflutren Lipid Microsphere 0 ml 01/08/25 10:34 Perflutren Lipid Microspheres 1.5 Ml Vial Diluted To 10 Ml Total Volume IV PUSH 01/11/25 10:34 ONCE PRN adequate visualization Protocol Potassium Chloride 20 meq 01/08/25 09:00 01/08/25 08:45 Potassium Chloride 20 Meq Er Tablet PO 20 meq DAILY NAWAF Administration Rosuvastatin Calcium 10 mg 01/08/25 09:00 01/08/25 08:45 Rosuvastatin 10 Mg Tablet PO 10 mg QAM NAWAF Administration Sodium Chloride 1 spray 01/08/25 03:06 Saline 0.65% Ranjeet Soln 44 Ml Btl NASAL Q6HR PRN Congestion Terazosin HCl 10 mg 01/08/25 21:00 Terazosin Hcl 5 Mg Capsule PO HS NAWAF Triamcinolone Acetonide 1 applic 01/08/25 09:00 01/08/25 16:47 Triamcinolone Acet 0.1% Cream 15 Gm Tube TOPICAL Not Given TID NAWAF Umeclidinium/Vilanterol 1 puff 01/08/25 08:00 01/08/25 07:33 Umeclidinium/Vilanterol 62.5-25 Mcg Ellipta INHALATION 1 puff DAILYRT NAWAF Administration Valsartan 320 mg 01/08/25 09:00 01/08/25 08:45 Valsartan 160 Mg Tablet PO 320 mg DAILY NAWAF Administration Radiology Results: ITS Impressions Chest X-Ray 01/07/25 18:22 IMPRESSION: Prominent bronchovascular markings with bilateral interstitial thickening which may indicate cardiac decompensation with pulmonary edema versus pneumonitis. Head CT 01/07/25 19:52 IMPRESSION: No acute intracranial findings. Labs Labs: Laboratory Results - last 24 hr 01/07/25 01/08/25 18:16 04:45 WBC 6.7 7.7 RBC 4.15 L 4.21 Hgb 12.2 12.4 Hct 38.8 38.9 MCV 93.5 92.4 MCH 29.4 29.5 MCHC 31.4 L 31.9 L RDW 14.6 H 14.7 H Plt Count 188 183 MPV 10.3 10.3 Immature Gran % (Auto) 0.3 0.4 Neut % (Auto) 74.4 H 78.4 H Lymph % (Auto) 14.3 L 11.2 L [place] % (Auto) 5.8 5.6 Eos % (Auto) 4.6 H 3.6 Baso % (Auto) 0.6 0.8 Lymph # (Auto) 0.96 0.86 L [place] # (Auto) 0.4 0.4 Eos # (Auto) 0.3 0.3 Baso # (Auto) 0.0 0.1 Abs Immat Gran (auto) 0.02 0.03 Absolute Neuts (auto) 5.0 6.0 Absolute Nucleated RBC 0.000 0.000 Nucleated RBC % 0.0 0.0 PT 13.4 INR 1.0 APTT 27.5 Sodium 144 140 Potassium 3.7 3.3 L Chloride 104 104 Carbon Dioxide 33 H 30 Anion Gap 7 6 BUN 16 12 Creatinine 0.70 0.53 L Estim Creat Clear Calc 59 78 Estimated GFR > 60 > 60 Glucose 105 121 H Calcium 9.2 9.2 Magnesium 2.1 Total Bilirubin 0.8 0.9 AST 32 27 ALT 38 H 35 Alkaline Phosphatase 84 83 NT-Pro-B Natriuret Pep 855 H Total Protein 7.0 6.8 Albumin 4.3 4.2 Quality VTE Prophylaxis VTE prophylaxis: pharmacologic ordered
--- NOTE | 2025-01-08 19:35 | PC.NURSE ---
Discussed with Brenda Lentz NP the need for continued BP checks every 2 hours. Continue at this time.
[2025-01-08] MEDS: TERAZOSIN HCL 5 MG CAPSULE 10 MG PO (21:15)
[2025-01-08] MEDS: ASPIRIN 81 MG ENTERIC TABLET PO (21:20)
[2025-01-09] VITALS (9 sets, daily range): BP systolic 135–165; BP diastolic 53–65; PULSE 56–70; RESP 20; TEMP 36.5–36.6; O2SAT 91–96
[2025-01-09 04:21] LABS: Basophils Percent Auto 0.6 % (0.2-1.2); Eosinophils Absolute Auto 0.2 K/mm3 (0-0.3); Eosinophils Percent Auto 3.5 % (0-4.4); Hemoglobin 11.9 g/dL (12.0-15.0); Immature Granulocyte Absolute 0.03 K/mm3 (0.00-0.031); Immature Granulocyte Percent A 0.5 % (0-0.5); Lymphocytes Percent Auto 16.1 % (18.3-44.2); Mean Corpuscular HGB Conc 31.3 g/dl (32-36); Mean Corpuscular Hemoglobin 29.4 pg (26-34); Mean Corpuscular Volume 93.8 fl (80-100); Mean Platelet Volume 10.3 fl (7.4-10.4); Monocytes Absolute Auto 0.4 K/mm3 (0.1-0.6); Monocytes Percent Auto 6.8 % (2.6-8.5); Neutrophils Absolute Auto 4.5 K/mm3 (1.3-6.7); Neutrophils Percent Auto 72.5 % (45.5-73.1); Platelet Count Result 185 k/mm3 (150-375); Red Blood Count 4.05 M/mm3 (4.2-5.4); Red Cell Distribution Width 15.1 % (11.5-14.5); White Blood Count 6.2 K/mm3 (4.5-10.0)
[2025-01-09 04:45] LABS: Alanine Aminotransferase 35 U/L (6-35); Albumin Level 4.1 g/dL (3.5-5.1); Alkaline Phosphatase 73 U/L (38-126); Anion Gap 6 mmol/L (4-12); Aspartate Amino Transferase 26 U/L (14-36); Blood Urea Nitrogen 15 mg/dL (7-17); Calcium 9.2 mg/dL (8.4-10.2); Carbon Dioxide 31 mmol/L (22-30); Chloride 103 mmol/L (98-107); Estimated CRCL calculation 61 ml/min; Estimated Glomerular Filt Rate > 60; Glucose 108 mg/dL (65-110); Magnesium 2.1 mg/dL (1.6-2.3); Potassium 3.3 mmol/L (3.4-5.0); Sodium 140 mmol/L (137-145); Total Protein 6.5 g/dL (6.3-8.2)
[2025-01-09] MEDS: LABETALOL HCL 100 MG TABLET 400 MG PO (05:10)
[2025-01-09] MEDS: UMECLIDINIUM/VILANTEROL 62.5-25 MCG ELLIPTA 1 PUFF INHALATION (08:12)
[2025-01-09] MEDS: oxyBUTYnin CHLORIDE XL 5 MG TAB.ER.24 10 MG PO (08:39)
[2025-01-09] MEDS: ENOXAPARIN 40 MG/0.4 ML SYRINGE SUB-Q (08:39)
[2025-01-09] MEDS: ROSUVASTATIN 10 MG TABLET PO (08:39)
[2025-01-09] MEDS: hydroCHLOROthiazide 25 MG TABLET PO (08:39)
[2025-01-09] MEDS: VALSARTAN 160 MG TABLET 320 MG PO (08:39)
[2025-01-09] MEDS: POTASSIUM CHLORIDE 20 MEQ ER TABLET PO (08:39)
[2025-01-09] MEDS: NIFEdipine 30 MG TAB.ER.24 PO (08:39)
[2025-01-09] MEDS: PANTOPRAZOLE 40 MG TABLET PO (08:40)
[2025-01-09] MEDS: POTASSIUM CHLORIDE 20 MEQ PACKET (FOR LIQUID) 40 MEQ PO (10:37)
--- NOTE | 2025-01-09 12:35 | P.DS_ITS ---
DS: Admitting Diagnosis Discharge Date 01/09/25 Admitting Diagnosis Shortness of breath, elevated blood pressure DS: Discharge Diagnosis Discharge Diagnosis (1) Hypertensive urgency: Code(s): I16.0 - Hypertensive urgency Status: Acute Assessment and Plan: -Severely elevated BP not well controlled at home, patient sees Dr. Jamil with Nephrology for BP control assistance -Normal renal function noted now, previous renal assessment stable -Headache and shortness of breath noted, BNP elevated, pulmonary vascular congestion/pulmonary edema noted -BP did not respond to clonidine at home today -Initially mild improvement with IV hydralazine 10 mg and labetolol 10 mg but promptly rebounded higher -Second dose of IV hydralazine with improvement and total reduction right at 25% of SBP max measured -Admit OBS status to IMU for frequent Vital signs and IV push medications PRN -If not able to be controlled well, will place nicardipine drip (2) CHF (congestive heart failure): Qualifiers: Heart failure chronicity: acute on chronic Heart failure type: diastolic Qualified Code(s): I50.33 - Acute on chronic diastolic (congestive) h eart failure Code(s): I50.9 - Heart failure, unspecified Status: Acute Assessment and Plan: -Hx HFPEF, CXR shows decompensation of cardiac function with likely pulmonary edema vs pneumonitis -Ordered Echocardiogram -BNP 855 (3) COPD (chronic obstructive pulmonary disease): Qualifiers: COPD type: unspecified COPD Qualified Code(s): J44.9 - Chronic obstructive pulmonary disease, unspecified Code(s): J44.9 - Chronic obstructive pulmonary disease, unspecified Status: Chronic Assessment and Plan: -Former smoker with COPD history noted -Dyspnea present, maintain oxygen sats >90% (4) HLD (hyperlipidemia): Qualifiers: Hyperlipidemia type: unspecified Qualified Code(s): E78.5 - Hyperlipidemia, unspecified Code(s): E78.5 - Hyperlipidemia, unspecified Status: Chronic Assessment and Plan: -Chronic, continue home medications Plan 74 female presented to the ER with c/o shortness of breath, elevated blood pressure and ALEXANDER, patient with difficulty with controlling her blood pressure has been taking Valsartan-HCTZ 320/25, labetalol 200mg TID, nifedipine 30 mg extended tab, furesemide 20mg every other day, and clonidine 0.1mg BIR PRN for if systolic BP is 160, her BP remains elevated with this regiment, will increase Nifedipine to 30mg BID and monitor. cardiac echo is ordered and pending, will follow up and further recommendations to follow. DS: Summary Hospital Course Hospital Course: 74 female presented to the ER with c/o shortness of breath, elevated blood pressure and ALEXANDER, patient with difficulty with controlling her blood pressure has been taking Valsartan-HCTZ 320/25, labetalol 200mg TID, nifedipine 30 mg extended tab, furosemide 20mg every other day, and clonidine 0.1mg BIR PRN for if systolic BP is 160, her BP remains elevated with this regiment, increased Nif edipine to 30mg BID and monitor. cardiac echo is ordered and pending, will follow up and further recommendations to follow. patient BP is close to target and her cardiac echo showed LV function of 75% and garde I diastolic dysfunction, patient is clinically stable, will discharge today. Time Spent with Patient Time attestation: Total time spent providing and/or coordinating discharge services: Exam Narrative: Patient is comfortable, NAD HEENT: eyes are clear and none icteric LUNGS:CTA HEART: RR S1S2 ABD: BS+, Soft and nontender Lower extremities: no edema SKIN: nonjaundiced Neuro: grossly intact. DS: Data Data Completed and Pending Labs on day of discharge: Labs from last 24 hours 01/09/25 04:03 WBC 6.2 RBC 4.05 L Hgb 11.9 L Hct 38.0 MCV 93.8 MCH 29.4 MCHC 31.3 L RDW 15.1 H Plt Count 185 MPV 10.3 Immature Gran % (Auto) 0.5 Neut % (Auto) 72.5 Lymph % (Auto) 16.1 L [place] % (Auto) 6.8 Eos % (Auto) 3.5 Baso % (Auto) 0.6 Lymph # (Auto) 1.00 [place] # (Auto) 0.4 Eos # (Auto) 0.2 Baso # (Auto) 0.0 Abs Immat Gran (auto) 0.03 Absolute Neuts (auto) 4.5 Absolute Nucleated RBC 0.000 Nucleated RBC % 0.0 Sodium 140 Potassium 3.3 L Chloride 103 Carbon Dioxide 31 H Anion Gap 6 BUN 15 Creatinine 0.69 L Estim Creat Clear Calc 61 Estimated GFR > 60 Glucose 108 Calcium 9.2 Magnesium 2.1 Total Bilirubin 1.0 AST 26 ALT 35 Alkaline Phosphatase 73 Total Protein 6.5 Albumin 4.1 Discharge Plan Discharge Attending physician on discharge: Kavon Danielle Consulting providers: Mohsen Rivera; Watson Polk; Jarvis Carrizales; Theo Nogueira; Santiago Ragland Discharging Clinician: Kavon Danielle Patient Disposition: Home Activity: as tolerated Diet: heart healthy Discharge Instructions: patient to follow up with her primary care provider as soon as possible, patient is instructed if symptoms worsen to go to nearest ER. Patient Instructions: Nifedipine (By mouth), Hypertensive Crisis (DC), Hypertension (DC) Patient Language: Arabic Stand Alone Forms: General Discharge Information Follow-up/Referrals: Nile Peters APRN [Primary Care Provider] - Discharge Medications: Continued aspirin 81 mg Tablet 81 mg PO HS clonidine HCl 0.1 mg tablet 0.1 mg PO BID PRN (Reason: if systolic BP > 160) Qty: 60 1RF albuterol sulfate 90 mcg/actuation HFA aerosol inhaler 1 - 2 inh inhalation Q4-6H PRN (Reason: shortness of breath or wheezing) Qty: 8.5 2RF oxybutynin chloride 10 mg tablet extended release 24hr 10 mg PO DAILY labetalol 200 mg tablet See Rx Instructions .ROUTE .COMPLEX Qty: 540 3RF Dose Instruction: TAKE 2 TABLETS BY MOUTH 3 TIMES A DAY Rx Instructions: TAKE 2 TABLETS BY MOUTH 3 TIMES A DAY Anoro Ellipta 62.5-25 mcg/actuation blister with device 1 inh inhalation DAILY Qty: 60 5RF rosuvastatin 10 mg tablet See Rx Instructions .ROUTE .COMPLEX Qty: 90 1RF Dose Instruction: 10 MG ORALLY DAILY TAKE 1 TABLET BY MOUTH EVERY DAY Rx Instructions: 10 MG ORALLY DAILY TAKE 1 TABLET BY MOUTH EVERY DAY furosemide 20 mg tablet See Rx Instructions .ROUTE .COMPLEX Qty: 45 2RF Dose Instruction: TAKE 1 TABLET BY MOUTH EVERY OTHER DAY Rx Instructions: TAKE 1 TABLET BY MOUTH EVERY OTHER DAY triamcinolone acetonide 0.1 % cream 1 applic topical TID Qty: 30 0RF terazosin 10 mg capsule See Rx Instructions .ROUTE .COMPLEX Qty: 90 1RF Dose Instruction: TAKE 1 CAPSULE BY MOUTH EVERY NIGHT AT BEDTIME Rx Instructions: TAKE 1 CAPSULE BY MOUTH EVERY NIGHT AT BEDTIME valsartan-hydrochlorothiazide 320-25 mg tablet See Rx Instructions .ROUTE .COMPLEX Qty: 90 1RF Dose Instruction: TAKE 1 TABLET BY MOUTH EVERY DAY Rx Instructions: TAKE 1 TABLET BY MOUTH EVERY DAY Discontinued nifedipine 30 mg tablet extended release See Rx Instructions .ROUTE .COMPLEX Qty: 90 4RF Dose Instruction: TAKE 1 TABLET BY MOUTH EVERY DAY Rx Instructions: TAKE 1 TABLET BY MOUTH EVERY DAY No Action hydralazine 100 mg tablet 100 mg PO BID PRN (Reason: if systolic BP > 160) Qty: 60 3RF nifedipine [Procardia XL] 30 mg tablet extended release 24hr 30 mg PO Q12HR Qty: 180 1RF esomeprazole magnesium 40 mg capsule,delayed release(DR/EC) 40 mg PO DAILY Qty: 30 4RF potassium chloride 20 mEq tablet extended release See Rx Instructions .ROUTE .COMPLEX Qty: 90 1RF Dose Instruction: TAKE 1 TABLET BY MOUTH EVERY DAY Rx Instructions: TAKE 1 TABLET BY MOUTH EVERY DAY Date of admission: 01/08/25 07:40 Primary Care Provider: Nile Peters Admitting Provider: Kavon Danielle Attending physician on admission: Kavon Danielle Condition: Stable
== END 2025-01-09 13:26 | disposition home or self-care (01) | DRG 304 ==
LOC: ANHED 21:05 → ANHIMU 21:35
PROVIDERS: Nurse Practitioner; Admitting Provider Family Medicine; Emergency Provider Physician Assistant; PCP Nurse Practitioner; Visit Provider Family Medicine
DX: I16.0 Hypertensive urgency (principal); I50.33 Acute on chronic diastolic (congestive) heart failure; I11.0 Hypertensive heart disease with heart failure; J44.9 Chronic obstructive pulmonary disease, unspecified; E78.5 Hyperlipidemia, unspecified; K21.9 Gastro-esophageal reflux disease without esophagitis; D64.9 Anemia, unspecified; K57.90 Diverticulosis of intestine, part unspecified, without perforation or abscess without bleeding; Z90.49 Acquired absence of other specified parts of digestive tract; Z90.710 Acquired absence of both cervix and uterus; Z87.891 Personal history of nicotine dependence
CPT/HCPCS: 36415; 70450; 71045; 80053; 83735; 83880; 85025; 85610; 85730; 93005; 93306; 94640; 96374; 96375; 96376; 99285; A9270; G0378; J0360; J1650

== ENCOUNTER 2025-06-16 13:07 | Outpatient (CLI) | payer MEDICARE, SELFPAY ==
--- NOTE | ~2025-06-16 | CT_ITS ---
EXAMINATION: CT lung screening DATE: 06/16/2025 13:22 INDICATION: Z87.891 - Personal history of nicotine dependence TECHNIQUE: Computed tomography (CT) of the chest was performed without intravenous contrast. Additional 3D reconstructions utilizing coronal maximum intensity projection (MIP) were performed. Automated exposure control and iterative reconstruction technique were employed. The dose-length product was 11 0.31 mGy-cm. COMPARISON: None FINDINGS: A few very small calcified nodules at the left apex and in the right lower lobe consistent with old granulomatous disease. There are a few additional scattered bilateral small noncalcified pulmonary nodules, largest which are unchanged measure no new or enlarging pulmonary nodules identified. 6 mm and 4 mm in the left lower lobe. Mild atelectasis/pleural parenchymal scarring at the right costophrenic angle. No pneumonia, pulmonary edema or pleural effusion. Heart size is normal. Atherosclerotic coronary artery calcium location is and aortic valve calcific location. No pericardial effusion. Thoracic aorta is normal in caliber. No pathologically enlarged thoracic lymphadenopathy. Likely benign 1.7 cm right thyroid nodule without significant change since 04/04/2021. Small sliding-type hiatal hernia. Cholecystectomy clips at the gallbladder fossa. Partially visualized at least 6.5 cm left renal cyst. Mild thoracic levocurvature with mild to moderate spondylosis. IMPRESSION: 1. Lung-RADS category 2: Benign appearance or behavior. Continue annual screening with noncontrast low-dose chest CT in 12 months. Reviewed, dictated and finalized at location A. EE BREAK ATTENDANT IMPRESSION: 1. Lung-RADS category 2: Benign appearance or behavior. Continue annual screeni ng with noncontrast low-dose chest CT in 12 months.
--- OUTSIDE RECORDS SUMMARY | 2025-06-16 14:13 | XMS_ITS | Clinical Summary ---
Author Organization [facility] Address [address] [place] [address] Care Team Providers Care Web Page Designer Name Role Phone PamelaParvez tsemark Dutton DO Primary Care Provider [phone] Source Comments [facility] [employer],non-owned Affiliates and Associated Physician Practices is amultiple site organization consisting of ambulatory clinics and hospital sitesin [place], [place], [place] and [place]. This disclosure is being madepursuant to the Care Everywhere program and may not contain all information available regarding this patient. 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
--- OUTSIDE RECORDS SUMMARY | 2025-06-16 14:13 | XMS_ITS | Encounter Summary ---
Author Organization [facility] Address [address] [facility] [place] [place] [address] Care Team Providers Care Winder Contort Operator Name Role Phone Braden Braga DO Primary Care Provider [phone] Encounter Details Date Type Department Care Team (Late st Contact Info) Description 08/31/2020 Lab Requisition [facility] DermPath Lab [address] [facility] [facility] [place] [id number] Cristal Deleon MD [address] [facility] [address] [place] [address] Social History Tobacco Use Types Packs/Day Years Used Date Smoking Tobacco: Never Assessed Comments Unknown Sex and Gender Information Value Date Recorded Sex Assigned at Not on file Legal Sex Female 7:42 PM KIDNEY PULLER Gender Identity Not on file Sexual Orientation Not on file documented as of this encounter Plan of Treatment Not on file documented as of this encounter Procedures Procedure Name Priority Date/Time Associated Diagnosis Comments DERMATOPATHOLOGY Routine 08/30/2020 12:0 0 AM KIDNEY PULLER documented in this encounter Results * DERMATOPATHOLOGY (08/30/2020 12:00 AM KIDNEY PULLER) Case Report Dermatopathology Report Case: [id number] Authorizing Provider: Cristal Deleon MD Collected: 08/30/2020 12:00 AM Ordering Location: [facility] Derm[facility] Lab Received: 08/31/2020 08:14 AM Pathologist: Antonella Valerio MD Specimens: A) - Skin, left cheek B) - Skin, left arm 4:08 PM [facility] DERMATOPATHOLOGY LABORATORY Final Diagnosis Specimen A. 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 SKIN, left arm: RUPTURED EPIDERMOID CYST (L72.0) 4:08 PM [facility] DERMATOPATHOLOGY LABORATORY at [address] [facility] Clinical History A: [place] papule; R/O BCC. B: Irritated nevus; R/O BCC. 4:08 PM [facility] DERMATOPATHOLOGY LABORAT[facility] Gross Description Specimen A: Received is one formalin filled container labeled with the patient's name and designated left cheek. The specimen consists of a shave biopsy measuring 9b0x2ew. Jar 0. Specimen B: Received is one formalin filled container labeled with the patient's name and designated left arm. The specimen consists of a shave biopsy measuring 6x6x2 mm. Jar 0. 4:08 PM [facility] DERMATOPATHOLOGY LABORATORY Microscopic Description Specimen A. SKIN, left cheek: There are prominent sebaceous gland lobules surrounding a dilated hair follicle. Additional deeper sections were obtained and reviewed. Specimen B. SKIN, left arm: Within the dermis, there is an infiltrate composed of lymphocytes and histiocytes, including multinucleated type giant cells. Some histiocytes contain flakes of material consistent with keratin. 4:08 PM [facility] DERMATOPATHOLOGY LABORATORY Disclaimer An external and internal positive and negative controls are appropriate for the histochemical, immunohistochemical and immunofluorescence stain(s) in this case (if any), except where stated explicitly. The performance characteristics of the stain(s) cited in this report were developed and its performance characteristic determined by the Dermatopathology Laboratory at [facility], directed by Dr. Beth Valerio. These tests need not be, and therefore are not, approved by the [place] Food and Drug Administration. The tests are used for clinical purposes. Billing Codes Specimen Charges Stain Charges 27121 33261 1 1 4:08 PM [facility] DERMATOPATHOLOGY [facility]ORATORY Embedded Images 4:08 PM [facility] DERMATOPATHOLOGY [facility]ORATORY Pathology/Cytology TISSUE SPECIMEN FROM SKIN / Unknown 08/30/2020 08/31/2020 8:14 AM KIDNEY P[facility]ER Miscellaneous samples (specimen) TISSUE SPECIMEN FROM SKIN / Unknown 08/30/2020 08/31/2020 8:14 AM KIDNEY PULLER us Cristal Deleon MD LAB - PATHOLOGY/CYTOLOGY ORD ERABLES Final Result DERMATOPATHOLOGY LABORATORY [facility] - Department of Dermatology [facility] Special[facility] Medicine [address] [place] [address], [address] [phone] documented in this encounter Visit Diagnoses Not on filedocumented in this encounter Care Teams Winder Contort Operator Relationship Specialty Start Date End Date Braden Braga DO [address] [facility] [address] [facility] [address] [place] [address] PCP - General 03/21/10 documented as of this encounter
--- OUTSIDE RECORDS SUMMARY | 2025-06-16 14:13 | XMS_ITS | Clinical Summary ---
Author Organization [facility] Care Team Providers Care Rotary Machine Operator Name Role Phone Unavailable Primary Care [...]
--- OUTSIDE RECORDS SUMMARY | 2025-06-16 14:13 | XMS_ITS | Clinical Summary ---
Author Organization [facility] Address [address] [facility] [place] [address] Care Team Providers Care Sizer Hand Name Role Phone Jenny Sears MD Unavailable [phone] Babatunde Michael DO Primary Care Provider [phone] Allergies Active Allergy Reactions Criticality Noted Date [...] Encounters Date Type Department Care Team Description 06/10/2025 10:15 AM POULTRY VETERINARIAN Office Visit [facility] Cardiology at [address] [place] [address] Josh Rojas MD Chronic diastolic heart failure (HCC) (Primary Dx); Hyperlipidemia LDL goal <100; Nonrheumatic mitral valve regurgitation; Resistant hypertension from Last 3 Months Surgical [...] on file Legal Sex Female 2:33 AM POULTRY VETERINARIAN Gender Identity Female 03/23/2020 2:20 PM CDT Sexual Orientation Straight 03/23/2020 2: 20 PM CDT Obstetrics History Para Term AB IAB SAB Ectopic Multiple Livin g Live Births 1 1 1 Date Outcome GA Total Labor Labor/2nd/3rd Weight Sex Type Anes PTL Nena A1 A5 Name Clin Term Last Filed Vital Signs Vital Sign Reading Time Taken Comments Blood Pressure 135/80 06/10/2025 11:02 AM POULTRY VETERINARIAN Pulse 52 06/10/2025 10:23 AM POULTRY VETERINARIAN Temperature 36.3 C (97.3 F) 10/20/2020 12:59 PM CDT Respiratory Rate 16 10/30/2022 9:20 AM CDT Oxygen Saturation 97% 06/10/2025 10:23 AM POULTRY VETERINARIAN Inhaled Oxygen Concentration - - Weight 79.8 kg (176 lb) 06/10/2025 10:23 AM POULTRY VETERINARIAN Height 162.6 cm (5' 4) 06/10/2025 10:23 AM POULTRY VETERINARIAN Body Mass Index 30.21 06/10/2025 10:23 AM POULTRY VETERINARIAN Plan of Treatment Health Maintenance Due Date Last Done Comments Depression Screening 1950 Fall Risk Assessment 1950 Hepatitis C Screening 1950 Osteoporosis Screening-Bone Density Scan 1950 DTaP/Tdap/Td Vaccine (1 - Tdap) 1959 Hepatitis B Screening 1966 Well Visit 65+ 2013 Zoster Vaccine (2 of 3) 03/14/2017 01/17/2017 Covid-19 Vaccine (5 - 2024-2 6 season) 2025 05/07/2021, 11/23/2020, 10/21/2020, Additional history exists Influenza Vaccine (#1) 2025 , 04/16/2023, 05/12/2021, Additional history exists Pneumococcal vaccine 65+ Completed 06/04/2019, 08/05 Breast Cancer Screening-Mammogram Discontinued 08/17/2024, 06/13/2023, 02/28/2022, Additional history exists Procedures Procedure Name Priority Date/Time Associated Diagnosis Comments SCREENING MAMMOGRAM BILATERAL W ADRIENNE Schedule Routine, Read Routine (OP Routine) 08/17/2024 7:48 AM POULTRY VETERINARIAN Screening mammogram, encounter for from Last 3 Months or Most Recently Relevant to Health Maintenance Results * Screening Mammogram Bilateral W Adrienne (08/17/2024 7:48 AM POULTRY VETERINARIAN) Anatomical Region Laterality Modality Breast Bilateral Mammography Impressions 08/17/2024 8:42 AM POULTRY VETERINARIAN BI-RADS ATLAS category (overall): 1 - Negative There is no mammographic evidence of malignancy. A 1 year screening mammogram is recommended. The patient has been or will be contacted. We recommend annual screening mammography for women at average risk of breast cancer beginning at age 40, based on guidelines of the [employer] (ACR Practice Parameter for the Performance of Screening and Diagnostic Mammography) and [employer]. For women with and elevated risk of breast cancer, please refer to the ACR Practice Parameter for specific screening recommendations. The patient will be entered into a reminder system with a target due date of 1 year for her next screening exam. Narrative 08/17/2024 8:42 AM POULTRY VETERINARIAN Screening Mammogram Bilateral W Adrienne: 08/17/24 The study was acquired using full [...] cancer. COMPARISONS: 06/13/2023 Screening Mammogram Bilateral W Adrienne 02/28/2022 Screening Mammogram Bilateral W Adrienne 12/23/2020 Diagnostic Mammogram Bilateral W Adrienne 06/27/2020 Diagnostic Mammogram Right W Adrienne 11/03/2018 Screening Mammogram Bilateral W Adrienne BREAST TISSUE: The breasts are heterogeneously dense, [...] Relevant to Health Maintenance [facility] [employer] [place] [facility] UHC MEDICARE ADVANTAGE Care Teams Sizer Hand Relationship Specialty Start Date End Date Babatunde Michael DO [address] [address] PCP - General Internal Medicine 05/05/24 Jenny Sears MD [address] [address] Referring Physician Family Medicine 02/28/22
--- OUTSIDE RECORDS SUMMARY | 2025-06-16 14:13 | XMS_ITS | Data Portability ---
Author Organization [facility] [place] Address [address] [place] [address] Care Team Providers Care Learning And Development Director Name Role Phone IRMA DARIEN Primary Care Provider [phone] Assessment Encounter Date Assessment Date Assessment LastModified by Organization Details LastModified Time 06/15/2020 06/15/2020 healthy female exam/menopause patient declines std testing pap none further mammogram due next month- done at [facility] colonoscopy scheduled next month dexa ordered and encouraged Encouraged weight bearing exercise and 1500mg daily of Calcium with Vitamin D FU 1 year or prn [email or web address] Not available 06/15/2020 14:10:04 07/19/2021 07/19/2021 Annual gynecological exam performed. Patient will come back in a year unless there are new symptoms. healthy female exam/menopause patient declines std testing pap none further mammogram due May at [facility] colonoscopy- 08/2025 dexa due 08/2025 Encouraged weight bearing exercise and 1500mg daily of Calcium with Vitamin D lotrisone FU 1 year or prn Not available 07/19/2021 14:01:08 Plan of Treatment Reminders Order Date Submit Date Provider Last Modified By Organization Details Last Modified Time Details Appointments None recorded. Lab None recorded. Referral None recorded. Procedures None recorded. Surgeries None recorded. Imaging None recorded. Medication Orders clotrimaz ole-betam ethasone 1 %-0.05 % topical cream [address] [id number], [address] [place], [address], 12:43:50 Patient TargetsNo targets recorded. Patient InstructionsNo instructions recorded. Reason for Referral None Reported. Results Created Date Observation Date Name Description Value Unit Range Abnormal Flag Note LastModifiedBy Organization Detail LastModifiedTime 06/27/2006/27/2020 MAMMO , diagn ostic , digit al, bilat eral No observ ation record ed. [address] [place], [address], 06/29/2020 11:42:08 06/27/2006/27/2020 mundo COFFEY No observ ation record ed. [address] [place], [address], 06/29/2020 11:42:08 09/01/19 DEXA No observ ation record ed. [facility] [address], [place], [address], 09/02/2020 14:10:37 12/24/19 21 12/23/2020 MAMMO , diagn ostic , digit al, bilat eral No observ ation record ed. ADRIAN Not Available 2020 10:23:39 12/24/19 21 12/23/2020 US, breas t No observ ation record ed. [facility] 2020 17:02:36 Result Notes None recorded. Problems Name Problem SNOMED Code Status Onset Date Resolution Date Notes Provider Name and Address Organization Details Recorded Time Screenin g for malignan t neoplasm of rectum Completed 201007/19/2021 Screenin g for malignan t neoplasm s of the rectum;P ractice ID: 0001 Alley Berger MD [address], [place], [address], [facility] 12:32:24 Adult health examinat ion Completed 201007/19/2021 Routine general medical examinat ion at a health care facility ;Practic e ID: 0001 Alley Berger MD [address], [place], [address], [facility] 1 12:31:57 Speciali zed medical examinat ion Completed 201005/07/2012 Gynecolo gical Examinat ion;Roger rded Elsewher e: No Locat ion: [facility] S ource: E[employer] Trestle [employer] Laborer damaso: N Practi ce ID: 0001 Kota lable Time: 08:30:00 AM Alley Berger MD [address], [place], [address], [facility] 12:32:33 Screenin g for malignan t neoplasm of cervix Completed 201005/07/2012 Screenin g for malignan t neoplasm s of the cervix;R ecorded Elsewher e: No Locat ion: [facility] S ource: EHR Trestle [employer] Laborer damaso: N Practi ce ID: 0001 Kota lable Time: 08:30:00 AM Alley Berger MD [address], [place], [address], [facility] 12:32:22 Leukocyt osis [id number] Completed 201107/19/2021 LEUKOCYT OSIS NOS;Prac cely ID: 0001 Alley Berger MD [address], [place], [address], [facility] 12:32:19 Speciali zed medical examinat ion Completed 201107/19/2021 Routine gynecolo gical examinat ion;Prac cely ID: 0001 Alley Berger MD [address], [place], [address], [facility] 12:32:33 Screenin g for malignan t neoplasm of cervix Completed 201107/19/2021 Pap Smear;Pr actice ID: 0001 Alley Berger MD [address], [place], [address], [facility] 12:32:21 Urinary tract infectio us disease [id number] Completed 201407/19/2021 Urinary Tract Infectio n;Record ed Elsewher e: No Locat ion: [facility] S ource: EHR Trestle [employer] Laborer damaso: N Practi ce ID: 0001 Kota lable Time: 08:30:00 AM Alley Berger MD [address], [place], [address], [facility] 12:32:35 Blood in urine [id number] Completed 201407/19/2021 Hematuri a;Record ed Elsewher e: No [facility] S ource: EHR Trestle [employer] Laborer damaso: N Practi ce ID: 0001 Kota lable Time: 08:30:00 AM Alley Berger MD [address], [place], [address], [facility] 12:31:59 Female genital organ symptoms 201766721 Completed 201407/19/2021 Vaginal pain;Rec orded Elsewher e: No Locat ion: [facility] S ource: EHR Trestle [employer] Laborer damaso: N Practi ce ID: 0001 Kota lable Time: 11:30:00 AM Alley Berger MD [address], [place], [address], [facility] 12:32:[address] Concept Completed 201407/19/2021 Well woman check w/ abnormal finding; Recorded Elsewher e: No [facility]at [facility] S ource: EHR Trestle [employer] Laborer damaso: N Practi ce ID: 0001 Kota lable Time: 01:00:00 PM Alley Berger MD [address], [place], [address], [facility] 12:32:28 Acute vulvitis 19956435 Completed 201507/19/2021 Vulvitis ;Recorde d Elsewher e: No Locat ion: [facility] S ource: EHR Trestle [employer] Laborer damaso: N Practi ce ID: 0001 Kota lable Time: 02:45:00 PM Alley Berger MD [address], [place], [address], [facility] 1 12:31:54 Disease Completed 201507/19/2021 Other specifie d conditio ns associat ed with female genital organs and menstrua l cycle;Re corded Elsewher e: No Locat ion: [facility] S ource: EHR Trestle [employer] Laborer damaso: N Practi ce ID: 0001 Kota lable Time: 03:00:00 PM Alley Berger MD [address], [place], [address], [facility] 1 12:32:10 Evaluati on finding Completed 201507/19/2021 Oth abn and inconclu sive findings on dx imaging of breast;R ecorded Elsewher e: No Locat ion: [facility] S ource: EHR Trestle [employer] Laborer damaso: N Practi ce ID: 0001 Kota lable Time: 03:55:59 PM Alley Berger MD [address], [place], [address], [facility] 1 12:32:05 Increase d frequenc y of urinatio n 609580647 Completed 201607/19/2021 Frequenc y of micturit ion;Prac cely ID: 0001 Alley Berger MD [address], [place], [address], [facility] 1 12:32:17 Blood leukocyt e number above referenc e range [id number] Completed 201707/19/2021 Elevated white blood cell count, unspecif ied;Roger rded Elsewher e: No Locat ion: [facility] S ource: EHR Trestle [employer] Laborer damaso: N Practi ce ID: 0001 Kota lable Time: 10:30:00 AM Alley Berger MD [address], [place], [address], [facility] 12:32:14 Micturit ion finding Completed 201707/19/2021 Urinary incontin ence;Rec orded Elsewher e: No Locat ion: [facility] S ource: EHR Trestle [employer] Laborer damaso: N Practi ce ID: 0001 Kota lable Time: 10:30:00 AM Alley Berger MD [address], [place], [address], [facility] 12:32:03 Acute vaginiti s 46681155 Completed 201707/19/2021 Acute vulvovag initis;R ecorded Elsewher e: No [facility]at [facility]: EHR Trestle Main[employer]ance Laborer damaso: N Florencioti ce ID: 0001 Kota lable Time: 03:45:00 PM Alley Berger MD [address], [place], [address], [facility] 12:31:[address] Concept Completed 201807/19/2021 Well woman check w/o abnormal finding; Recorded Elsewher e: No Locat ion: [facility] S ource: EHR Trestle [employer] Laborer damaso: N Practi ce ID: 0001 Kota lable Time: 10:30:[address] MD [address], [place], [address], [facility] 12:32:[address] Concept Completed 201807/19/2021 Encntr for general adult medical exam w/o abnormal findings ;Recorde d Elsewher e: No [facility]at [facility] S ource: EHR Trestle Mainternance Laborer damaso: N Practi ce ID: 0001 Kota lable Time: 10:30:00 AM Alley Berger MD [address], [place], [address], [facility] 1 12:32:26 History of hysterec jamie 256576288 Active 2019 TVH and BSO Alley Berger MD [address], [place], [address], [facility] 0 13:59:51 Body mass index 30+ - obesity 331949106 Active 2019 Alley Berger MD [address], [place], [address], [facility] 0 14:00:05 Chronic obstruct zulema pulmonar y disease 82888322 Active 2019 Alley Berger MD [address], [place], [address], [facility] 0 14:00:19 Former heavy tobacco smoker 2349252863 21444 Active 2019 Alley Berger MD [address], [place], [address], [facility] 0 14:00:43 [facility] l hyperten jennifer 54352532 Active 2020 Alley Berger MD [address], [place], [address], [facility] 1 12:32:43 Problem Notes None recorded. Procedures Surgical History Date Name Laterality Status Provider Name and Address Organization Details Recorded Time 021 Most Recent Bone Density completed Rosita De León [facility] 07/19/2021 09:15:41 020 completed Alley Berger MD [address], [place], [address], [facility] 06/15/2020 14:01:45 020 Date of Last Mammogram completed Alley Berger MD [address], [place], [address], [facility] 06/15/2020 14:01:25 019 Date of Last Pap Smear completed Alley Berger MD [address], [place], [address], [facility] 06/15/2020 14:00:58 008 procedure on back completed Rosita De León [facility] 06/14/2020 16:02:53 004 colonoscopy completed Rosita De León [facility] 06/14/2020 16:02:31 973 Cholecystectomy completed Rosita De León [facility] 06/14/2020 16:02:03 Vaginal hysterectomy completed Alley Berger MD [address], [place], [address], [facility] 06/15/2020 14:02:48 Other completed Alley Berger MD [address], [place], [address], [facility] 06/15/2020 14:04:04 Imaging Results None recorded. Procedure Notes None recorded. Medical Equipment None Reported. Allergies Allergen ID Allergen Name Allergen Category Reaction Reaction Severity Criticality Documentation Date Start Date Code Code System Note Provider Name and Address Organization Details Recorded Time 56594 ciproflox acin medicatio n nausea Not available Not available 07/22/2020 2551 RxNorm React ion: Nause a; Comme nt: [facility]at [facility] C[facility] sativ e Agent : Cipro ; Not Available [employer] 0 14:17:53 2668 adhesive tape environme nt,medica tion Not available Not available Not available 06/14/2020 Rosita amras [facility] 0 16:00:53 2669 Cipro medicatio n Not available Not available Not available 06/14/202086706 3 RxNorm Rosita armas, [facility] 0 16:01:01 2670 codeine medicatio n Not available Not available Not available 06/14/2020 2670 RxNorm Rosita armas, [facility] 0 16:01:07 2671 sulfameth oxazole medicatio n Not available Not available Not available 06/14/2020 40361 RxNorm Rosita armas, [facility] 0 16:01:19 2672 trimethop rim medicatio n Not available Not available Not available 06/14/2020 73156 RxNorm Rosita armas, [facility] 0 16:01:25 Medications Name Sig Start Date Stop Date Status Note LastModified by Organization Details LastModified Time digoxin 50 mcg/mL (0.05 mg/mL) oral solution take 5 millilit er by ORAL route every day 05/01 completed Prescrib ed Elsewher e: Yes Loca [facility] odify By: bart smith DateTime : [...] Elsewher e: Yes Loca tion: [facility] odify By: mary smith DateTime : [...] Prescrib ed Elsewher e: No Locat ion: [facility] odify By: mary smith DateTime : 11/08/19 19 10:00:00 AM Not [...] Prescrib ed Elsewher e: No Locat ion: [facility] odify By: amkfarida smith DateTime : 10/03/19 16 12:55:23 PM Not [...] Prescrib ed Elsewher e: Yes Loca tion: [facility] odify By: karla gupta DateTime : 05/07/20 12 08:30:00 AM Not Available Not Available Not Available amoxicill in 500 mg tablet take 1 tablet by oral route 3 times every day 12/03 completed Prescrib ed Elsewher e: No Locat ion: [facility] odify By: mary smith DateTime : 11/26/19 18 11:34:31 AM Not Available Not Available Not Available betametha sone valerate 0.1 % topical cream apply by topical route every day a thin layer to the affected area(s) 12/03 completed Prescrib ed Elsewher e: No Locat ion: [facility] odify By: mary castillountlaury DateTime : 08/19/19 16 02:45:00 PM Not Available Not Available Not Available diltiazem ER 120 mg capsule,2 4 hr,extend ed release take 1 capsule by oral route every day 07/19 completed Prescrib ed Elsewher e: Yes Loca tion: [facility] odify By: karla gupta DateTime : 05/07/20 12 08:30:00 AM Not Available Not Available Not Available Xanax 0.25 mg tablet take 1 tablet by oral route up to 3 times every day as needed 12/03 completed Prescrib ed Elsewher e: No Locat ion: [facility] odify By: mray smith DateTime : 06/25/20 16 12:33:44 PM Not Available Not Available Not Available erythromy joe 5 mg/gram (0.5 %) eye ointment 07/19 completed Not Available Not Available Not Available Cipro 500 mg tablet take 1 tablet (500MG) by oral route every 12 hours 05/11 completed Prescrib ed Elsewher e: No Locat ion: [facility] odify By: gmedical Encount er DateTime : 05/05/20 11 12:42:21 PM Not Available Not Available Not Available Neurontin 100 mg capsule take 1 Capsule (100MG) by oral route 3 times every day 10/29 completed Prescrib ed Elsewher e: No Locat ion: [facility] odify By: mary smith DateTime : 05/19/20 [...] e: Yes Loca tion: [facility] odify By: mary castillountlaury DateTime : 05/07/20 12 08:30:00 AM Not [...] [facility] odify By: jhkelly shahid DateTime : 08/22/19 16 04:48:06 PM Not Available Not Available Not Available cephalexi n 500 mg tablet take 1 tablet by oral route every 6 hours not to exceed 4 pills in 24 hours 12/03 completed Prescrib ed Elsewher e: No Locat ion: [facility] odify By: mary smith DateTime : [...] FOR SHORTNES S OF BREATH OR WHEEZING 07/19 completed Not Available Not Available Not Available diltiazem 30 mg tablet take 1 tablet by ORAL route 3 times every day 05/01 completed Prescrib ed Elsewher e: Yes Loca tion: [facility] odify By: bart smith DateTime : 03/10/20 11 08:16:51 AM Not Available Not Available Not Available Terazol 7 0.4 % vaginal cream insert 1 applicat orful by vaginal route every day for 7 days at bedtime 12/12 completed Prescrib ed Elsewher e: No Locat ion: [facility] odify By: bart May ncounter DateTime : 12/07/19 18 11:53:41 AM Not Available Not Available Not Available labetalol 5 mg/mL intraveno us solution inject by intraven ous route over ; may repeat every 10 min until desired supine blood pressure or a total of 300mg 07/19 completed Prescrib ed Elsewher e: Yes Loca tion: [facility] odify By: barney smith DateTime : 06/06/20 [...] e: No Locat ion: [facility] odify By: [email or web address] Encount er DateTime : 10/30/19 15 08:30:00 AM Not Available Not Available Not Available Diovan 40 mg tablet take 2 tablet by ORAL route every day 10/29 completed Prescrib ed Elsewher e: Yes Loca tion: [facility] odify By: amolga castillountlaury DateTime : 03/10/20 11 08:16:51 AM Not Available Not Available Not Available cyclobenz aprine 5 mg tablet TAKE 1 TABLET BY MOUTH THREE TIMES A DAY NEEDED 06/15 completed Not Available Not Available Not Available Premarin 0.625 mg/gram vaginal cream use once or twice weekly as needed for vaginal dryness 12/03 completed Prescrib ed Elsewher e: No Locat ion: [facility] odify By: mary castillounter DateTime : 11/10/19 16 04:17:46 PM Not Available Not Available Not Available rosuvasta tin 10 mg tablet TAKE 1 TABLET BY MOUTH EVERY DAY active Not Available Not Available No t Available Crestor 5 mg tablet take 2 tablet by ORAL route every day 07/19 completed Prescrib ed Elsewher e: Yes Loca tion: [facility] odify By: natasha shahid DateTime : 03/10/20 11 08:16:51 AM Not Available Not Available Not Available hydrocodo ne 10 mg-acetam inophen 300 mg tablet take 1 tablet by oral route every 6 hours as needed 12/10 completed Prescrib ed Elsewher e: Yes Loca tion: [facility] odify By: maggie Howard nter DateTime : 10/30/19 15 08:30:00 AM [...] Prescrib ed Elsewher e: Yes Loca tion: [facility] odify By: bart May ncounter DateTime : [...] Prescrib ed Elsewher e: Yes Loca tion: [facility] M odify By: [email or web address] May ncounter DateTime : 10/30/19 08:30:00 AM Not Available Not Available Not Available Suprep Bowel Prep Kit 17.5 gram-3.13 gram-1.6 gram oral solution USE DIRECTED 06/15 completed Not Available Not Available Not Available OptiChamb er Jackie C spacer 07/19 completed Not Available Not Available [...] completed Not Available Not Available Not Available Patriaztri Aerospher e 160 mcg-9mcg- 4.8mcg/ac tuation HFA aerosol inhaler 07/19 completed Not Available Not Available Not Available Vitals Date Recorded Body height Body mass index (BMI) Body weight Systolic And Diastolic Provider Name and Address Organization Details Last Updated DateTime 06/15/2020 157.48 cm 31.8 kg/m2 42488.07 g 107/67 mm[Hg] Rosita KOEHLER [facility] 06/15/2020 11:52:45 Date Recorded Body height Body mass index (BMI) Body weight Systolic And Diastolic Provider Name and Address Organization Details Last Updated DateTime 07/19/2021 157.48 cm 32.4 kg/m2 24936.85 g 108/68 mm[Hg] [facility] 07/19/2021 12:29:55 Social History None recorded. Functional Status None recorded. Mental Status None recorded. Family History Relationship Description Onset Age of this Age Resolved Age Notes LastModified by Organization Details LastModified Time Mother Asthma [email or web address] Not available 15:55:15 Mother Pneumonia [email or web address] Not availabl e 07/19/2021 12:18:29 Father Diabetes mellitus type 2 [email or web address] Not available 2019 15:55:37 Father Hypertensive disorder [email or web address] Not available 2019 15:56:01 Father Dissection of coronary artery [email or web address] Not available 2020 12:18:29 Father Congestive heart failure Not available 2020 12:18:29 Father Carcinoma in situ of skin Not available 12:18:29 Paternal Aunt Carcinoma in situ of breast [email or web address] Not available 2020 12:18:29 Notes:Father: Diabetes sui tus type 2, Congestive heart failure, Cancer, skin, Diabetes mellitus, Coronary artery disease, Hypertension Mother: Asthma, pneumonia Paternal aunt: Cancer, breast Medical History Condition Response Allergies (Food, seasonal, environmental ) N Other N Breast Cancer N Drug/Latex Allergies/Reactions N Blood Transfusion N Dermatologic Disorders N Lung Disease N Defects or Inherited Disease N Breast Problem N Gestational Diabetes N Hematologic disorders N Anesthesia Complications N History of STI N Deep Vein Thrombosis N Polycystic ovary syndrome N Anxiety Disorder N Autoimmune disease N Arthritis N Infertility N Polyps N Acid Reflux (GERD) N History of abnormal pap N Cancer N Stroke N Varicosities N Neurologic/Epilepsy N Endometriosis N High Cholesterol Y Headaches N Fibromyalgia N Kidney Disease N Heart Problems N [...] Diagnosis SNOMED-CT Code Diagnosis ICD10 Code Diagnosis IMO Codes Diagnosis Note [id number] Alley Berger MD [place] [address] [address] 06/15/2020 11:39:28 06/15/2020 14:10:44 Body mass index 30+ - obesity 574524787 Z68.31 History of hysterectomy 007990386 Z90.711 Gynecologi c examination 07264884 Z01.419 [id number] Alley Berger MD [place] [address] [address] 07/19/2021 12:18:03 07/19/2021 14:08:26 Body mass index 30+ - obesity 136260310 Z68.31 History of hysterectomy 984162320 Z90.711 Gynecologi c examination 13612200 Z01.419 Candidiasis of vulva 108 5006 B37.3 Health Concerns Section Related Observation LastModified by Organization Detai ls LastModified Time None Recorded Concern Status LastModified by Organization Details LastModified Time None Recorded Advance Directives Directive None Recorded Payers Insurance Date Sequence Insurance Name Policy Number Policy Canas Covered Member ID Canas Member ID Guarantor Name 07/16/2021 2 [place] Nadia Brown [id number] Nadia Brown 07/16/2021 1 [place] [id number] James Brown [id number] Nadia Brown Notes Date Note Type Note Provider Name and Address Organization Details Recorded Time 06/15/2020 text/html Patient is a 70yo who presents for an annual exam. TVH/BSO. Not using premarin anymore, no vulvar sx. last pap-12/2018 NILM mammo-12/2019- q 6 mos surveillance at [facility] colonoscopy-schedu led next month dexa-several/many years menopause-yes sexually active-yes seatbelts-yes exercise-yes, some depression-denies domestic violence-denies concerns-none Alley Berger MD [address], [place], [address], [facility] 06/15/2020 14:10:36 07/19/2021 text/html Patient is a 71yo who presents for an annual exam. TVH/BSO. last pap-12/2018 NILM mammo-12/2020 colonoscopy-02/2021 - 5 years polyps dexa-08/2020-nl menopause-y sexually active-no seatbelts-y exercise-y depression-denies domestic violence-denies tobacco-former concerns-took antibiotics for a tooth infection, now vulva feels irritated. no discharge. Alley Berger MD [address], [place], [address], [facility] 07/19/2021 14:01:38 OBGyn Episode Ob Episode Information Episode Created Date Number of Fetuses Patient Bloodtype Patient rh Status Prepregnancy Weight lbs Domestic Partner Domestic Partner Phone Father Name Principal Account Clerk Status 06/15/20 20 1 DELETED Xavier [...] Domestic Partner Domestic Partner Phone Father Name Principal Account Clerk Status 06/15/20 20 1 DELETED Xavier [...] Domestic Partner Domestic Partner Phone Father Name Principal Account Clerk Status 06/15/20 20 1 CLOSED Fetus Data First Name Last [...]
--- OUTSIDE RECORDS SUMMARY | 2025-06-16 14:13 | XMS_ITS | Encounter Summary ---
Author Organization [facility] Address [address] [place] [address] Care Team Providers Care Commercial Reporter Name Role Phone Braden Braga DO Primary Care Provider Encounter Details Date Type Department Care Team (Late st Contact Info) Description 10/19/2024 Lab Requisition [facility] - DermPath Lab [address] [place] [address] Cristal Deleon MD [address] [facility] 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 Gender Identity Not on file Sexual Orientation Not on file documented as of this encounter Plan of Treatment Not on file documented as of this encounter Procedures Procedure Name Priority Date/Time Associated Diagnosis Comments DERMATOPATHOLOGY Routine 10/19/2024 10:5 2 AM CDT documented in this encounter Results * DERMATOPATHOLOGY (10/19/2024 10:52 AM CDT) Case Report Dermatopathology Report Case: [id number] Authorizing Provider: Cristal Deleon MD Collected: 10/19/2024 10:52 AM Ordering Location: [facility] - Received: 10/20/2024 [...] specimen consists of a shave biopsy measuring 28x54y6 mm. Jar 0. 11:02 AM CDT DERMATOPATHOLOGY [...] characteristic determined by the Dermatopathology Laboratory at [facility], directed by Dr. Beth Valerio. These tests need not be, and therefore are not, approved by the [place] Food and Drug Administration. The tests are used for clinical purposes. Billing Codes Specimen Charges Stain Charges 72011 1 90246 40451 1 1 5 11:02 AM CDT DERMATOPATHOLOGY LABORATORY Embedded Images 11:02 AM CDT DERMATOPATHOLOGY LABORATORY Pathology/Cytolo gy TISSUE SPECIMEN FROM SKIN / Unknown 10/19/2024 10:52 AM CDT 10/20/2024 6:58 AM CDT us Cristal Deleon MD LAB - PATHOLOGY/CYTOLOGY ORD ERABLES Final Result DERMATOPATHOLOGY LABORATORY [facility] - Department of Dermatology [facility] [address] [phone] documented in this encounter Visit Diagnoses Not on filedocumented in this encounter Care Teams Commercial Reporter Relationship Specialty Start Date End Date Braden Braga DO [address] [place] [address] PCP - General 03/21/10 documented as of this encounter
--- OUTSIDE RECORDS SUMMARY | 2025-06-16 14:13 | XMS_ITS | Clinical Summary ---
Author Organization [facility] Address [address] [place] [id number] Phone Care Team Providers Care Groover And Striper Operator Name Role Phone Braden Braga DO Primary Care Provider [phone] Allergies Active Allergy Reactions Criticality Noted Date [...] Comments Blood Pressure 136/82 06/27/2022 10:02 AM VARNISH MIXER Pulse - - Temperature 35.2 C (95.4 F) 06/27/2022 10:02 AM VARNISH MIXER Respiratory Rate 18 06/27/2022 10:02 AM VARNISH MIXER Oxygen Saturation - - Inhaled Oxygen Concentration - - Weight 79.8 kg (176 lb) 06/27/2022 10:02 AM VARNISH MIXER Height 157.5 cm (5' 2) 06/27/2022 10:02 AM VARNISH MIXER Body Mass Index 32.19 06/27/2022 10:02 AM VARNISH MIXER Plan of Treatment Health Maintenance Due Date Last Done Comments Influenza Vaccine (#1) 2025 9, 08/22/2016, 06/15/2015, Additional history exists Pneumococcal PPSV23/PCV13 65 + Years / Low and Medium Risk Completed 06/04/2019, 08/22/2016 Insurance [employer] H[employer] Care Teams Groover And Striper Operator Relationship Specialty Start Date End Date Braden Braga DO [address] [id number] PCP - General Internal Medicine 02/10/19
== END 2025-06-16 13:08 | disposition home or self-care (01) ==
PROVIDERS: PCP Nurse Practitioner; Visit Provider Nurse Practitioner Family
DX: Z12.2 Encounter for screening for malignant neoplasm of respiratory organs (principal); Z87.891 Personal history of nicotine dependence
CPT/HCPCS: 71271